=== PATIENT | male | born 1965 | race African-American/Black ===

== ENCOUNTER 2020-07-17 08:24 | Outpatient (REF) | payer MEDICARE, MEDICAID, SELFPAY ==
[2020-07-17 10:58] LABS: Alanine Aminotransferase 30 U/L (0-40); Albumin Level 4.6 g/dL (3.5-5.0); Alkaline Phosphatase 96 U/L (39-117); Anion Gap 12 (12-20); Aspartate Amino Transferase 23 U/L (5-37); Bilirubin Total 0.3 mg/dL (0.0-1.0); Blood Urea Nitrogen 15 mg/dL (9-16); Calcium 9.7 mg/dL (8.4-10.2); Carbon Dioxide 29 mmol/L (22-29); Chloride 101 mmol/L (96-108); Estimated Glomerular Filt Rate > 60; Glucose Fasting 179 mg/dL (60-99); Potassium 4.4 mmol/l (3.3-5.1); Sodium 138 mmol/L (135-145); Total Protein 7.1 g/dL (6.5-8.0)
[2020-07-17 11:12] LABS: Cholesterol 90 mg/dL; HDL Cholesterol 30 mg/dL; LDL Cholesterol Calculated 48 mg/dl; Triglycerides 64 mg/dL
== END 2020-07-17 08:25 | disposition home or self-care (01) ==
LOC: HO.LAB 08:24
PROVIDERS: PCP Internal Medicine; Visit Provider Internal Medicine
DX: E11.42 Type 2 diabetes mellitus with diabetic polyneuropathy (principal); E78.00 Pure hypercholesterolemia, unspecified; E55.9 Vitamin D deficiency, unspecified
CPT/HCPCS: 80053; 80061; 82306

== ENCOUNTER → 2020-07-27 13:29 | Outpatient (BNVA) | payer MEDICARE, MEDICAID, SELFPAY | PROVIDERS: PCP Internal Medicine; Referring Provider Internal Medicine; Visit Provider Nurse Practitioner Gerontology | DX: E11.65 Type 2 diabetes mellitus with hyperglycemia (principal); E11.42 Type 2 diabetes mellitus with diabetic polyneuropathy; E78.5 Hyperlipidemia, unspecified; E55.9 Vitamin D deficiency, unspecified; Z79.84 Long term (current) use of oral hypoglycemic drugs; Z79.899 Other long term (current) drug therapy | CPT/HCPCS: 82947; 99212 ==

== ENCOUNTER → 2020-08-07 12:59 | Outpatient (BNVA) | payer MEDICARE, MEDICAID, SELFPAY | PROVIDERS: PCP Internal Medicine; Referring Provider Internal Medicine; Visit Provider Dietitian, Registered | DX: Z76.89 Persons encountering health services in other specified circumstances (principal) ==

== ENCOUNTER → 2020-09-07 10:29 | Outpatient (BNVA) | payer OTHER, SELFPAY | PROVIDERS: PCP Internal Medicine; Referring Provider Internal Medicine; Visit Provider Nurse Practitioner Gerontology | DX: E11.65 Type 2 diabetes mellitus with hyperglycemia (principal); E11.42 Type 2 diabetes mellitus with diabetic polyneuropathy; E78.5 Hyperlipidemia, unspecified; E55.9 Vitamin D deficiency, unspecified; Z79.899 Other long term (current) drug therapy; Z79.4 Long term (current) use of insulin | CPT/HCPCS: Q3014 ==

== ENCOUNTER → 2020-09-25 13:10 | Outpatient (BNVA) | payer MEDICARE, MEDICAID, SELFPAY | PROVIDERS: PCP Internal Medicine; Visit Provider Dietitian, Registered | DX: Z76.89 Persons encountering health services in other specified circumstances (principal) ==

== ENCOUNTER 2020-11-04 18:14 | Emergency (ER) | payer OTHER, SELFPAY ==
--- NOTE | ~2020-11-04 | XR_ITS ---
EXAMINATION: XR FEMUR, RIGHT CLINICAL INFORMATION: Puncture wound. Rule out bone involvement. COMPARISON: None TECHNIQUE: AP and lateral views of the right femur were obtained. FINDINGS / IMPRESSION No fractures or acute osseous abnormalities. Soft tissues unremarkable without radiopaque foreign body. No knee joint effusion. Mild medial tibiofemoral compartment joint space narrowing associated marginal osteophytes. Quadriceps and patellar tendon enthesopathy.
[2020-11-04 18:17] VITALS: BP 129/75; PULSE 80; RESP 18; TEMP 37.1; O2SAT 100; BMI 37.3
[2020-11-04 20:00] VITALS: BP 121/69; PULSE 84; RESP 18; TEMP 36.6; O2SAT 97
--- NOTE | 2020-11-04 20:19 | ED_ITS ---
HPI - Wound/Laceration General Chief Complaint: Wound/Laceration Stated Complaint: laceration Time Seen by Provider: 11/04/20 20:08 Source: patient Mode of arrival: ambulatory Limitations: no limitations History of Present Illness HPI narrative: Patient diabetic accidentally inflicted small puncture wound to right thigh with small screwdriver just prior to arrival, patient does not remember when he when he got last tetanus shot no other injuries Related Data Home Medications Medication Instructions Recorded Confirmed bupropion HCl 150 mg 24 hr tablet, 150 mg PO DAILY 07/24/20 09/07/20 extended release chlorpromazine 200 mg tablet mg PO 07/24/20 09/07/20 clonidine HCl 0.2 mg tablet 0.2 mg PO BEDTIME 07/24/20 09/07/20 doxepin 10 mg capsule 10 mg PO BEDTIME 07/24/20 09/07/20 gabapentin 600 mg tablet 600 mg PO TID 07/24/20 09/07/20 lidocaine HCl 4 % topical cream 1 applic TOPICAL BID 07/24/20 09/07/20 metformin 1,000 mg tablet 1,000 mg PO BID 07/24/20 09/07/20 oxcarbazepine 600 mg tablet 600 mg PO BID 07/24/20 09/07/20 ascorbic acid (vitamin C) 1,000 mg 1 g PO DAILY tab 07/27/20 09/07/20 tablet blood sugar diagnostic #10 ea 07/27/20 09/07/20 naproxen 500 mg tablet 500 mg PO Q12H PRN 07/27/20 09/07/20 trazodone 50 mg tablet 50 mg PO BEDTIME 09/07/20 09/07/20 Previous Rx's Medication Instructions Recorded semaglutide 1 mg/dose (2 mg/1.5 1 mg SUBCUT QWEEK 28 Days #3 ml 07/16/20 mL) subcutaneous pen injector atorvastatin 80 mg tablet 80 mg PO DAILY #30 tab 07/27/20 cholecalciferol (vitamin D3) 25 25 mcg PO DAILY #30 tab 09/07/20 mcg (1,000 unit) tablet flash glucose scanning reader #1 ea 09/07/20 flash glucose sensor 1 ea TOPICAL Q2W #2 ea 09/07/20 insulin aspart U-100 100 unit/mL See Rx Instructions SUBCUT TID #15 09/07/20 (3 mL) subcutaneous pen ml insulin glargine U-300 conc 300 34 unit SUBCUT DAILY 30 Days #6 ml 09/07/20 unit/mL (3 mL) subcutaneous pen thiamine mononitrate (vit B1) 100 100 mg PO DAILY #30 tab 10/07/20 mg tablet lisinopril 5 mg tablet 5 mg PO DAILY #90 tab 10/20/20 amoxicillin-pot clavulanate 1 tab PO BID #14 tab 11/04/20 [Augmentin] Allergies Allergy/AdvReac Type Severity Reaction Status Date / Time dulaglutide [Trulicity] Allergy Unknown cyst Verified 09/07/20 14:44 ondansetron [ONDANSETRON] Allergy Unknown stomach Verified 09/07/20 14:44 pain Review of Systems Review of Systems: Yes all other systems are reviewed and are negative [facility] Past Medical History Medical History Fibromyalgia GERD (gastroesophageal reflux disease) Hyperlipidemia LDL goal <100 IBS (irritable bowel syndrome) Kidney stones Right leg pain Serum calcium elevated Type 2 diabetes mellitus with diabetic polyneuropathy Type 2 diabetes mellitus with hyperglycemia Vitamin D deficiency Surgical History History of eye surgery Family History Family History Father Colon cancer Stroke Prostate cancer Mother Hypertension Diabetes Family/Other FH: mental illness Social History Social History Household Members: None Alcohol intake: never Smoking Status: Never smoker Use of substances other than those prescribed or required for medical reasons: No Advance Directives: No Physical Exam Vital Signs: Vital Signs: Last Vital Signs Temp 97.8 F 11/04/20 20:00 Pulse 84 11/04/20 20:00 Resp 18 11/04/20 20:00 BP 121/69 11/04/20 20:00 Pulse Ox 97 11/04/20 20:00 Body Mass Index 37.3 Const: General: cooperative, healthy appearing, comfortable and no acute dis tress Resp: Effort & Inspection: normal respiratory effort Cardio: Palpation: normal PMI Rate: regular rate Rhythm: regular rhythm Heart sounds: S1 normal heart sound present and S2 normal heart sound present Skin: Full body images: 1. Small puncture wound MDM - Wound/Laceration MDM Narrative Medical decision making narrative: Patient has small puncture wound to the right thigh diabetic will give him Augmentin for prophylaxis and tetanus shot Discharge Plan Discharge Clinical Impression: Punctured skin Patient Disposition: Home, Self-Care Instructions: Acute Wounds (ED) Additional Instructions: Local care as advised take antibiotic as prescribed Report to the ER if increased swelling/redness or pain Prescriptions: New amoxicillin-pot clavulanate [Augmentin] 875-125 mg tablet 1 tab PO BID Qty: 14 RF: 0 No Action Ozempic 1 mg/dose (2 mg/1.5 mL) pen injector 1 mg subcut QWEEK 28 Days Qty: 3 RF: 3 insulin aspart U-100 [Novolog Flexpen U-100 Insulin] 100 unit/mL (3 mL) insulin pen See Rx Instructions subcut TID Qty: 15 RF: 0 thiamine mononitrate (vit B1) [Vitamin B-1 (mononitrate)] 100 mg tablet 100 mg PO DAILY Qty: 30 RF: 11 lisinopril 5 mg tablet 5 mg PO DAILY Qty: 90 RF: 2 bupropion HCl 150 mg tablet extended release 24 hr 150 mg PO DAILY RF: 0 metformin 1,000 mg tablet 1,000 mg PO BID RF: 0 clonidine HCl 0.2 mg tablet 0.2 mg PO BEDTIME RF: 0 gabapentin 600 mg tablet 600 mg PO TID RF: 0 oxcarbazepine 600 mg tablet 600 mg PO BID RF: 0 doxepin 10 mg capsule 10 mg PO BEDTIME RF: 0 chlorpromazine 200 mg tablet PO RF: 0 lidocaine HCl [Aspercreme (lidocaine HCl)] 4 % cream 1 applic topical BID RF: 0 (DME) FreeStyle Precision [place] Strips Strip See Rx Instructions ea Not Applicable DAILY Qty: 10 RF: 0 naproxen 500 mg tablet 500 mg PO Q12H PRNRF: 0 ascorbic acid (vitamin C) 1,000 mg tablet 1 g PO DAILY RF: 0 atorvastatin 80 mg tablet 80 mg PO DAILY Qty: 30 RF: 6 trazodone 50 mg tablet 50 mg PO BEDTIME RF: 0 Toujeo Max U-300 SoloStar 300 unit/mL (3 mL) insulin pen 34 unit subcut DAILY 30 Days Qty: 6 RF: 1 (DME) FreeStyle Kevin 14 Day [place] Misc See Rx Instructions .ROUTE .MEDSUPPLY Qty: 1 RF: 0 FreeStyle Kevin 14 Day Sensor Kit 1 ea topical Q2W Qty: 2 RF: 11 cholecalciferol (vitamin D3) 25 mcg (1,000 unit) tablet 25 mcg PO DAILY Qty: 30 RF: 6 Interventions: ED Discharge Assessment Last Done: 11/04/20 20:36 Discharge Date/Time: 11/04/20 20:37 Print Language: Austrian
[2020-11-04] MEDS: Amoxicillin/Potassium Clav 875 MG TABLET PO (20:35)
== END 2020-11-04 20:37 | disposition home or self-care (01) ==
PROVIDERS: Emergency Provider Internal Medicine; PCP Internal Medicine
DX: S71.111A Laceration without foreign body, right thigh, initial encounter (principal); S80.811A Abrasion, right lower leg, initial encounter; M79.651 Pain in right thigh; Y29.XXXA Contact with blunt object, undetermined intent, initial encounter; Y93.9 Activity, unspecified; Y92.9 Unspecified place or not applicable; Y99.9 Unspecified external cause status; Z79.899 Other long term (current) drug therapy; Z23 Encounter for immunization
CPT/HCPCS: 73552; 90471; 90715; 99284

== ENCOUNTER 2020-11-24 09:05 | Outpatient (REF) | payer OTHER, SELFPAY ==
--- NOTE | 2020-11-24 09:36 | ECG_ITS ---
Test Reason : R07.9 CP Blood Pressure : / mmHG Vent. Rate : 057 BPM Atrial Rate : 057 BPM P-R Int : 156 ms QRS Dur : 096 ms QT Int : 410 ms P-R-T Axes : 031 -03 -11 degrees QTc Int : 399 ms Sinus bradycardia Moderate voltage criteria for LVH, may be normal variant Borderline ECG When compared with ECG of 28-JUN-2019 23:05, Vent. rate has decreased BY 35 BPM Referred By: Salima Rizo Electronically Signed By:DELIA VERGARA MD
[2020-11-24 10:19] LABS: Estimated Average Glucose 246 mg/dL; Hemoglobin A1c % 10.2 %
[2020-11-24 10:32] LABS: Creatinine Urine 192.42 mg/dL
[2020-11-24 10:57] LABS: Alanine Aminotransferase 24 U/L (0-40); Albumin Level 4.6 g/dL (3.5-5.0); Alkaline Phosphatase 101 U/L (39-117); Anion Gap 13 (12-20); Aspartate Amino Transferase 12 U/L (5-37); Bilirubin Total 0.5 mg/dL (0.0-1.0); Blood Urea Nitrogen 12 mg/dL (9-16); Calcium 9.7 mg/dL (8.4-10.2); Carbon Dioxide 30 mmol/L (22-29); Chloride 103 mmol/L (96-108); Cholesterol 100 mg/dL; Estimated Glomerular Filt Rate > 60; Glucose Fasting 276 mg/dL (60-99); HDL Cholesterol 32 mg/dL; LDL Cholesterol Calculated 52 mg/dl; Potassium 4.7 mmol/L (3.3-5.1); Sodium 141 mmol/L (135-145); Total Protein 7.3 g/dL (6.5-8.0); Triglycerides 83 mg/dL
[2020-11-30 14:27] LABS: Vitamin D 25-OH, D2 <4 ng/mL; Vitamin D 25-OH, D3 24 ng/mL; Vitamin D 25-OH, Total 24 ng/mL (30-100)
== END 2020-11-24 09:06 | disposition home or self-care (01) ==
LOC: HO.LAB 09:05
PROVIDERS: Nurse Practitioner Gerontology; PCP Internal Medicine; Visit Provider Internal Medicine
DX: E11.65 Type 2 diabetes mellitus with hyperglycemia (principal); R07.9 Chest pain, unspecified; E78.5 Hyperlipidemia, unspecified; E55.9 Vitamin D deficiency, unspecified
CPT/HCPCS: 36415; 80053; 80061; 82043; 82306; 83036; 93005

== ENCOUNTER → 2020-11-28 09:10 | Outpatient (BNVA) | payer OTHER, SELFPAY | PROVIDERS: PCP Internal Medicine; Visit Provider Nurse Practitioner Gerontology | DX: E11.65 Type 2 diabetes mellitus with hyperglycemia (principal); E11.42 Type 2 diabetes mellitus with diabetic polyneuropathy; Z79.4 Long term (current) use of insulin; E78.5 Hyperlipidemia, unspecified; E55.9 Vitamin D deficiency, unspecified | CPT/HCPCS: 82947; Q3014 ==

== ENCOUNTER → 2020-12-08 07:47 | Outpatient (BNVA) | payer OTHER, SELFPAY | PROVIDERS: PCP Internal Medicine; Visit Provider Internal Medicine Cardiovascular Disease | DX: R07.2 Precordial pain (principal); I10 Essential (primary) hypertension | CPT/HCPCS: 99202 ==

== ENCOUNTER → 2020-12-14 10:13 | Outpatient (BNVA) | payer OTHER, SELFPAY | PROVIDERS: PCP Internal Medicine; Visit Provider Nurse Practitioner Gerontology | DX: Z13.89 Encounter for screening for other disorder (principal) | CPT/HCPCS: Q3014 ==

== ENCOUNTER → 2021-01-22 08:10 | Outpatient (REF) | payer OTHER, SELFPAY ==
--- NOTE | ~2021-01-22 | NM_ITS ---
Lexiscan Myocardial perfusion study Indication: Chest pain, shortness of breath, assess for coronary disease and ischemia Technique: The patient was brought in for a Lexiscan perfusion study on 01/22/2021 and was injected 0.4 mg of Lexiscan intravenously. Within a minute of this injection 30 mCi of sestamibi was given intravenously. Images were obtained using the SPECT gamma camera interlaced with the gating device. Images were obtained in supine position. Resting perfusion study was performed on 01/23/2021. Patient was administered 30 mCi of sestamibi intravenously at rest. Images were then obtained in supine position. Total DLP 53mGy-cm. Images were processed with the software and compared side to side in short axis, horizontal long axis and vertical long axis views. Findings: Raw acquisition was reviewed. There is adjacent hepatic and GI tracer uptake near the inferior wall. The stress perfusion study showed diminished tracer uptake along the basal inferior wall. With CT attenuation correction this improves suggestive of artifact. The gated study shows normal LV systolic function with calculated LVEF of 55%. LV cavity is normal in size. The gated study shows normal wall thickening and contraction of segments. Resting study shows diminished tracer uptake in the basal inferior wall, but otherwise unremarkable. With CT attenuation correction, there is improvement suggesting artifactual etiology. Gating at rest reveals normal wall motion with ejection fraction at 43%. The findings are consistent with basal inferior defect with some reversible and fixed components but improving with CT attenuation correction and hence suggesting likely artifactual etiology. NM/NM abigail perf SPECT rest & str Impression: 1. Myocardial perfusion imaging study shows no definitive evidence of any ischemia or infarction. Basal inferior defect with reversible and fixed components but improving with CT attenuation correction and hence probably artifactual. 2. Gated LVEF is 55% during stress and 42% during rest. Correlate with echocardiogram. 3. Transient ischemic dilatation not present. EKG component of the test reported separately.
--- NOTE | 2021-01-22 08:23 | CA_ITS ---
Transthoracic Echocardiogram Patient (Last, First, Middle): Fer Leung B Gender: Male Date of : 1965 Age: 55 Procedure Date: 01/22/2021 Procedure Type: Transthoracic Echocardiogram Location: OP Height: 177.8 cm Weight: 97.07 kg BSA: 2.15 m2 Heart Rate: bpm BP: 104 / 60 mmHg Diesel Dragline Operator: Jesus MD: Ronald Cooper MD Quality Assurance Qa Lab Analyst: Ronald Cooper MD Symptoms: R07.2 - Precordial pain Study Quality: Good ECG Rhythm: Sinus Conclusions: - Normal study Findings Left Ventricle Normal left ventricular size, thickness, and systolic function. The visually estimated ejection fraction is between 60-65%. Diastolic function is normal for age. Right Ventricle Normal right ventricular cavity size and systolic function. Atria Both atria are normal in size. There is no evidence of interatrial shunt. Aortic Valve Normal aortic valve structure and function. There is no aortic valve stenosis. There is no aortic valve regurgitation. Mitral Valve Normal mitral valve structure and function. There is trace mitral valve regurgitation. There is no mitral valve stenosis. Pulmonic Valve The pulmonic valve is likely normal. There is trace to mild pulmonic valve regurgitation. Tricuspid Valve Normal tricuspid valve structure. There is trace tricuspid valve regurgitation. The right ventricular systolic pressure is normal. The right ventricular systolic pressure is 23 mmHg. Normal right atrial pressure. There is no evidence of pulmonary hypertension. Great Vessels All visible segments of the aorta are normal in size. The pulmonary artery was not well visualized. Venous The inferior vena cava is normal in size and collapses greater than 50% with inspiration. Pericardium/Pleural There is no evidence of pericardial effusion. Prior Study Comparison No prior study available for comparison. Measurements 2D Linear Measurements RVIDd: 2.91 RVIDd Index: 1.35 IVSd: 0.82 0.6-0.9/0.6-1.0 cm LVIDd: 5.44 3.9-5.3/4.2-5.9 cm LVIDd Index: 2.53 2.4-3.2/2.2-3.1 cm/m2 LVIDs: 3.29 2.0-3.6 cm LVPWd: 1.04 0.7-1.1 cm Ao Root: 3.20 2.1-3.5 cm LA Diam: 4.00 2.7-3.8/3.0-4.0 cm LAIDs Index: 1.86 1.5-2.3 cm/m2 LV Mass: 237.65 67-162/88-224 g LV Mass Index: 110.53 43-95/49-115 g/m2 LVOT Diam: 2.40 3.0+(-)1.3 cm 2D Systolic Function EF 4C: 60.00 >55% EF 2C: 69.10 >55% EF BiP: 62.70 >55% Mitral Valve MV Pk E: 0.83 MV PK A: 0.78 MV Decel Time: 208.00 E/A: 1.10 E'Lateral: 8.38 E'Medial: 5.22 E/E' Med: 15.80 E/E' Lat: 9.90 Aortic Valve AoV Pk Omid: 1.46 AoV Mn Omid: 1.05 AoV VTI: 0.28 AoV Pk Grad: 9.00 Aov Mn Grad: 5.00 LELA Cont.VTI: 2.89 LVOT LVOT Pk Omid: 0.99 LVOT Mn Omid: 0.69 LVOT VTI: 0.18 LVOT Pk Grad: 4.00 LVOT Mn Grad: 2.00 LVOT Diam: 2.40 LVOT Area: 4.52 Diastolic Function MV Pk E: 0.83 MV Pk A: 0.78 E/A: 1.10 E'Medial: 5.22 E/E' Med: 15.80 E' Laterial: 8.38 E/E' Lat: 9.90 Tricuspid Valve TR Pk Omid: 2.25 TR Pk Grad: 20.00 RA Press: 3.00 RVSP: 23.00 Great Vessels Aorta Ao Root-2D: 3.20 2.0-3.7 cm Ao Asc: 3.40 2.1-3.4 cm Ao Arch: 3.10 Updated in Other Vendor System with Status of Final Ronald Cooper MD electronically signed on 01/22/2021 4:56:02 PM with status of Final
--- NOTE | 2021-01-22 08:23 | CA_ITS ---
Acquisition Time: 2021-01-22 09:21:22 Total Exercise Time: 00:02:00 Test Indications: CP, SOB Medications: SEE CHART Protocol: LEXISCAN Max HR: 104 BPM 63% of Pred: 165 BPM Max BP: 126/070 mmHG Max Work Load: 1.0 METS Pharmacological stress test using Lexiscan while sitting and kicking his feet. Pt tolerated well, denies any anginal sx. EKG without any arrhythmias, non-diagnostic for ishemia. Nuclear images to follow. Normotensive response to test. Test reviewed with Dr. Cooper. Referred By: Ronald Cooper Overread By: Taina Cerda NP
== END ==
LOC: HO.CARD 08:10
PROVIDERS: Visit Provider Internal Medicine Cardiovascular Disease
DX: R07.2 Precordial pain (principal)
CPT/HCPCS: 78452; 93017; 93306; A9500; J0280; J2785

== ENCOUNTER → 2021-02-27 09:30 | Outpatient (BNVA) | payer OTHER, SELFPAY | PROVIDERS: PCP Internal Medicine; Referring Provider Internal Medicine; Visit Provider Internal Medicine Cardiovascular Disease | DX: R07.2 Precordial pain (principal) | CPT/HCPCS: 99212 ==

== ENCOUNTER → 2021-03-01 12:04 | Outpatient (BNVA) | payer OTHER, SELFPAY | PROVIDERS: PCP Internal Medicine; Visit Provider Nurse Practitioner Gerontology | DX: E11.65 Type 2 diabetes mellitus with hyperglycemia (principal); E11.42 Type 2 diabetes mellitus with diabetic polyneuropathy; E78.5 Hyperlipidemia, unspecified; E55.9 Vitamin D deficiency, unspecified; E66.09 Other obesity due to excess calories; I10 Essential (primary) hypertension; Z79.4 Long term (current) use of insulin; Z68.30 Body mass index [BMI] 30.0-30.9, adult | CPT/HCPCS: 82947; 99212 ==

== ENCOUNTER 2021-04-06 19:11 | Emergency (ER) | payer OTHER, SELFPAY ==
[2021-04-06 19:36] VITALS: BP 117/76; PULSE 90; RESP 16; TEMP 36.4; O2SAT 97; BMI 30.8
--- NOTE | 2021-04-06 20:25 | ED_ITS ---
HPI - Back Pain/Injury General Chief Complaint: Back Pain/Injury Stated Complaint: Back pain Time Seen by Provider: 04/06/21 19:56 Source: patient Mode of arrival: ambulatory Limitations: no limitations History of Present Illness HPI Narrative: 55-year-old male here with acute on chronic low back pain x4 days. No injury or trauma. Patient using a [id number] medications with continued symptoms. Pain radiates down the right leg he has intermittent numbness and tingling which he always has and is not new or worsened. No bowel or bladder incontinence. No saddle anesthesia. No fevers or chills. Related Data Home Medications Medication Instructions Recorded Confirmed bupropion HCl 150 mg 24 hr tablet, 150 mg PO DAILY 07/24/20 03/01/21 extended release clonidine HCl 0.2 mg tablet 0.2 mg PO BEDTIME 07/24/20 03/01/21 doxepin 10 mg capsule 10 mg PO BEDTIME 07/24/20 03/01/21 gabapentin 600 mg tablet 600 mg PO TID 07/24/20 03/01/21 lidocaine HCl 4 % topical cream 1 applic TOPICAL BID 07/24/20 03/01/21 oxcarbazepine 600 mg tablet 600 mg PO BID 07/24/20 03/01/21 ascorbic acid (vitamin C) 1,000 mg 1 g PO DAILY tab 07/27/20 03/01/21 tablet chlorpromazine 200 mg tablet 200 mg PO tab 11/28/20 03/01/21 sertraline 50 mg tablet 50 mg PO DAILY 12/08/20 03/01/21 trazodone 100 mg tablet 150 mg PO BEDTIME PRN 12/08/20 03/01/21 Previous Rx's Medication Instructions Recorded semaglutide 1 mg/dose (2 mg/1.5 1 mg SUBCUT QWEEK 28 Days #3 ml 07/16/20 mL) subcutaneous pen injector flash glucose scanning reader #1 ea 09/07/20 insulin glargine U-300 conc 300 34 unit SUBCUT DAILY 30 Days #6 ml 09/07/20 unit/mL (3 mL) subcutaneous pen lisinopril 5 mg tablet 5 mg PO DAILY #90 tab 10/20/20 thiamine mononitrate (vit B1) 100 100 mg PO DAILY 90 Days #90 tab 11/23/20 mg tablet toilet seat elevator #1 ea 11/23/20 walker #1 ea 11/23/20 insulin aspart U-100 100 unit/mL See Rx Instructions SUBCUT QID #15 11/28/20 (3 mL) subcutaneous pen ml pen needle, diabetic 32 gauge x #125 ea 11/28/20 flash glucose sensor 1 ea TOPICAL Q2W #2 ea 12/14/20 metformin 1,000 mg tablet 1,000 mg PO BID 90 Days #180 tab 12/14/20 cholecalciferol (vitamin D3) 125 125 mcg PO DAILY #30 cap 01/07/21 mcg (5,000 unit) capsule atorvastatin 80 mg tablet 80 mg PO DAILY #30 tab 03/08/21 blood sugar diagnostic 1 strip MISCELLANEOUS QID 30 Days 04/03/21 #100 strip cyclobenzaprine 10 mg PO TID PRN #10 tab 04/06/21 hydrocodone-acetaminophen 1 tab PO Q6H PRN #5 tab 04/06/21 lidocaine [Lidoderm] 1 patch TOPICAL DAILY #15 ea 04/06/21 Allergies Allergy/AdvReac Type Severity Reaction Status Date / Time dulaglutide [Trulicity] Allergy Unknown cyst Verified 04/06/21 19:41 ondansetron [ONDANSETRON] Allergy Unknown stomach Verified 04/06/21 19:41 pain Review of Systems 2 Review of Systems: Yes all other systems are reviewed and are negative Constitutional: Constitutional: Reports no additional constitutional complaints, Denies body ache(s), Denies chills, Denies fever(s), Denies headache(s) and Denies weakness Eyes: Eyes: Reports no additional eye complaints and Denies change in vision ENT: Reports system reviewed and no additional complaints, except as doc umented, Denies dizziness, Denies headache(s), Denies nasal congestion, Denies nasal discharge and Denies neck pain Cardiovascular: Cardiovascular: Reports no additional cardiovascular complaints, Denies chest pain, Denies leg edema and Denies dyspnea Respiratory: Respiratory: Reports no additional respiratory complaints, Denies cough and Denies dyspnea Gastrointestinal: Gastrointestinal: Reports no additional gastrointestinal complaints, Denies abdominal pain, Denies diarrhea, Denies nausea and Denies vomiting Genitourinary: Genitourinary: Denies urinary incontinence Musculoskeletal: Musculoskeletal: Reports no additional musculoskeletal complaints, Reports back pain, Denies arthralgias, Denies joint swelling, Denies neck pain, Denies numbness and Denies tingling Integumentary/Breasts: Skin/Breast: Reports system reviewed and no additional complaints, except as docu and Denies rash Neurologic: Reports system reviewed and no additional complaints, except as do cumented, Denies Abnormal speech present, Denies dizziness, Denies headache(s), Denies numbness, Denies tingling and Denies weakness [facility] Past Medical History Attestation statement: The following information was validated with the patient. Source: old records reviewed and nursing notes reviewed Medical History Chest pain Fibromyalgia GERD (gastroesophageal reflux disease) HTN (hypertension) Hyperlipidemia LDL goal <100 IBS (irritable bowel syndrome) Kidney stones Obesity due to excess calories Right leg pain Serum calcium elevated Type 2 diabetes mellitus with diabetic polyneuropathy Type 2 diabetes mellitus with hyperglycemia Unsteady gait Vitamin D deficiency Surgical History History of eye surgery Family History Family History Father Colon cancer Stroke Prostate cancer Mother Hypertension Diabetes Family/Other FH: mental illness Social History Social History Household Members: None Alcohol intake: never Advance Directives: No Advance Directives Information Provided: No Physical Exam Vital Signs: Vital Signs: Last Vital Signs Temp 97.6 F 04/06/21 19:36 Pulse 90 04/06/21 19:36 Resp 16 04/06/21 19:36 BP 117/76 04/06/21 19:36 Pulse Ox 97 04/06/21 19:36 Body Mass Index 30.8 Const: General: cooperative, healthy appearing, comfortable and no acute distress Orientation/consciousness: patient oriented x3 Limitations: no limitations HENMT: Head: Yes normal to inspection Ears: hearing grossly normal bilaterally General nose exam: Normal external nose present Face and sinus: Yes normal facial exam Mouth: Normal oral and palatal mucosa present Throat: Yes posterior oropharynx normal Eyes: General: appearance normal, both eyes and all related structures Pupils: Equal, round and reactive pupils present Neck: Neck: Yes normal visual inspection Chest: Chest palpation & inspection: normal inspection of the chest Resp: Effort & Inspection: normal respiratory effort Auscultation: clear to auscultation bilaterally Cardio: Rate: regular rate Rhythm: regular rhythm Peripheral pulses: Peripheral pulses 2+ throughout GI: Inspection: Yes normal to inspection Palpation (GI): Soft to palpation and nontender Auscultation: normal bowel sounds Back/Spine/Pelvis: Other: Tenderness over the lower back but no step-offs or deformities. Thoracic/Lumbar Spine: thoracic and lumbar spine normal to inspection Skin: General skin exam: no rashes or lesions noted Neuro: General: patient oriented x3, moves all extremities, no focal motor deficits and normal sensation to monofilament Cranial nerves: Yes Equal, round and reactive pupils present Cognition (Neuro): normal cognition Speech: No Abnormal speech present Gait exam (Neuro): Normal gait present Motor exam (neuro): 5/5 motor strength present throughout Sensory Exam: Normal double simultaneous stimulation for sensation Deep tendon reflexes (DTR's): Right patellar reflex intensity grade: 2+ and Left patellar reflex intensity grade: 2+ Extrem: General: Yes normal to inspection, Yes no pedal edema and Yes no calf tenderness Course Course Course Narrative: 55-year-old male here with acute on chronic low back pain. No new injury or trauma. No neurological deficits. No red flag symptoms. Patient medicated with Toradol and lidocaine patches here with improvement. Will send home with very small amount of narcotic and muscle relaxants. Recommended follow-up primary care doctor. Reviewed worrisome signs and symptoms such as worsening pain, incontinence, fever and when to return to the emergency department. Comfortable discharge home. Discharge Plan Discharge Clinical Impression: Strain of lumbar region Patient Disposition: Home, Self-Care Instructions: Low Back Strain (ED) Additional Instructions: no heavy lifting or bending Heat or ice Prescriptions: New cyclobenzaprine 10 mg tablet 10 mg PO TID PRN (Reason: muscle spasm) Qty: 10 RF: 0 lidocaine [Lidoderm] 5 % adhesive patch,medicated 1 patch topical DAILY Qty: 15 RF: 0 hydrocodone-acetaminophen 5-300 mg tablet 1 tab PO Q6H PRN (Reason: pain) Qty: 5 RF: 0 No Action Ozempic 1 mg/dose (2 mg/1.5 mL) pen injector 1 mg subcut QWEEK 28 Days Qty: 3 RF: 3 lisinopril 5 mg tablet 5 mg PO DAILY Qty: 90 RF: 2 insulin aspart U-100 [Novolog Flexpen U-100 Insulin] 100 unit/mL (3 mL) insulin pen See Rx Instructions subcut QID Qty: 15 RF: 3 cholecalciferol (vitamin D3) 125 mcg (5,000 unit) capsule 125 mcg PO DAILY Qty: 30 RF: 6 atorvastatin 80 mg tablet 80 mg PO DAILY Qty: 30 RF: 2 blood sugar diagnostic [FreeStyle Lite Strips] Strip 1 strip miscellaneous QID 30 Days Qty: 100 RF: 11 bupropion HCl 150 mg tablet extended release 24 hr 150 mg PO DAILY RF: 0 clonidine HCl 0.2 mg tablet 0.2 mg PO BEDTIME RF: 0 gabapentin 600 mg tablet 600 mg PO TID RF: 0 oxcarbazepine 600 mg tablet 600 mg PO BID RF: 0 doxepin 10 mg capsule 10 mg PO BEDTIME RF: 0 lidocaine HCl [Aspercreme (lidocaine HCl)] 4 % cream 1 applic topical BID RF: 0 chlorpromazine 200 mg tablet 200 mg PO RF: 0 thiamine mononitrate (vit B1) [Vitamin B-1 (mononitrate)] 100 mg tablet 100 mg PO DAILY 90 Days Qty: 90 RF: 3 (DME) walker Misc See Rx Instructions .ROUTE .MEDSUPPLY Qty: 1 RF: 0 (DME) toilet seat elevator See Rx Instructions .Route .MEDSUPPLY Qty: 1 RF: 0 ascorbic acid (vitamin C) 1,000 mg tablet 1 g PO DAILY RF: 0 Toujeo Max U-300 SoloStar 300 unit/mL (3 mL) insulin pen 34 unit subcut DAILY 30 Days Qty: 6 RF: 1 (DME) FreeStyle Kevin 14 Day [place] Misc See Rx Instructions .ROUTE .MEDSUPPLY Qty: 1 RF: 0 metformin 1,000 mg tablet 1,000 mg PO BID 90 Days Qty: 180 RF: 1 FreeStyle Kevin 14 Day Sensor Kit 1 ea topical Q2W Qty: 2 RF: 11 (DME) pen needle, diabetic [BD Ultra-Fine Diana Pen Needle] 32 gauge x 5/32 needle See Rx Instructions .ROUTE .MEDSUPPLY Qty: 125 RF: 6 trazodone 100 mg tablet 150 mg PO BEDTIME PRNRF: 0 sertraline 50 mg tablet 50 mg PO DAILY RF: 0 Referrals: Salima Rodney MD [Primary Care Provider] - 2 days Interventions: ED Discharge Assessment Last Done: 04/06/21 20:47 Discharge Date/Time: 04/06/21 20:49 Print Language: Panamanian
[2021-04-06] MEDS: Ketorolac Tromethamine 60 MG/2 ML VIAL IM (20:35)
[2021-04-06] MEDS: Lidocaine 4 % Patch ADH..PATCH 1 PATCH TRANSDERMA (20:36)
== END 2021-04-06 20:49 | disposition home or self-care (01) ==
PROVIDERS: Emergency Provider Internal Medicine; PCP Internal Medicine
DX: S39.012A Strain of muscle, fascia and tendon of lower back, initial encounter (principal); I10 Essential (primary) hypertension; E11.9 Type 2 diabetes mellitus without complications; Z79.4 Long term (current) use of insulin; Z79.899 Other long term (current) drug therapy; X58.XXXA Exposure to other specified factors, initial encounter; Y93.9 Activity, unspecified; Y92.9 Unspecified place or not applicable; Y99.9 Unspecified external cause status
CPT/HCPCS: 96372; 99284; J1885

== ENCOUNTER → 2021-05-17 14:36 | Outpatient (BNVA) | payer OTHER, SELFPAY | PROVIDERS: PCP Internal Medicine; Visit Provider Urology | CPT/HCPCS: Q3014 ==

== ENCOUNTER 2021-06-19 09:21 | Outpatient (REF) | payer OTHER, SELFPAY ==
[2021-06-19 12:41] LABS: Creatinine Urine 273.08 mg/dL; Microalbum/Creatinine Ratio Ur 9.1 ug/mg cr
[2021-06-19 12:43] LABS: Cholesterol 110 mg/dL; HDL Cholesterol 36 mg/dL; LDL Cholesterol Calculated 63 mg/dl; Triglycerides 58 mg/dL
[2021-06-26 14:41] LABS: Vitamin D 25-OH, D2 <4 ng/mL; Vitamin D 25-OH, D3 33 ng/mL; Vitamin D 25-OH, Total 33 ng/mL (30-100)
== END 2021-06-19 09:22 | disposition home or self-care (01) ==
LOC: HO.LAB 09:21
PROVIDERS: Absent Provider Internal Medicine; PCP Internal Medicine; Visit Provider Nurse Practitioner Gerontology
DX: E11.65 Type 2 diabetes mellitus with hyperglycemia (principal); E11.42 Type 2 diabetes mellitus with diabetic polyneuropathy; E78.5 Hyperlipidemia, unspecified; E55.9 Vitamin D deficiency, unspecified; E66.09 Other obesity due to excess calories; Z68.30 Body mass index [BMI] 30.0-30.9, adult; I10 Essential (primary) hypertension; Z79.4 Long term (current) use of insulin
CPT/HCPCS: 36415; 80061; 82043; 82306; 82947; 99212

== ENCOUNTER → 2021-07-11 12:02 | Outpatient (BNVA) | payer OTHER, SELFPAY | PROVIDERS: PCP Internal Medicine; Visit Provider Dietitian, Registered | DX: E11.65 Type 2 diabetes mellitus with hyperglycemia (principal); Z79.4 Long term (current) use of insulin | CPT/HCPCS: 97803 ==

== ENCOUNTER → 2021-09-10 13:09 | Outpatient (BNVA) | payer OTHER, SELFPAY | PROVIDERS: PCP Internal Medicine; Visit Provider Dietitian, Registered | DX: E11.65 Type 2 diabetes mellitus with hyperglycemia (principal); Z79.4 Long term (current) use of insulin | CPT/HCPCS: 97803 ==

== ENCOUNTER 2021-09-17 12:50 | Emergency (ER) | payer OTHER, SELFPAY ==
[2021-09-17 15:31] VITALS: BP 128/68; PULSE 72; RESP 20; TEMP 36.5; O2SAT 100; BMI 29.1
--- NOTE | 2021-09-17 16:30 | ED_ITS ---
HPI - Ear Problem General Chief complaint: Ear Problems Stated complaint: l ear pain quest fb Time Seen by Provider: 09/17/21 16:17 Source: patient Mode of arrival: ambulatory Limitations: language barrier History of Present Illness HPI Narrative: 56-year-old male presents with left ear pain for approximately 1 week. Does not report any decrease in hearing or purulent drainage from the site. States that he has been using Q-tips and feels like there is a bug crawling in his ear. MD Complaint: ear pain and foreign body Location: left ear Duration: constant Severity: moderate Relieving factors: nothing Exacerbating factors: chewing and palpation Context: recent illness Discharge from ear: no Associated symptoms ear: external ear tenderness Treatment prior to arrival: attempt at ear wax removal and other (Vicks vapor rub) Related Data Home Medications Medication Instructions Recorded Confirmed bupropion HCl 150 mg 24 hr tablet, 150 mg PO DAILY 07/24/20 06/19/21 extended release clonidine HCl 0.2 mg tablet 0.2 mg PO BEDTIME 07/24/20 06/19/21 doxepin 10 mg capsule 10 mg PO BEDTIME 07/24/20 06/19/21 gabapentin 600 mg tablet 600 mg PO TID 07/24/20 06/19/21 lidocaine HCl 4 % topical cream 1 applic TOPICAL BID 07/24/20 06/19/21 (Aspercreme (lidocaine HCl)) oxcarbazepine 600 mg tablet 600 mg PO BID 07/24/20 06/19/21 chlorpromazine 200 mg tablet 200 mg PO tab 11/28/20 06/19/21 trazodone 100 mg tablet 150 mg PO BEDTIME PRN 12/08/20 06/19/21 Previous Rx's Medication Instructions Recorded flash glucose scanning reader #1 ea 09/07/20 (FreeStyle Kevin 14 Day [place]) toilet seat elevator #1 ea 11/23/20 walker #1 ea 11/23/20 pen needle, diabetic 32 gauge x #125 ea 11/28/20 (BD Ultra-Fine Diana Pen Needle) cyclobenzaprine 10 mg tablet 10 mg PO TID PRN #10 tab 04/09/21 sildenafil 100 mg tablet 100 mg PO DAILY PRN 30 Days #30 tab 05/17/21 ascorbic acid (vitamin C) 1,000 mg 1 g PO DAILY 90 Days #90 tab 06/06/21 tablet sertraline 100 mg tablet 100 mg PO DAILY 90 Days #90 tab 06/06/21 cholecalciferol (vitamin D3) 50 50 mcg PO DAILY #30 cap 06/19/21 mcg (2,000 unit) capsule flash glucose sensor (FreeStyle 1 ea TOPICAL Q2W #2 ea 06/19/21 Kevin 14 Day Sensor) empagliflozin 25 mg tablet 25 mg PO QAM #30 tab 07/12/21 (Jardiance) lisinopril 5 mg tablet 5 mg PO DAILY #90 tab 07/25/21 insulin aspart U-100 100 unit/mL See Rx Instructions SUBCUT QID #15 08/03/21 (3 mL) subcutaneous pen (Novolog ml Flexpen U-100 Insulin aspart) atorvastatin 80 mg tablet 80 mg PO DAILY #90 tab 08/27/21 metformin 1,000 mg tablet 1,000 mg PO BID #180 tab 08/27/21 insulin glargine U-300 conc 300 40 unit (0.1333 mL) SUBCUT DAILY 09/06/21 unit/mL (3 mL) subcutaneous pen 30 Days #6 ml (Toujeo Max U-300 SoloStar) semaglutide 1 mg/dose (2 mg/1.5 1 mg (0.75 mL) SUBCUT QWEEK 28 09/10/21 mL) subcutaneous pen injector Days #3 ml (Ozempic) amoxicillin 875 mg-potassium 1 tab PO Q12H 10 Days #20 tab 09/17/21 clavulanate 125 mg tablet (Augmentin) Allergies Allergy/AdvReac Type Severity Reaction Status Date / Time dulaglutide [Trulicity] Allergy Intermediate cyst Verified 06/19/21 10:20 ondansetron [ONDANSETRON] Allergy Intermediate stomach Verified 06/19/21 10:20 pain Review of Systems Review of Systems: Constitutional: No Fever, No Chills ENT/Mouth: Positive left Ear Pain, No Hoarseness, No sore throat Eyes: No Eye Pain, No Swelling, No Redness, No Foreign Body Cardiovascular: No Chest Pain, No SOB Respiratory: No Cough, No Dyspnea Gastrointestinal: No Nausea, No Vomiting, No Diarrhea, No abdominal Pain Genitourinary: No Dysuria, No Hematuria Musculoskeletal: No joint pain, No Myalgias, No Joint Swelling Skin: No Skin lacerations, No rash Neuro: No Weakness, No Numbness, No Paresthesias, No Loss of Consciousness, No Dizziness, No Headache Psych: No Anxiety/Panic, No Depression Heme/Lymph: no easy bruising, no Lymphadenopathy Endocrine: No Polyuria, No Polydipsia Yes all other systems are reviewed and are negative FOR[facility]LY [facility], [facility] Past Medical History Attestation statement: The following information was validated with the patient. 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 Type 2 diabetes mellitus with hyperglycemia Unsteady gait Vitamin D deficiency Surgical History History of eye surgery Family History Family History Father Colon cancer Stroke Prostate cancer Mother Hypertension Diabetes Family/Other FH: mental illness Social History Social History Household Members: None Housing: Apartment Alcohol intake: current Alcohol intake frequency: holidays/special occasions only Alcohol type: wine Patient Tobacco Use Status: Never used Tobacco e-Cigarette/Vaping Use: Never Used Second Hand Smoke Exposure: No Advance Directives: No Advance Directives Information Provided: Yes service: No Current occupational status: disabled Physical Exam Vital Signs: Vital Signs: Last Vital Signs Temp 97.7 F 09/17/21 15:31 Pulse 72 09/17/21 15:31 Resp 20 09/17/21 15:31 BP 128/68 09/17/21 15:31 Pulse Ox 100 09/17/21 15:31 BMI result Body Mass Index 29.1 Appearance: Alert. Oriented X3. No acute distress. Eyes: Pupils equal, round and reactive to light. ENT: Right tympanic membrane and auditory canal normal, left tympanic membrane and canal erythematous non perforated, no cervical lymphadenopathy noted. No mastoid tenderness noted. Pharynx erythematous, no exudates noted. Neck: Normal inspection. Neck supple. No nuchal rigidity. CVS: Normal heart rate and rhythm. Pulses normal. Respiratory: No respiratory distress. Breath sounds normal. Abdomen: Soft and nontender. Skin: Skin warm and dry. Normal skin color. Normal skin turgor. Extremities: No lower extremity edema. Gait balance and coordinated with cane. Neuro: No motor deficit. No sensory deficit. Cranial nerves 2-12 intact. Course Course Course Narrative: 56-year-old male presents with left ear pain. States that he feels like bugs been crawling in. Has been putting Vicks vapor rub and Q-tip inside of his ear to try to alleviate the pain. He does not report any fevers or chills, does not report any purulent drainage or hearing changes. Does have an abnormal gait secondary to a shortened leg and has chronic pain from fibromyalgia. Moves all extremities against resistance. Cranial nerves 2-12 intact. No focal neural deficits. No nuchal rigidity. No indication of meningitis. Afebrile. Will treat with Augmentin as patient does have erythematous canal and tympanic membrane to the left side. Patient verbalized understanding of and agrees plan of care discharge home. diplomatic interpreter/translator utilized for all correspondence. Google translate utilized for discharge instructions. MDM - Ear Differential Diagnosis Differential diagnosis: Likely otitis externa, otitis media, foreign body in ear, ruptured TM and cerumen impaction Medical Records Attestation: I reviewed the patient's medical records. Discharge Plan Discharge Clinical Impression: Otitis media Patient Disposition: Home, Self-Care Instructions: Ear Infection (ED) Additional Instructions: Fue evaluado por dolor en el o?do maria c. Por favor, no use hisopos ni aplique vaporizador Vicks en el canal auditivo. Le recet? Augmentin. Heather medicamento es un antibi?kalie. Desha heather medicamento dos veces al d?a lamine 10 d?as. Seguimiento con m?dico de atenci?n primaria. Bret por elegir heather departamento de emergencias para carbajal evaluaci?n. Jarrell un seguimiento con carbajal m?dico de atenci?n primaria seg?n sea necesario. Regrese al departamento de emergencias por cualquier s?ntoma nuevo, preocupante o que empeore. You were evaluated for left ear pain. Please do not use Q-tips or put Vicks vapor rub into the ear canal. I prescribed Augmentin. This medication is an antibiotic. Please take this medication twice a day for 10 days. Follow-up with primary care physician. Thank you for choosing this emergency department for evaluation. Please follow-up with primary care physician as needed. Return to the emergency department for any new, concerning, or worsening symptoms. Prescriptions: New amoxicillin-pot clavulanate [Augmentin] 875-125 mg tablet 1 tab PO Q12H 10 Days Qty: 20 RF: 0 No Action cyclobenzaprine 10 mg tablet 10 mg PO TID PRN (Reason: muscle spasm) Qty: 10 RF: 0 FreeStyle Kevin 14 Day Sensor Kit 1 ea topical Q2W Qty: 2 RF: 11 Jardiance 25 mg tablet 25 mg PO QAM Qty: 30 RF: 6 lisinopril 5 mg tablet 5 mg PO DAILY Qty: 90 RF: 2 insulin aspart U-100 [Novolog Flexpen U-100 Insulin] 100 unit/mL (3 mL) insulin pen See Rx Instructions subcut QID Qty: 15 RF: 3 atorvastatin 80 mg tablet 80 mg PO DAILY Qty: 90 RF: 1 metformin 1,000 mg tablet 1,000 mg PO BID Qty: 180 RF: 1 Toujeo Max U-300 SoloStar 300 unit/mL (3 mL) insulin pen 40 unit subcut DAILY 30 Days Qty: 6 RF: 1 Ozempic 1 mg/dose (2 mg/1.5 mL) pen injector 1 mg subcut QWEEK 28 Days Qty: 3 RF: 6 sertraline 100 mg tablet 100 mg PO DAILY 90 Days Qty: 90 RF: 1 ascorbic acid (vitamin C) 1,000 mg tablet 1 g PO DAILY 90 Days Qty: 90 RF: 2 bupropion HCl 150 mg tablet extended release 24 hr 150 mg PO DAILY RF: 0 clonidine HCl 0.2 mg tablet 0.2 mg PO BEDTIME RF: 0 gabapentin 600 mg tablet 600 mg PO TID RF: 0 oxcarbazepine 600 mg tablet 600 mg PO BID RF: 0 doxepin 10 mg capsule 10 mg PO BEDTIME RF: 0 lidocaine HCl [Aspercreme (lidocaine HCl)] 4 % cream 1 applic topical BID RF: 0 chlorpromazine 200 mg tablet 200 mg PO RF: 0 (DME) walker Misc See Rx Instructions .ROUTE .MEDSUPPLY Qty: 1 RF: 0 (DME) toilet seat elevator See Rx Instructions .Route .MEDSUPPLY Qty: 1 RF: 0 (DME) FreeStyle Kevin 14 Day [place] Misc See Rx Instructions .ROUTE .MEDSUPPLY Qty: 1 RF: 0 sildenafil 100 mg tablet 100 mg PO DAILY PRN (Reason: sexual activity) 30 Days Qty: 30 RF: 1 (DME) pen needle, diabetic [BD Ultra-Fine Diana Pen Needle] 32 gauge x 5/32 needle See Rx Instructions .ROUTE .MEDSUPPLY Qty: 125 RF: 6 trazodone 100 mg tablet 150 mg PO BEDTIME PRNRF: 0 cholecalciferol (vitamin D3) 50 mcg (2,000 unit) capsule 50 mcg PO DAILY Qty: 30 RF: 11 Interventions: ED Discharge Assessment Last Done: 09/17/21 17:10 Discharge Date/Time: 09/17/21 17:15
[2021-09-17] MEDS: Amoxicillin/Potassium Clav 875 MG TABLET PO (17:00)
== END 2021-09-17 17:15 | disposition home or self-care (01) ==
PROVIDERS: Emergency Provider Emergency Medicine; PCP Internal Medicine
DX: H66.92 Otitis media, unspecified, left ear (principal); H92.02 Otalgia, left ear; E11.9 Type 2 diabetes mellitus without complications; I10 Essential (primary) hypertension; Z79.4 Long term (current) use of insulin
CPT/HCPCS: 99282; 99283

== ENCOUNTER → 2021-10-25 12:33 | Outpatient (BNVA) | payer OTHER, SELFPAY | PROVIDERS: PCP Internal Medicine; Visit Provider Nurse Practitioner Gerontology | DX: E11.65 Type 2 diabetes mellitus with hyperglycemia (principal); E11.42 Type 2 diabetes mellitus with diabetic polyneuropathy; E78.5 Hyperlipidemia, unspecified; E55.9 Vitamin D deficiency, unspecified; E66.09 Other obesity due to excess calories; I10 Essential (primary) hypertension; K59.00 Constipation, unspecified; Z68.29 Body mass index [BMI] 29.0-29.9, adult; Z79.4 Long term (current) use of insulin | CPT/HCPCS: 82947; 83036; 99212 ==

== ENCOUNTER → 2021-11-22 13:08 | Outpatient (BNVA) | payer OTHER, SELFPAY | PROVIDERS: PCP Internal Medicine; Visit Provider Dietitian, Registered | DX: E11.65 Type 2 diabetes mellitus with hyperglycemia (principal); Z79.4 Long term (current) use of insulin; Z71.3 Dietary counseling and surveillance | CPT/HCPCS: 97803 ==

== ENCOUNTER 2021-11-28 15:21 | Emergency (ER) | payer OTHER, SELFPAY ==
[2021-11-28 17:05] VITALS: BP 136/84; PULSE 73; RESP 18; TEMP 36.4; O2SAT 98; BMI 29.4
--- NOTE | 2021-11-28 17:27 | ED_ITS ---
HPI - Skin/Abscess/Foreign Bdy General Chief complaint: Skin/Abscess/Foreign Body Stated complaint: lumps in neck/ behind ear- giving him headache Time Seen by Provider: 11/28/21 17:19 Source: patient Mode of arrival: ambulatory Limitations: no limitations History of Present Illness HPI narrative: Patient is a 56 year old male presenting to the emergency department today with a left neck cyst. Patient states that he noticed a cyst behind his left ear and it has been getting bigger, slightly, over the last few days. Patient denies any dizziness, lightheadedness, abdominal pain, nausea, vomiting, fever, chills, blurry vision, double vision, loss of vision, chest pain, difficulty breathing, shortness of breath, back pain, night sweats, pain with urination, increased urinary frequency, increased urinary urgency, blood in his urine or stool, syncope or a near syncopal episode, recent trauma or falls, bowel incontinence, bladder incontinence, bowel retention, bladder retention, or any other comp laints at this time. MD complaint: abscess/boil Onset (ago): day(s) Location: neck Related Data Home Medications Medication Instructions Recorded Confirmed bupropion HCl 150 mg 24 hr tablet, 150 mg PO DAILY 07/24/20 10/24/21 extended release clonidine HCl 0.2 mg tablet 0.2 mg PO BEDTIME 07/24/20 10/24/21 doxepin 10 mg capsule 10 mg PO BEDTIME 07/24/20 10/24/21 gabapentin 600 mg tablet 600 mg PO TID 07/24/20 10/24/21 lidocaine HCl 4 % topical cream 1 applic TOPICAL BID 07/24/20 10/24/21 (Aspercreme (lidocaine HCl)) oxcarbazepine 600 mg tablet 600 mg PO BID 07/24/20 10/24/21 chlorpromazine 200 mg tablet 200 mg PO tab 11/28/20 10/24/21 trazodone 100 mg tablet 150 mg PO BEDTIME PRN 12/08/20 10/24/21 Previous Rx's Medication Instructions Recorded flash glucose scanning reader #1 ea 09/07/20 (FreeStyle Kevin 14 Day [place]) toilet seat elevator #1 ea 11/23/20 walker #1 ea 11/23/20 pen needle, diabetic 32 gauge x #125 ea 11/28/20 (BD Ultra-Fine Diana Pen Needle) cyclobenzaprine 10 mg tablet 10 mg PO TID PRN #10 tab 04/09/21 ascorbic acid (vitamin C) 1,000 mg 1 g PO DAILY 90 Days #90 tab 06/06/21 tablet sertraline 100 mg tablet 100 mg PO DAILY 90 Days #90 tab 06/06/21 cholecalciferol (vitamin D3) 50 50 mcg PO DAILY #30 cap 06/19/21 mcg (2,000 unit) capsule flash glucose sensor (FreeStyle 1 ea TOPICAL Q2W #2 ea 06/19/21 Kevin 14 Day Sensor) empagliflozin 25 mg tablet 25 mg PO QAM #30 tab 07/12/21 (Jardiance) lisinopril 5 mg tablet 5 mg PO DAILY #90 tab 07/25/21 atorvastatin 80 mg tablet 80 mg PO DAILY #90 tab 08/27/21 metformin 1,000 mg tablet 1,000 mg PO BID #180 tab 08/27/21 insulin glargine U-300 conc 300 40 unit (0.1333 mL) SUBCUT DAILY 09/06/21 unit/mL (3 mL) subcutaneous pen 30 Days #6 ml (Toujeo Max U-300 SoloStar) semaglutide 1 mg/dose (2 mg/1.5 1 mg (0.75 mL) SUBCUT QWEEK 28 09/10/21 mL) subcutaneous pen injector Days #3 ml (Ozempic) blood pressure monitor (Blood #1 ea 10/24/21 Pressure Kit) sennosides 8.6 mg tablet (Senna 8.6 mg PO BEDTIME 90 Days #90 tab 10/24/21 Lax) sildenafil 100 mg tablet 100 mg PO DAILY PRN 30 Days #30 tab 10/24/21 docusate sodium 100 mg capsule 100 mg PO DAILY #30 cap 10/25/21 (Colace) insulin aspart U-100 100 unit/mL 4 - 10 unit (0.04 - 0.1 mL) SUBCUT 10/25/21 (3 mL) subcutaneous pen (Novolog TID #15 ml Flexpen U-100 Insulin aspart) cephalexin 500 mg capsule 500 mg PO Q6H 7 Days #28 cap 11/28/21 Allergies Allergy/AdvReac Type Severity Reaction Status Date / Time dulaglutide [Trulicity] Allergy Intermediate cyst Verified 11/28/21 17:05 ondansetron [ONDANSETRON] Allergy Intermediate stomach Verified 11/28/21 17:05 pain Review of Systems Constitutional: Constitutional: Reports no additional constitutional complaints, Denies chills, Denies fever(s) and Denies night sweats Eyes: Eyes: Reports no additional eye complaints, Denies blurry vision, Denies change in vision, Denies diplopia, Denies eye discharge, Denies loss of vision and Denies eye pain ENT: Denies dizziness Cardiovascular: Cardiovascular: Reports no additional cardiovascular complaints, Denies chest pain, Denies lightheadedness, Denies Loss of Consciousness and Denies dyspnea Respiratory: Respiratory: Reports no additional respiratory complaints and Denies dyspnea Gastrointestinal: Gastrointestinal: Reports no additional gastrointestinal complaints, Denies abdominal pain, Denies melena, Denies hematochezia, Denies change in bowel habits and Denies change in stool character Genitourinary: Genitourinary: Reports no additional male genitourinary complaints, Denies hematuria, Denies oliguria, Denies difficulty urinating, Denies dysuria, Denies urinary frequency, Denies urinary hesitancy, Denies urinary incontinence and Denies urinary urgency Musculoskeletal: Musculoskeletal: Reports no additional musculoskeletal complaints, Denies numbness and Denies tingling Integumentary/Breasts: Comments: small cyst behind the left ear Neurologic: Denies dizziness, Denies loss of vision, Denies numbness and Denies tingling Psychiatric: Psychiatric: Reports no additional psychiatric complaints Endocrine: Endocrine: Reports no additional endocrine complaints Hematologic/Lymphatic: Hematologic/Lymphatic: Reports no additional hematologic/lymphatic complaints Allergic/Immunologic: Allergic/Immunologic: Reports no additional allergic/immunologic complaints [facility] Past Medical History Attestation statement: The following information was validated with the patient. 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 Type 2 diabetes mellitus with hyperglycemia Unsteady gait Vitamin D deficiency Surgical History History of eye surgery Family History Family History Father Colon cancer Stroke Prostate cancer Mother Hypertension Diabetes Family/Other FH: mental illness Social History Social History Household Members: None Housing: Apartment Alcohol intake: current Alcohol intake frequency: holidays/special occasions o nly Alcohol type: wine Patient Tobacco Use Status: Never used Tobacco e-Cigarette/Vaping Use: Never Used Second Hand Smoke Exposure: No Advance Directives: No Advance Directives Information Provided: No service: No Current occupational status: disabled Physical Exam Vital Signs: Vital Signs: Last Vital Signs Temp 97.6 F 11/28/21 17:05 Pulse 73 11/28/21 17:05 Resp 18 11/28/21 17:05 BP 136/84 11/28/21 17:05 Pulse Ox 98 11/28/21 17:05 BMI result Body Mass Index 29.4 Const: General: cooperative, no acute distress, alert and awake Nutritional Appearance: well nourished Orientation/consciousness: patient oriented x3 Limitations: no limitations HENMT: Head: Yes normal to inspection and Yes atraumatic Ears: hearing grossly normal bilaterally and external ears normal General nose exam: Normal external nose present, no nasal discharge noted and no epistaxis Face and sinus: Yes normal facial exam, No abrasion and No laceration Mouth: Normal oral and palatal mucosa present, no drooling and no muffled voice Eyes: General: appearance normal, both eyes and all related structures Periorbital: periorbital findings normal Eyelids: Yes eyelids normal Conjunctivae: conjunctivae normal Pupils: Equal, round and reactive pupils present EOM: EOMs intact bilaterally Neck: Neck: Yes normal visual inspection, Yes full ROM and Yes no lymphadenopathy Chest: Chest palpation & inspection: normal inspection of the chest Resp: Effort & Inspection: normal respiratory effort and able to speak in complete sentences GI: Inspection: Yes normal to inspection Skin: Other: small sebaceous cyst behind the left ear with minimal redness, no fluctuance noted Neuro: General: patient oriented x3 and moves all extremities Cranial nerves: Yes Equal, round and reactive pupils present Cognition (Neuro): normal cognition Motor exam (neuro): 5/5 motor strength present throughout Sensory Exam: Normal double simultaneous stimulation for sensation Coordination: [id number] test normal Extrem: General: Yes normal to inspection, Yes full ROM and Yes capillary refill normal Psych: Appearance: grossly normal Mental Status: mental status grossly normal Affect: normal affect Attitude: cooperative Thought process: Normal thought process present Thought content: Normal thought content present Insight: Good insight present (Psych) MDM - Skin/Abscess/Foreign Bdy MDM Narrative Medical decision making narrative: Patient is a 56 year old male presenting to the emergency department today with a left neck cyst. Patient's physical exam showed small sebaceous cyst behind the left ear with some erythema but no fluctuance. I explained my physical exam findings to the patient. I answered all questions asked by the patient. I stressed the importance of the patient taking his medication as prescribed. I stressed the importance of the patient following up with his primary care provider. I stressed the importance of the patient returning to the emergency department immediately if his symptoms were to worsen or if he were to develop any dizziness, shortness of breath, difficulty breathing, chest pain, blurry vision, loss of vision, nausea, vomiting, abdominal pain, fever, chills, back pain, or any other complaints. Patient verbalized agreement and understanding with this treatment plan and discharge. Differential Diagnosis Differential diagnosis: Likely abscess of skin or subcutaneous tissue and cellulitis Medical Records Attestation: I reviewed the patient's medical records. Discharge Plan Discharge Clinical Impression: Cyst of subcutaneous tissue Patient Disposition: Home, Self-Care Instructions: Cyst (ED) Additional Instructions: Apply warm compresses to the area. Follow up with your primary care provider. Return to the emergency department immediately if your symptoms worsen or if you develop any dizziness, shortness of breath, difficulty breathing, chest pain, blurry vision, loss of vision, nausea, vomiting, abdominal pain, fever, chills, back pain, or any other complaints. Prescriptions: New cephalexin 500 mg capsule 500 mg PO Q6H 7 Days Qty: 28 0RF No Action cyclobenzaprine 10 mg tablet 10 mg PO TID PRN (Reason: muscle spasm) Qty: 10 0RF FreeStyle Kevin 14 Day Sensor Kit 1 ea topical Q2W Qty: 2 11RF Jardiance 25 mg tablet 25 mg PO QAM Qty: 30 6RF lisinopril 5 mg tablet 5 mg PO DAILY Qty: 90 2RF atorvastatin 80 mg tablet 80 mg PO DAILY Qty: 90 1RF metformin 1,000 mg tablet 1,000 mg PO BID Qty: 180 1RF Toujeo Max U-300 SoloStar 300 unit/mL (3 mL) insulin pen 40 unit subcut DAILY 30 Days Qty: 6 1RF Ozempic 1 mg/dose (2 mg/1.5 mL) pen injector 1 mg subcut QWEEK 28 Days Qty: 3 6RF sertraline 100 mg tablet 100 mg PO DAILY 90 Days Qty: 90 1RF ascorbic acid (vitamin C) 1,000 mg tablet 1 g PO DAILY 90 Days Qty: 90 2RF sennosides [Senna Lax] 8.6 mg tablet 8.6 mg PO BEDTIME 90 Days Qty: 90 0RF (DME) blood pressure monitor [Blood Pressure Kit] Kit See Rx Instructions .Route Qty: 1 0RF Rx Instructions: As directed sildenafil 100 mg tablet 100 mg PO DAILY PRN (Reason: sexual activity) 30 Days Qty: 30 1RF Rx Instructions: administer 60 minutes before intended activity bupropion HCl 150 mg tablet extended release 24 hr 150 mg PO DAILY 0RF clonidine HCl 0.2 mg tablet 0.2 mg PO BEDTIME 0RF gabapentin 600 mg tablet 600 mg PO TID 0RF oxcarbazepine 600 mg tablet 600 mg PO BID 0RF doxepin 10 mg capsule 10 mg PO BEDTIME 0RF lidocaine HCl [Aspercreme (lidocaine HCl)] 4 % cream 1 applic topical BID 0RF chlorpromazine 200 mg tablet 200 mg PO 0RF (DME) walker Misc See Rx Instructions .ROUTE .MEDSUPPLY Qty: 1 0RF Rx Instructions: As directed (DME) toilet seat elevator See Rx Instructions .Route .MEDSUPPLY Qty: 1 0RF Rx Instructions: As directed (DME) FreeStyle Kevin 14 Day [place] Misc See Rx Instructions .ROUTE .MEDSUPPLY Qty: 1 0RF Rx Instructions: As directed (DME) pen needle, diabetic [BD Ultra-Fine Diana Pen Needle] 32 gauge x 5/32 needle See Rx Instructions .ROUTE .MEDSUPPLY Qty: 125 6RF Rx Instructions: As directed four times a day trazodone 100 mg tablet 150 mg PO BEDTIME PRN0RF cholecalciferol (vitamin D3) 50 mcg (2,000 unit) capsule 50 mcg PO DAILY Qty: 30 11RF insulin aspart U-100 [Novolog Flexpen U-100 Insulin] 100 unit/mL (3 mL) insulin pen 4 - 10 unit subcut TID Qty: 15 3RF docusate sodium [Colace] 100 mg capsule 100 mg PO DAILY Qty: 30 6RF Referrals: Salima Rodney MD [Primary Care Provider] - 2 days Interventions: ED Discharge Assessment Last Done: 11/28/21 18:11 Print Language: Mauritian
== END 2021-11-28 18:14 | disposition home or self-care (01) ==
PROVIDERS: Emergency Provider Emergency Medicine; PCP Internal Medicine
DX: L72.9 Follicular cyst of the skin and subcutaneous tissue, unspecified (principal); R22.1 Localized swelling, mass and lump, neck; I10 Essential (primary) hypertension; E11.9 Type 2 diabetes mellitus without complications; E78.5 Hyperlipidemia, unspecified
CPT/HCPCS: 99283

== ENCOUNTER 2022-01-10 10:18 | Outpatient (REF) | payer OTHER, SELFPAY ==
[2022-01-10 10:45] LABS: MANUAL DIFF FLAG NO
[2022-01-10 11:33] LABS: Basophils Percent Auto 0.5 % (0-2); Eosinophils Absolute Auto 0.2 X10*3/uL (0.0-0.4); Hematocrit 45.5 % (42.0-52.0); Hemoglobin 14.8 g/dl (14.0-18.0); Imm Gran Abs Auto 0.02 X10*3/uL (0.00-0.03); Imm Gran Pct Auto 0.3 % (0.0-0.4); Mean Corpuscular HGB Conc 32.5 g/dl (31.0-36.0); Mean Corpuscular Hemoglobin 29.7 pg (27.0-33.0); Mean Corpuscular Volume 91.4 fL (80.0-98.0); Mean Platelet Volume 10.6 fL (9.4-12.4); Monocytes Absolute Auto 0.7 X10*3/uL (0.1-1.2); Neutrophils Absolute Auto 3.3 x10*3/uL (2.0-8.3); Neutrophils Percent Auto 53.2 % (45-73); Platelet Count 243 X10*3/uL (160-400); Red Blood Count 4.98 X10*6/uL (4.60-5.80); Red Cell Distribution Width 12.9 % (11.0-16.0); White Blood Count 6.3 X10*3/uL (4.8-10.8)
[2022-01-10 12:11] LABS: Alanine Aminotransferase 18 U/L (0-40); Albumin Level 4.4 g/dL (3.5-5.0); Alkaline Phosphatase 81 U/L (39-117); Anion Gap 12 (12-20); Aspartate Amino Transferase 18 U/L (5-37); Bilirubin Total 0.4 mg/dL (0.0-1.0); Blood Urea Nitrogen 12 mg/dL (9-16); Calcium 9.9 mg/dL (8.4-10.2); Carbon Dioxide 28 mmol/L (22-29); Chloride 104 mmol/L (96-108); Cholesterol 93 mg/dL; Estimated Glomerular Filt Rate > 60; Glucose Fasting 151 mg/dL (60-99); HDL Cholesterol 34 mg/dL; LDL Cholesterol Calculated 52 mg/dl; Potassium 4.7 mmol/L (3.3-5.1); Sodium 139 mmol/L (135-145); Triglycerides 36 mg/dL
[2022-01-10 12:21] LABS: Vitamin B12 349 pg/mL (200-900)
[2022-01-10 13:48] LABS: Creatinine Urine 223.49 mg/dL; Microalbum/Creatinine Ratio Ur 7.6 ug/mg cr
[2022-01-12 00:07] LABS: LDL Cholesterol Direct 45 mg/dL (<100)
[2022-01-15 13:46] LABS: Vitamin D 25-OH, D2 <4 ng/mL; Vitamin D 25-OH, D3 39 ng/mL; Vitamin D 25-OH, Total 39 ng/mL (30-100)
== END 2022-01-10 10:19 | disposition home or self-care (01) ==
LOC: HO.LAB 10:18
PROVIDERS: Absent Provider Nurse Practitioner Gerontology; PCP Internal Medicine; Visit Provider Internal Medicine
DX: E11.65 Type 2 diabetes mellitus with hyperglycemia (principal); K21.9 Gastro-esophageal reflux disease without esophagitis; D64.9 Anemia, unspecified; E55.9 Vitamin D deficiency, unspecified; Z79.4 Long term (current) use of insulin
CPT/HCPCS: 36415; 80053; 80061; 82043; 82306; 82607; 83721; 85025

== ENCOUNTER → 2022-01-24 12:37 | Outpatient (BNVA) | payer OTHER, SELFPAY | PROVIDERS: PCP Internal Medicine; Visit Provider Nurse Practitioner Gerontology | DX: E11.42 Type 2 diabetes mellitus with diabetic polyneuropathy (principal); E78.5 Hyperlipidemia, unspecified; E55.9 Vitamin D deficiency, unspecified; E66.3 Overweight; K59.00 Constipation, unspecified; I10 Essential (primary) hypertension; Z79.4 Long term (current) use of insulin; Z68.28 Body mass index [BMI] 28.0-28.9, adult; Z79.84 Long term (current) use of oral hypoglycemic drugs; Z79.899 Other long term (current) drug therapy | CPT/HCPCS: 82947; 83036; 99212 ==

== ENCOUNTER → 2022-02-20 11:06 | Outpatient (BNVA) | payer OTHER, SELFPAY | PROVIDERS: PCP Internal Medicine; Visit Provider Dietitian, Registered | DX: E11.65 Type 2 diabetes mellitus with hyperglycemia (principal); Z79.4 Long term (current) use of insulin | CPT/HCPCS: 97803 ==

== ENCOUNTER 2022-04-18 11:28 | Outpatient (REF) | payer OTHER, SELFPAY ==
--- NOTE | ~2022-04-18 | US_ITS ---
EXAMINATION: US RETROPERITONEAL LIMITED (RENAL ONLY) CLINICAL INFORMATION: Calculus of kidney. COMPARISON: CT abdomen and pelvis 03/25/2019. Ultrasound abdomen 10/02/2016. TECHNIQUE: Real-time imaging of the kidneys. FINDINGS: RIGHT KIDNEY: 11.4 x 5.8 x 5.6 cm (SAG x AP x TRV). The kidney is normal in size, contour, and echogenicity. Renal cortical thickness is normal. No calculi or focal parenchymal lesions. No hydronephrosis. LEFT KIDNEY: 10.6 x 6.6 x 7.2 cm (SAG x AP x TRV). The kidney is normal in size, contour, and echogenicity. Renal cortical thickness is normal. No calculi or focal parenchymal lesions. No hydronephrosis. US/US renal BI IMPRESSION: No hydronephrosis or nephrolithiasis.
== END 2022-04-18 11:29 | disposition home or self-care (01) ==
LOC: HO.US 11:28
PROVIDERS: Visit Provider Urology
DX: N20.0 Calculus of kidney (principal)
CPT/HCPCS: 76775

== ENCOUNTER 2022-05-08 13:12 | Outpatient (REF) | payer OTHER, SELFPAY | END 2022-05-08 13:13 | disposition home or self-care (01) | LOC: HO.LAB 13:12 | PROVIDERS: PCP Internal Medicine; Visit Provider Urology | DX: Z12.5 Encounter for screening for malignant neoplasm of prostate (principal); N13.8 Other obstructive and reflux uropathy; N40.1 Benign prostatic hyperplasia with lower urinary tract symptoms | CPT/HCPCS: 36415; 84153 ==

== ENCOUNTER → 2022-05-23 08:18 | Outpatient (BNVA) | payer OTHER, SELFPAY | PROVIDERS: PCP Internal Medicine; Visit Provider Urology | DX: N40.1 Benign prostatic hyperplasia with lower urinary tract symptoms (principal); N13.8 Other obstructive and reflux uropathy; E11.69 Type 2 diabetes mellitus with other specified complication; N52.1 Erectile dysfunction due to diseases classified elsewhere; N48.1 Balanitis | CPT/HCPCS: Q3014 ==

== ENCOUNTER → 2022-05-29 14:38 | Outpatient (BNVA) | payer OTHER, SELFPAY | PROVIDERS: PCP Internal Medicine; Visit Provider Anesthesiology | DX: M51.36 Other intervertebral disc degeneration, lumbar region (principal); M47.16 Other spondylosis with myelopathy, lumbar region; M54.16 Radiculopathy, lumbar region | CPT/HCPCS: 99212 ==

== ENCOUNTER 2023-01-09 08:01 | Outpatient (REF) | payer OTHER, SELFPAY ==
[2023-01-09 09:09] LABS: Alanine Aminotransferase 21 U/L (0-40); Albumin Level 4.8 g/dL (3.5-5.0); Alkaline Phosphatase 95 U/L (39-117); Anion Gap 11 (12-20); Aspartate Amino Transferase 21 U/L (5-37); Bilirubin Total 0.7 mg/dL (0.0-1.0); Blood Urea Nitrogen 13 mg/dL (9-16); Carbon Dioxide 32 mmol/L (22-29); Chloride 104 mmol/L (96-108); Cholesterol 121 mg/dL; Estimated Glomerular Filt Rate > 60; Glucose Fasting 152 mg/dL (60-99); HDL Cholesterol 42 mg/dL; LDL Cholesterol Calculated 68 mg/dl; Potassium 4.7 mmol/L (3.3-5.1); Sodium 142 mmol/L (135-145); Total Protein 7.3 g/dL (6.5-8.0); Triglycerides 59 mg/dL
[2023-01-09 09:16] LABS: Creatinine Urine 136.52 mg/dL; Microalbum/Creatinine Ratio Ur 6.5 ug/mg cr
[2023-01-09 09:24] LABS: Vitamin D 25-OH Total 37.8 ng/mL (>30)
== END 2023-01-09 08:02 | disposition home or self-care (01) ==
LOC: HO.LAB 08:01
PROVIDERS: PCP Internal Medicine; Visit Provider Internal Medicine
DX: M51.36 Other intervertebral disc degeneration, lumbar region (principal); E78.5 Hyperlipidemia, unspecified; E11.9 Type 2 diabetes mellitus without complications; E55.9 Vitamin D deficiency, unspecified
CPT/HCPCS: 36415; 80053; 80061; 82043; 82306

== ENCOUNTER 2023-01-22 08:36 | Outpatient (REF) | payer OTHER, SELFPAY ==
--- NOTE | ~2023-01-22 | US_ITS ---
EXAMINATION: US RETROPERITONEAL LIMITED (RENAL ONLY) CLINICAL INFORMATION: Calculus of kidney. COMPARISON: Renal ultrasound 04/18/2022. CT abdomen and pelvis 03/25/2019. X-ray KUB 10/23/2016. Ultrasound abdomen complete 10/02/2016. TECHNIQUE: Real-time imaging of the kidneys. FINDINGS: RIGHT KIDNEY: 11.1 x 6.5 x 6.1 cm (SAG x AP x TRV). The kidney is normal in size, contour, and echogenicity. Renal cortical thickness is normal. No calculi or focal parenchymal lesions. No hydronephrosis. LEFT KIDNEY: 11.9 x 7.2 x 6.0 cm (SAG x AP x TRV). The kidney is normal in size, contour, and echogenicity. Renal cortical thickness is normal. No calculi or focal parenchymal lesions. No hydronephrosis. US/US renal BI IMPRESSION: Normal renal ultrasound..
== END 2023-01-22 08:37 | disposition home or self-care (01) ==
LOC: HO.US 08:36
PROVIDERS: PCP Internal Medicine; Visit Provider Internal Medicine
DX: N20.0 Calculus of kidney (principal)
CPT/HCPCS: 76775

== ENCOUNTER → 2023-02-27 13:50 | Outpatient (BNVA) | payer OTHER, SELFPAY | PROVIDERS: PCP Internal Medicine; Visit Provider Nurse Practitioner | DX: Z01.818 Encounter for other preprocedural examination (principal); Z80.0 Family history of malignant neoplasm of digestive organs; Z98.890 Other specified postprocedural states | CPT/HCPCS: 99202 ==

== ENCOUNTER 2023-05-15 14:47 | Outpatient (AMB) | payer OTHER, SELFPAY ==
[2023-05-15 15:55] VITALS: BP 110/72; PULSE 90; O2SAT 98; BMI 28.4
--- NOTE | 2023-05-15 15:55 | A.OFFPC_ITS ---
Vital Signs 05/15/23 15:55 Height 5 ft 10 in Weight 198 lb BMI 28.4 BP 110/72 Blood Pressure Location Lt brachial Position Sitting Pulse 90 Pulse Source Pulse Oximeter Pulse Oximetry (%) 98 Oxygen Delivery Method Room Air Intake Visit Reasons: dm Intake Note: Patient is here to follow up on DM type 2. Svp Research And Strategic Analysis Required: No Accompanied by: Self / Same As Patient Allergies dulaglutide [Trulicity] Allergy (Intermediate, Verified 05/15/23 15:58) cyst ondansetron [ONDANSETRON] Allergy (Intermediate, Verified 05/15/23 15:58) stomach pain Medication List - Last Reconciled 05/15/23 by Salima Rizo MD ascorbic acid (vitamin C) 1 g PO DAILY 90 days atorvastatin 80 mg PO DAILY blood pressure monitor (Blood Pressure Kit) As directed bupropion HCl 150 mg PO DAILY chlorpromazine 200 mg PO cholecalciferol (vitamin D3) 50 mcg PO DAILY clonidine HCl 0.1 mg PO BEDTIME 90 days cyclobenzaprine 10 mg PO TID PRN 30 days [diabetic shoes As directed] empagliflozin (Jardiance) 25 mg PO QAM flash glucose sensor (FreeStyle Kevin 14 Day Sensor kit) 1 ea topical Q2W gabapentin 600 mg PO TID 30 days hydrocortisone 2.5% 1 appl topical BID PRN hydroxyzine pamoate 25 mg PO BID insulin aspart U-100 (Novolog FlexPen U-100 Insulin aspart) 4 - 10 units (0.04 - 0.1 mL) subcut TID insulin glargine U-300 conc (Toujeo Max U-300 SoloStar) 42 units (0.14 mL) subcut DAILY 30 days lisinopril 5 mg PO DAILY meloxicam 15 mg PO DAILY metformin 1,000 mg PO BID nebulizers (AeroEclipse II Nebulizer) As directed peg 3350-electrolytes 236-22.74-6.74 -5.86 gram (Golytely) 240 mL PO Q10M 1 day pen needle, diabetic (BD Ultra-Fine Diana Pen Needle) As directed four times a day semaglutide (Ozempic) 2 mg subcut QWEEK sennosides (Senna Lax) 8.6 mg PO BEDTIME 90 days sertraline 100 mg PO DAILY 90 days sulfamethoxazole-trimethoprim 800-160 mg 1 tab PO Q12H tadalafil 5 mg PO DAILY PRN 90 days [toilet seat elevator As directed] trazodone 200 mg (2 x 100 mg) PO BEDTIME PRN 90 days walker As directed Tobacco use date assessed: 01/15/23 Dental Screening Dental Screen Date: 05/15/23 Did you have a dental visit in the last 12 months?: No Did you have a dental problem in the last 6 months where you did not have access to dental care?: No Was dental information given to patient?: Patient has dentist HPI HPI Comments History of Present Illness Details This is 57-year-old male with diabetes mellitus type 2 on long-term current use of insulin, hyperlipidemia, GERD and severe major depression that comes today for follow-up on his conditions. A1c not on goal and I will increase insulin. Last LDL was within goal. GERD stable with medications. Depression also stable with bupropion. No chest pain or shortness of breath. 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 psychotic 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 Type 2 diabetes mellitus with hyperglycemia Unsteady gait Vitamin D deficiency Surgical History History of eye surgery Family History Father Colon cancer Stroke Prostate cancer Mother Hypertension Diabetes Family/Other FH: mental illness Social History Household Members: None Housing: Apartment Alcohol intake: current Alcohol intake frequency: holidays/special occasions only Alcohol type: wine Patient Tobacco Use Status: Never used Tobacco e-Cigarette/Vaping Use: Never Used Second Hand Smoke Exposure: No service: No Current occupational status: disabled Cognitive needs: Yes (cane/walker) Hearing needs: No Vision needs: Yes (glasses) Questionnaire Thrive Questionnaire Date Thrive assessed: 01/15/23 GRAHAM-7 AMB Questionnaire GRAHAM-7 Date GRAHAM - 7 assessed: 01/15/23 Source: Developed by Drs. Arya Griffin, Delphine Kelley, Boris Aguilera and colleagues, with an educational ifrah from [employer]. Review of Systems Const All systems reviewed & are unremarkable except as noted in HPI and below Eyes Reports no additional complaints, Denies change in vision and Denies other visual disturbances Card Denies chest pain at rest, Denies chest pain with activity, Denies edema, Denies irregular heart rhythm, Denies claudication, Denies dyspnea, Denies dyspnea on e xertion, Denies orthopnea, Denies paroxysmal nocturnal dyspnea and Denies slow heart rate Resp Denies cough, Denies dyspnea and Denies dyspnea on exertion GI Denies abdominal pain, Denies change in bowel habits, Denies excessive flatus, Denies nausea and Denies vomiting Denies urinary hesitancy, Denies urinary incontinence and Denies urinary urgency Musc Denies abnormal gait, Denies atrophy, Denies deformity and Denies limited range of motion Skin/Breast Denies bleeding lesions, Denies changing lesions and Denies rash Neuro Denies abnormal gait and Denies lack of coordination Physical exam (Primary Care) Vital Signs: Last Vital Signs Pulse 90 05/15/23 15:55 BP 110/72 05/15/23 15:55 Pulse Ox 98 05/15/23 15:55 Oxygen Delivery Method Room Air 05/15/23 15:55 BMI result Body Mass Index 28.4 Tobacco/Smoking Status: Tobacco use Status Tobacco use date assessed 01/15/23 05/15/23 16:05 Patient Tobacco Use Status Never used Tobacco 05/15/23 16:05 e-Cigarette/Vaping Use Never Used 05/15/23 16:05 Thrive Assessment: Date of Thrive Assessment Date Thrive assessed 01/15/23 05/15/23 16:05 Eyes General: appearance normal, both eyes and all related structures Eyelids: Yes eyelids normal Conjunctivae: conjunctivae normal Neck Neck: Yes normal visual inspection and Yes supple Resp Effort & Inspection: normal respiratory effort Auscultation: clear to auscultation bilaterally Cardio Jugular venous distension: no JVD Rate: regular rate Rhythm: regular rhythm Heart sounds: S1 normal heart sound present and S2 normal heart sound present Extrem General: Yes full ROM Results AMB Hemoglobin A1c AMB Hemoglobin A1c 7.6 % Last Edit by LEN Diggs on 05/15/23 16:07 Results Reviewed Results Reviewed: Laboratory Last Values Hgb A1c (Clinic) 7.6 % (4.0-6.0) H 05/15/23 16:07 Assessment and Plan Assessment & Plan (1) Type 2 diabetes mellitus, with long-term current use of insulin: Code(s): E11.9 - Type 2 diabetes mellitus without complications; Z79.4 - senior living (current) use of insulin Plan: Increase insulin. A1c goal is equal or less than 7%. (2) Hyperlipidemia LDL goal <70: Code(s): E78.5 - Hyperlipidemia, unspecified Plan: Continue statins. LDL goal is less than 70. (3) Severe major depression without psychotic features: Code(s): F32.2 - Major depressive disorder, single episode, severe without psychotic features Plan: Continue bupropion (4) GERD (gastroesophageal reflux disease): Code(s): K21.9 - Gastro-esophageal reflux disease without esophagitis Qualifiers: Esophagitis presence: esophagitis presence not specified Qualified Code(s): K21.9 - Gastro-esophageal reflux disease without esophagitis Plan: Continue PPIs as needed Orders: Orders Lipid Panel 4 Months E78.5 - Hyperlipidemia, unspecified Microalbumin, Random (w Creat) 4 Months E11.9 - Type 2 diabetes mellitus without complications Vitamin D 25-OH Total 4 Months E55.9 - Vitamin D deficiency, unspecified Comprehensive [place]. Panel Fast 4 Months E11.9 - Type 2 diabetes mellitus without complications, Z79.4 - computer terminal operator (current) use of insulin AMB Hemoglobin A1c 05/15/23 E11.9 - Type 2 diabetes mellitus without complications, Z79.4 - senior living (current) use of insulin Medications: New sulfamethoxazole-trimethoprim 800-160 mg 1 tab PO Q12H 20 tabs 0RF 10 days Changed From insulin glargine U-300 conc (Toujeo Max U-300 SoloStar) 42 units (0.14 mL) subcut DAILY 30 days 4.2 mL 6RF E11.65 - Type 2 diabetes mellitus with hyperglycemia To insulin glargine U-300 conc (Toujeo Max U-300 SoloStar) 45 units (0.15 mL) subcut DAILY 4.5 mL 6RF 30 days E11.65 - Type 2 diabetes mellitus with hyperglycemia From empagliflozin (Jardiance) 25 mg PO QAM 30 tabs 0RF To empagliflozin (Jardiance) 25 mg PO QAM 90 tabs 1RF 90 days From semaglutide (Ozempic) 2 mg subcut QWEEK To semaglutide (Ozempic) 2 mg (0.75 mL) subcut QWEEK 3.75 mL 2RF 30 days Refilled atorvastatin 80 mg PO DAILY 90 tabs 2RF E78.5 - Hyperlipidemia, unspecified hydrocortisone 2.5% 1 appl topical BID PRN 20 grams 0RF skin irritation tadalafil 5 mg PO DAILY PRN 90 tabs 1RF sexual activity 90 days E11.69 - Type 2 diabetes mellitus with other specified complication, N52.1 - Erectile dysfunction due to diseases classified elsewhere Coding Level of Care Code Est Pt Level 4 (29887) Diagnoses Type 2 diabetes mellitus, with long-term current use of insulin E11.9; Z79.4 Hyperlipidemia LDL goal <70 E78.5 Severe major depression without psychotic features F32.2 GERD (gastroesophageal reflux disease) K21.9 Esophagitis presence: esophagitis presence not specified Time Spent (min) 23
== END 2023-05-15 16:40 | disposition home or self-care (01) ==
PROVIDERS: Visit Provider Internal Medicine
DX: E11.9 Type 2 diabetes mellitus without complications (principal); Z79.4 Long term (current) use of insulin; F32.2 Major depressive disorder, single episode, severe without psychotic features; K21.9 Gastro-esophageal reflux disease without esophagitis; E78.5 Hyperlipidemia, unspecified
CPT/HCPCS: 83036; 99214

== ENCOUNTER 2023-07-03 10:29 | Outpatient (AMB) | payer OTHER, SELFPAY ==
--- NOTE | 2023-07-03 10:44 | MHC.OFFVIS ---
Intake Intake Visit Reasons: 6M PVR(BPH/Erectile Dys) Intake Note: Patient is present for a 6 month follow up, BPH/ED Meds- Tadalafil Allergies to Antibiotic- No Known Allergies Blood Thinner- None PVR: 0 mL Patient Accounts Specialist Required: Yes Patient Accounts Specialist Language: Yemeni Accompanied by: Self / Same As Patient Allergies dulaglutide [Trulicity] Allergy (Intermediate, Verified 05/15/23 15:58) cyst ondansetron [ONDANSETRON] Allergy (Intermediate, Verified 05/15/23 15:58) stomach pain HPI HPI Comments History of Present Illness Details Fer is a pleasant male. He is seen for the following urologic conditions - erectile dysfunction - renal stones Yemeni translation provided in office by qualified medical staff assistant Discussed ultrasound Response to daily tadalafil is reduced Will add on demand dosage Has glucose 3+ in urine. Untreated diabetic. Reviewed glucose monitor. Is running at 300 during the night Intermittent balanitis treated with topical therapy Nephrolithiasis Prior [facility] Imaging - 04/19 renal US no stones - 04/20 renal ultrasound no evidence of stones Erectile dysfunction in setting of borderline diabetes Prior evaluation for low testosterone Testosterone in normal range PSA 05/20 0.60 Present switched to 5 mg daily tadalafil PFSH Medical History Chest pain Fibromyalgia GERD (gastroesophageal reflux disease) HTN (hypertension) Hyperlipidemia LDL goal <100 IBS (irritable bowel syndrome) Kidney stones Right leg pain Serum calcium elevated Severe major depression without psychotic 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 Type 2 diabetes mellitus with hyperglycemia Unsteady gait Vitamin D deficiency Surgical History History of eye surgery Family History Father Colon cancer Stroke Prostate cancer Mother Hypertension Diabetes Family/Other FH: mental illness Social History Household Members: None Housing: Apartment Alcohol intake: current Alcohol intake frequency: holidays/special occasions only Alcohol type: wine Patient Tobacco Use Status: Never used Tobacco e-Cigarette/Vaping Use: Never Used Second Hand Smoke Exposure: No service: No Current occupational status: disabled Cognitive needs: Yes (cane/walker) Hearing needs: No Vision needs: Yes (glasses) Review of Systems Const Denies chills and Denies fever(s) Card Reports no additional complaints and Denies syncope Resp Denies cough GI Denies abdominal pain and Denies heartburn Reports as per HPI and Denies change in libido Neuro Denies syncope Psych Denies change in libido Endo Denies change in libido Physical Exam Const General: cooperative, healthy appearing, comfortable and no acute distress Orientation/consciousness: patient oriented x3 HEENT Face and sinus: Yes normal facial exam Mouth: moist mucous membranes Neck Neck: Yes normal visual inspection, Yes full ROM and Yes trachea midline Chest Chest palpation & inspection: normal inspection of the chest Resp Effort & Inspection: normal respiratory effort, able to speak in complete sentences and no respiratory distress GI Inspection: Yes normal to inspection Back/Spine/Pelvis Cervical Spine: normal cervical lordosis Thoracic/Lumbar Spine: thoracic and lumbar spine normal to inspection Skin General skin exam: no rashes or lesions noted Neuro General: patient oriented x3, gait normal, tone normal and moves all extremities Extrem General: Yes normal to inspection and Yes capillary refill normal Office Procedures Post Void Residual Post Residual Void Post Void Residual (PVR): 0 40053-Vrke Void Residual by ultrasound Results AMB Urinalysis, Automated UA Leukoctes 0 Sophia/uL Last Edit by ALEXUS Caballero on 07/03/23 10:59 UA Nitrite Negative Last Edit by ALEXUS Caballero on 07/03/23 10:59 UA Urobilinogen 0.2 mg/dL Last Edit by ALEXUS Caballero on 07/03/23 10:59 UA Protein 15 mg/dL Last Edit by ALEXUS Caballero on 07/03/23 10:59 UA pH 6.0 Last Edit by ALEXUS Caballero on 07/03/23 10:59 UA Blood 0 Nba/uL Last Edit by ALEXUS Caballero on 07/03/23 10:59 UA Specific Gilbert 1.030 Last Edit by ALEXUS Caballero on 07/03/23 10:59 UA Ketone Negative Last Edit by ALEXUS Caballero on 07/03/23 10:59 UA Bilirubin 0 mg/dL Last Edit by ALEXUS Caballero on 07/03/23 10:59 UA Glucose 1000 mg/dL Last Edit by ALEXUS Caballero on 07/03/23 10:59 3+ Dustin Mejía 07/03/23 10:59 Results Reviewed Results Reviewed: Laboratory Last Values Urine pH (Auto) 6.0 07/03/23 10:47 Specific Gilbert (Auto) 1.030 07/03/23 10:47 Urine Protein (Auto) 15 mg/dL 07/03/23 10:47 Glucose (UA)(Auto) 1000 mg/dL 07/03/23 10:47 Urine Ketones (Auto) Negative 07/03/23 10:47 Urine Blood (Auto) 0 Nba/uL 07/03/23 10:47 Urine Nitrite (Auto) Negative 07/03/23 10:47 Urine Bilirubin (Auto) 0 mg/dL 07/03/23 10:47 Urine Urobilinogen (Auto) 0.2 mg/dL 07/03/23 10:47 Leukocyte Esterase (Auto) 0 Sophia/uL 07/03/23 10:47 Assessment & Plan Assessment & Plan (1) Erectile dysfunction associated with type 2 diabetes mellitus: Code(s): E11.69 - Type 2 diabetes mellitus with other specified complication; N52.1 - Erectile dysfunction due to diseases classified elsewhere (2) Glucosuria: Code(s): R81 - Glycosuria Plan Increased dose tadalafil Six month follow-up Orders: Orders AMB Post Void Residual by ultrasound Today N39.8 - Other specified disorders of urinary system AMB Urinalysis Automated Today Z13.9 - Encounter for screening, unspecified Medications: New tadalafil On demand medication take 60 minutes before intended activity 20 mg PO ONCE 30 days PRN 30 tabs 0RF sexual activity E11.69 - Type 2 diabetes mellitus with other specified complication, N52.1 - Erectile dysfunction due to diseases classified elsewhere Patient Instructions: Imaging studies, laboratory and physical exam results were discussed and reviewed in detail. No major barriers to patient understanding were identified. An opportunity to ask questions regarding the treatment plan was provided. All questions were answered. The patient expressed understanding and agreement with the above treatment plan. The patient is aware they should contact our office by phone for worsening of their current condition or the appearance of new urologic symptoms. Compliance is encouraged with any medications and followup testing that is ordered. It is a privilege to participate in the urologic care of your patient. If you have any questions or concerns regarding treatment for the above conditions, or other urologic issues, please do not hesitate to contact me. The office telephone contact is [phone]. This note is constructed using voice recognition software. While every effort has been made to ensure accuracy meter repairer helper errors may have been included. Yours sincerely, Dr Franky Muir MD, [facility] Providers of Expert, Compassionate Care for the Genitourinary System Coding Level of Care Code Est Pt Level 4 (76246) Diagnoses Erectile dysfunction associated with type 2 diabetes mellitus E11.69; N52.1 Glucosuria R81 CPT Codes Post Residual Void - PVR CPT Code: 20657-Ubri Void Residual by ultrasound ([id number])
== END 2023-07-03 11:49 | disposition home or self-care (01) ==
PROVIDERS: PCP Internal Medicine; Visit Provider Urology
DX: E11.69 Type 2 diabetes mellitus with other specified complication (principal); N52.1 Erectile dysfunction due to diseases classified elsewhere; R81 Glycosuria; Z13.9 Encounter for screening, unspecified
CPT/HCPCS: 99214

== ENCOUNTER → 2023-07-03 10:29 | Outpatient (BNVA) | payer OTHER, SELFPAY | PROVIDERS: PCP Internal Medicine; Visit Provider Urology | DX: E11.69 Type 2 diabetes mellitus with other specified complication (principal); N52.1 Erectile dysfunction due to diseases classified elsewhere; R81 Glycosuria | CPT/HCPCS: 51798; 81003; 99212 ==

== ENCOUNTER 2023-07-09 12:16 | Day surgery (SDC) | payer OTHER, SELFPAY ==
[2023-07-04 07:52] VITALS: BMI 28.4
--- NOTE | 2023-07-08 13:15 | HO.ANESPROP2 ---
HPI - Anesthesia Eval Consult details Narrative: 57yo M for Colonoscopy T2DM - on ozempic, none in >1 week [facility] Active Problems Active Problems: All Active Problems (Updated 07/03/23 @ 11:41 by Franky Muir MD) Glucosuria (Acute) Pre-op examination (Acute) Physical exam (Acute) Right hand pain (Acute) Family history of colon cancer (Acute) Hyperlipidemia LDL goal <70 (Acute) Type 2 diabetes mellitus, with long-term current use of insulin (Acute) Asthma (Acute) Radiculopathy, lumbar region (Acute) Spondylosis, lumbar, with myelopathy (Acute) Disc degeneration, lumbar (Acute) Balanitis (Acute) Lumbar pain (Acute) Overweight (Acute) Constipation (Acute) BPH w urinary obs/LUTS (Acute) Erectile dysfunction associated with type 2 diabetes mellitus (Acute) Precordial chest pain (Acute) Severe major depression without psychotic features (Acute) GERD (gastroesophageal reflux disease) (Acute) Kidney stones (Acute) Right leg pain (Acute) Unsteady gait (Acute) Chest pain (Acute) Type 2 diabetes mellitus with hyperglycemia (Acute) Type 2 diabetes mellitus with diabetic polyneuropathy (Acute) HTN (hypertension) (Acute) Vitamin D deficiency (Acute) Past Medical History Medical History (Updated 07/03/23 @ 11:41 by Franky Muir MD) Severe major depression without psychotic features HTN (hypertension) Unsteady gait Chest pain Fibromyalgia Serum calcium elevated IBS (irritable bowel syndrome) Right leg pain Kidney stones GERD (gastroesophageal reflux disease) Type 2 diabetes mellitus with hyperglycemia Type 2 diabetes mellitus with diabetic polyneuropathy Hyperlipidemia LDL goal <100 Vitamin D deficiency Family History Family History Father Colon cancer Stroke Prostate cancer Mother Hypertension Diabetes Family/Other FH: mental illness Surgical History Surgical History (Updated 07/08/23 @ 10:53 by Latisha Barr RN) H/O colonoscopy History of eye surgery Social History Social History Household Members: None Housing: Apartment Alcohol intake: current Alcohol intake frequency: holidays/special occasions only Alcohol type: wine Patient Tobacco Use Status: Never used Tobacco e-Cigarette/Vaping Use: Never Used Second Hand Smoke Exposure: No service: No Current occupational status: disabled Cognitive needs: Yes (cane/walker) Hearing needs: No Vision needs: Yes (glasses) Meds Allergies Allergy/AdvReac Type Severity Reaction Status Date / Time dulaglutide [Trulicity] Allergy Intermediate cyst Verified 05/15/23 15:58 ondansetron [ONDANSETRON] Allergy Intermediate stomach Verified 05/15/23 15:58 pain Home Medications Medication Instructions Recorded Confirmed Last Taken Type bupropion HCl 150 mg 24 hr tablet, 150 mg PO DAILY 07/24/20 05/15/23 Unknown History extended release chlorpromazine 200 mg tablet 200 mg PO 11/28/20 05/15/23 Unknown History hydroxyzine pamoate 25 mg capsule 25 mg PO BID 01/15/23 05/15/23 Unknown History Exam Exam Date and Time: July 08, 2023 1315 Height,Weight and Vital Signs: Height 5 ft 10 in Weight 89.811 kg Assessment and Plan Assessment Anesthesia Assessment: Chart Reviewed
[2023-07-09 12:58] VITALS: BMI 27.5
[2023-07-09 13:06] VITALS: BP 126/69; PULSE 75; RESP 18; TEMP 36.9; O2SAT 98
--- NOTE | 2023-07-09 13:15 | HO.ANESPROP2 ---
[facility] Active Problems Active Problems: All Active Problems (Updated 07/03/23 @ 11:41 by Franky Muir MD) Glucosuria (Acute) Pre-op examination (Acute) Physical exam (Acute) Right hand pain (Acute) Family history of colon cancer (Acute) Hyperlipidemia LDL goal <70 (Acute) Type 2 diabetes mellitus, with long-term current use of insulin (Acute) Asthma (Acute) Radiculopathy, lumbar region (Acute) Spondylosis, lumbar, with myelopathy (Acute) Disc degeneration, lumbar (Acute) Balanitis (Acute) Lumbar pain (Acute) Overweight (Acute) Constipation (Acute) BPH w urinary obs/LUTS (Acute) Erectile dysfunction associated with type 2 diabetes mellitus (Acute) Precordial chest pain (Acute) Severe major depression without psychotic features (Acute) GERD (gastroesophageal reflux disease) (Acute) Kidney stones (Acute) Right leg pain (Acute) Unsteady gait (Acute) Chest pain (Acute) Type 2 diabetes mellitus with hyperglycemia (Acute) Type 2 diabetes mellitus with diabetic polyneuropathy (Acute) HTN (hypertension) (Acute) Vitamin D deficiency (Acute) Past Medical History Medical History Severe major depression without psychotic features HTN (hypertension) Unsteady gait Chest pain Fibromyalgia Serum calcium elevated IBS (irritable bowel syndrome) Right leg pain Kidney stones GERD (gastroesophageal reflux disease) Type 2 diabetes mellitus with hyperglycemia Type 2 diabetes mellitus with diabetic polyneuropathy Hyperlipidemia LDL goal <100 Vitamin D deficiency Family History Family History Father Colon cancer Stroke Prostate cancer Mother Hypertension Diabetes Family/Other FH: mental illness Family history of problems with anesthesia: No Surgical History Surgical History H/O colonoscopy History of eye surgery History of Problems with Anesthesia: No Social History Social History Household Members: None Housing: Apartment Alcohol intake: current Alcohol intake frequency: holidays/special occasions only Alcohol type: wine Patient Tobacco Use Status: Never used Tobacco e-Cigarette/Vaping Use: Never Used Second Hand Smoke Exposure: No Use of substances other than those prescribed or required for medical reasons: No Are you DNR?: No Advance Directives: No Advance Directives Information Provided: Yes service: No Current occupational status: disabled Cognitive needs: Yes (cane/walker) Hearing needs: No Vision needs: Yes (glasses) Meds Allergies Allergy/AdvReac Type Severity Reaction Status Date / Time dulaglutide [Trulicity] Allergy Intermediate cyst Verified 05/15/23 15:58 ondansetron [ONDANSETRON] Allergy Intermediate stomach Verified 05/15/23 15:58 pain Active Medications: Current Medications Albuterol Sulfate (Albuterol Sulfate (0.083%) 2.5 Mg/3 Ml Vial.Neb) 2.5 mg INHALE ONCE PRN PRN Reason: Shortness of Breath/Wheezing Lactated Ringer's (Lr) 1,000 mls @ 100 mls/hr IVCONT .Q10H RONAN Last Admin: 07/09/23 13:10 Dose: 100 mls/hr Home Medications Medication Instructions Recorded Confirmed Last Taken Type bupropion HCl 150 mg 24 hr tablet, 150 mg PO DAILY 07/24/20 05/15/23 Unknown History extended release chlorpromazine 200 mg tablet 200 mg PO 11/28/20 05/15/23 Unknown History hydroxyzine pamoate 25 mg capsule 25 mg PO BID 01/15/23 05/15/23 Unknown History Exam Exam Date and Time: July 09, 2023 1315 Height,Weight and Vital Signs: Height 5 ft 10 in Weight 87.09 kg Last Vital Signs Temp 98.5 F 07/09/23 13:06 Pulse 75 07/09/23 13:06 Resp 18 07/09/23 13:06 BP 126/69 07/09/23 13:06 Pulse Ox 98 07/09/23 13:06 O2 Del Method Room Air 07/09/23 13:06 Pertinent Lab Results Pertinent Lab Results: Laboratory Tests 07/09/23 12:52 POC Glucose 139 H Airway Mallampati Class: II TM Dist: >3cm Neck ROM: Full Denture: Upper Heart: RRR Lungs: CTA Assessment and Plan Final Anesthetic Review Family History of Problems with Anesthesia: No History of Problems with Anesthesia: No NPO: No ASA Class: III Final Preanesthetic Review: Meds/Allgs Chart Reviewed, Consent Obtained/Reviewed and Anes Risks/Benef Reviewed Patient Risk: Low Procedure Risk: Low Anesthetic Plan Anesthetic Plan: MAC: Disposition: Standard PACU
--- NOTE | 2023-07-09 13:58 | MHC.SHP ---
Pre-Procedural Eval Section A Date of Service: 07/09/23 Section B Chief Complaint: Family history of malignant neoplasm of digestive Relevant Family History (Specify if Yes): Yes Relevant Social History: None Present Medications: see Short Stay Collaborative assessment Medical History: Significant History (Severe major depression without psychotic features HTN (hypertension) Unsteady gait Chest pain Fibromyalgia Serum calcium elevated IBS (irritable bowel syndrome) Right leg pain Kidney stones GERD (gastroesophageal reflux disease) Type 2 diabetes mellitus with hyperglycemia Type 2 diabetes mellitus w) History of Previous Operations: Relevant previous surgery/procedure and date(s) (H/O colonoscopy History of eye surgery) Allergies: Allergies Allergy/AdvReac Type Severity Reaction Status Date / Time dulaglutide [Trulicity] Allergy Intermediate cyst Verified 05/15/23 15:58 ondansetron [ONDANSETRON] Allergy Intermediate stomach Verified 05/15/23 15:58 pain Review of Systems Sugical H&P ROS: Negative: Constitution, Cardiovascular, Respiratory, Neurological, Psychiatric, Hem-Onc, Allergic/Immunologic, Gastrointestinal, Genitourinary, Musculoskeletal, Integumentary, Endocrine and Eyes/Ears/Nose/Throat Exam Surgical H&P Exam: Normal: HEENT, Normal: Heart, Normal: Lungs, Normal: Extremities, Normal: Abdomen, Normal: Skin and Normal: Neurological Plan Diagnosis/Plan: Unchanged I have reviewed the history and physical and performed a pertinent physical examination on my patient. No changes have occurred unless specified. Time Spent With Patient Time: Total time managing care of this patient today ____ minutes.
--- NOTE | 2023-07-09 14:00 | W.PM.OPN ---
Operative Note Operative Note Date of Service: 07/09/23 Narrative: Operative Information Procedure Description: Colonoscopy Indication: screening Anesthesia: MAC COLONOSCOPY Instrument: Olympus variable stiffness pediatric scope 190L Colonoscopy Monitoring: Vital signs and clinical assessment, continuous EKG monitoring, Pulse oximetry, Carbon Dioxide monitoring and blood pressure monitoring were done throughout the procedure. Colon withdrawal time was 8 minutes. Procedure: The patient was placed in the left lateral decubitis position and pre-procedure medications were administered. After a digital rectal examination of the ano-rectum, the video colonoscope was inserted into the rectum and advanced through the colon to the cecum/TI. The colonoscope was slowly withdrawn in a retrograde panoramic fashion and the colon mucosa was carefully examined including a retroflexed view of the rectum. Findings and interventions are described below. Procedure Difficulty: easy Findings: Terminal Ileum-normal Cecum:normal Ascending Colon: normal Transverse Colon - 4-6 mm sessile polyp removed with cold forceps Descending Colon:normal Sigmoid Colon: normal Rectum: Retroflexion with small internal hemorrhoids, grade I Anorectum - normal Colon preparation: [place] Bowel Preparation Scale Right colon; 2 Transverse colon: 2 Left colon; 2 (0 = Unprepared colon segment with mucosa not seen due to solid stool that cannot be cleared. 1 = Portion of mucosa of the colon segment seen, but other areas of the colon segment not well seen due to staining, residual stool and/or opaque liquid. 2 = Minor amount of residual staining, small fragments of stool and/or opaque liquid, but mucosa of colon segment seen well. 3 = Entire mucosa of colon segment seen well with no residual staining, small fragments of stool or opaque liquid) Impression and Post Procedure Diagnosis: polyp internal hemorrhoids Plan: High fiber diet leaflet Avoid straining at stool, epsom salts and sitz bath, anusol supps or cream Repeat Colonoscopy in 5 years due to polyp and FH of CRC or earlier if clinically indicated Above findings were reviewed with the patient and relevant handouts were provided if indicated.
[2023-07-09 14:44] VITALS: BP 97/60; PULSE 72; RESP 16; TEMP 36.2; O2SAT 97
[2023-07-09 14:59] VITALS: BP 107/66; PULSE 67; RESP 18; TEMP 36.3; O2SAT 98
== END 2023-07-09 15:51 | disposition home or self-care (01) ==
PROVIDERS: PCP Internal Medicine; Visit Provider Internal Medicine Gastroenterology
PROC: 0DJD8ZZ Inspection of Lower Intestinal Tract, Via Natural or Artificial Opening Endoscopic (ICD-10-PCS; CPT 45378; principal; 2023-07-09 14:00)
DX: Z12.11 Encounter for screening for malignant neoplasm of colon (principal); D12.3 Benign neoplasm of transverse colon; K64.0 First degree hemorrhoids; Z80.0 Family history of malignant neoplasm of digestive organs; E11.9 Type 2 diabetes mellitus without complications; I10 Essential (primary) hypertension; E78.5 Hyperlipidemia, unspecified; K21.9 Gastro-esophageal reflux disease without esophagitis; J45.909 Unspecified asthma, uncomplicated; N40.0 Benign prostatic hyperplasia without lower urinary tract symptoms; R26.81 Unsteadiness on feet; Z79.4 Long term (current) use of insulin
CPT/HCPCS: 45380; 82947; 88305

== ENCOUNTER → 2023-07-09 12:16 | Outpatient (BNV) | payer OTHER, SELFPAY | PROVIDERS: PCP Internal Medicine; Visit Provider Internal Medicine Gastroenterology | DX: Z12.11 Encounter for screening for malignant neoplasm of colon (principal); D12.3 Benign neoplasm of transverse colon; K64.0 First degree hemorrhoids | CPT/HCPCS: 45380 ==

== ENCOUNTER 2023-07-23 11:34 | Outpatient (AMB) | payer OTHER, SELFPAY ==
--- NOTE | 2023-07-23 11:38 | MHC.OFFVIS ---
Intake Vital Signs 07/23/23 11:41 Height 5 ft 10 in Weight 202 lb 6.15 oz BMI 29.0 BP 119/70 Blood Pressure Location Rt brachial Position Sitting Pulse 79 Intake Visit Reasons: s/p colon Intake Note: Patient presents to in office visit today in post op follow up s/p colonoscopy. CC: Patient underwent colonoscopy on 07/[address] Kwan. He states he has always suffered from constipation. Of not he reports increased recurrences on infected lumps under bilateral arms. 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 He is a diabetic and may need to contact his prescriber to see if he needs any insulin adjustment for his fasting/prep. He has very little experience with anesthesia or sedation. None with his prior procedure. His asthma is well controlled and no cardiac problems. No ID problems. His mother and sister had CRC and polyps. (2) Family history of colon cancer: Comment: Mother and sister Code(s): Z80.0 - Family history of malignant neoplasm of digestive organs (3) H/O colonoscopy: Code(s): Z98.890 - Other specified postprocedural states Medications: New peg 3350-electroly jorge 236-22.74-6.74 -5.86 gram (Golyt guerita) until feca l effluent is cody r; do not exceed a total volume of 2 ,000 mL 240 mL PO Q10M 1 day 4,000 mL 0RF Z12.11 - Encounter for screening for malignant neoplas m of colon COLONOSCOPY 07/10/23 Findings: Terminal Ileum-normal Cecum:normal Ascending Colon: normal Transverse Colon - 4-6 mm sessile polyp removed with cold forceps Descending Colon:normal Sigmoid Colon: normal Rectum: Retroflexion with small internal hemorrhoids, grade I Anorectum - normal A Impression and Post Procedure Diagnosis: polyp internal hemorrhoids Plan: High fiber diet leaflet Avoid straining at stool, epsom salts and sitz bath, anusol supps or cream Repeat Colonoscopy in 5 years due to polyp and FH of CRC or earlier if clinically indicated BIOPSY Received: 07/10/23 Diagnosis Colon, transverse, polyp, biopsy: Tubular adenoma; negative for high-grade dysplasia and carcinoma. TODAY'S VISIT Irish # brother translates per patient request. The procedure needs to be repeated in 5 years due to the finding of a tubular adenoma. The procedure was well tolerated. The results were explained and the patient is agreeable to the follow-up interval as stated. The bowel pattern has returned to normal. Education was provided to tell any 1st degree relatives about their findings to be sure that they are screened by age 45. Educated that they will be put on a recall list when it is time for their repeat scope but should they move out of state or away from the hospital they will need to remember along with their primary to repeat the procedure in a timely fashion to avoid any adverse complications. He complains of CIC at his baseline now, which he did not offer at the last visit. He felt is was because of his diabetes. Will start Linzess 145mcg and titrate. Doorknob c/o axillary cyst right arm, this appears to be a dermal cyst and I will ref to gen surgery. Call me if spreading for abx. ROV 3 weeks. [facility] Medical History Severe major depression without psychotic features HTN (hypertension) Unsteady gait Chest pain Fibromyalgia Serum calcium elevated IBS (irritable bowel syndrome) Right leg pain Kidney stones GERD (gastroesophageal reflux disease) Type 2 diabetes mellitus with hyperglycemia Type 2 diabetes mellitus with diabetic polyneuropathy Hyperlipidemia LDL goal <100 Vitamin D deficiency Surgical History H/O colonoscopy History of eye surgery Family History Father Colon cancer Stroke Prostate cancer Mother Hypertension Diabetes Family/Other FH: mental illness Social History Household Members: None Housing: Apartment Alcohol intake: current Alcohol intake frequency: holidays/special occasions only Alcohol type: wine Patient Tobacco Use Status: Never used Tobacco e-Cigarette/Vaping Use: Never Used Second Hand Smoke Exposure: No service: No Current occupational status: disabled Cognitive needs: Yes (cane/walker) Hearing needs: No Vision needs: Yes (glasses) Review of Systems Const Denies fatigue, Denies fever(s), Denies night sweats, Denies poor appetite and Denies weight loss Eyes Details: glasses Reports requires corrective lenses ENT Reports Normal hearing present, Denies dental pain, Denies dysphagia, Denies hearing loss, Denies mouth pain, Denies odynophagia, Denies throat swelling, Denies tongue swelling and Reports other (Dentition adequate) Card Reports no additional complaints Resp Reports no additional complaints GI Denies abdominal pain, Denies melena, Denies bloating, Denies hematochezia, Denies constipation, Denies GI cramping, Denies dysphagia, Denies excessive flatus, Denies early satiety, Denies heartburn, Denies diarrhea, Denies nausea, Denies odynophagia, Denies vomiting and Denies hematemesis Skin/Breast Reports furuncle, Denies pruritus, Denies lesions, Denies rash and Denies jaundice Neuro Reports Normal hearing present and Denies Abnormal speech present Endo Denies fatigue Aller/Immun Denies throat swelling and Denies tongue swelling Physical Exam Vital Signs: Last Vital Signs Pulse 79 07/23/23 11:41 BP 119/70 07/23/23 11:41 BMI result Body Mass Index 29.0 Const General: cooperative, no acute distress, well developed and well groomed Nutritional Appearance: well nourished and overweight Orientation/consciousness: oriented to person, oriented to place and oriented to time Limitations: No language barrier HEENT Head: Yes normocephalic and Yes atraumatic Eyes General: appearance normal, both eyes and all related structures Pupils: Equal, round and reactive pupils present Neck Neck: Yes normal visual inspection and Yes no lymphadenopathy Thyroid: Thyroid normal Resp Effort & Inspection: normal respiratory effort and able to speak in complete sentences Auscultation: clear to auscultation bilaterally Cardio Rate: regular rate Rhythm: regular rhythm Heart sounds: Normal, physiologic split S2 sound present Peripheral pulses: radial pulses present and posterior tibial pulses present GI Inspection: No distended and No Abdominal panniculus present Palpation (GI): Soft to palpation, nontender, no guarding, not rigid and No hepatosplenomegaly present Percussion: Yes normal to percussion Auscultation: normal bowel sounds Rectal Exam - Male: Yes deferred Skin Other: Dermal slits/boil in right axillary area no associated lymphadenopathy or erythema. However it is somewhat sore with palpation. General skin exam: turgor normal, skin not dry, no jaundice, No spider nevi and no striae Rashes: no rashes Nails: normal Neuro General: oriented to person, oriented to place and oriented to time Cranial nerves: Yes Equal, round and reactive pupils present and Yes Normal hearing present Speech: No Abnormal speech present Extrem General: Yes normal to inspection, No clubbing, No cyanosis and No edema Psych Appearance: grossly normal and well kempt Mental Status: mental status grossly normal Speech and movement: Normal speech and movement present Affect: normal affect Attitude: cooperative Thought process: Normal thought process present and not confabulating Thought content: Normal thought content present Insight: Limited insight present (Psych) Judgement: Limited judgement present (Psych) Results Reviewed Results Reviewed: COLONOSCOPY 07/10/23 Findings: Terminal Ileum-normal Cecum:normal Ascending Colon: normal Transverse Colon - 4-6 mm sessile polyp removed with cold forceps Descending Colon:normal Sigmoid Colon: normal Rectum: Retroflexion with small internal hemorrhoids, grade I Anorectum - normal A Impression and Post Procedure Diagnosis: polyp internal hemorrhoids Plan: High fiber diet leaflet Avoid straining at stool, epsom salts and sitz bath, anusol supps or cream Repeat Colonoscopy in 5 years due to polyp and FH of CRC or earlier if clinically indicated BIOPSY Received: 07/10/23 Diagnosis Colon, transverse, polyp, biopsy: Tubular adenoma; negative for high-grade dysplasia and carcinoma. Assessment & Plan Assessment & Plan (1) Tubular adenoma of colon: Comment: 2022=1 TA repeat in 5 years Code(s): D12.6 - Benign neoplasm of colon, unspecified Plan: Irish # brother translates per patient request. The procedure needs to be repeated in 5 years due to the finding of a tubular adenoma. The procedure was well tolerated. The results were explained and the patient is agreeable to the follow-up interval as stated. The bowel pattern has returned to normal. Education was provided to tell any 1st degree relatives about their findings to be sure that they are screened by age 45. Educated that they will be put on a recall list when it is time for their repeat scope but should they move out of state or away from the hospital they will need to remember along with their primary to repeat the procedure in a timely fashion to avoid any adverse complications. He complains of CIC at his baseline now, which he did not offer at the last visit. He felt is was because of his diabetes. Will start Linzess 145mcg and titrate. Doorknob c/o axillary cyst right arm, this appears to be a dermal cyst and I will ref to gen surgery. Call me if spreading for abx. ROV 3 week (2) Family history of colon cancer: Comment: Mother and sister Code(s): Z80.0 - Family history of malignant neoplasm of digestive organs (3) Chronic idiopathic constipation: Code(s): K59.04 - Chronic idiopathic constipation (4) Sebaceous cyst of right axilla: Code(s): L72.3 - Sebaceous cyst Orders: Referrals General Surgery Referral L72.3 - Sebaceous cyst Medications: New linaclotide (Linzess) 145 mcg PO QAM 30 caps 3RF K59.04 - Chronic idiopathic constipation Coding Level of Care Code Est Pt Level 3 (18470) Diagnoses Tubular adenoma of colon D12.6 Family history of colon cancer Z80.0 Chronic idiopathic constipation K59.04 Sebaceous cyst of right axilla L72.3
[2023-07-23 11:41] VITALS: BP 119/70; PULSE 79; BMI 29.0
== END 2023-07-23 12:09 | disposition home or self-care (01) ==
PROVIDERS: PCP Internal Medicine; Visit Provider Nurse Practitioner
DX: D12.6 Benign neoplasm of colon, unspecified (principal); Z80.0 Family history of malignant neoplasm of digestive organs; K59.04 Chronic idiopathic constipation; L72.3 Sebaceous cyst
CPT/HCPCS: 99213

== ENCOUNTER → 2023-07-23 | Outpatient (BNVA) | payer OTHER, SELFPAY | PROVIDERS: PCP Internal Medicine; Visit Provider Nurse Practitioner | DX: K59.04 Chronic idiopathic constipation (principal); D12.6 Benign neoplasm of colon, unspecified; L72.3 Sebaceous cyst; Z80.0 Family history of malignant neoplasm of digestive organs | CPT/HCPCS: 99212 ==

== ENCOUNTER 2023-09-17 11:40 | Outpatient (AMB) | payer OTHER, SELFPAY ==
--- NOTE | 2023-09-17 12:16 | A.OFFPC_ITS ---
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: No Accompanied by: Self / Same As Patient Allergies dulaglutide [Trulicity] Allergy (Intermediate, Verified 09/17/23 13:09) cyst ondansetron [ONDANSETRON] Allergy (Intermediate, Verified 09/17/23 13:09) stomach pain Medication List - Last Reconciled 09/17/23 by Salima Rizo MD [adult diapers pull-ups As directed] ascorbic acid (vitamin C) 1 g PO DAILY 90 days atorvastatin 80 mg PO DAILY [bed rail As directed] blood pressure monitor (Blood Pressure Kit) As directed bupropion HCl 150 mg PO DAILY chlorpromazine 200 mg PO cholecalciferol (vitamin D3) 50 mcg PO DAILY clonidine HCl 0.1 mg PO BEDTIME 90 days commode As directed cyclobenzaprine 10 mg PO TID PRN 30 days [diabetic shoes As directed] empagliflozin (Jardiance) 25 mg PO QAM 90 days flash glucose sensor (FreeStyle Kevin 14 Day Sensor kit) 1 ea topical Q2W gabapentin 600 mg PO TID 30 days hydrocortisone 2.5% 1 appl topical BID PRN hydroxyzine pamoate 25 mg PO BID insulin aspart U-100 (Novolog FlexPen U-100 Insulin aspart) 4 - 10 units (0.04 - 0.1 mL) subcut TID insulin glargine U-300 conc (Toujeo Max U-300 SoloStar) 45 units (0.15 mL) subcut DAILY 30 days linaclotide (Linzess) 145 mcg PO QAM lisinopril 5 mg PO DAILY meloxicam 15 mg PO DAILY metformin 1,000 mg PO BID nebulizers (AeroEclipse II Nebulizer) As directed peg 3350-electrolytes 236-22.74-6.74 -5.86 gram (Golytely) 240 mL PO Q10M 1 day pen needle, diabetic (BD Ultra-Fine Diana Pen Needle) As directed four times a day [pill box 2 day capacity As directed] semaglutide (Ozempic) 2 mg (0.75 mL) subcut QWEEK 30 days sennosides (Senna Lax) 8.6 mg PO BEDTIME 90 days sertraline 100 mg PO DAILY 90 days [step stool for bed As directed] sulfamethoxazole-trimethoprim 800-160 mg 1 tab PO Q12H 10 days tadalafil 5 mg PO DAILY 90 days tadalafil 20 mg PO ONCE PRN 30 days timolol maleate 0.5% drps ophthalmic (eye) [toilet seat elevator As directed] Transfer Bench As directed trazodone 200 mg (2 x 100 mg) PO BEDTIME PRN 90 days underpads (Bed Underpads) As directed walker As directed [wipes As directed] Tobacco use date assessed: 01/15/23 Dental Screening Dental Screen Date: 09/17/23 Did you have a dental visit in the last 12 months?: No Did you have a dental problem in the last 6 months where you did not have access to dental care?: No Was dental information given to patient?: Patient has dentist HPI HPI Comments History of Present Illness Details This is a 58-year-old male with diabetes mellitus type 2 on long-term current use of insulin, hypertension, hyperlipidemia and severe major depression that comes today for follow-up on his conditions. A1c elevated and he has been out of short-acting insulin. Will be refilled. Blood pressure stable. Lipid panel will be order and his LDL goal should be less than 70. Major depression has markedly improved with medications. Denies any chest pain or shortness of breath. Complains of right leg venous insufficiency and would like to see vascular surgeon. Walks with a cane for gait stability. [facility] Medical History (Updated 09/17/23 @ 13:17 by Salima Rizo MD) Severe major depression without psychotic features HTN (hypertension) Unsteady gait Chest pain Fibromyalgia Serum calcium elevated IBS (irritable bowel syndrome) Right leg pain Kidney stones GERD (gastroesophageal reflux disease) Type 2 diabetes mellitus with hyperglycemia Type 2 diabetes mellitus with diabetic polyneuropathy Hyperlipidemia LDL goal <100 Vitamin D deficiency Surgical History H/O colonoscopy History of eye surgery Family History Father Colon cancer Stroke Prostate cancer Mother Hypertension Diabetes Family/Other FH: mental illness Social History Household Members: None Housing: Apartment Alcohol intake: current Alcohol intake frequency: holidays/special occasions only Alcohol type: wine Patient Tobacco Use Status: Never used Tobacco e-Cigarette/Vaping Use: Never Used Second Hand Smoke Exposure: No service: No Current occupational status: disabled Cognitive needs: Yes (cane/walker) Hearing needs: No Vision needs: Yes (glasses) Questionnaire Thrive Questionnaire Date Thrive assessed: 01/15/23 GRAHAM-7 AMB Questionnaire GRAHAM-7 Date GRAHAM - 7 assessed: 01/15/23 Source: Developed by Drs. Arya Griffin, Delphine Kelley, Boris Aguilera and colleagues, with an educational ifrah from [employer]. Review of Systems Const All systems reviewed & are unremarkable except as noted in HPI and below Eyes Reports no additional complaints, Denies change in vision and Denies other visual disturbances Card Denies chest pain at rest, Denies chest pain with activity, Denies edema, Denies irregular heart rhythm, Denies claudication, Denies dyspnea, Denies dyspnea on exertion, Denies orthopnea, Denies paroxysmal nocturnal dyspnea and Denies slow heart rate Resp Denies cough, Denies dyspnea and Denies dyspnea on exertion GI Denies abdominal pain, Denies change in bowel habits, Denies excessive flatus, Denies nausea and Denies vomiting Denies urinary hesitancy, Denies urinary incontinence and Denies urinary urgency Musc Denies abnormal gait, Denies atrophy, Denies deformity and Denies limited range of motion Skin/Breast Denies bleeding lesions, Denies changing lesions and Denies rash Neuro Denies abnormal gait, Denies behavioral changes and Denies lack of coordination Psych Denies behavioral changes Physical exam (Primary Care) Vital Signs: Last Vital Signs BP 112/80 09/17/23 13:05 BMI result Body Mass Index 28.8 Tobacco/Smoking Status: Tobacco use Status Tobacco use date assessed 01/15/23 09/17/23 12:18 Patient Tobacco Use Status Never used Tobacco 09/17/23 12:18 e-Cigarette/Vaping Use Never Used 09/17/23 12:18 Thrive Assessment: Date of Thrive Assessment Date Thrive assessed 01/15/23 09/17/23 12:18 Eyes General: appearance normal, both eyes and all related structures Eyelids: Yes eyelids normal Conjunctivae: conjunctivae normal Neck Neck: Yes normal visual inspection and Yes supple Resp Effort & Inspection: normal respiratory effort Auscultation: clear to auscultation bilaterally Cardio Jugular venous distension: no JVD Rate: regular rate Rhythm: regular rhythm Heart sounds: S1 normal heart sound present and S2 normal heart sound present Extrem General: Yes full ROM Office Procedures Flu Questionnaire Does the patient have a severe egg allergy?: No Results AMB Hemoglobin A1c AMB Hemoglobin A1c 8.2 % Last Edit by ALEXUS Watkins on 09/17/23 13:0 9 Immunizations flu vacc [id number] 6mos up(PF) 60 mcg(15 mcgx4)/0.5 mL IM syringe Performing Provider: Salima Rizo MD [facility] Documented (not given) by: ALEXUS Watkins on 09/17/23 13:08 Reason Not Given: Patient Refused Results Reviewed Results Reviewed: Laboratory Last Values Hgb A1c (Clinic) 8.2 % (4.0-6.0) H 09/17/23 13:07 Assessment and Plan Assessment & Plan (1) Type 2 diabetes mellitus, with long-term current use of insulin: Code(s): E11.9 - Type 2 diabetes mellitus without complications; 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 Start short-acting insulin. Continue Ozempic. A1c goal is equal or less than 7%. (2) Hyperlipidemia LDL goal <70: Code(s): E78.5 - Hyperlipidemia, unspecified Plan: Continue statins. Repeat lipid panel. LDL goal is less than 70. (3) Severe major depression without psychotic features: Code(s): F32.2 - Major depressive disorder, single episode, severe without psychotic features Plan: Continue bupropion. (4) HTN (hypertension): Code(s): I10 - Essential (primary) hypertension Qualifiers: Hypertension type: essential hypertension Qualified Code(s): I10 - Essential (primary) hypertension Plan: Continue lisinopril. Blood pressure goal is equal or less than 130/80. Orders: Orders Lipid Panel Today E78.5 - Hyperlipidemia, unspecified Microalbumin, Random (w Creat) Today E11.9 - Type 2 diabetes mellitus without complications Comprehensive [place]. Panel Fast Today N39.41 - Urge incontinence AMB Hemoglobin A1c Today E11.9 - Type 2 diabetes mellitus without complications, Z79.4 - [facility] (current) use of insulin Influenza [id number] Immunization Today Z23 - Encounter for immunization Vitamin D 25-OH Total Today E55.9 - Vitamin D deficiency, unspecified Referrals Vascular Surgery Referral I87.2 - Venous insufficiency (chronic) (peripheral) Medications: Refilled cholecalciferol (vitamin D3) 50 mcg PO DAILY 30 caps 11RF E11.65 - Type 2 diabetes mellitus with hyperglycemia, Z79.4 - [facility] (current) use of insulin hydrocortisone 2.5% 1 appl topical BID PRN 20 grams 0RF skin irritation sulfamethoxazole-trimethoprim 800-160 mg 1 tab PO Q12H 10 days 20 tabs 0RF insulin aspart U-100 (Novolog FlexPen U-100 Insulin aspart) 4 - 10 units (0.04 - 0.1 mL) subcut TID 15 mL 5RF E11.65 - Type 2 diabetes mellitus with hyperglycemia Coding Level of Care Code Est Pt Level 4 (06468) Diagnoses Type 2 diabetes mellitus, with long-term current use of insulin E11.9; Z79.4 Hyperlipidemia LDL goal <70 E78.5 Severe major depression without psychotic features F32.2 Essential hypertension I10 Hypertension type: essential hypertension Time Spent (min) 24
[2023-09-17 13:05] VITALS: BP 112/80; BMI 28.8
== END 2023-09-17 13:18 | disposition home or self-care (01) ==
LOC: HO.HMGH 11:40
PROVIDERS: PCP Internal Medicine; Visit Provider Internal Medicine
DX: E11.9 Type 2 diabetes mellitus without complications (principal); Z79.4 Long term (current) use of insulin; F32.2 Major depressive disorder, single episode, severe without psychotic features; E78.5 Hyperlipidemia, unspecified; I10 Essential (primary) hypertension
CPT/HCPCS: 83036; 99214

== ENCOUNTER 2023-10-15 15:31 | Outpatient (AMB) | payer OTHER, SELFPAY ==
[2023-10-15 15:42] VITALS: BP 122/82; PULSE 76; BMI 29.7
--- NOTE | 2023-10-15 15:42 | A.OFFVIS_ITS ---
Intake Vital Signs 10/15/23 15:42 Height 5 ft 10 in Weight 206 lb 12.697 oz BMI 29.7 BP 122/82 Blood Pressure Location Lt brachial Position Sitting Pulse 76 Intake Visit Reasons: CIC, eval Linzess Intake Note: Patient presents to in office visit today in follow up of CIC. CC: Patient reports that he tried the Linzess but it did not work well. He has been taking natural juices and states this helps him with BMs. He c/o discomfort form his kidney and is concern for kidney stones. [employer] Torque Tester Required: Yes [employer] Torque Tester Name: brother in law Accompanied by: brother in law Allergies dulaglutide [Trulicity] Allergy (Intermediate, Verified 10/15/23 15:48) cyst ondansetron [ONDANSETRON] Allergy (Intermediate, Verified 10/15/23 15:48) stomach pain HPI CIC, eval Linzess HPI Details Assessment & Plan (1) Tubular adenoma of colon: Comment: 2022=1 TA repeat in 5 years Code(s): D12.6 - Benign neoplasm of colon, unspecified Plan: Tristanian # brother translates per patient request. The procedure needs to be repeated in 5 years due to the finding of a tubular adenoma. The procedure was well tolerated. The results were explained and the patient is agreeable to the follow-up interval as stated. The bowel pattern has returned to normal. Education was provided to tell any 1st degree relatives about their findings to be sure that they are screened by age 45. Educated that they will be put on a recall list when it is time for their repeat scope but should they move out of state or away from the hospital they will need to remember along with their primary to repeat the procedure in a timely fashion to avoid any adverse complications. He complains of CIC at his baseline now, which he did not offer at the last visit. He felt is was because of his diabetes. Will start Linzess 145mcg and titrate. Doorknob c/o axillary cyst right arm, this appears to be a dermal cyst and I will ref to gen surgery. Call me if spreading for abx. ROV 3 week (2) Family history of colon cancer: Comment: Mother and sister Code(s): Z80.0 - Family history of malignant neoplasm of digestive organs (3) Chronic idiopathic constipation: Code(s): K59.04 - Chronic idiopathic constipation (4) Sebaceous cyst of right axilla: Code(s): L72.3 - Sebaceous cyst Orders: Referrals General Surgery Re ferral L72.3 - Sebaceous cyst Medications: New linaclotide (Linze ss) 145 mcg PO QAM 30 caps 3RF K59.04 - Chronic i diopathic constipa tion . TODAY'S VISIT Tristanian # His PLASTIC AND RECONSTRUCTIVE SURGEON translates per patient request. He did not move his bowels at all any better with the Linzess at 145mcg, we will increase it to 290. He does NOT have the senna at home that his PCP tried to rx. He is trying to juice, but sill is not moving his bowels well and he has a lot of bloating. He currently denies any GERD or severe dyspepsia. He is also on Ozempic, which also slows down the GI tract. ROV 4 weeks. [facility] Medical History Severe major depression without psychotic features HTN (hypertension) Unsteady gait Chest pain Fibromyalgia Serum calcium elevated IBS (irritable bowel syndrome) Right leg pain Kidney stones GERD (gastroesophageal reflux disease) Type 2 diabetes mellitus with hyperglycemia Type 2 diabetes mellitus with diabetic polyneuropathy Hyperlipidemia LDL goal <100 Vitamin D deficiency Surgical History H/O colonoscopy History of eye surgery Family History Father Colon cancer Stroke Prostate cancer Mother Hypertension Diabetes Family/Other FH: mental illness Social History Household Members: None Housing: Apartment Alcohol intake: current Alcohol intake frequency: holidays/special occasions only Alcohol type: wine Patient Tobacco Use Status: Never used Tobacco e-Cigarette/Vaping Use: Never Used Second Hand Smoke Exposure: No service: No Current occupational status: disabled Cognitive needs: Yes (cane/walker) Hearing needs: No Vision needs: Yes (glasses) Review of Systems Const Denies fatigue, Denies fever(s), Denies night sweats, Denies poor appetite and Denies weight loss ENT Reports Normal hearing present, Denies dental pain, Denies dysphagia, Denies hearing loss, Denies mouth pain, Denies odynophagia, Denies throat swelling, Denies tongue swelling and Reports other (Dentition adequate) Card Reports no additional complaints Resp Reports no additional complaints GI Denies abdominal pain, Denies melena, Reports bloating, Denies hematochezia, Reports constipation, Denies GI cramping, Denies dysphagia, Denies excessive flatus, Denies early satiety, Denies heartburn, Denies diarrhea, Denies nausea, Denies odynophagia, Denies vomiting and Denies hematemesis Musc Reports back pain, Reports myalgias and Reports arthralgias Skin/Breast Denies pruritus, Denies lesions, Denies rash and Denies jaundice Neuro Reports Normal hearing present, Denies Abnormal speech present and Reports paresthesias Endo Denies fatigue Aller/Immun Denies throat swelling and Denies tongue swelling Physical Exam Vital Signs: Last Vital Signs Pulse 76 10/15/23 15:42 BP 122/82 10/15/23 15:42 BMI result Body Mass Index 29.7 Const General: cooperative, no acute distress, well developed and well groomed Nutritional Appearance: well nourished and overweight Orientation/consciousness: oriented to person, oriented to place and oriented to time Limitations: language barrier HEENT Head: Yes normocephalic and Yes atraumatic Eyes General: appearance normal, both eyes and all related structures Pupils: Equal, round and reactive pupils present Neck Neck: Yes normal visual inspection and Yes no lymphadenopathy Thyroid: Thyroid normal Resp Effort & Inspection: normal respiratory effort and able to speak in complete sentences Auscultation: clear to auscultation bilaterally Cardio Rate: regular rate Rhythm: regular rhythm Heart sounds: Normal, physiologic split S2 sound present Peripheral pulses: radial pulses present and posterior tibial pulses present GI Inspection: No distended and No Abdominal panniculus present Palpation (GI): Soft to palpation, nontender, no guarding, not rigid and No hepatosplenomegaly present Percussion: Yes normal to percussion Auscultation: normal bowel sounds Rectal Exam - Male: Yes deferred Skin General skin exam: no rashes or lesions noted, turgor normal, skin not dry, no jaundice, No spider nevi and no striae Rashes: no rashes Nails: normal Neuro General: oriented to person, oriented to place and oriented to time Cranial nerves: Yes Equal, round and reactive pupils present and Yes Normal hearing present Speech: No Abnormal speech present Extrem General: Yes normal to inspection, No clubbing, No cyanosis and No edema Psych Appearance: grossly normal and well kempt Mental Status: mental status grossly normal Speech and movement: Normal speech and movement present Affect: normal affect Attitude: cooperative Thought process: Normal thought process present and not confabulating Thought content: Normal thought content present Insight: Limited insight present (Psych) Judgement: Limited judgement present (Psych) Assessment & Plan Assessment & Plan (1) Chronic idiopathic constipation: Code(s): K59.04 - Chronic idiopathic constipation (2) GERD (gastroesophageal reflux disease): Code(s): K21.9 - Gastro-esophageal reflux disease without esophagitis Qualifiers: Esophagitis presence: esophagitis presence not specified Qualified Code(s): K21.9 - Gastro-esophageal reflux disease without esophagitis Plan Tristanian # His PLASTIC AND RECONSTRUCTIVE SURGEON translates per patient request. He did not move his bowels at all any better with the Linzess at 145mcg, we will increase it to 290. He does NOT have the senna at home that his PCP tried to rx. He is trying to juice, but sill is not moving his bowels well and he has a lot of bloating. He currently denies any GERD or severe dyspepsia. He is also on Ozempic, which also slows down the GI tract. ROV 4 weeks. Medications: New linaclotide (Linzess) 290 mcg PO QAM 30 days 30 caps 6RF K59.04 - Chronic idiopathic constipation Discontinued linaclotide (Linzess) Discontinued Reason: Doctor's Order 145 mcg PO QAM 30 caps 3RF K59.04 - Chronic idiopathic constipation Coding Level of Care Code Est Pt Level 3 (14361) Diagnoses Chronic idiopathic constipation K59.04 Gastroesophageal reflux disease, unspecified whether esophagitis present K21.9 Esophagitis presence: esophagitis presence not specified
== END 2023-10-15 16:26 | disposition home or self-care (01) ==
PROVIDERS: PCP Internal Medicine; Visit Provider Nurse Practitioner
DX: K59.04 Chronic idiopathic constipation (principal); K21.9 Gastro-esophageal reflux disease without esophagitis
CPT/HCPCS: 99213

== ENCOUNTER → 2023-10-15 15:31 | Outpatient (BNVA) | payer OTHER, SELFPAY | PROVIDERS: PCP Internal Medicine; Visit Provider Nurse Practitioner | DX: K59.04 Chronic idiopathic constipation (principal); K21.9 Gastro-esophageal reflux disease without esophagitis; Z79.899 Other long term (current) drug therapy | CPT/HCPCS: 99212 ==

== ENCOUNTER → 2023-11-14 15:03 | Outpatient (BNVA) | payer OTHER, SELFPAY | PROVIDERS: PCP Internal Medicine; Visit Provider Nurse Practitioner ==

== ENCOUNTER 2023-11-24 08:50 | Outpatient (REF) | payer OTHER, SELFPAY ==
[2023-11-24 11:02] LABS: Alanine Aminotransferase 19 U/L (0-40); Albumin Level 4.4 g/dL (3.5-5.0); Alkaline Phosphatase 92 U/L (39-117); Anion Gap 11 (12-20); Aspartate Amino Transferase 18 U/L (5-37); Bilirubin Total 0.2 mg/dL (0.0-1.0); Blood Urea Nitrogen 13 mg/dL (9-16); Carbon Dioxide 27 mmol/L (22-29); Chloride 107 mmol/L (96-108); Cholesterol 110 mg/dL (<200); Estimated Glomerular Filt Rate > 60; Glucose Fasting 156 mg/dL (60-99); HDL Cholesterol 38 mg/dL (>40); LDL Cholesterol Calculated 58 mg/dL (<100); Potassium 4.9 mmol/L (3.3-5.1); Sodium 140 mmol/L (135-145); Total Protein 7.6 g/dL (6.5-8.0); Triglycerides 74 mg/dL (<150)
[2023-11-24 11:20] LABS: Vitamin D 25-OH Total 33.2 ng/mL (>30)
[2023-11-24 11:30] LABS: Creatinine Urine 88.31 mg/dL
== END 2023-11-24 08:51 | disposition home or self-care (01) ==
LOC: HO.LAB 08:50
PROVIDERS: PCP Internal Medicine; Visit Provider Internal Medicine
DX: E11.9 Type 2 diabetes mellitus without complications (principal); E78.5 Hyperlipidemia, unspecified; E55.9 Vitamin D deficiency, unspecified; Z79.4 Long term (current) use of insulin
CPT/HCPCS: 36415; 80053; 80061; 82043; 82306; 82570

== ENCOUNTER 2023-11-27 13:44 | Outpatient (AMB) | payer OTHER, SELFPAY ==
[2023-11-27 13:55] VITALS: BMI 29.6
--- NOTE | 2023-11-27 13:55 | MHC.OFFVIS ---
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 States his veins protrude when he stands/walks. 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 Complaints include pain over varicosities, swelling of lower extremities, cramping, fatigue, and heaviness of the lower extremities. It has been affecting there daily activities including walking. It is noted more so in right leg. Of note he does have a significant history of polio Patient denies any previous venous surgery or injections. Patient denies any history of DVT/ PE. Patient denies any history of phlebitis. Trial of compression includes - [id number] They now present for vascular evaluation regarding their varicose veins. [facility], [facility] Medical History Pre-op examination Physical exam Balanitis Lumbar pain Constipation Precordial chest pain Chest pain Right leg pain Kidney stones Type 2 diabetes mellitus with hyperglycemia Severe major depression without psychotic features HTN (hypertension) Unsteady gait Fibromyalgia Serum calcium elevated IBS (irritable bowel syndrome) GERD (gastroesophageal reflux disease) Type 2 diabetes mellitus with diabetic polyneuropathy Hyperlipidemia LDL goal <100 Vitamin D deficiency Surgical History H/O colonoscopy History of eye surgery Family History Father Colon cancer Stroke Prostate cancer Mother Hypertension Diabetes Family/Other FH: mental illness Social History Household Members: None Housing: Apartment Alcohol intake: current Alcohol intake frequency: holidays/special occasions only Alcohol type: wine Patient Tobacco Use Status: Never used Tobacco e-Cigarette/Vaping Use: Never Used Second Hand Smoke Exposure: No service: No Current occupational status: disabled Cognitive needs: Yes (cane/walker) Hearing needs: No Vision needs: Yes (glasses) Review of Systems Const Reports as per HPI ENT Reports no additional complaints Card Denies chest pain, Denies chest pain at rest and Denies chest pain with activity Resp Denies chest congestion and Denies cough GI Reports no additional complaints Musc Details: pain over varicosities, aching of lower extremities, swelling, cramping, heaviness and tiredness, itching Denies abnormal gait Skin/Breast Reports pruritus and Denies wounds Neuro Reports no additional complaints and Denies abnormal gait Psych Denies no additional complaints Physical Exam Vital Signs: BMI result Body Mass Index 29.6 Const General: cooperative, healthy appearing and comfortable Orientation/consciousness: oriented to person, oriented to place and oriented to time Neck Carotids: no bruits Chest Chest palpation & inspection: normal inspection of the chest and normal palpation of entire chest wall Resp Effort & Inspection: normal respiratory effort and able to speak in complete sentences Cardio Rate: regular rate Heart sounds: S1 normal heart sound present and S2 normal heart sound present Peripheral pulses: Peripheral pulses 2+ throughout GI Inspection: Yes normal to inspection Skin Other: +2 edema, large rope-like varicosities greater than 4 mm CEAP Classification C4 - skin color changes Ep - Etiology Primary As - superficial veins P - reflux General skin exam: dry skin Neuro General: oriented to person, oriented to place and oriented to time Extrem Other: Significant difference and muscularity between the 2 legs. Clear evidence of patient's prior history of polio Right lower extremity: full ROM, normal capillary refill and edema Left lower extremity: full ROM, normal capillary refill and edema Psych Mental Status: mental status grossly normal Assessment & Plan Assessment & Plan (1) Varicose veins of right lower extremity with inflammation: Code(s): I83.11 - Varicose veins of right lower extremity with inflammation Plan: In short, the patient has evidence of venous insufficiency. I have discussed the pathophysiology with the patient. In addition I have provided informational material regarding venous disease to the patient. We have discussed conservative measures including compression, elevation, and exercise. I have also provided a handout regarding appropriate use of compression stockings and where to purchase good compression stockings as well. I have taken the liberty of ordering venous insufficiency testing with the patient. They will follow up with me after testing. The patient had an opportunity to ask questions regarding the treatment plan. All questions were answered. Imaging studies, laboratory studies and physical exam results were discussed and reviewed in detail. No major barriers to understanding were identified. The patient expressed understanding and agreement with the above treatment plan. The patient is aware they should contact our office by phone for worsening of the current condition or the appearance of new symptoms. Thank you for allowing me to participate in the vascular care of this patient. If you have any questions or concerns regarding the treatment for the above condition please do not hesitate to contact me. The office telephone contact is [phone]. This note is constructed using voice recognition software. While every effort has been made to ensure accuracy, cad operator errors may have been included. Thank you for allowing me to participate in the care of your patient. Yours sincerely, Elder Baird MD, FACS, R.P.V.I. Orders: Orders US venous insuf bilat 1 Week I83.11 - Varicose veins of right lower extremity with inflammation Coding Level of Care Code New Pt Level 4 (07344) Diagnoses Varicose veins of right lower extremity with inflammation I83.11
== END 2023-11-27 14:18 | disposition home or self-care (01) ==
PROVIDERS: PCP Internal Medicine; Visit Provider Surgery Vascular Surgery
DX: I83.11 Varicose veins of right lower extremity with inflammation (principal)
CPT/HCPCS: 99203

== ENCOUNTER → 2023-11-27 13:44 | Outpatient (BNVA) | payer OTHER, SELFPAY | PROVIDERS: PCP Internal Medicine; Visit Provider Surgery Vascular Surgery | DX: I83.11 Varicose veins of right lower extremity with inflammation (principal) | CPT/HCPCS: 99202 ==

== ENCOUNTER 2023-12-04 12:03 | Outpatient (REF) | payer OTHER, SELFPAY ==
--- NOTE | ~2023-12-04 | US_ITS ---
EXAMINATION: US LOWER EXTREMITY VENOUS (REFLUX EXAM), BILATERAL CLINICAL INFORMATION: Chronic venous insufficiency with lower extremity varicose veins, pain COMPARISON: None. TECHNIQUE: Color flow triplex imaging and compression Doppler was performed to evaluate both the deep and the superficial systems bilaterally. To evaluate the superficial system, the examination was performed in the upright position. Color-flow Doppler ultrasound and compression ultrasound were utilized. In addition, maneuvers were utilized to demonstrate reflux. FINDINGS: 1. DEEP VENOUS ULTRASOUND OF THE RIGHT LOWER EXTREMITY: Common Femoral Vein: Compressible, normal respiratory variation and augmented flow. Femoral Vein: Compressible, normal color flow and augmentation. Popliteal Vein: Compressible, normal augmentation. Deep Reflux: There is no evidence of reflux in the deep system in either the common femoral vein, superficial femoral or the popliteal vein. There is no evidence of a Canada's cyst. 2. SUPERFICIAL ULTRASOUND WITH DOPPLER OF RIGHT LOWER EXTREMITY: GREAT SAPHENOUS VEIN: Saphenofemoral Junction: 0.6 cm; Reflux: 0 ms Proximal Thigh: 0.3 cm; Reflux: 0 ms Mid Thigh: 0.4 cm; Reflux: 0 ms Distal Thigh: 0.4 cm; Reflux: 0 ms At Knee: 0.3 cm; Reflux: 0 ms Proximal Calf: 0.3 cm; Reflux: 0 ms Mid Calf: 0.3 cm; Reflux: 0 ms Distal Calf: 0.3 cm; Reflux: 0 ms DUPLICATED MEDIAL GREAT SAPHENOUS VEIN: Diameter: None imaged Reflux: NA DUPLICATED LATERAL GREAT SAPHENOUS VEIN: Diameter: None imaged Reflux: NA SMALL SAPHENOUS VEIN: Saphenopopliteal Junction: 0.2 cm; Reflux: 0 ms Proximal: 0.3 cm; Reflux: 0 ms Distal: 2.2 cm; Reflux: 0 ms VEIN OF GIACOMINI: Size: NA Reflux: NA PERFORATORS: Location: None significant Size: NA Reflux: NA VARICOSITIES: Location: None significant. Size: NA Reflux: NA 3. DEEP VENOUS ULTRASOUND OF THE LEFT LOWER EXTREMITY: Common Femoral Vein: Compressible, normal respiratory variation and augmented flow. Femoral Vein: Compressible, normal color flow and augmentation. Popliteal Vein: Compressible, normal augmentation. Deep Reflux: There is no evidence of reflux in the deep system in either the common femoral vein, superficial femoral or the popliteal vein. There is no evidence of a Canada's cyst. 4. SUPERFICIAL ULTRASOUND WITH DOPPLER OF LEFT LOWER EXTREMITY: GREAT SAPHENOUS VEIN: Saphenofemoral Junction: 0.4 cm; Reflux: 0 ms Proximal Thigh: 0.3 cm; Reflux: 0 ms Mid Thigh: 0.4 cm; Reflux: 0 ms Distal Thigh: 0.4 cm; Reflux: 0 ms At Knee: 0.3 cm; Reflux: 0 ms Proximal Calf: 0.3 cm; Reflux: 0 ms Mid Calf: 0.3 cm; Reflux: 0 ms Distal Calf: 0.4 cm; Reflux: 0 ms DUPLICATED MEDIAL GREAT SAPHENOUS VEIN: Diameter: None imaged Reflux: NA DUPLICATED LATERAL GREAT SAPHENOUS VEIN: Diameter: None imaged. Reflux: NA SMALL SAPHENOUS VEIN: Saphenopopliteal Junction: 0.6 cm; Reflux: 0 ms. Wall adherent calcification seen consistent with prior thrombophlebitis Mid: 0.3 cm; Reflux: 0 ms Distal: 0.3 cm; Reflux: 0 ms VEIN OF GIACOMINI: Size: NA Reflux: NA PERFORATORS: Location: Posterior mid calf into the small saphenous vein Size: 0.4 cm Reflux: None VARICOSITIES: Location: Proximal thigh Size: 0.4 cm Reflux: None US/US venous insuf bilat IMPRESSION: Right: No significant venous insufficiency or reflux in the great saphenous vein or small saphenous vein Left: No significant venous insufficiency or reflux in the great saphenous vein or small saphenous vein. The sequelae from prior thrombophlebitis in the proximal small saphenous vein as described above
== END 2023-12-04 12:04 | disposition home or self-care (01) ==
LOC: HO.US 12:03
PROVIDERS: PCP Internal Medicine; Visit Provider Surgery Vascular Surgery
DX: I83.11 Varicose veins of right lower extremity with inflammation (principal)
CPT/HCPCS: 93970

== ENCOUNTER 2023-12-28 17:37 | Emergency (ER) | payer OTHER, SELFPAY ==
[2023-12-28 18:09] VITALS: BP 131/77; PULSE 100; RESP 18; TEMP 37.1; O2SAT 99; BMI 29.0
[2023-12-28 19:01] LABS: MANUAL DIFF FLAG NO
[2023-12-28 19:02] LABS: Basophils Percent Auto 0.2 % (0-2); Eosinophils Absolute Auto 0.1 X10*3/uL (0.0-0.4); Hematocrit 45.1 % (42.0-52.0); Hemoglobin 15.6 g/dl (14.0-18.0); Imm Gran Abs Auto 0.03 X10*3/uL (0.00-0.03); Imm Gran Pct Auto 0.3 % (0.0-0.4); Lymphocytes Absolute Auto 2.2 X10*3/uL (1.2-4.9); Lymphocytes Percent Auto 23.8 % (20-40); Mean Corpuscular HGB Conc 34.6 g/dl (31.0-36.0); Mean Corpuscular Hemoglobin 30.2 pg (27.0-33.0); Mean Corpuscular Volume 87.4 fL (80.0-98.0); Mean Platelet Volume 9.9 fL (9.4-12.4); Monocytes Absolute Auto 0.6 X10*3/uL (0.1-1.2); Monocytes Percent Auto 6.6 % (2-11); Neutrophils Absolute Auto 6.4 x10*3/uL (2.0-8.3); Neutrophils Percent Auto 68.1 % (45-73); Platelet Count 278 X10*3/uL (160-400); Red Blood Count 5.16 X10*6/uL (4.60-5.80); Red Cell Distribution Width 12.3 % (11.0-16.0); White Blood Count 9.3 X10*3/uL (4.8-10.8)
[2023-12-28 19:03] LABS: Appearance Urine Clear; Color Urine Yellow; Glucose Urine UA >=1000 mg/dL (Negative); Leukocyte Esterase Urine Negative (Negative); Nitrite Urine Negative (Negative); PH 7.5 (5.0-9.0); UMIC TRIGGER UACC YES; Urine Blood Negative (Negative); Urine Ketones Negative (Negative); Urine Protein Negative (Neg-Trace)
[2023-12-28 19:13] LABS: Bacteria Urine None Seen (None Seen); Hyaline Casts Urine 0-2 /LPF (0-2); RBC Urine 0-2 /HPF (0-2); Squamous Epithelial Cell Urine 0-2 /HPF (0-2); WBC Urine 0-5 /HPF (0-5)
[2023-12-28 19:15] LABS: Anion Gap 12 (12-20); Blood Urea Nitrogen 11 mg/dL (9-16); Calcium 10.1 mg/dL (8.4-10.2); Carbon Dioxide 28 mmol/L (22-29); Chloride 105 mmol/L (96-108); Creatinine Clr Calc Pharmacy 90.7; Estimated Glomerular Filt Rate > 60; Glucose Random 210 mg/dL (60-115); Potassium 4.4 mmol/L (3.3-5.1); Sodium 141 mmol/L (135-145)
[2023-12-28 19:16] LABS: Alanine Aminotransferase 22 U/L (0-40); Albumin Level 4.5 g/dL (3.5-5.0); Alkaline Phosphatase 107 U/L (39-117); Aspartate Amino Transferase 24 U/L (5-37); Bilirubin Direct 0.2 mg/dL (0.0-0.5); Bilirubin Total 0.5 mg/dL (0.0-1.0); Lipase 25 U/L (8-78); Total Protein 7.6 g/dL (6.5-8.0)
[2023-12-28 19:54] VITALS: BP 146/72; PULSE 100; RESP 18; TEMP 36.9; O2SAT 99
--- NOTE | 2023-12-28 20:24 | ED_ITS ---
HPI - General Adult General Chief complaint: General Medical Stated complaint: bilateral kidney pain, diabetic Time Seen by Provider: 12/28/23 20:23 Source: patient Mode of arrival: ambulatory Limitations: language barrier (Patient speaks [place]raini only, automotive parts interpreter used) History of Present Illness HPI narrative: 58-year-old male with a history of spinal stenosis, fibromyalgia, kidney stones, diabetes, hypertension, GERD, hyperlipidemia who presents emergency department for evaluation of 3 weeks of bilateral lower back pain. The patient states that the pain is a constant, stabbing pain which is 10/10 at its worst. Pain is worse with position change. He denies any numbness or weakness of his lower extremities. He denied fever, chills, chest pain, shortness of breath. The patient states that he has been taking his tramadol, ibuprofen and gabapentin with no relief his pain. He states his pain is 10/10 at the time my evaluation. Related Data Home Medications Medication Instructions Recorded Confirmed chlorpromazine 200 mg tablet 200 mg PO 11/28/20 09/17/23 hydroxyzine pamoate 25 mg capsule 25 mg PO BID 01/15/23 09/17/23 timolol maleate 0.5 % eye drops drp ophthalmic (eye) 07/23/23 09/17/23 Previous Rx's Medication Instructions Recorded walker #1 ea 11/23/20 pen needle, diabetic 32 gauge x #125 ea 11/28/20 (BD Ultra-Fine Diana Pen Needle) blood pressure monitor (Blood #1 ea 10/24/21 Pressure Kit) sennosides 8.6 mg tablet (Senna 8.6 mg PO BEDTIME 90 days #90 tabs 10/24/21 Lax) diabetic shoes #1 ea 03/12/22 gabapentin 600 mg tablet 600 mg PO TID 30 days #90 tabs 03/12/22 meloxicam 15 mg tablet 15 mg PO DAILY #14 tabs 07/05/22 metformin 1,000 mg tablet 1,000 mg PO BID #180 tabs 07/05/22 nebulizers (AeroEclipse II #1 ea 08/05/22 Nebulizer) cyclobenzaprine 10 mg tablet 10 mg PO TID PRN muscle spasm 30 08/07/22 days #90 tabs trazodone 100 mg tablet 200 mg (2 x 100 mg) PO BEDTIME PRN 09/10/22 insomnia 90 days #180 tabs clonidine HCl 0.1 mg tablet 0.1 mg PO BEDTIME 90 days #90 tabs 12/08/22 atorvastatin 80 mg tablet 80 mg PO DAILY #90 tabs 05/15/23 insulin glargine U-300 conc 300 45 unit (0.15 mL) subcut DAILY 30 05/15/23 unit/mL (3 mL) subcutaneous pen days #4.5 mL (Toujeo Max U-300 SoloStar) tadalafil 5 mg tablet 5 mg PO DAILY sexual activity 90 07/03/23 days #90 tabs Transfer Bench #1 ea 08/02/23 adult diapers pull-ups #90 ea 08/02/23 bed rail #1 ea 08/02/23 commode #1 ea 08/02/23 pill box 2 day capacity #1 ea 08/02/23 step stool for bed #1 ea 08/02/23 toilet seat elevator #1 ea 08/02/23 underpads (Bed Underpads) #100 ea 08/02/23 wipes #200 ea 08/02/23 semaglutide 2 mg/dose (8 mg/3 mL) 2 mg (0.75 mL) subcut QWEEK 30 08/30/23 subcutaneous pen injector (Ozempic) days #3.75 mL cholecalciferol (vitamin D3) 50 50 mcg PO DAILY #30 caps 09/17/23 mcg (2,000 unit) capsule hydrocortisone 2.5 % topical cream 1 appl topical BID PRN skin 09/17/23 irritation #20 grams insulin aspart U-100 100 unit/mL 4 - 10 unit (0.04 - 0.1 mL) subcut 09/17/23 (3 mL) subcutaneous pen (Novolog TID #15 mL FlexPen U-100 Insulin aspart) lisinopril 5 mg tablet 5 mg PO DAILY #90 tabs 10/08/23 linaclotide 290 mcg capsule 290 mcg PO QAM 30 days #30 caps 10/15/23 (Linzess) ascorbic acid (vitamin C) 1,000 mg 1 g PO DAILY 90 days #90 tabs 10/16/23 tablet flash glucose sensor (FreeStyle 1 ea topical Q2W #2 ea 10/20/23 Kevin 14 Day Sensor kit) empagliflozin 25 mg tablet 25 mg PO QAM 90 days #90 tabs 11/10/23 (Jardiance) tadalafil 20 mg tablet 20 mg PO ONCE PRN sexual activity 11/14/23 30 days #30 tabs sertraline 100 mg tablet 100 mg PO DAILY 90 days #90 tabs 11/26/23 morphine 15 mg immediate release 15 mg PO Q6H PRN pain #14 tabs 12/28/23 tablet Allergies Allergy/AdvReac Type Severity Reaction Status Date / Time dulaglutide [Trulicity] Allergy Intermediate cyst Verified 12/28/23 18:08 ondansetron [ONDANSETRON] Allergy Intermediate stomach Verified 12/28/23 18:08 pain Review of Systems 2 Review of Systems: Yes all other systems are reviewed and are negative [facility] Past Medical History [facility] Narrative: Social history: He denies tobacco, alcohol and drug use. Medical History Pre-op examination Physical exam Balanitis Lumbar pain Constipation Precordial chest pain Chest pain Right leg pain Kidney stones Type 2 diabetes mellitus with hyperglycemia Severe major depression without psychotic features HTN (hypertension) Unsteady gait Fibromyalgia Serum calcium elevated IBS (irritable bowel syndrome) GERD (gastroesophageal reflux disease) Type 2 diabetes mellitus with diabetic polyneuropathy Hyperlipidemia LDL goal <100 Vitamin D deficiency Surgical History H/O colonoscopy History of eye surgery Family History Family History Father Colon cancer Stroke Prostate cancer Mother Hypertension Diabetes Family/Other FH: mental illness Social History Social History Household Members: None Housing: Apartment Alcohol intake: never Patient Tobacco Use Status: Never used Tobacco Smoked in Last 30 Days: No e-Cigarette/Vaping Use: Never Used Second Hand Smoke Exposure: No Use of substances other than those prescribed or required for medical reasons: No Advance Directives: No Advance Directives Information Provided: No service: No Current occupational status: disabled Cognitive needs: Yes (cane/walker) Hearing needs: No Vision needs: Yes (glasses) Physical Exam ED Vital Signs: Vital Signs - 24 hr 12/28/23 18:09 12/28/23 19:54 Temperature 98.7 F 98.4 F Pulse Rate 100 100 Respiratory Rate 18 18 Blood Pressure 131/77 146/72 H Pulse Oximetry 99 99 Oxygen Delivery Method Room Air Room Air BMI result Body Mass Index 29.0 Vital signs were Exam: General: Awake, alert in no distress Head: Normocephalic, atraumatic EENT: PERRL, Lids normal, sclera normal, conjunctiva normal, nose normal , ears normal, throat without erythema or exudates Neck: Supple, no adenopathy Lung: breath sounds symmetric, no wheezing, rales or rhonchi Chest: symmetric movement, nontender Heart: regular rate and rhythm, normal S1, S2 no murmurs or rubs Abdomen: soft, non-tender, nondistended, normal bowel sounds Back: Patient has tenderness palpation over his paraspinal muscles in the lumbar sacral area bilaterally, no spasm, has no CVA tenderness Extremities: no deformities, moves all extremities symmetrically Neuro: Awake, alert, oriented, normal speech, cranial nerves intact, moves all extremities symmetrically Psych: Pleasant, cooperative Medical Decision Making Medical Decision Making MDM Narrative: 58-year-old male with a history of spinal stenosis, fibromyalgia, kidney stones, diabetes, hypertension, GERD, hyperlipidemia who presents emergency department for evaluation of 3 weeks of bilateral lower back pain. Pain is worse with movement. Vital signs were normal. Examination did reveal tenderness palpation of the paraspinal muscles in lumbar sacral area otherwise unremarkable with a nonfocal neurologic exam. Differential diagnosis: ?Includes but is not limited to acute back strain, chronic back pain, fibromyalgia exacerbation Following evaluation was ordered: CBC, CMP, lipase, urinalysis Patient was initially treated with the following: Morphine 15 mg orally Course: 20:57 My independent interpretation patient's laboratory evaluation is as follows: CBC was normal. CMP was significant for an elevated glucose of 210. Lipase was normal. LFTs were normal. Patient's pain is most likely multifactorial may be related to acute back strain, fibromyalgia and spinal stenosis. Patient states that his pain is 10/10 and the medications that he has been prescribed for his chronic pain is not helping Patient was given morphine 15 mg orally orally. He was prescribed morphine 15 mg every 6 hours as needed for pain dispensed 14 tablets. I told him that he could not give him more than a 5 day supply this medication and he will need to talk to his PCP for referral to pain management to help with his chronic pain. Admission/Observation Consideration of admission/observation: Escalation of care including admission/observation considered Lab Data MDM Lab Attestation statement: I reviewed the patient's lab results. 12/28/23 18:55 12/28/23 18:55 Labs: Lab Results 12/28/23 Range/Units 18:55 WBC 9.3 (4.8-10.8) X10*3/uL RBC 5.16 (4.60-5.80) X10*6/uL Hgb 15.6 (14.0-18.0) g/dl Hct 45.1 (42.0-52.0) % MCV 87.4 (80.0-98.0) fL MCH 30.2 (27.0-33.0) pg MCHC 34.6 (31.0-36.0) g/dl RDW 12.3 (11.0-16.0) % Plt Count 278 (160-400) X10*3/uL MPV 9.9 (9.4-12.4) fL Immature Gran % (Auto) 0.3 (0.0-0.4) % Neut % (Auto) 68.1 (45-73) % Lymph % (Auto) 23.8 (20-40) % [place] % (Auto) 6.6 (2-11) % Eos % (Auto) 1.0 (0-4) % Baso % (Auto) 0.2 (0-2) % Lymph # (Auto) 2.2 (1.2-4.9) X10*3/uL [place] # (Auto) 0.6 (0.1-1.2) X10*3/uL Eos # (Auto) 0.1 (0.0-0.4) X10*3/uL Baso # (Auto) 0.0 (0.0-0.2) X10*3/uL Abs Immat Gran (auto) 0.03 (0.00-0.03) X10*3/uL Absolute Neuts (auto) 6.4 (2.0-8.3) x10*3/uL Absolute Nucleated RBC 0.000 (0.0-0.012) X10*3/uL Nucleated RBC % (auto) 0.0 (0.0-0.2) /100WBC Sodium 141 (135-145) mmol/L Potassium 4.4 (3.3-5.1) mmol/L Chloride 105 (96-108) mmol/L Carbon Dioxide 28 (22-29) mmol/L Anion Gap 12 (12-20) BUN 11 (9-16) mg/dL Creatinine 1.01 (0.5-1.4) mg/dL Estim Creat Clear Calc 90.7 Estimated GFR > 60 Random Glucose 210 H (60-115) mg/dL Calcium 10.1 (8.4-10.2) mg/dL Total Bilirubin 0.5 (0.0-1.0) mg/dL Direct Bilirubin 0.2 (0.0-0.5) mg/dL AST 24 (5-37) U/L ALT 22 (0-40) U/L Alkaline Phosphatase 107 (39-117) U/L Total Protein 7.6 (6.5-8.0) g/dL Albumin 4.5 (3.5-5.0) g/dL Lipase 25 (8-78) U/L Urine Color Yellow Urine Appearance Clear Urine pH 7.5 (5.0-9.0) Ur Specific [place] 1.020 (1.005-1.025) Urine Protein Negative (Neg-Trace) mg/dL Urine Glucose (UA) >=1000 H (Negative) mg/dL Urine Ketones Negative (Negative) mg/dL Urine Blood Negative (Negative) Urine Nitrite Negative (Negative) Ur Leukocyte Esterase Negative (Negative) Urine RBC 0-2 (0-2) /HPF Urine WBC 0-5 (0-5) /HPF Ur Squamous Epith Cells 0-2 (0-2) /HPF Urine Bacteria None Seen (None Seen) Hyaline Casts 0-2 (0-2) /LPF Prescription Management I considered prescription management with: Pain Medication Chronic Conditions Patient?s care impacted by: Diabetes, Hypertension and Other (Fibromyalgia, spinal stenosis) Discharge Plan Discharge Clinical Impression: Chronic back pain Lower back pain Qualifiers: Chronicity: acute Patient Disposition: Home, Self-Care Instructions: Acute Low Back Pain (ED) Additional Instructions: Your blood work was unremarkable. Your urine test was normal You did have tenderness palpation of the muscles of your lower back. At this time I believe that your pain that you had in your lower back area for the last 3 weeks is caused by your fibromyalgia and your spinal stenosis Stop taking tramadol. I am prescribing morphine 15 mg pills, 1 pill 3 times a day as needed for pain. I can only give you a limited number of these pills. You will need to talk to your doctors about getting referred to pain management to see if they can help control your chronic pain. Follow-up with your doctor in 2 days. Please return to the emergency department if your symptoms get worse or if you develop any symptoms that are concerning to you. Prescriptions: New morphine 15 mg tablet 15 mg PO Q6H PRN (Reason: pain) Qty: 14 0RF Rx Instructions: Patient may request partial fill; Partial Fill upon patient request. No Action metformin 1,000 mg tablet 1,000 mg PO BID Qty: 180 0RF meloxicam 15 mg tablet 15 mg PO DAILY Qty: 14 0RF (DME) nebulizers [AeroEclipse II Nebulizer] Mis See Rx Instructions .Route Qty: 1 0RF Rx Instructions: As directed cyclobenzaprine 10 mg tablet 10 mg PO TID PRN (Reason: muscle spasm) 30 Days Qty: 90 0RF clonidine HCl 0.1 mg tablet 0.1 mg PO BEDTIME 90 Days Qty: 90 0RF (DME) toilet seat elevator See Rx Instructions .Route .MEDSUPPLY Qty: 1 0RF Rx Instructions: As directed (DME) wipes See Rx Instructions .Route .MEDSUPPLY Qty: 200 11RF Rx Instructions: As directed (DME) commode Kit See Rx Instructions .Route Qty: 1 0RF Rx Instructions: As directed (DME) adult diapers pull-ups large See Rx Instructions .Route .MEDSUPPLY Qty: 90 11RF Rx Instructions: As directed (DME) step stool for bed See Rx Instructions .Route .MEDSUPPLY Qty: 1 0RF Rx Instructions: As directed (DME) Transfer Bench Misc See Rx Instructions .Route Qty: 1 0RF Rx Instructions: As directed (DME) bed rail See Rx Instructions .Route .MEDSUPPLY Qty: 1 0RF Rx Instructions: As directed (DME) pill box 2 day capacity See Rx Instructions .Route .MEDSUPPLY Qty: 1 0RF Rx Instructions: As directed (DME) underpads [Bed Underpads] Pad See Rx Instructions .Route Qty: 100 11RF Rx Instructions: As directed Ozempic 2 mg/dose (8 mg/3 mL) pen injector 2 mg subcut QWEEK 30 Days Qty: 3.75 2RF lisinopril 5 mg tablet 5 mg PO DAILY Qty: 90 2RF ascorbic acid (vitamin C) 1,000 mg tablet 1 g PO DAILY 90 Days Qty: 90 2RF FreeStyle Kevin 14 Day Sensor Kit 1 ea topical Q2W Qty: 2 11RF Jardiance 25 mg tablet 25 mg PO QAM 90 Days Qty: 90 1RF tadalafil 20 mg tablet 20 mg PO ONCE PRN (Reason: sexual activity) 30 Days Qty: 30 0RF Rx Instructions: On demand medication take 60 minutes before intended activity sertraline 100 mg tablet 100 mg PO DAILY 90 Days Qty: 90 1RF sennosides [Senna Lax] 8.6 mg tablet 8.6 mg PO BEDTIME 90 Days Qty: 90 0RF (DME) blood pressure monitor [Blood Pressure Kit] Kit See Rx Instructions .Route Qty: 1 0RF Rx Instructions: As directed chlorpromazine 200 mg tablet 200 mg PO (DME) walker Misc See Rx Instructions .ROUTE .MEDSUPPLY Qty: 1 0RF Rx Instructions: As directed gabapentin 600 mg tablet 600 mg PO TID 30 Days Qty: 90 1RF (DME) diabetic shoes 10.5 See Rx Instructions .Route .MEDSUPPLY Qty: 1 0RF Rx Instructions: As directed trazodone 100 mg tablet 200 mg PO BEDTIME PRN (Reason: insomnia) 90 Days Qty: 180 1RF atorvastatin 80 mg tablet 80 mg PO DAILY Qty: 90 2RF Toujeo Max U-300 SoloStar 300 unit/mL (3 mL) insulin pen 45 unit subcut DAILY 30 Days Qty: 4.5 6RF tadalafil 5 mg tablet 5 mg PO DAILY 90 Days Qty: 90 1RF cholecalciferol (vitamin D3) 50 mcg (2,000 unit) capsule 50 mcg PO DAILY Qty: 30 11RF hydrocortisone 2.5 % cream 1 appl topical BID PRN (Reason: skin irritation) Qty: 20 0RF insulin aspart U-100 [Novolog FlexPen U-100 Insulin] 100 unit/mL (3 mL) insulin pen 4 - 10 unit subcut TID Qty: 15 5RF hydroxyzine pamoate 25 mg capsule 25 mg PO BID (DME) pen needle, diabetic [BD Ultra-Fine Diana Pen Needle] 32 gauge x needle See Rx Instructions .ROUTE .MEDSUPPLY Qty: 125 6RF Rx Instructions: As directed four times a day timolol maleate 0.5 % drops ophthalmic (eye) Linzess 290 mcg capsule 290 mcg PO QAM 30 Days Qty: 30 6RF
[2023-12-28 21:43] VITALS: BP 140/74; PULSE 87; RESP 16; TEMP 36.9; O2SAT 97
[2023-12-28] MEDS: Morphine Sulfate Immed Release 15 MG TABLET PO (21:43)
== END 2023-12-28 21:46 | disposition home or self-care (01) ==
PROVIDERS: Nurse Practitioner Family; Emergency Provider Emergency Medicine Emergency Medical Services; PCP Internal Medicine
DX: M54.50 Low back pain, unspecified (principal); G89.29 Other chronic pain; M79.7 Fibromyalgia; E11.9 Type 2 diabetes mellitus without complications; I10 Essential (primary) hypertension; Z87.442 Personal history of urinary calculi
CPT/HCPCS: 36415; 80048; 80076; 81001; 81003; 83690; 85025; 99283; 99284

== ENCOUNTER 2023-12-31 16:28 | Outpatient (AMB) | payer OTHER, SELFPAY ==
[2023-12-31 16:40] VITALS: BP 130/80; BMI 28.4
--- NOTE | 2023-12-31 16:40 | A.OFFPC_ITS ---
Vital Signs 12/31/23 16:40 Height 5 ft 10 in Weight 198 lb BMI 28.4 BP 130/80 Blood Pressure Location Rt brachial Position Sitting Int[place] [facility] [place]/kidney pain Intake Note: Patient here for [facility] 12/27 back/kidney pain Process Control Supervisor Required: No Accompanied by: Self / Same As Patient Allergies dulaglutide [Trulicity] Allergy (Intermediate, Verified 12/31/23 17:03) cyst ondansetron [ONDANSETRON] Allergy (Intermediate, Verified 12/31/23 17:03) stomach pain Medication List - Last Reconciled 12/31/23 by Salima Rizo MD [adult diapers pull-ups As directed] ascorbic acid (vitamin C) 1 g PO DAILY 90 days atorvastatin 80 mg PO DAILY [bed rail As directed] blood pressure monitor (Blood Pressure Kit) As directed chlorpromazine 200 mg PO cholecalciferol (vitamin D3) 50 mcg PO DAILY clonidine HCl 0.1 mg PO BEDTIME 90 days commode As directed cyclobenzaprine 10 mg PO TID PRN 30 days [diabetic shoes As directed] empagliflozin (Jardiance) 25 mg PO QAM 90 days flash glucose sensor (FreeStyle Kevin 14 Day Sensor kit) 1 ea topical Q2W gabapentin 600 mg PO TID 30 days hydrocortisone 2.5% 1 appl topical BID PRN hydroxyzine pamoate 25 mg PO BID insulin aspart U-100 (Novolog FlexPen U-100 Insulin aspart) 4 - 10 units (0.04 - 0.1 mL) subcut TID insulin glargine U-300 conc (Toujeo Max U-300 SoloStar) 45 units (0.15 mL) subcut DAILY 30 days linaclotide (Linzess) 290 mcg PO QAM 30 days lisinopril 5 mg PO DAILY meloxicam 15 mg PO DAILY metformin 1,000 mg PO BID nebulizers (AeroEclipse II Nebulizer) As directed pen needle, diabetic (BD Ultra-Fine Diana Pen Needle) As directed four times a day [pill box 2 day capacity As directed] semaglutide (Ozempic) 2 mg (0.75 mL) subcut QWEEK 30 days sennosides (Senna Lax) 8.6 mg PO BEDTIME 90 days sertraline 100 mg PO DAILY 90 days [step stool for bed As directed] tadalafil 5 mg PO DAILY 90 days tadalafil 20 mg PO ONCE PRN 30 days timolol maleate 0.5% drps ophthalmic (eye) [toilet seat elevator As directed] Transfer Bench As directed trazodone 200 mg (2 x 100 mg) PO BEDTIME PRN 90 days underpads (Bed Underpads) As directed walker As directed [wipes As directed] Tobacco use date assessed: 12/31/23 Dental Screening Dental Screen Date: 12/31/23 Did you have a dental visit in the last 12 months?: No Did you have a dental problem in the last 6 months where you did not have access to dental care?: No Was dental information given to patient?: Patient has dentist HPI HPI Comments History of Present Illness Details This is a 58-year-old male with hypertension, diabetes mellitus type 2 on long-term current use of insulin and hyperlipidemia that comes today as a hospital discharge follow-up with discharge date 12/28/2023 due to low back pain and polio arthropathy of the leg that bothers him more frequent than before. The pain is aggravated by laying down. Ultrasound venous duplex of lower limbs was done and he was negative. Labs were done showing only elevated blood glucose. Diabetes mellitus is follow by Endocrinology. Lipid panel will be order and his LDL goal should be less than 70. Blood pressure stable. Will be referred to weight management. X-ray and physical therapy will be order. [facility] Medical History (Updated 12/31/23 @ 20:35 by Salima Rizo MD) Pre-op examination Physical exam Balanitis Lumbar pain Constipation Precordial chest pain Chest pain Right leg pain Kidney stones Type 2 diabetes mellitus with hyperglycemia Severe major depression without psychotic features HTN (hypertension) Unsteady gait Fibromyalgia Serum calcium elevated IBS (irritable bowel syndrome) GERD (gastroesophageal reflux disease) Type 2 diabetes mellitus with diabetic polyneuropathy Hyperlipidemia LDL goal <100 Vitamin D deficiency Surgical History H/O colonoscopy History of eye surgery Family History Father Colon cancer Stroke Prostate cancer Mother Hypertension Diabetes Family/Other FH: mental illness Social History Household Members: None Housing: Apartment Alcohol intake: never Patient Tobacco Use Status: Never used Tobacco e-Cigarette/Vaping Use: Never Used Second Hand Smoke Exposure: No service: No Current occupational status: disabled Cognitive needs: Yes (cane/walker) Hearing needs: No Vision needs: Yes (glasses) Questionnaire PHQ-9 Over the last 2 weeks, how often have you been bothered by any of the following problems? 1. Little interest or pleasure in doing things: several days 2. Feeling down, depressed, or hopeless: more than half the days 3. Trouble falling or staying asleep, or sleeping too much: nearly every day 4. Feeling tired or having little energy: several days 5. Poor appetite or overeating: not at all 6. Feeling bad about yourself - or that you are a failure or have let yourself or your family down: not at all 7. Trouble concentrating on things, such as reading the newspaper or watching television: not at all 8. Moving or speaking so slowly that other people could have noticed. Or the opposite - being so fidgety or restless that you have been moving around a lot more than usual: not at all 9. Thoughts that you would be better off or of hurting yourself in some way: not at all Total score: 7 Depression Screening Interpretation: Positive Depression Screening Follow-up: Existing condition Depression Screening Done: Yes 51508 - PHQ-9 Billing: Yes Source: Developed by Drs. Arya Griffin, Delphine Kelley, oBris Aguilera and colleagues, with an educational ifrah from [employer]. Thrive Questionnaire Date Thrive assessed: 12/31/23 I am a: Patient What is your living situation today?: I have a steady place to live Within the past 12 months, did the food you bought not last and you didn't have the money to get more?: Never true Within the past 12 months, did you worry whether your food would run out before you got money to buy more?: Never true Do you have trouble paying for medicines?: No Do you have trouble getting transportation to medical appointments?: No Do you have trouble paying your heating and electricity bill?: No Do you have trouble taking care of your child, family member or friend?: No Do you have trouble with day-to-day activities such as bathing, preparing meals, shopping, managing finances, etc.?: No Are you currently unemployed and looking for a job?: No Are you interested in more education?: No Please select the resources that you would like help with: None Currently or been in a relationship where the following occur: no concerns reported THRIVE Score: 0 AUDIT C Alcohol Use Questionnaire (AUDIT-C) 1. How often do you have a drink containing alcohol?: Never Total Score: 0 Score Reviewed/Action Taken: No GRAHAM-7 AMB Questionnaire GRAHAM-7 Date GRAHAM - 7 assessed: 12/31/23 Feeling nervous, anxious, or on edge: 0 = Not at all Not being able to stop or control worryin = Not at all Worrying too much about different things: 2 = More than half the days Trouble relaxin = Not at all Being so restless that it is hard to sit still: 0 = Not at all Becoming easily annoyed or irritable: 0 = Not at all Feeling afraid as if something awful might happen: 1 = Several days Total GRAHAM-7 score (0-4 normal; 5-9 mild; 10-14 moderate; 15-21 severe): 3 Source: Developed by Drs. Arya Griffin, Delphine Kelley, Boris Aguilera and colleagues, with an educational ifrah from [employer]. GRAHAM-7 Assessment Billing GRAHAM-7 Assessment Tool: GRAHAM-7 Assessment 27270 Review of Systems Const All systems reviewed & are unremarkable except as noted in HPI and below Eyes Reports no additional complaints, Denies change in vision and Denies other visual disturbances Card Denies chest pain at rest, Denies chest pain with activity, Denies edema, Denies irregular heart rhythm, Denies claudication, Denies dyspnea, Denies dyspnea on exertion, Denies orthopnea, Denies paroxysmal nocturnal dyspnea and Denies slow heart rate Resp Denies cough, Denies dyspnea and Denies dyspnea on exertion GI Denies abdominal pain, Denies change in bowel habits, Denies excessive flatus, Denies nausea and Denies vomiting Denies urinary hesitancy, Denies urinary incontinence and Denies urinary urgency Physical exam (Primary Care) Vital Signs: Last Vital Signs BP 130/80 12/31/23 16:40 BMI result Body Mass Index 28.4 Tobacco/Smoking Status: Tobacco use Status Tobacco use date assessed 12/31/23 12/31/23 16:48 Patient Tobacco Use Status Never used Tobacco 12/31/23 16:48 e-Cigarette/Vaping Use Never Used 12/31/23 16:48 PHQ-9: PHQ-9 Score PHQ-9: Total score 7 12/31/23 17:04 Depression Screening Interpretation: Positive Depression Screening Follow-up: Existing condition Thrive Assessment: Date of Thrive Assessment Date Thrive assessed 12/31/23 12/31/23 16:48 Currently or been in a relationship where the following occur: no concerns reported Resp Effort & Inspection: normal respiratory effort Auscultation: clear to auscultation bilaterally Cardio Jugular venous distension: no JVD Rate: regular rate Rhythm: regular rhythm Heart sounds: S1 normal heart sound present and S2 normal heart sound present Back/Spine/Pelvis Thoracic/Lumbar Spine: straight leg raise positive bilateral at 30 degrees Extrem General: Yes full ROM Assessment and Plan Assessment & Plan (1) Hospital discharge follow-up: Code(s): Z09 - Encounter for follow-up examination after completed treatment for conditions other than malignant neoplasm Plan: Hospital discharge date 12/28/2023 due to chronic leg pain and low back pain. Still feel pain. No fever, bowel or bladder incontinence. Will be referred to pain management. X-ray order and physical therapy ordered. (2) Polio osteopathy of lower leg: Code(s): M89.669 - Osteopathy after poliomyelitis, unspecified lower leg; B91 - Sequelae of poliomyelitis Plan: Start tramadol as needed. (3) Type 2 diabetes mellitus, with long-term current use of insulin: Code(s): E11.9 - Type 2 diabetes mellitus without complications; Z79.4 - penitentiary (current) use of insulin Qualifiers: Diabetes mellitus complication status: with hyperglycemia Qualified Code(s): E11.65 - Type 2 diabetes mellitus with hyperglycemia; Z79.4 - technician terminal and repeater (current) use of insulin Plan: Continue insulin and Ozempic. Follow-up with endocrinology. A1c goal is equal or less than 7%. (4) Hyperlipidemia LDL goal <70: Code(s): E78.5 - Hyperlipidemia, unspecified Plan: Continue statins. LDL goal is less than 70. (5) HTN (hypertension): Code(s): I10 - Essential (primary) hypertension Qualifiers: Hypertension type: essential hypertension Qualified Code(s): I10 - Essential (primary) hypertension Plan: Continue lisinopril. Blood pressure goal is equal or less than 130/80. Orders: Orders Vitamin D 25-OH Total Today E55.9 - Vitamin D deficiency, unspecified Comprehensive [place]. Panel Fast Today E11.9 - Type 2 diabetes mellitus without complications, Z79.4 - penitentiary (current) use of insulin PT Evaluation and Treatment Today M54.16 - Radiculopathy, lumbar region Lipid Panel Today E78.5 - Hyperlipidemia, unspecified Microalbumin, Random (w Creat) Today E11.9 - Type 2 diabetes mellitus without complications Referrals Pain Management Referral M54.16 - Radiculopathy, lumbar region Medications: New gabapentin 800 mg PO TID 30 days 90 tabs 1RF tramadol 50 mg PO BID 30 days PRN 45 tabs 0RF pain albuterol sulfate 2.5 mg (3 mL) inhalation Q4-6H 30 days PRN 75 mL 3RF shortness of breath or wheezing Refilled hydrocortisone 2.5% 1 appl topical BID PRN 20 grams 0RF skin irritation Discontinued gabapentin Discontinued Reason: Patient Completed Course 600 mg PO TID 30 days 90 tabs 1RF cyclobenzaprine Discontinued Reason: Patient Completed Course 10 mg PO TID 30 days PRN 90 tabs 0RF muscle spasm Coding Level of Care Code TCM Mod MDM <= 7 Days Diagnoses Hospital discharge follow-up Z09 Polio osteopathy of lower leg M89.669; B91 Type 2 diabetes mellitus with hyperglycemia, with long-term current use of insulin E11.65; Z79.4 Diabetes mellitus complication status: with hyperglycemia Hyperlipidemia LDL goal <70 E78.5 Essential hypertension I10 Hypertension type: essential hypertension Additional Codes GRAHAM-7 Assessment Billing - GRAHAM-7 Assessment Tool: GRAHAM-7 Assessment 00259 ([id number]) Time Spent (min) 24
== END 2023-12-31 17:15 | disposition home or self-care (01) ==
PROVIDERS: PCP Internal Medicine; Visit Provider Internal Medicine
DX: M89.661 Osteopathy after poliomyelitis, right lower leg (principal); M89.662 Osteopathy after poliomyelitis, left lower leg; B91 Sequelae of poliomyelitis; E11.65 Type 2 diabetes mellitus with hyperglycemia; E78.5 Hyperlipidemia, unspecified; I10 Essential (primary) hypertension
CPT/HCPCS: 99214

== ENCOUNTER 2024-01-02 13:40 | Outpatient (AMB) | payer OTHER, SELFPAY ==
--- NOTE | 2024-01-02 14:17 | A.OFFVIS_ITS ---
Intake Intake Visit Reasons: 6M Med Review(Tadalafil) Intake Note: Patient presents today for a follow up on: Tadalafil Review Meds- Tadalafil Allergies to Antibiotic- No Known Allergies Blood Thinner- None Patient stated he is taking Tadalafil 5mg, however the Tadalafil 20mg prn, is not working or giving me results he is expecting. He also stated he is not taking Meloxicam. Post Void Residual: 31ml Masseur/Masseuse Required: No Accompanied by: Self / Same As Patient Allergies dulaglutide [Trulicity] Allergy (Intermediate, Verified 12/31/23 17:03) cyst ondansetron [ONDANSETRON] Allergy (Intermediate, Verified 12/31/23 17:03) stomach pain HPI HPI Comments History of Present Illness Details Fer is a pleasant male. He is seen for the following urologic conditions - erectile dysfunction - renal stones Khmer translation provided in office by qualified medical liaison Has been on daily tadalafil with on demand - some effect Will increase daily tadalafil to 10 mg with on demand 40 mg This is maximum oral medication Discussed possible injectable therapy versus vacuum pump versus prosthetic Would need to keep sugars 7.5 in order to have prosthetic Nephrolithiasis Prior ESWL Imaging - 04/19 renal US no stones - 04/20 renal ultrasound no evidence of s tones Erectile dysfunction in setting of diabetes Prior evaluation for low testosterone Testosterone in normal range PSA 05/20 0.60, T 310 HBA1c 09/20 8.2 5 mg daily tadalafil with on demand PFSH Medical History Pre-op examination Physical exam Balanitis Lumbar pain Constipation Precordial chest pain Chest pain Right leg pain Kidney stones Type 2 diabetes mellitus with hyperglycemia Severe major depression without psychotic features HTN (hypertension) Unsteady gait Fibromyalgia Serum calcium elevated IBS (irritable bowel syndrome) GERD (gastroesophageal reflux disease) Type 2 diabetes mellitus with diabetic polyneuropathy Hyperlipidemia LDL goal <100 Vitamin D deficiency Surgical History H/O colonoscopy History of eye surgery Family History Father Colon cancer Stroke Prostate cancer Mother Hypertension Diabetes Family/Other FH: mental illness Social History Household Members: None Housing: Apartment Alcohol intake: never Patient Tobacco Use Status: Never used Tobacco e-Cigarette/Vaping Use: Never Used Second Hand Smoke Exposure: No service: No Current occupational status: disabled Cognitive needs: Yes (cane/walker) Hearing needs: No Vision needs: Yes (glasses) Review of Systems Const Denies chills and Denies fever(s) Card Reports no additional complaints and Denies syncope Resp Denies cough GI Denies abdominal pain and Denies heartburn Reports as per HPI and Denies change in libido Neuro Denies syncope Psych Denies change in libido Endo Denies change in libido Physical Exam Const General: cooperative, healthy appearing, comfortable and no acute distress Orientation/consciousness: patient oriented x3 HEENT Face and sinus: Yes normal facial exam Mouth: moist mucous membranes Neck Neck: Yes normal visual inspection, Yes full ROM and Yes trachea midline Chest Chest palpation & inspection: normal inspection of the chest Resp Effort & Inspection: normal respiratory effort, able to speak in complete sentences and no respiratory distress GI Inspection: Yes normal to inspection Back/Spine/Pelvis Cervical Spine: normal cervical lordosis Thoracic/Lumbar Spine: thoracic and lumbar spine normal to inspection Skin General skin exam: no rashes or lesions noted Neuro General: patient oriented x3, gait normal, tone normal and moves all extremities Extrem General: Yes normal to inspection and Yes capillary refill normal Office Procedures Post Void Residual Post Residual Void Post Void Residual (PVR): 31 [id number] Void Residual by ultrasound Assessment & Plan Assessment & Plan (1) Erectile dysfunction associated with type 2 diabetes mellitus: Code(s): E11.69 - Type 2 diabetes mellitus with other specified complication; N52.1 - Erectile dysfunction due to diseases classified elsewhere (2) BPH w urinary obs/LUTS: Code(s): N40.1 - Benign prostatic hyperplasia with lower urinary tract symptoms; N13.8 - Other obstructive and reflux uropathy Plan Two month follow-up tele Orders: Orders AMB Post Void Residual by ultrasound Today R33.9 - Retention of urine, unspecified Patient Instructions: Imaging studies, laboratory and physical exam results were discussed and reviewed in detail. No major barriers to patient understanding were identified. An opportunity to ask questions regarding the treatment plan was provided. All questions were answered. The patient expressed understanding and agreement with the above treatment plan. The patient is aware they should contact our office by phone for worsening of their current condition or the appearance of new urologic symptoms. Compliance is encouraged with any medications and followup testing that is ordered. It is a privilege to participate in the urologic care of your patient. If you have any questions or concerns regarding treatment for the above conditions, or other urologic issues, please do not hesitate to contact me. The office telephone contact is [phone]. This note is constructed using voice recognition software. While every effort has been made to ensure accuracy head of acquisitions errors may have been included. Yours sincerely, Dr Franky Muir MD, MELIS[facility] - Urology Providers of Expert, Compassionate Care for the Genitourinary System Coding Level of Care Code Est Pt Level 4 (06378) Diagnoses Erectile dysfunction associated with type 2 diabetes mellitus E11.69; N52.1 BPH w urinary obs/LUTS N40.1; N13.8 CPT Codes Post Residual Void - PVR CPT Code: 09543-Bvgp Void Residual by ultrasound ([id number])
== END 2024-01-02 15:06 | disposition home or self-care (01) ==
PROVIDERS: PCP Internal Medicine; Visit Provider Urology
DX: E11.69 Type 2 diabetes mellitus with other specified complication (principal); N52.1 Erectile dysfunction due to diseases classified elsewhere; N40.1 Benign prostatic hyperplasia with lower urinary tract symptoms; N13.8 Other obstructive and reflux uropathy
CPT/HCPCS: 99214

== ENCOUNTER → 2024-01-02 13:40 | Outpatient (BNVA) | payer OTHER, SELFPAY | PROVIDERS: PCP Internal Medicine; Visit Provider Urology | DX: E11.69 Type 2 diabetes mellitus with other specified complication (principal); N52.1 Erectile dysfunction due to diseases classified elsewhere; N40.1 Benign prostatic hyperplasia with lower urinary tract symptoms; N13.8 Other obstructive and reflux uropathy | CPT/HCPCS: 51798; 99212 ==

== ENCOUNTER 2024-01-08 12:22 | Outpatient (AMB) | payer OTHER, SELFPAY ==
--- NOTE | 2024-01-08 13:03 | MHC.OFFVIS ---
Intake Intake Visit Reasons: follow up [facility] 12/04/23 Intake Note: Patient presents for follow up s/p 12/03 [facility]. Patient states he has been experiencing weakness in both legs that prevented him from standing too much. States when he sat down he felt numbness in both legs. Also states his legs felt warm. Allergies dulaglutide [Trulicity] Allergy (Intermediate, Verified 01/08/24 13:08) cyst ondansetron [ONDANSETRON] Allergy (Intermediate, Verified 01/08/24 13:08) stomach pain HPI follow up [facility] 12/04/23 HPI Details Very pleasant 58-year-old gentleman presents for follow-up regarding venous insufficiency. If continued pain and swelling which is relatively mild. There is a size differential between the 2 lower extremities. This is secondary to his childhood history of rheumatic fever and polio fear. Now presents for routine follow-up with venous insufficiency testing. [facility] Medical History Pre-op examination Physical exam Balanitis Lumbar pain Constipation Precordial chest pain Chest pain Right leg pain Kidney stones Type 2 diabetes mellitus with hyperglycemia Severe major depression without psychotic features HTN (hypertension) Unsteady gait Fibromyalgia Serum calcium elevated IBS (irritable bowel syndrome) GERD (gastroesophageal reflux disease) Type 2 diabetes mellitus with diabetic polyneuropathy Hyperlipidemia LDL goal <100 Vitamin D deficiency Surgical History H/O colonoscopy History of eye surgery Family History Father Colon cancer Stroke Prostate cancer Mother Hypertension Diabetes Family/Other FH: mental illness Social History Household Members: None Housing: Apartment Alcohol intake: never Patient Tobacco Use Status: Never used Tobacco e-Cigarette/Vaping Use: Never Used Second Hand Smoke Exposure: No service: No Current occupational status: disabled Cognitive needs: Yes (cane/walker) Hearing needs: No Vision needs: Yes (glasses) Review of Systems Const All systems reviewed & are unremarkable except as noted in HPI and below Reports no additional complaints ENT Reports Normal hearing present Card Denies chest pain, Denies chest pain at rest, Denies chest pain with activity and Denies pedal edema Resp Denies cough GI Denies abdominal pain Musc Denies abnormal gait, Denies muscle cramps and Denies radiating pain into limb Skin/Breast Denies skin ulcer and Denies wounds Neuro Reports Normal hearing present and Denies abnormal gait Psych Reports no additional complaints Physical Exam Const General: cooperative, healthy appearing and comfortable Orientation/consciousness: oriented to person, oriented to place and oriented to time HEENT Head: Yes normal to inspection Neck Neck: Yes normal visual inspection Carotids: no bruits Chest Chest palpation & inspection: normal inspection of the chest Resp Effort & Inspection: normal respiratory effort and able to speak in complete sentences Auscultation: clear to auscultation bilaterally, no crackles, no rales, no rhonchi and no wheezes Cardio Rate: regular rate Rhythm: regular rhythm Heart sounds: S1 normal heart sound present and S2 normal heart sound present Bruits: no carotid bruits Peripheral pulses: Peripheral pulses 2+ throughout GI Inspection: Yes normal to inspection Skin Wounds: no wounds Hair: normal Neuro General: oriented to person, oriented to place and oriented to time Cranial nerves: Yes CN's II-XII intact bilaterally and Yes Normal hearing present Cognition (Neuro): normal cognition Motor exam (neuro): 5/5 motor strength present throughout Extrem Other: venous exam: No significant superficial varicosities or spider telangiectasias, minimal edema General: No clubbing, No cyanosis and No edema Psych Appearance: grossly normal Mental Status: mental status grossly normal Speech and movement: Normal speech and movement present Results Reviewed Results Reviewed: Brief summary of venous insufficiency testing is as follows: right great saphenous vein: negative right small saphenous vein: negative right accessory vein: none present left great saphenous vein: negative left small saphenous vein: negative left accessory vein: none present Please note there is no evidence of any venous aneurysms or significant tortuosity Assessment & Plan Assessment & Plan (1) Leg pain: Code(s): M79.606 - Pain in leg, unspecified Qualifiers: Laterality: bilateral Qualified Code(s): M79.604 - Pain in right leg; M79.605 - Pain in left leg Plan: In short patient has lower extremity pain and discomfort. It does not appear to be vascular as he does have palpable pulses in venous insufficiency testing has shown to be negative. I did discuss routine conservative measures including compression elevation and exercise. I would recommend evaluation and follow-up with pain management. I do believe he already has an appointment with them scheduled. He will follow up with us on an as-needed basis. Thank you for allowing us to assist in his care. If there are any questions or concerns please do not hesitate to contact us. Coding Level of Care Code Est Pt Level 4 (79168) Diagnoses Pain in both lower extremities M79.604; M79.605 Laterality: bilateral
== END 2024-01-08 14:07 | disposition home or self-care (01) ==
PROVIDERS: PCP Internal Medicine; Visit Provider Surgery Vascular Surgery
DX: M79.604 Pain in right leg (principal); M79.605 Pain in left leg
CPT/HCPCS: 99213

== ENCOUNTER → 2024-01-08 12:22 | Outpatient (BNVA) | payer OTHER, SELFPAY | PROVIDERS: PCP Internal Medicine; Visit Provider Surgery Vascular Surgery | DX: M79.604 Pain in right leg (principal); M79.605 Pain in left leg | CPT/HCPCS: 99212 ==

== ENCOUNTER 2024-01-14 14:10 | Outpatient (AMB) | payer OTHER, SELFPAY ==
--- NOTE | 2024-01-14 14:31 | MHC.OFFVIS ---
Intake Vital Signs 01/14/24 14:50 Height 5 ft 10 in Weight 198 lb BMI 28.4 BP 136/78 Blood Pressure Location Lt brachial Position Sitting Respiration 16 Pulse 86 Pulse Source Pulse Oximeter Pulse Oximetry (%) 100 Oxygen Delivery Method Room Air Intake Visit Reasons: Radiculopathy, lumbar region Intake Note: Patient comes in for initial visit was referred by primary care. Reports pain 10/10. Allergies dulaglutide [Trulicity] Allergy (Intermediate, Verified 01/14/24 14:50) cyst ondansetron [ONDANSETRON] Allergy (Intermediate, Verified 01/14/24 14:50) stomach pain HPI HPI Comments History of Present Illness Details Mr. Fer Leung is very pleasant 58 years old gentleman who presents in my office with complains on pain all over the body including pain in the bilateral shoulders and bilateral arms as well as pain in the neck. However the most significant pain he complains about is pain in the lumbar spine with radiation into the bilateral lower extremities. He reports his pain as 10/10 today. He reports that bending forward and bending backwards equally aggravates his pain. He reports that pain lately became associated with weakness in bilateral lower extremities and numbness in the perianal area and numbness in bilateral buttocks. He reports that he gets his legs tired while walking and the maximum he can not walk for 20 minutes and then he needs to rest. He found himself better walking leaning on a cart while shopping in his supermarket. He can not sleep normally because of his pain he can not do activities of daily living he can not take care of himself but he can not function normally. He is on permanent disability. He reports that he needs walker for ambulation. He uses cane today. He reports weather changes in movements aggravate his pain and oral medication makes his pain slightly better. The pain is less severe in the morning. In terms of tissue damage he reports his pain is sharp, cutting, lacerating, tiring, and exhausting. He had MRI many years ago which was demonstrating spinal stenosis. 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 I do not understand how this is related to possibility of him having any spinal surgery. He had physical therapy in the past which did not help his pain. He never had any injections. He is currently on tramadol cyclobenzaprine and gabapentin in the attempt to alleviate his pain. His past medical history significant for diabetes hypertension depression chest pain angina and heart palpitations as well as kidney stones. He denies any surgical history. He does not smoke cigarettes, denies drinking alcohol drinks 2 cups of coffee in the morning and denies recreational drugs. [facility] Medical History Pre-op examination Physical exam Balanitis Lumbar pain Constipation Precordial chest pain Chest pain Right leg pain Kidney stones Type 2 diabetes mellitus with hyperglycemia Severe major depression without psychotic features HTN (hypertension) Unsteady gait Fibromyalgia Serum calcium elevated IBS (irritable bowel syndrome) GERD (gastroesophageal reflux disease) Type 2 diabetes mellitus with diabetic polyneuropathy Hyperlipidemia LDL goal <100 Vitamin D deficiency Surgical History H/O colonoscopy History of eye surgery Family History Father Colon cancer Stroke Prostate cancer Mother Hypertension Diabetes Family/Other FH: mental illness Social History Household Members: None Housing: Apartment Alcohol intake: never Patient Tobacco Use Status: Never used Tobacco e-Cigarette/Vaping Use: Never Used Second Hand Smoke Exposure: No service: No Current occupational status: disabled Cognitive needs: Yes (cane/walker) Hearing needs: No Vision needs: Yes (glasses) Review of Systems Const Reports no additional complaints Card Reports as per HPI Resp Denies cough GI Denies abdominal pain Musc Reports abnormal gait, Reports back pain, Reports myalgias, Reports arthralgias, Denies muscle cramps, Reports muscle weakness, Reports numbness and Denies radiating pain into limb Neuro Reports abnormal gait and Reports numbness Psych Reports no additional complaints Physical Exam Vital Signs: Last Vital Signs Pulse 86 01/14/24 14:50 Resp 16 01/14/24 14:50 BP 136/78 01/14/24 14:50 Pulse Ox 100 01/14/24 14:50 Oxygen Delivery Method Room Air 01/14/24 14:50 BMI result Body Mass Index 28.4 Back/Spine/Pelvis Other: Leaning forward alleviates his pain while walking. Valsalva maneuver aggravate his pain. Reports numbness in bilateral buttocks bilateral inner thighs and perianal area. Assessment & Plan Assessment & Plan (1) Spinal stenosis: Code(s): M48.00 - Spinal stenosis, site unspecified (2) Disc degeneration, lumbar: Code(s): M51.36 - Other intervertebral disc degeneration, lumbar region (3) Chronic pain syndrome: Code(s): G89.4 - Chronic pain syndrome (4) Radiculopathy, lumbar region: Code(s): M54.16 - Radiculopathy, lumbar region Plan It looks to me that this patient is suffering from spinal stenosis which may the progress recently. He reports neurogenic claudication, he reports numbness in the perianal area. He reports numbness in bilateral buttocks. I agreed to send him to the MRI of the lumbar spine. If this MRI will be positive for spinal stenosis I will refer him to a neurosurgeon. Orders: Orders MR lumbar spine wo con Today M48.00 - Spinal stenosis, site unspecified, M51.36 - Other intervertebral disc degeneration, lumbar region, M54.16 - Radiculopathy, lumbar region Coding Level of Care Code New Pt Level 3 (74456) Diagnoses Spinal stenosis M48.00 Disc degeneration, lumbar M51.36 Chronic pain syndrome G89.4 Radiculopathy, lumbar region M54.16
[2024-01-14 14:50] VITALS: BP 136/78; PULSE 86; RESP 16; O2SAT 100; BMI 28.4
== END 2024-01-14 15:08 | disposition home or self-care (01) ==
PROVIDERS: PCP Internal Medicine; Visit Provider Anesthesiology
DX: M48.00 Spinal stenosis, site unspecified (principal); M51.36 Other intervertebral disc degeneration, lumbar region; G89.4 Chronic pain syndrome; M54.16 Radiculopathy, lumbar region
CPT/HCPCS: 99213

== ENCOUNTER → 2024-01-14 14:10 | Outpatient (BNVA) | payer OTHER, SELFPAY | PROVIDERS: PCP Internal Medicine; Visit Provider Anesthesiology | DX: M48.00 Spinal stenosis, site unspecified (principal); M51.36 Other intervertebral disc degeneration, lumbar region; M54.16 Radiculopathy, lumbar region; G89.4 Chronic pain syndrome | CPT/HCPCS: 99212 ==

== ENCOUNTER 2024-01-19 12:53 | Outpatient (AMB) | payer OTHER, SELFPAY ==
--- NOTE | 2024-01-19 13:12 | MHC.PC.OV ---
Vital Signs 01/19/24 13:13 Height 5 ft 10 in Weight 197 lb BMI 28.3 BP 130/72 Blood Pressure Location Lt brachial Position Sitting Pulse 77 Pulse Source Pulse Oximeter Temp Source Skin Pulse Oximetry (%) 98 Oxygen Delivery Method Room Air Intake Visit Reasons: Annual exam Intake Note: Patient is here today for a physical. 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 Accompanied by: Self / Same As Patient Allergies dulaglutide [Trulicity] Allergy (Intermediate, Verified 01/19/24 14:11) cyst ondansetron [ONDANSETRON] Allergy (Intermediate, Verified 01/19/24 14:11) stomach pain Medication List - Last Reconciled 01/19/24 by Salima Rizo MD [adult diapers pull-ups As directed] albuterol sulfate 2.5 mg (3 mL) inhalation Q4-6H PRN 30 days ascorbic acid (vitamin C) 1 g PO DAILY 90 days atorvastatin 80 mg PO DAILY [bed rail As directed] blood pressure monitor (Blood Pressure Kit) As directed chlorpromazine 200 mg PO cholecalciferol (vitamin D3) 50 mcg PO DAILY clonidine HCl 0.1 mg PO BEDTIME 90 days commode As directed cyclobenzaprine 10 mg PO TID PRN 30 days [diabetic shoes As directed] empagliflozin (Jardiance) 25 mg PO QAM 90 days flash glucose sensor (FreeStyle Kevin 14 Day Sensor kit) 1 ea topical Q2W gabapentin 800 mg PO TID 30 days hydrocortisone 2.5% 1 appl topical BID PRN hydroxyzine pamoate 25 mg PO BID insulin aspart U-100 (Novolog FlexPen U-100 Insulin aspart) 4 - 10 units (0.04 - 0.1 mL) subcut TID insulin glargine U-300 conc (Toujeo Max U-300 SoloStar) 45 units (0.15 mL) subcut DAILY 30 days linaclotide (Linzess) 290 mcg PO QAM 30 days lisinopril 5 mg PO DAILY meloxicam 15 mg PO DAILY metformin 1,000 mg PO BID morphine 15 mg PO Q6H PRN nebulizers (AeroEclipse II Nebulizer) As directed pen needle, diabetic (BD Ultra-Fine Diana Pen Needle) As directed four times a day [pill box 2 day capacity As directed] semaglutide (Ozempic) 2 mg (0.75 mL) subcut QWEEK 30 days sennosides (Senna Lax) 8.6 mg PO BEDTIME 90 days sertraline 100 mg PO DAILY 90 days [step stool for bed As directed] tadalafil 20 mg PO ONCE PRN 30 days tadalafil 10 mg PO DAILY 90 days timolol maleate 0.5% drps ophthalmic (eye) [toilet seat elevator As directed] tramadol 50 mg PO BID PRN 30 days Transfer Bench As directed trazodone 200 mg (2 x 100 mg) PO BEDTIME PRN 90 days underpads (Bed Underpads) As directed walker As directed [wipes As directed] Tobacco use date assessed: 01/19/24 Dental Screening Dental Screen Date: 01/19/24 Did you have a dental visit in the last 12 months?: No Did you have a dental problem in the last 6 months where you did not have access to dental care?: No HPI HPI Comments History of Present Illness Details This is a 58-year-old male with diabetes mellitus type 2 on long-term current use of insulin, mild major depression and polio osteoarthropathy of lower leg that comes for his physical exam. A1c has markedly improved and is close to goal. Depression has markedly improved with medication. Use NSAIDs occasionally as needed for his polio osteoarthropathyl of lower leg. Last colonoscopy was 2022 showing tubular adenoma. Last diabetic eye exam was 2023. Denies any chest pain or shortness of breath. [facility] Medical History (Updated 01/19/24 @ 14:13 by Salima Rizo MD) Physical exam Erectile dysfunction associated with type 2 diabetes mellitus Pre-op examination Balanitis Lumbar pain Constipation Precordial chest pain Chest pain Right leg pain Kidney stones Type 2 diabetes mellitus with hyperglycemia Severe major depression without psychotic features HTN (hypertension) Unsteady gait Fibromyalgia Serum calcium elevated IBS (irritable bowel syndrome) GERD (gastroesophageal reflux disease) Type 2 diabetes mellitus with diabetic polyneuropathy Hyperlipidemia LDL goal <100 Vitamin D deficiency Surgical History H/O colonoscopy History of eye surgery Family History (Updated 01/19/24 @ 14:01 by Salima Rizo MD) Father Colon cancer, Onset Age: 50 Stroke Prostate cancer Mother Hypertension Diabetes Dementia Family/Other FH: mental illness Social History (Updated 01/19/24 @ 14:01 by Salima Rizo MD) Household Members: None Housing: Apartment Alcohol intake: former Patient Tobacco Use Status: Never used Tobacco e-Cigarette/Vaping Use: Never Used Second Hand Smoke Exposure: No service: No Current occupational status: disabled Cognitive needs: Yes (cane/walker) Hearing needs: No Vision needs: Yes (glasses) Questionnaire PHQ-9 Over the last 2 weeks, how often have you been bothered by any of the following problems? 1. Little interest or pleasure in doing things: several days 2. Feeling down, depressed, or hopeless: more than half the days 3. Trouble falling or staying asleep, or sleeping too much: nearly every day 4. Feeling tired or having little energy: several days 5. Poor appetite or overeating: not at all 6. Feeling bad about yourself - or that you are a failure or have let yourself or your family down: not at all 7. Trouble concentrating on things, such as reading the newspaper or watching television: not at all 8. Moving or speaking so slowly that other people could have noticed. Or the opposite - being so fidgety or restless that you have been moving around a lot more than usual: not at all 9. Thoughts that you would be better off or of hurting yourself in some way: not at all Total score: 7 Depression Screening Interpretation: Positive Depression Screening Follow-up: Existing condition and In treatment Depression Screening Done: Yes 77809 - PHQ-9 Billing: Yes Source: Developed by Drs. Arya Griffin, Delphine Kelley, Boris Aguilera and colleagues, with an educational ifrah from [employer]. Thrive Questionnaire Date Thrive assessed: 12/31/23 AUDIT C Alcohol Use Questionnaire (AUDIT-C) 1. How often do you have a drink containing alcohol?: Never 3. How often do you have six or more drinks on one occasion?: Never Total Score: 0 Score Reviewed/Action Taken: No GRAHAM-7 AMB Questionnaire GRAHAM-7 Date GRAHAM - 7 assessed: 01/19/24 Feeling nervous, anxious, or on edge: 0 = Not at all Not being able to stop or control worryin = Not at all Worrying too much about different things: 2 = More than half the days Trouble relaxin = Not at all Being so restless that it is hard to sit still: 0 = Not at all Becoming easily annoyed or irritable: 0 = Not at all Feeling afraid as if something awful might happen: 1 = Several days Total GRAHAM-7 score (0-4 normal; 5-9 mild; 10-14 moderate; 15-21 severe): 3 Source: Developed by Drs. Arya Griffin, Delphine Kelley, Boris Aguilera and colleagues, with an educational ifrah from [employer]. GRAHAM-7 Assessment Billing GRAHAM-7 Assessment Tool: GRAHAM-7 Assessment 58503 Review of Systems Const All systems reviewed & are unremarkable except as noted in HPI and below Eyes Reports no additional complaints, Denies change in vision and Denies other visual disturbances Card Denies chest pain at rest, Denies chest pain with activity, Denies edema, Denies irregular heart rhythm, Denies claudication, Denies dyspnea, Denies dyspnea on exertion, Denies orthopnea, Denies paroxysmal nocturnal dyspnea and Denies slow heart rate Resp Denies cough, Denies dyspnea and Denies dyspnea on exertion GI Denies abdominal pain, Denies change in bowel habits, Denies excessive flatus, Denies nausea and Denies vomiting Neuro Denies behavioral changes and Denies confusion Psych Denies behavioral changes and Denies confusion Physical exam (Primary Care) Vital Signs: Last Vital Signs Pulse 77 01/19/24 13:13 BP 130/72 01/19/24 13:13 Pulse Ox 98 01/19/24 13:13 Oxygen Delivery Method Room Air 01/19/24 13:13 BMI result Body Mass Index 28.3 Tobacco/Smoking Status: Tobacco use Status Tobacco use date assessed 01/19/24 01/19/24 13:14 Patient Tobacco Use Status Never used Tobacco 01/19/24 13:14 e-Cigarette/Vaping Use Never Used 01/19/24 13:14 PHQ-9: PHQ-9 Score PHQ-9: Total score 7 01/19/24 13:33 Depression Screening Interpretation: Positive Depression Screening Follow-up: Existing condition and In treatment Thrive Assessment: Date of Thrive Assessment Date Thrive assessed 12/31/23 01/19/24 13:14 Const General: No confusion Orientation/consciousness: patient oriented x3 and No confusion HENMT Head: Yes normal to inspection, Yes normocephalic and Yes atraumatic Eyes General: appearance normal, both eyes and all related structures Eyelids: Yes eyelids normal Conjunctivae: conjunctivae normal Neck Neck: Yes normal visual inspection and Yes supple Resp Effort & Inspection: normal respiratory effort Auscultation: clear to auscultation bilaterally Cardio Jugular venous distension: no JVD Rate: regular rate Rhythm: regular rhythm Heart sounds: S1 normal heart sound present and S2 normal heart sound present GI Inspection: Yes normal to inspection Palpation (GI): Soft to palpation and nontender Auscultation: normal bowel sounds Skin General skin exam: no rashes or lesions noted Neuro General: patient oriented x3, no focal motor deficits and No confusion Extrem General: Yes full ROM Psych Appearance: grossly normal Results AMB Hemoglobin A1c AMB Hemoglobin A1c 7.1 % Last Edit by ALEXUS Jordan on 01/19/24 13:33 Results Reviewed Results Reviewed: Laboratory Last Values Hgb A1c (Clinic) 7.1 % (4.0-6.0) H 01/19/24 12:55 Assessment and Plan Assessment & Plan (1) Physical exam: Code(s): Z00.00 - Encounter for general adult medical examination without abnormal findings Plan: Repeat in a year. (2) Polio osteopathy of lower leg: Code(s): M89.669 - Osteopathy after poliomyelitis, unspecified lower leg; B91 - Sequelae of poliomyelitis Plan: Continue NSAIDs as needed. 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 A1c goal is equal or less than 7%. (4) Mild major depression: Code(s): F32.0 - Major depressive disorder, single episode, mild Plan: Continue SSRIs. 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
[2024-01-19 13:13] VITALS: BP 130/72; PULSE 77; O2SAT 98; BMI 28.3
== END 2024-01-19 14:09 | disposition home or self-care (01) ==
LOC: HO.HMGH 12:54
PROVIDERS: PCP Internal Medicine; Visit Provider Internal Medicine
DX: Z00.00 Encounter for general adult medical examination without abnormal findings (principal); E11.65 Type 2 diabetes mellitus with hyperglycemia; Z79.4 Long term (current) use of insulin; F33.0 Major depressive disorder, recurrent, mild; M89.669 Osteopathy after poliomyelitis, unspecified lower leg; B91 Sequelae of poliomyelitis
CPT/HCPCS: 83036; 99396

== ENCOUNTER 2024-01-27 15:23 | Outpatient (AMB) | payer OTHER, SELFPAY ==
[2024-01-27 15:33] VITALS: BP 116/58; PULSE 84; O2SAT 98; BMI 27.9
--- NOTE | 2024-01-27 15:33 | MHC.OFFVIS ---
Vital Signs 01/27/24 15:33 Height 5 ft 10 in Weight 194 lb 7.163 oz BMI 27.9 BP 116/58 L Blood Pressure Location Rt brachial Position Sitting Pulse 84 Pulse Source Pulse Oximeter Pulse Oximetry (%) 98 Oxygen Delivery Method Room Air Intake Visit Reasons: Follow Up Medication Intake Note: Patient in office today in follow up of constipation. CC:Patient states that the Linzess has been working well for constipation. Denies any new GI symptoms or concerns. Digital Media Strategist Required: Yes Accompanied by: Self / Same As Patient Allergies dulaglutide [Trulicity] Allergy (Intermediate, Verified 01/27/24 15:46) cyst ondansetron [ONDANSETRON] Allergy (Intermediate, Verified 01/27/24 15:46) stomach pain HPI HPI Follow Up Medication: Details: Assessment & Plan (1) Chronic idiopathic constipation: Code(s): K59.04 - Chronic idiopathic constipation (2) GERD (gastroesophageal reflux disease): Code(s): K21.9 - Gastro-esophageal reflux disease without esophagitis Qualifiers: Esophagitis presence: esophagitis presence not specified Qualified Code(s): K21.9 - Gastro-esophageal reflux disease without esophagitis Plan [place] # His BILINGUAL MEDICAL ASSISTANT translates per patient request. He did not move his bowels at all any better with the Linzess at 145mcg, we will increase it to 290. He does NOT have the senna at home that his PCP tried to rx. He is trying to juice, but sill is not moving his bowels well and he has a lot of bloating. He currently denies any GERD or severe dyspepsia. He is also on Ozempic, which also slows down the GI tract. ROV 4 weeks. Medications: New linaclotide (Linzess) 290 mcg PO QAM 30 days 30 caps 6RF K59.04 - Chronic idiopathic constipation Discontinued linaclotide (Linzess) Discontinued Reason: Doctor's Order 145 mcg PO QAM 30 caps 3RF K59.04 - Chronic idiopathic constipation TODAY'S VISIT Azeri #[id number] He says he is doing well on his Linzess 290mcg and has senna for back up. He is now satisfied with his GI regimen. Return office visit in 6 months [facility] Medical History Physical exam Erectile dysfunction associated with type 2 diabetes mellitus Pre-op examination Balanitis Lumbar pain Constipation Precordial chest pain Chest pain Right leg pain Kidney stones Type 2 diabetes mellitus with hyperglycemia Severe major depression without psychotic features HTN (hypertension) Unsteady gait Fibromyalgia Serum calcium elevated IBS (irritable bowel syndrome) GERD (gastroesophageal reflux disease) Type 2 diabetes mellitus with diabetic polyneuropathy Hyperlipidemia LDL goal <100 Vitamin D deficiency Surgical History H/O colonoscopy History of eye surgery Family History Father Colon cancer, Onset Age: 50 Stroke Prostate cancer Mother Hypertension Diabetes Dementia Family/Other FH: mental illness Social History Household Members: None Housing: Apartment Alcohol intake: former Patient Tobacco Use Status: Never used Tobacco e-Cigarette/Vaping Use: Never Used Second Hand Smoke Exposure: No service: No Current occupational status: disabled Cognitive needs: Yes (cane/walker) Hearing needs: No Vision needs: Yes (glasses) Review of Systems Const Denies fatigue, Denies fever(s), Denies night sweats, Denies poor appetite and Denies weight loss Eyes Details: glasses Reports requires corrective lenses ENT Reports Normal hearing present, Denies dental pain, Denies dysphagia, Denies hearing loss, Denies mouth pain, Denies odynophagia, Denies throat swelling, Denies tongue swelling and Reports other (Dentition adequate) Card Reports no additional complaints Resp Reports no additional complaints GI Details: Denies abdominal pain, Denies melena, Denies bloating, Denies hematochezia, Reports constipation, Denies GI cramping, Denies dysphagia, Denies excessive flatus, Denies early satiety, Denies heartburn, Denies diarrhea, Denies nausea, Denies odynophagia, Denies vomiting and Denies hematemesis Skin/Breast Denies pruritus, Denies lesions, Denies rash and Denies jaundice Neuro Reports Normal hearing present and Denies Abnormal speech present Endo Denies fatigue Aller/Immun Denies throat swelling and Denies tongue swelling Physical Exam Vital Signs: Last Vital Signs Pulse 84 01/27/24 15:33 BP 116/58 L 01/27/24 15:33 Pulse Ox 98 01/27/24 15:33 Oxygen Delivery Method Room Air 01/27/24 15:33 BMI result Body Mass Index 27.9 Const General: cooperative, no acute distress, well developed and well groomed Nutritional Appearance: average body habitus and well nourished Orientation/consciousness: oriented to person, oriented to place and oriented to time Limitations: language barrier HEENT Head: Yes normocephalic and Yes atraumatic Eyes General: appearance normal, both eyes and all related structures Pupils: Equal, round and reactive pupils present Neck Neck: Yes normal visual inspection and Yes no lymphadenopathy Thyroid: Thyroid normal Resp Effort & Inspection: normal respiratory effort and able to speak in complete sentences Auscultation: clear to auscultation bilaterally Cardio Rate: regular rate Rhythm: regular rhythm Heart sounds: Normal, physiologic split S2 sound present Peripheral pulses: radial pulses present and posterior tibial pulses present GI Inspection: No distended and No Abdominal panniculus present Palpation (GI): Soft to palpation, nontender, no guarding, not rigid and No hepatosplenomegaly present Percussion: Yes normal to percussion Auscultation: normal bowel sounds Rectal Exam - Male: Yes deferred Skin General skin exam: no rashes or lesions noted, turgor normal, skin not dry, no jaundice, No spider nevi and no striae Rashes: no rashes Nails: normal Neuro General: oriented to person, oriented to place and oriented to time Cranial nerves: Yes Equal, round and reactive pupils present and Yes Normal hearing present Speech: No Abnormal speech present Extrem General: Yes normal to inspection, No clubbing, No cyanosis and No edema Psych Appearance: grossly normal and well kempt Mental Status: mental status grossly normal Speech and movement: Normal speech and movement present Affect: normal affect Attitude: cooperative Thought process: Normal thought process present and not confabulating Thought content: Normal thought content present Insight: Limited insight present (Psych) Judgement: Limited judgement present (Psych) Assessment & Plan Assessment & Plan (1) Chronic idiopathic constipation: Code(s): K59.04 - Chronic idiopathic constipation Category: Medical (2) Tubular adenoma of colon: Comment: 2022=1 TA repeat in 5 years Code(s): D12.6 - Benign neoplasm of colon, unspecified Category: Medical (3) Family history of colon cancer: Comment: Mother and sister Code(s): Z80.0 - Family history of malignant neoplasm of digestive organs Category: Medical Plan [place] #[id number] He says he is doing well on his Linzess 290mcg and has senna for back up. He is now satisfied with his GI regimen. Return office visit in 6 months Medications: Refilled sennosides (Senna Lax) 8.6 mg PO BEDTIME 90 tabs 0RF 90 days linaclotide (Linzess) 290 mcg PO QAM 30 caps 6RF 30 days K59.04 - Chronic idiopathic constipation Coding Level of Care Code Est Pt Level 3 (21323) Diagnoses Chronic idiopathic constipation K59.04 Tubular adenoma of colon D12.6 Family history of colon cancer Z80.0
== END 2024-01-27 15:53 | disposition home or self-care (01) ==
PROVIDERS: PCP Internal Medicine; Visit Provider Nurse Practitioner
DX: K59.04 Chronic idiopathic constipation (principal); D12.6 Benign neoplasm of colon, unspecified; Z80.0 Family history of malignant neoplasm of digestive organs
CPT/HCPCS: 99213

== ENCOUNTER → 2024-01-27 15:23 | Outpatient (BNVA) | payer OTHER, SELFPAY | PROVIDERS: PCP Internal Medicine; Visit Provider Nurse Practitioner | DX: K59.04 Chronic idiopathic constipation (principal); D12.6 Benign neoplasm of colon, unspecified; Z80.0 Family history of malignant neoplasm of digestive organs | CPT/HCPCS: 99212 ==

== ENCOUNTER 2024-02-05 17:04 | Outpatient (REF) | payer MEDICARE, SELFPAY ==
--- NOTE | ~2024-02-05 | MR_ITS ---
EXAMINATION: MR LUMBAR SPINE WITHOUT CONTRAST CLINICAL INFORMATION: 58-year-old with complaints of chronic low back pain. Spinal stenosis, site unspecified. COMPARISON: 04/21/2018 MRI. TECHNIQUE: MRI of the lumbar spine was obtained using routine sequences without contrast. FINDINGS: Coronal Alignment: Mild lumbar dextrocurvature, convex to the right at L3-L4, stable in appearance. Sagittal Alignment: The lumbosacral spine is anatomically aligned in the sagittal plane. Lumbosacral Junction: Normal. There are 5 [id number] lumbar-type vertebral bodies. Vertebral Bodies: Stable vertebral body heights. No interval compression fractures. Disc Spaces and Endplates: [id number] disc space height loss asymmetric to the right has progressed from the previous study at L5-S1 with progression of Schmorl's nodes and spondylosis since the previous exam. Intradiscal degenerative signal changes have also progressed at this level. Moderate disc volume loss asymmetric to the left at L4-L5 has progressed from previous exam with progression of Schmorl's nodes along the inferior endplate of L4 and mild spondylosis progressed from previous study. Intradiscal degenerative signal changes are noted, with some progression. Remaining lumbar intervertebral discs demonstrate normal height and signal. Spinal Canal: No abnormal developmental findings. Bone Marrow: Type I degenerative marrow signal changes are seen along the endplates at L4-L5, progressed from previous exam. Type I degenerative marrow signal changes along the endplates at L5-S1 asymmetric to the right, slightly progressed from previous study. No suspicious marrow-replacing process or bone marrow edema. Conus Medullaris: Terminates at L1-L2. Morphology and signal is normal. Intradural Nerve Roots: Within normal limits. L5-S1: Concentric disc bulging has progressed from the previous exam with superimposed small left subarticular disc protrusion, with progression of narrowing of the subarticular recesses, left more than right. Disc protrusion still contacts the origin of the left S1 nerve root sleeve without nerve root compression or displacement. No significant central canal stenosis. Mild facet joint arthropathy is again noted, stable in appearance. There is minor left-sided and moderate right-sided neural foraminal stenosis, progressed on the right from previous exam, with encroachment on the exiting right L5 nerve root on current study. L4-L5: There is concentric disc bulging again noted with a right-sided extraforaminal/foraminal disc herniation, slightly progressed from previous exam, which abuts the exiting right L4 nerve root, slightly more evident on current study. Disc bulging has also progressed with increased flattening of the ventral dural sac. Ligamentum flavum thickening has progressed. Moderate left and mild right-sided facet joint arthrosis has also progressed. There is [id number] central spinal canal stenosis which has progressed from the previous study, and there is bilateral subarticular and lateral recess stenosis, stable on the right and progressed on the left. Probable compromise of the traversing L5 nerve roots bilaterally on current exam. Moderate bilateral neural foraminal stenosis is stable on the right and progressed on the left. L3-L4: Normal annular contour. Mild ligamentum flavum thickening and facet hypertrophic degenerative change, stable in appearance. No significant canal or neural foraminal stenosis, unchanged. L2-L3: Normal annular contour. No facet arthrosis, canal or foraminal stenosis. L1-L2: Normal annular contour. No facet arthrosis, canal or foraminal stenosis. Paravertebral and Included Extraspinal Soft Tissues: The visualized paravertebral soft tissues and included retroperitoneal structures are unremarkable within the limitations of the exam. MR/MR lumbar spine wo con IMPRESSION: 1. Progression of discogenic degenerative changes at L4-L5 and L5-S1, as described above, with progression of disc bulging and right lateral foraminal/extraforaminal disc herniation at L4-L5 abutting the exiting right L4 nerve root with progression of spinal canal stenosis at this level, as described above, with probable compromise of the traversing L5 nerve roots bilaterally. Moderate bilateral neural foraminal stenosis at this level is stable on the right and progressed on the left at L4-L5. 2. Progression of disc bulging and stable left subarticular disc protrusion at L5-S1 with narrowing of the subarticular recesses, left more than right, slightly progressed on the left from previous exam, with encroachment on the origin of the left S1 nerve root sleeve again noted. Moderate right-sided and minor left-sided neural foraminal stenosis at this level, progressed on the right with encroachment on the exiting right L5 nerve root since prior study. 3. Mild facet joint arthropathy and ligamentum flavum thickening at L3-L4, stable in appearance.
== END 2024-02-05 17:05 | disposition home or self-care (01) ==
LOC: HO.MRI 17:04
PROVIDERS: PCP Internal Medicine; Visit Provider Anesthesiology
DX: M48.00 Spinal stenosis, site unspecified (principal); M54.16 Radiculopathy, lumbar region; M51.36 Other intervertebral disc degeneration, lumbar region
CPT/HCPCS: 72148

== ENCOUNTER 2024-03-03 14:17 | Outpatient (AMB) | payer MEDICARE, MEDICAID, SELFPAY ==
--- NOTE | 2024-03-03 14:18 | A.OFFVIS_ITS ---
Intake Visit Reasons: 2m follow up Intake Note: Patient presents today for a 2 months follow up: Meds- Tadalafil Allergies to Antibiotic- No Known Allergies Blood Thinner- None Furnace Operator Required: No Accompanied by: Self / Same As Patient Allergies dulaglutide [Trulicity] Allergy (Intermediate, Verified 03/03/24 14:19) cyst ondansetron [ONDANSETRON] Allergy (Intermediate, Verified 03/03/24 14:19) stomach pain HPI Comments Details: Fer is a pleasant male. He is seen for the following urologic conditions - erectile dysfunction - renal stones Telemedicine Evaluation 15 min Consultation [facility] Video Cameroonian translation provided in office by qualified medical technologist chief Unsuccessful maximum dose tadalafil Interested in trying penile injections - understands payment not covered by insurance He will call for follow-up appointment once receives medication Nephrolithiasis Prior ESWL Imaging - 04/19 renal US no stones - 04/20 renal ultrasound no evidence of stones - 01/20 renal US Erectile dysfunction in setting of diabetes Prior evaluation for low testosterone Testosterone in normal range PSA 05/20 0.60, T 310 HBA1c 09/20 8.2 5 mg daily Poor response to 10 mg daily with 40 mg on demand [facility] Medical History (Updated 03/04/24 @ 14:49 by Franky Muir MD) Erectile dysfunction associated with type 2 diabetes mellitus Physical exam Pre-op examination Balanitis Lumbar pain Constipation Precordial chest pain Chest pain Right leg pain Kidney stones Type 2 diabetes mellitus with hyperglycemia Severe major depression without psychotic features HTN (hypertension) Unsteady gait Fibromyalgia Serum calcium elevated IBS (irritable bowel syndrome) GERD (gastroesophageal reflux disease) Type 2 diabetes mellitus with diabetic polyneuropathy Hyperlipidemia LDL goal <100 Vitamin D deficiency Surgical History H/O colonoscopy History of eye surgery Family History Father Colon cancer, Onset Age: 50 Stroke Prostate cancer Mother Hypertension Diabetes Dementia Family/Other FH: mental illness Social History Household Members: None Housing: Apartment Alcohol intake: former Patient Tobacco Use Status: Never used Tobacco e-Cigarette/Vaping Use: Never Used Second Hand Smoke Exposure: No service: No Current occupational status: disabled Cognitive needs: Yes (cane/walker) Hearing needs: No Vision needs: Yes (glasses) Review of Systems Const All systems reviewed & are unremarkable except as noted in HPI and below Reports no additional complaints Resp Reports no additional complaints GI Reports no additional complaints Reports as per HPI Musc Reports no additional complaints Physical Exam Telemedicine evaluation Appropriate responses Regular breathing rate and rhythm HEENT Head: Yes normal to inspection Ears: hearing grossly normal bilaterally Eyes General: appearance normal, both eyes and all related structures Neck Neck: Yes normal visual inspection Chest Chest palpation & inspection: normal inspection of the chest Resp Effort & Inspection: normal respiratory effort and able to speak in complete sentences Telehealth Telehealth Telehealth Platform: [facility] Location of provider rendering services: practice address Location of patient: address on file Patient Identification confirmed using: Name, : Yes Telehealth method: video Patient verbally consented to treatment: Yes Patient verbally consented to billing insurance company: Yes Patient informed of any privacy concerns related to visit: Yes Minutes spent on Phone/Video with Pt.: 15 Assessment & Plan Assessment & Plan (1) BPH w urinary obs/LUTS: Code(s): N40.1 - Benign prostatic hyperplasia with lower urinary tract symptoms; N13.8 - Other obstructive and reflux uropathy Category: Medical (2) Erectile dysfunction associated with type 2 diabetes mellitus: Code(s): E11.69 - Type 2 diabetes mellitus with other specified complication; N52.1 - Erectile dysfunction due to diseases classified elsewhere Category: Medical Plan Plan for trial injectable therapy Patient Instructions: Imaging studies, laboratory and physical exam results were discussed and reviewed in detail. No major barriers to patient understanding were identified. An opportunity to ask questions regarding the treatment plan was provided. All questions were answered. The patient expressed understanding and agreement with the above treatment plan. The patient is aware they should contact our office by phone for worsening of their current condition or the appearance of new urologic symptoms. Compliance is encouraged with any medications and followup testing that is ordered. It is a privilege to participate in the urologic care of your patient. If you have any questions or concerns regarding treatment for the above conditions, or other urologic issues, please do not hesitate to contact me. The office telephone contact is [phone]. This note is constructed using voice recognition software. While every effort has been made to ensure accuracy cager operator errors may have been included. Yours sincerely, Dr Franky Muir MD, [facility] - Urology Providers of Expert, Compassionate Care for the Genitourinary System Coding Level of Care Code Tele Est Pt Level 4 (93309) Diagnoses BPH w urinary obs/LUTS N40.1; N13.8 Erectile dysfunction associated with type 2 diabetes mellitus E11.69; N52.1
== END 2024-03-03 15:05 | disposition home or self-care (01) ==
LOC: HO.HUSH 14:17
PROVIDERS: PCP Internal Medicine; Visit Provider Urology
DX: N40.1 Benign prostatic hyperplasia with lower urinary tract symptoms (principal); N13.8 Other obstructive and reflux uropathy; E11.69 Type 2 diabetes mellitus with other specified complication; N52.1 Erectile dysfunction due to diseases classified elsewhere
CPT/HCPCS: 99214

== ENCOUNTER → 2024-03-03 14:17 | Outpatient (BNVA) | payer OTHER, SELFPAY | PROVIDERS: PCP Internal Medicine; Visit Provider Urology ==

== ENCOUNTER → 2024-03-11 12:45 | Outpatient (BNVA) | payer MEDICARE, SELFPAY | PROVIDERS: PCP Internal Medicine; Visit Provider Anesthesiology | DX: M48.00 Spinal stenosis, site unspecified (principal); M51.36 Other intervertebral disc degeneration, lumbar region; M54.16 Radiculopathy, lumbar region; M54.51 Vertebrogenic low back pain; G89.4 Chronic pain syndrome | CPT/HCPCS: 99212 ==

== ENCOUNTER 2024-03-11 12:57 | Outpatient (AMB) | payer MEDICARE, MEDICAID, SELFPAY ==
--- NOTE | 2024-03-11 12:59 | A.OFFVIS_ITS ---
Vital Signs 03/11/24 13:08 Height 5 ft 10 in Weight 201 lb 4 oz BMI 28.9 BP 134/74 Blood Pressure Location Lt brachial Position Sitting Respiration 16 Pulse 84 Pulse Source Pulse Oximeter Pulse Oximetry (%) 96 Oxygen Delivery Method Room Air Intake Visit Reasons: Discuss MRI results Intake Note: Patient comes in to discuss MRI results. Reports pain 8/10. Allergies dulaglutide [Trulicity] Allergy (Intermediate, Verified 03/11/24 13:08) cyst ondansetron [ONDANSETRON] Allergy (Intermediate, Verified 03/11/24 13:08) stomach pain HPI Comments Details: Mr. Fer Leung is very pleasant 58 years old gentleman who presents in my office with complains on pain all over the body including pain in the bilateral shoulders and bilateral arms as well as pain in the neck. However the most significant pain he complains about is pain in the lumbar spine with radiation into the bilateral lower extremities. He reports his pain as 10/10 today. He reports that bending forward and bending backwards equally aggravates his pain. His pain became associated with weakness in bilateral lower extremities and numbness in the perianal area and numbness in bilateral buttocks. His legs legs are getting tired while walking and the maximum he can not walk for 20 minutes and then he needs to rest. He found himself better walking leaning on a cart while shopping in his supermarket. Reports pain aggravation with prolonged sitting, in fact he was not able to sit still during the appointment today and had to stand up and continue conversation standing. He also reports pain when positioned horizontal, he reports severe pain with attempts to lift objects from the floor. I sent him for MRI of the lumbar spine, the MRI is ready, I evaluated MRI myself, radiologist dictation of the MRI is also as below. There are significant Modic type 1 and type 2 changes at L4-L5 and S1 there is also spinal stenosis moderate to severe proportion at L4-5 due to posterior disc protrusion. I proposed to the patient that we 1st treat his vertebra genic pain with intercept procedure, after that I will refer him to a neurosurgeon Dr. Meneses to help with his spinal stenosis. The patient agreed with the plan. He agreed with the plan I will schedule him for the procedure under general anesthesia. [facility] Medical History (Updated 03/11/24 @ 14:27 by Collin Franco MD) Erectile dysfunction associated with type 2 diabetes mellitus Physical exam Pre-op examination Balanitis Lumbar pain Constipation Precordial chest pain Chest pain Right leg pain Kidney stones Type 2 diabetes mellitus with hyperglycemia Severe major depression without psychotic features HTN (hypertension) Unsteady gait Fibromyalgia Serum calcium elevated IBS (irritable bowel syndrome) GERD (gastroesophageal reflux disease) Type 2 diabetes mellitus with diabetic polyneuropathy Hyperlipidemia LDL goal <100 Vitamin D deficiency Surgical History H/O colonoscopy History of eye surgery Family History Father Colon cancer, Onset Age: 50 Stroke Prostate cancer Mother Hypertension Diabetes Dementia Family/Other FH: mental illness Social History Household Members: None Housing: Apartment Alcohol intake: former Patient Tobacco Use Status: Never used Tobacco e-Cigarette/Vaping Use: Never Used Second Hand Smoke Exposure: No service: No Current occupational status: disabled Cognitive needs: Yes (cane/walker) Hearing needs: No Vision needs: Yes (glasses) Review of Systems Const All systems reviewed & are unremarkable except as noted in HPI and below Physical Exam Vital Signs: Last Vital Signs Pulse 84 03/11/24 13:08 Resp 16 03/11/24 13:08 BP 134/74 03/11/24 13:08 Pulse Ox 96 03/11/24 13:08 Oxygen Delivery Method Room Air 03/11/24 13:08 BMI result Body Mass Index 28.9 Const General: cooperative and in distress Orientation/consciousness: patient oriented x3 Chest Chest palpation & inspection: normal inspection of the chest Cardio Jugular venous distension: no JVD Back/Spine/Pelvis Other: Leaning forward alleviates his pain while walking. Valsalva maneuver aggravate his pain. Reports numbness in bilateral buttocks bilateral inner thighs and perianal area. The patient reports inability to do prolonged sitting, in fact he is unable to sit for long time during the exam today. Neuro General: patient oriented x3 Results Reviewed Results Reviewed: R LUMBAR SPINE WITHOUT CONTRAST CLINICAL INFORMATION: 58-year-old with complaints of chronic low back pain. Spinal stenosis, site unspecified. COMPARISON: 04/21/2018 MRI. TECHNIQUE: MRI of the lumbar spine was obtained using routine sequences without contrast. FINDINGS: Coronal Alignment: Mild lumbar dextrocurvature, convex to the right at L3-L4, stable in appearance. Sagittal Alignment: The lumbosacral spine is anatomically aligned in the sagittal plane. Lumbosacral Junction: Normal. There are 5 kyt-vjm-hwzyasa lumbar-type vertebral bodies. Vertebral Bodies: Stable vertebral body heights. No interval compression fractures. Disc Spaces and Endplates: Ljvwussm-oo-ztbwtw disc space height loss asymmetric to the right has progressed from the previous study at L5-S1 with progression of Schmorl's nodes and spondylosis since the previous exam. Intradiscal degenerative signal changes have also progressed at this level. Moderate disc volume loss asymmetric to the left at L4-L5 has progressed from previous exam with progression of Schmorl's nodes along the inferior endplate of L4 and mild spondylosis progressed from previous study. Intradiscal degenerative signal changes are noted, with some progression. Remaining lumbar intervertebral discs demonstrate normal height and signal. Spinal Canal: No abnormal developmental findings. Bone Marrow: Type I degenerative marrow signal changes are seen along the endplates at L4-L5, progressed from previous exam. Type I degenerative marrow signal changes along the endplates at L5-S1 asymmetric to the right, slightly progressed from previous study. No suspicious marrow-replacing process or bone marrow edema. Conus Medullaris: Terminates at L1-L2. Morphology and signal is normal. Intradural Nerve Roots: Within normal limits. L5-S1: Concentric disc bulging has progressed from the previous exam with superimposed small left subarticular disc protrusion, with progression of narrowing of the subarticular recesses, left more than right. Disc protrusion still contacts the origin of the left S1 nerve root sleeve without nerve root compression or displacement. No significant central canal stenosis. Mild facet joint arthropathy is again noted, stable in appearance. There is minor left-sided and moderate right-sided neural foraminal stenosis, progressed on the right from previous exam, with encroachment on the exiting right L5 nerve root on current study. L4-L5: There is concentric disc bulging again noted with a right-sided extraforaminal/foraminal disc herniation, slightly progressed from previous exam, which abuts the exiting right L4 nerve root, slightly more evident on current study. Disc bulging has also progressed with increased flattening of the ventral dural sac. Ligamentum flavum thickening has progressed. Moderate left and mild right-sided facet joint arthrosis has also progressed. There is sdfqwtyw-ji-aojraa central spinal canal stenosis which has progressed from the previous study, and there is bilateral subarticular and lateral recess stenosis, stable on the right and progressed on the left. Probable compromise of the traversing L5 nerve roots bilaterally on current exam. Moderate bilateral neural foraminal stenosis is stable on the right and progressed on the left. L3-L4: Normal annular contour. Mild ligamentum flavum thickening and facet hypertrophic degenerative change, stable in appearance. No significant canal or neural foraminal stenosis, unchanged. L2-L3: Normal annular contour. No facet arthrosis, canal or foraminal stenosis. L1-L2: Normal annular contour. No facet arthrosis, canal or foraminal stenosis. Paravertebral and Included Extraspinal Soft Tissues: The visualized paravertebral soft tissues and included retroperitoneal structures are unremarkable within the limitations of the exam. MR/MR lumbar spine wo con IMPRESSION: 1. Progression of discogenic degenerative changes at L4-L5 and L5-S1, as described above, with progression of disc bulging and right lateral foraminal/extraforaminal disc herniation at L4-L5 abutting the exiting right L4 nerve root with progression of spinal canal stenosis at this level, as described above, with probable compromise of the traversing L5 nerve roots bilaterally. Moderate bilateral neural foraminal stenosis at this level is stable on the right and progressed on the left at L4-L5. 2. Progression of disc bulging and stable left subarticular disc protrusion at L5-S1 with narrowing of the subarticular recesses, left more than right, slightly progressed on the left from previous exam, with encroachment on the origin of the left S1 nerve root sleeve again noted. Moderate right-sided and minor left-sided neural foraminal stenosis at this level, progressed on the right with encroachment on the exiting right L5 nerve root since prior study. 3. Mild facet joint arthropathy and ligamentum flavum thickening at L3-L4, stable in appearance. Assessment & Plan Assessment & Plan (1) Spinal stenosis: Code(s): M48.00 - Spinal stenosis, site unspecified Category: Medical (2) Disc degeneration, lumbar: Code(s): M51.36 - Other intervertebral disc degeneration, lumbar region Category: Medical (3) Chronic pain syndrome: Code(s): G89.4 - Chronic pain syndrome Category: Medical (4) Radiculopathy, lumbar region: Code(s): M54.16 - Radiculopathy, lumbar region Category: Medical (5) Vertebrogenic low back pain: Code(s): M54.51 - Vertebrogenic low back pain Category: Medical Plan The MRI of the patient demonstrated Modic type 1 and type 2 changes at L4-L5 and S1 vertebra. It also demonstrated L4-5 moderate to severe spinal stenosis. The treatment of this patient in my opinion should start with intercept L4-5 S1. This can help his ability to seat and flex himself forward. After that I will refer patient to Dr. Paige to help stenotic area at L4-5 with neurosurgical procedure. I will schedule him for intercept under general anesthesia follow-up after the procedure. Patient Instructions: I here by testify that I spent 35 minutes in conversation with this patient as well as planning his care and organizing his note the patient conversation was held with help of real estate clerk by madina. Coding Level of Care Code Est Pt Level 4 (64412) Diagnoses Spinal stenosis M48.00 Disc degeneration, lumbar M51.36 Chronic pain syndrome G89.4 Radiculopathy, lumbar region M54.16 Vertebrogenic low back pain M54.51
[2024-03-11 13:08] VITALS: BP 134/74; PULSE 84; RESP 16; O2SAT 96; BMI 28.9
== END 2024-03-11 13:45 | disposition home or self-care (01) ==
LOC: HO.PMC 12:57
PROVIDERS: PCP Internal Medicine; Visit Provider Anesthesiology
DX: M48.00 Spinal stenosis, site unspecified (principal); M51.36 Other intervertebral disc degeneration, lumbar region; G89.4 Chronic pain syndrome; M54.16 Radiculopathy, lumbar region; M54.51 Vertebrogenic low back pain
CPT/HCPCS: 99214

== ENCOUNTER 2024-03-24 14:34 | Outpatient (AMB) | payer MEDICARE, MEDICAID, SELFPAY ==
[2024-03-24 15:02] VITALS: BP 138/66; PULSE 102; RESP 16; O2SAT 96; BMI 28.6
--- NOTE | 2024-03-24 15:02 | A.OFFVIS_ITS ---
Vital Signs 03/24/24 15:02 Height 5 ft 10 in Weight 199 lb 4 oz BMI 28.6 BP 138/66 Blood Pressure Location Lt brachial Position Sitting Respiration 16 Pulse 102 H Pulse Source Pulse Oximeter Pulse Oximetry (%) 96 Oxygen Delivery Method Room Air Intake Visit Reasons: PROCEDURE DISCUSSION Intake Note: Patient comes in to discuss procedure options. Reports pain 5/10. Allergies dulaglutide [Trulicity] Allergy (Intermediate, Verified 03/24/24 15:03) cyst ondansetron [ONDANSETRON] Allergy (Intermediate, Verified 03/24/24 15:03) stomach pain HPI Comments Details: Mr. Fer Leung is back in my office to discuss procedure I had offered him in the past. L4-5 and minimally S1 Modic type changes are demonstrated on the MRI. He also has moderate spinal canal stenosis. His pain is generated by 2 concurrent pathologist. I had offered him intercept 1st to treat his vertebra genic pain syndrome, we also can consider treatment for his spinal stenosis with neurosurgery in the future. He has intermittent neurological claudication. This all was explained to the patient today. The intraseptal procedure was explained to the patient. The patient will be scheduled for intercept procedure and after intercept procedure I will refer him to a neurosurgeon for re- evaluation for his spinal stenosis. Prior : Reports pain with prolonged sitting unable to sit for long period of time. Also pain became associated with weakness in bilateral lower extremities and numbness in the perianal area and numbness in bilateral buttocks. His legs legs are getting tired while walking and the maximum he can not walk for 20 minutes and then he needs to rest. He found himself better walking leaning on a cart while shopping in his supermarket. Reports pain aggravation with prolonged sitting, in fact he was not able to sit still during the appointment today and had to stand up and continue conversation standing. He also reports pain when positioned horizontal, he reports severe pain with attempts to lift objects from the floor. I sent him for MRI of the lumbar spine, the MRI is ready, I evaluated MRI myself, radiologist dictation of the MRI is also as below. There are significant Modic type 1 and type 2 changes at L4-L5 and S1 there is also spinal stenosis moderate to severe proportion at L4-5 due to posterior disc protrusion. I proposed to the patient that we 1st treat his vertebra genic pain with intercept procedure, after that I will refer him to a neurosurgeon Dr. Meneses to help with his spinal stenosis. The patient agreed with the plan. He agreed with the plan I will schedule him for the procedure under general anesthesia. [facility] Medical History (Updated 03/11/24 @ 14:27 by Collin Franco MD) Erectile dysfunction associated with type 2 diabetes mellitus Physical exam Pre-op examination Balanitis Lumbar pain Constipation Precordial chest pain Chest pain Right leg pain Kidney stones Type 2 diabetes mellitus with hyperglycemia Severe major depression without psychotic features HTN (hypertension) Unsteady gait Fibromyalgia Serum calcium elevated IBS (irritable bowel syndrome) GERD (gastroesophageal reflux disease) Type 2 diabetes mellitus with diabetic polyneuropathy Hyperlipidemia LDL goal <100 Vitamin D deficiency Surgical History H/O colonoscopy History of eye surgery Family History Father Colon cancer, Onset Age: 50 Stroke Prostate cancer Mother Hypertension Diabetes Dementia Family/Other FH: mental illness Social History Household Members: None Housing: Apartment Alcohol intake: former Patient Tobacco Use Status: Never used Tobacco e-Cigarette/Vaping Use: Never Used Second Hand Smoke Exposure: No service: No Current occupational status: disabled Cognitive needs: Yes (cane/walker) Hearing needs: No Vision needs: Yes (glasses) Review of Systems Const All systems reviewed & are unremarkable except as noted in HPI and below Physical Exam Vital Signs: Last Vital Signs Pulse 102 H 03/24/24 15:02 Resp 16 03/24/24 15:02 BP 138/66 03/24/24 15:02 Pulse Ox 96 03/24/24 15:02 Oxygen Delivery Method Room Air 03/24/24 15:02 BMI result Body Mass Index 28.6 Const General: cooperative and in distress Orientation/consciousness: patient oriented x3 Chest Chest palpation & inspection: normal inspection of the chest Cardio Jugular venous distension: no JVD Back/Spine/Pelvis Other: Leaning forward alleviates his pain while walking. Valsalva maneuver aggravate his pain. Lifting objects from the floor aggravates his pain. Increase activities aggravate his pain. Reports numbness in bilateral buttocks bilateral inner thighs and perianal area. The patient reports inability to do prolonged sitting, in fact he is unable to sit for long time during the exam today. Neuro General: patient oriented x3 Results Reviewed Results Reviewed: R LUMBAR SPINE WITHOUT CONTRAST CLINICAL INFORMATION: 58-year-old with complaints of chronic low back pain. Spinal stenosis, site unspecified. COMPARISON: 04/21/2018 MRI. TECHNIQUE: MRI of the lumbar spine was obtained using routine sequences without contrast. FINDINGS: Coronal Alignment: Mild lumbar dextrocurvature, convex to the right at L3-L4, stable in appearance. Sagittal Alignment: The lumbosacral spine is anatomically aligned in the sagittal plane. Lumbosacral Junction: Normal. There are 5 dop-cyz-wexwcmj lumbar-type vertebral bodies. Vertebral Bodies: Stable vertebral body heights. No interval compression fractures. Disc Spaces and Endplates: Tnfcirle-ig-eexnbz disc space height loss asymmetric to the right has progressed from the previous study at L5-S1 with progression of Schmorl's nodes and spondylosis since the previous exam. Intradiscal degenerative signal changes have also progressed at this level. Moderate disc volume loss asymmetric to the left at L4-L5 has progressed from previous exam with progression of Schmorl's nodes along the inferior endplate of L4 and mild spondylosis progressed from previous study. Intradiscal degenerative signal changes are noted, with some progression. Remaining lumbar intervertebral discs demonstrate normal height and signal. Spinal Canal: No abnormal developmental findings. Bone Marrow: Type I degenerative marrow signal changes are seen along the endplates at L4-L5, progressed from previous exam. Type I degenerative marrow signal changes along the endplates at L5-S1 asymmetric to the right, slightly progressed from previous study. No suspicious marrow-replacing process or bone marrow edema. Conus Medullaris: Terminates at L1-L2. Morphology and signal is normal. Intradural Nerve Roots: Within normal limits. L5-S1: Concentric disc bulging has progressed from the previous exam with superimposed small left subarticular disc protrusion, with progression of narrowing of the subarticular recesses, left more than right. Disc protrusion still contacts the origin of the left S1 nerve root sleeve without nerve root compression or displacement. No significant central canal stenosis. Mild facet joint arthropathy is again noted, stable in appearance. There is minor left-sided and moderate right-sided neural foraminal stenosis, progressed on the right from previous exam, with encroachment on the exiting right L5 nerve root on current study. L4-L5: There is concentric disc bulging again noted with a right-sided extraforaminal/foraminal disc herniation, slightly progressed from previous exam, which abuts the exiting right L4 nerve root, slightly more evident on current study. Disc bulging has also progressed with increased flattening of the ventral dural sac. Ligamentum flavum thickening has progressed. Moderate left and mild right-sided facet joint arthrosis has also progressed. There is yroymzkb-tr-dyhvea central spinal canal stenosis which has progressed from the previous study, and there is bilateral subarticular and lateral recess stenosis, stable on the right and progressed on the left. Probable compromise of the traversing L5 nerve roots bilaterally on current exam. Moderate bilateral neural foraminal stenosis is stable on the right and progressed on the left. L3-L4: Normal annular contour. Mild ligamentum flavum thickening and facet hypertrophic degenerative change, stable in appearance. No significant canal or neural foraminal stenosis, unchanged. L2-L3: Normal annular contour. No facet arthrosis, canal or foraminal stenosis. L1-L2: Normal annular contour. No facet arthrosis, canal or foraminal stenosis. Paravertebral and Included Extraspinal Soft Tissues: The visualized paravertebral soft tissues and included retroperitoneal structures are unremarkable within the limitations of the exam. MR/MR lumbar spine wo con IMPRESSION: 1. Progression of discogenic degenerative changes at L4-L5 and L5-S1, as described above, with progression of disc bulging and right lateral foraminal/extraforaminal disc herniation at L4-L5 abutting the exiting right L4 nerve root with progression of spinal canal stenosis at this level, as described above, with probable compromise of the traversing L5 nerve roots bilaterally. Moderate bilateral neural foraminal stenosis at this level is stable on the right and progressed on the left at L4-L5. 2. Progression of disc bulging and stable left subarticular disc protrusion at L5-S1 with narrowing of the subarticular recesses, left more than right, slightly progressed on the left from previous exam, with encroachment on the origin of the left S1 nerve root sleeve again noted. Moderate right-sided and minor left-sided neural foraminal stenosis at this level, progressed on the right with encroachment on the exiting right L5 nerve root since prior study. 3. Mild facet joint arthropathy and ligamentum flavum thickening at L3-L4, stable in appearance. Assessment & Plan Assessment & Plan (1) Vertebrogenic low back pain: Code(s): M54.51 - Vertebrogenic low back pain Category: Medical (2) Mild major depression: Code(s): F32.0 - Major depressive disorder, single episode, mild Category: Medical (3) Physical exam: Code(s): Z00.00 - Encounter for general adult medical examination without abnormal findings Category: Medical (4) Chronic pain syndrome: Code(s): G89.4 - Chronic pain syndrome Category: Medical (5) Spinal stenosis: Code(s): M48.00 - Spinal stenosis, site unspecified Category: Medical Plan 1. I will schedule this patient for intercept L4, L5, S1. This procedure will be done under general anesthesia. This will address vertebra genic pain. 2. Patient also has spinal stenosis with ligamentum flavum thickening. Mild procedure can not be attempted for referring patient to a neurosurgeon. 3. If mild procedure will fail to alleviate the patient's pain and numbness in the buttocks the neurosurgical referral should be made to help this patient's condition. The patient will be scheduled for the procedure, he will receive postoperative steroids after the procedure. The mobility limitations were explained to the patient, his vibefhc-ne-zez was in presence today with the patient and helped us to maintain conversation with the patient. Patient Instructions: I here by testify that I spent 39 minutes in conversation with this patient as well as planning his care, evaluating his prior records and prior diagnostic studies and organizing this note. Coding Level of Care Code Est Pt Level 4 (39898) Diagnoses Vertebrogenic low back pain M54.51 Mild major depression F32.0 Physical exam Z00.00 Chronic pain syndrome G89.4 Spinal stenosis M48.00
== END 2024-03-24 15:35 | disposition home or self-care (01) ==
PROVIDERS: PCP Internal Medicine; Visit Provider Anesthesiology
DX: M54.51 Vertebrogenic low back pain (principal); F32.0 Major depressive disorder, single episode, mild; Z00.00 Encounter for general adult medical examination without abnormal findings; G89.4 Chronic pain syndrome; M48.00 Spinal stenosis, site unspecified
CPT/HCPCS: 99214

== ENCOUNTER → 2024-03-24 14:34 | Outpatient (BNVA) | payer MEDICARE, SELFPAY | PROVIDERS: PCP Internal Medicine; Visit Provider Anesthesiology | DX: M54.51 Vertebrogenic low back pain (principal); Z00.00 Encounter for general adult medical examination without abnormal findings; M48.00 Spinal stenosis, site unspecified; F32.0 Major depressive disorder, single episode, mild; G89.4 Chronic pain syndrome | CPT/HCPCS: 99212 ==

== ENCOUNTER 2024-05-24 14:09 | Outpatient (AMB) | payer OTHER, SELFPAY ==
--- NOTE | 2024-05-24 14:22 | MHC.PC.OV ---
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: No Accompanied by: Self / Same As Patient Allergies dulaglutide [Trulicity] Allergy (Intermediate, Verified 05/24/24 14:42) cyst ondansetron [ONDANSETRON] Allergy (Intermediate, Verified 05/24/24 14:42) stomach pain Medication List - Last Reconciled 05/24/24 by Salima Rizo MD [adult diapers pull-ups As directed] albuterol sulfate 2.5 mg (3 mL) inhalation Q4-6H PRN 30 days ascorbic acid (vitamin C) 1 g PO DAILY 90 days atorvastatin 80 mg PO DAILY [bed rail As directed] blood pressure monitor (Blood Pressure Kit) As directed chlorpromazine 200 mg PO cholecalciferol (vitamin D3) 50 mcg PO DAILY clonidine HCl 0.1 mg PO BEDTIME 90 days commode As directed cyclobenzaprine 10 mg PO TID PRN 30 days [diabetic shoes As directed] empagliflozin (Jardiance) 25 mg PO QAM 90 days flash glucose sensor (FreeStyle Kevin 14 Day Sensor kit) 1 ea topical Q2W gabapentin 800 mg PO TID 30 days hydrocortisone 2.5% 1 appl topical BID PRN hydroxyzine pamoate 25 mg PO BID insulin aspart U-100 (Novolog FlexPen U-100 Insulin aspart) 4 - 10 units (0.04 - 0.1 mL) subcut TID insulin glargine U-300 conc (Toujeo Max U-300 SoloStar) 45 units (0.15 mL) subcut DAILY 30 days linaclotide (Linzess) 290 mcg PO QAM 30 days lisinopril 5 mg PO DAILY meloxicam 15 mg PO DAILY metformin 1,000 mg PO BID nebulizers (AeroEclipse II Nebulizer) As directed nystatin 1 appl topical DAILY 2 weeks pen needle, diabetic (BD Ultra-Fine Diana Pen Needle) As directed four times a day [pill box 2 day capacity As directed] semaglutide (Ozempic) 2 mg (0.75 mL) subcut QWEEK 30 days sennosides (Senna Lax) 8.6 mg PO BEDTIME 90 days sertraline 100 mg PO DAILY 90 days [step stool for bed As directed] tadalafil 20 mg PO ONCE PRN 30 days tadalafil 10 mg PO DAILY 90 days timolol maleate 0.5% drps ophthalmic (eye) [toilet seat elevator As directed] tramadol 50 mg PO BID PRN 30 days Transfer Bench As directed trazodone 200 mg (2 x 100 mg) PO BEDTIME PRN 90 days underpads (Bed Underpads) As directed walker As directed [wipes As directed] Tobacco use date assessed: 01/19/24 Dental Screening Dental Screen Date: 01/19/24 HPI HPI Comments History of Present Illness Details This is a 58-year-old male with hypertension, diabetes mellitus type 2 on long-term current use of insulin, hyperlipidemia and mild recurrent major depression that comes today complaining of bilateral hand paresthesias that has been bothering him. Nerve conduction study will be ordered. Blood pressure stable. A1c close to goal and I will increase long-acting insulin from 45 units to 48 units. Last LDL was within goal. Depression stable with SSRIs. No chest pain or shortness on breath. [facility] Medical History (Updated 05/24/24 @ 14:51 by Salima Rizo MD) Erectile dysfunction associated with type 2 diabetes mellitus Physical exam Pre-op examination Balanitis Lumbar pain Constipation Precordial chest pain Chest pain Right leg pain Kidney stones Type 2 diabetes mellitus with hyperglycemia Severe major depression without psychotic features HTN (hypertension) Unsteady gait Fibromyalgia Serum calcium elevated IBS (irritable bowel syndrome) GERD (gastroesophageal reflux disease) Type 2 diabetes mellitus with diabetic polyneuropathy Hyperlipidemia LDL goal <100 Vitamin D deficiency Surgical History H/O colonoscopy History of eye surgery Family History Father Colon cancer, Onset Age: 50 Stroke Prostate cancer Mother Hypertension Diabetes Dementia Family/Other FH: mental illness Social History Household Members: None Housing: Apartment Alcohol intake: former Patient Tobacco Use Status: Never used Tobacco e-Cigarette/Vaping Use: Never Used Second Hand Smoke Exposure: No service: No Current occupational status: disabled Cognitive needs: Yes (cane/walker) Hearing needs: No Vision needs: Yes (glasses) Questionnaire Thrive Questionnaire Date Thrive assessed: 12/31/23 GRAHAM-7 AMB Questionnaire GRAHAM-7 Date GRAHAM - 7 assessed: 01/19/24 Source: Developed by Drs. Arya Griffin, Delphine Kelley, Boris Aguilera and colleagues, with an educational ifrah from [employer]. Review of Systems Const All systems reviewed & are unremarkable except as noted in HPI and below Card Denies chest pain at rest, Denies chest pain with activity, Denies edema, Denies irregular heart rhythm, Denies claudication, Denies dyspnea, Denies dyspnea on exertion, Denies orthopnea, Denies paroxysmal nocturnal dyspnea and Denies slow heart rate Resp Denies cough, Denies dyspnea and Denies dyspnea on exertion GI Denies abdominal pain, Denies change in bowel habits, Denies excessive flatus, Denies nausea and Denies vomiting Denies urinary hesitancy, Denies urinary incontinence and Denies urinary urgency Musc Denies atrophy, Denies deformity and Denies limited range of motion Physical exam (Primary Care) Vital Signs: Last Vital Signs BP 126/70 05/24/24 14:27 BMI result Body Mass Index 28.1 Tobacco/Smoking Status: Tobacco use Status Tobacco use date assessed 01/19/24 05/24/24 14:24 Patient Tobacco Use Status Never used Tobacco 05/24/24 14:24 e-Cigarette/Vaping Use Never Used 05/24/24 14:24 Thrive Assessment: Date of Thrive Assessment Date Thrive assessed 12/31/23 05/24/24 14:24 Resp Effort & Inspection: normal respiratory effort Auscultation: clear to auscultation bilaterally Cardio Jugular venous distension: no JVD Rate: regular rate Rhythm: regular rhythm Heart sounds: S1 normal heart sound present and S2 normal heart sound present Extrem General: Yes full ROM Results AMB Hemoglobin A1c AMB Hemoglobin A1c 7.4 % Last Edit by ALEXUS Watkins on 05/24/24 14:54 Results Reviewed Results Reviewed: Laboratory Last Values Hgb A1c (Clinic) 7.4 % (4.0-6.0) H 05/24/24 14:21 Assessment and Plan Assessment & Plan (1) Mild major depression: Code(s): F32.0 - Major depressive disorder, single episode, mild Plan: Continue SSRIs. (2) Paresthesia of hand, bilateral: Code(s): R20.2 - Paresthesia of skin Plan: Nerve conduction study ordered. 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 Continue Jardiance and Ozempic. A1c goal is equal or less than 7%. (4) Hyperlipidemia LDL goal <70: Code(s): E78.5 - Hyperlipidemia, unspecified Plan: Continue statins. LDL goal is less than 70. (5) HTN (hypertension): Code(s): I10 - Essential (primary) hypertension Qualifiers: Hypertension type: essential hypertension Qualified Code(s): I10 - Essential (primary) hypertension Plan: Continue lisinopril. Blood pressure goal is equal or less than 130/80. 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
[2024-05-24 14:27] VITALS: BP 126/70; BMI 28.1
== END 2024-05-24 14:54 | disposition home or self-care (01) ==
PROVIDERS: PCP Internal Medicine; Visit Provider Internal Medicine
DX: F32.0 Major depressive disorder, single episode, mild (principal); R20.2 Paresthesia of skin; E11.65 Type 2 diabetes mellitus with hyperglycemia; Z79.4 Long term (current) use of insulin; E78.5 Hyperlipidemia, unspecified; I10 Essential (primary) hypertension
CPT/HCPCS: 83036; 99214; G2211

== ENCOUNTER 2024-06-17 13:11 | Outpatient (REF) | payer OTHER, SELFPAY ==
--- NOTE | 2024-06-17 13:18 | EMG_ITS ---
Chief complaint: Bilateral hand numbness, history of diabetes, admits to some tingling under both feet but denies history of neuropathy, chronic back pain. Reason for referral: Evaluate for Carpal Tunnel Syndrome Referred by: Dr. Salima Rizo Procedure done: Bilateral upper extremities NCS/EMG Precautions and/or limitations: None Albanian speaking, seen with a delivery clerk. The limb temperature was monitored continuously and remained between 32-36 degrees C during the performance of the NCS. Ulnar motor NCS was performed with moderate elbow flexion between 70-90 degrees, with across-elbow distance of 10 cm. Nerve Conduction Studies Anti Sensory Summary Table ?Stim Site NR Onset (ms) Norm Onset (ms) Peak (ms) Norm Peak (ms) O-P Amp (?V) Norm O-P Amp Site1 Site2 Delta-0 (ms) Dist (cm) Omid (m/s) Norm Omid (m/s) Left Median Anti Sensory (2nd Digit) Wrist ? 3.7 4.5 <3.6 5.4 >10 Wrist 2nd Digit 3.7 14.0 38 Right Median Anti Sensory (2nd Digit) Wrist ? 3.7 4.3 <3.6 5.9 >10 Wrist 2nd Digit 3.7 14.0 38 Right Radial Anti Sensory (Thumb) Forearm ? 1.8 2.3 <3.1 5.4 Forearm Thumb 1.8 0.0 Left Ulnar Anti Sensory (5th Digit) Wrist NR <3.7 >15.0 Wrist 5th Digit 14.0 Right Ulnar Anti Sensory (5th Digit) Wrist NR <3.7 >15.0 Wrist 5th Digit 14.0 Motor Summary Table ?Stim Site NR Onset (ms) Norm Onset (ms) O-P Amp (mV) Norm O-P Amp iAmp (mV) Amp (1st) (%) Site1 Site2 Delta-0 (ms) Dist (cm) Omid (m/s) Norm Omid (m/s) Left Median Motor (Abd Poll Brev) Wrist ? 4.1 <3.9 8.6 >4.5 10.7 100.0 Elbow Wrist 4.7 26.0 55 >45 Elbow ? 8.8 8.4 10.3 97.7 Right Median Motor (Abd Poll Brev) Wrist ? 4.1 <3.9 10.6 >4.5 13.0 100.0 Elbow Wrist 4.6 23.0 50 >45 Elbow ? 8.7 9.9 12.4 93.4 Left Ulnar Motor (Abd Dig Minimi) Wrist ? 3.3 <3.0 3.4 >5 3.9 100.0 B Elbow Wrist 4.6 24.0 52 >45 B Elbow ? 7.9 2.8 3.0 82.4 A Elbow B Elbow 2.6 10.0 38 >45 A Elbow ? 10.5 3.0 3.3 88.2 Right Ulnar Motor (Abd Dig Minimi) Wrist ? 3.0 <3.0 7.7 >5 9.1 100.0 B Elbow Wrist 4.4 19.5 44 >45 B Elbow ? 7.4 6.8 8.0 88.3 A Elbow B Elbow 2.7 10.0 37 >45 A Elbow ? 10.1 6.0 7.1 77.9 EMG ?Side Muscle Nerve Root Ins Act Fibs Psw Amp Dur Poly Recrt Int Pat Comment Right 1stDorInt Ulnar C8-T1 Incr 1+ 1+ Nml Nml 0 Nml Complete Right Biceps Musculocut C5-6 Nml Nml Nml Nml Nml 0 Nml Complete Right Triceps Radial C6-7-8 Nml Nml Nml Nml Nml 0 Nml Complete Right Deltoid Axillary C5-6 Nml Nml Nml Nml Nml 0 Nml Complete Left 1stDorInt Ulnar C8-T1 Nml Nml Nml Nml Nml 0 Nml Complete Left Biceps Musculocut C5-6 Nml Nml Nml Nml Nml 0 Nml Complete Left Triceps Radial C6-7-8 Nml Nml Nml Nml Nml 0 Nml Complete Left Deltoid Axillary C5-6 Nml Nml Nml Nml Nml 0 Nml Complete Left FlexCarpiUln Ulnar C8,T1 Nml Nml Nml Nml Nml 0 Nml Complete Right FlexCarpiUln Ulnar C8,T1 Nml Nml Nml Nml Nml 0 Nml Complete FINDINGS: Bilateral median motor nerves showed below distal latency, normal amplitude and normal conduction velocity. Right ulnar motor nerve showed normal distal latency, normal amplitude and slow conduction velocity especially across elbow. Left ulnar motor nerve showed prolonged distal latency, small amplitude and slow conduction velocity across the elbow. Bilateral median sensory nerves showed prolonged peak latency. and small amplitudes. Bilateral ulnar sensory nerves showed absent response. Left radial sensory nerve showed normal peak latency but small amplitude. All other nerves tested were within normal. Concentric needle EMG was performed in selected muscles of the bilateral upper extremities. Study revealed signs of electric abnormalities as shown in the table above. Right FDI showed increased insertional activity, PSWs and fibrillations. IMPRESSION: 1. This is an abnormal study. 2. There is electrodiagnostic evidence for focal entrapment with bilateral median neuropathies at the wrist, consistent with Carpal Tunnel Syndrome; and bilateral ulnar neuropathy at the elbow. 3. Can not completely rule out a more diffuse peripheral neuropathy such as seen in diabetes. Consider testing lower extremities to rule out peripheral neuropathy. CLINICAL COMMENT: Please reorder EMG for lower extremities if needed. Thank you for your kind referral. Alma Delia Zeng MD, MELISSA Board Certified, [place] Board of Physical Medicine and Rehabilitation (ABPMR) Board Certified, [place] Board of Electrodiagnostic Medicine (ABEM) CODIN [phone] MTDD
== END 2024-06-17 13:12 | disposition home or self-care (01) ==
LOC: HO.NEURO 13:11
PROVIDERS: PCP Internal Medicine; Visit Provider Internal Medicine
DX: R20.2 Paresthesia of skin (principal)
CPT/HCPCS: 95886; 95911

== ENCOUNTER → 2024-06-17 13:18 | Outpatient (BNV) | payer OTHER, SELFPAY | PROVIDERS: PCP Internal Medicine; Visit Provider Physical Medicine & Rehabilitation | DX: G56.03 Carpal tunnel syndrome, bilateral upper limbs (principal); G56.23 Lesion of ulnar nerve, bilateral upper limbs | CPT/HCPCS: 95886; 95911 ==

== ENCOUNTER 2024-07-23 11:15 | Outpatient (AMB) | payer OTHER, SELFPAY ==
--- NOTE | 2024-07-23 11:36 | MHC.OFFVIS ---
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 Patient reports numbness and tingling that occurs daily, on and off, making it difficult to medical lead, squeeze, and open and close lids. He states his left hand is worse. Patient reports he finds himself dropping items from time to time as well as waking through the night due to numbness. Denies finger locking. Has not tried braces, steroid injections, or OT. Denies injuries or surgeries to the hands within the past 5 years. 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 The patient reports that his numbness and tingling occurs throughout the entire hand, is intermittent but daily, and worsens at night. The patient also reports marked weakness that has been occurring of late, and reports that this makes it difficult for him to open jars or containers or doors. The patient reports that he did have an EMG and nerve conduction study performed previously. No other acute complaints or concerns at this time [facility] Medical History (Updated 08/02/24 @ 19:15 by LUZ Chavez) Radiculopathy, lumbar region Spondylosis, lumbar, with myelopathy Right hand pain Hospital discharge follow-up Leg pain Paresthesia of hand, bilateral Physical exam Erectile dysfunction associated with type 2 diabetes mellitus Pre-op examination Balanitis Lumbar pain Constipation Precordial chest pain Chest pain Right leg pain Kidney stones Type 2 diabetes mellitus with hyperglycemia Severe major depression without psychotic features HTN (hypertension) Unsteady gait Fibromyalgia Serum calcium elevated IBS (irritable bowel syndrome) GERD (gastroesophageal reflux disease) Type 2 diabetes mellitus with diabetic polyneuropathy Hyperlipidemia LDL goal <100 Vitamin D deficiency Surgical History H/O colonoscopy History of eye surgery Family History Father Colon cancer, Onset Age: 50 Stroke Prostate cancer Mother Hypertension Diabetes Dementia Family/Other FH: mental illness Social History Household Members: None Housing: Apartment Alcohol intake: former Patient Tobacco Use Status: Never used Tobacco e-Cigarette/Vaping Use: Never Used Second Hand Smoke Exposure: No service: No Current occupational status: disabled Cognitive needs: Yes (cane/walker) Hearing needs: No Vision needs: Yes (glasses) Physical Exam Vital Signs: BMI result Body Mass Index 28.1 Extrem Other: Neuro: Normal sensation of the tips of all digits of bilateral hands at this time. No thenar or intrinsic wasting. Good APB muscle firing and good finger cross. Vascular: Capillary refill brisk. ROM: Patient can make a fist and extend all their digits. Skin: No lacerations or abrasions noted. General: No ecchymosis. No erythema or evidence of infection. Results Reviewed Results Reviewed: IMPRESSION: 1. This is an abnormal study. 2. There is electrodiagnostic evidence for focal entrapment with bilateral median neuropathies at the wrist, consistent with Carpal Tunnel Syndrome; and bilateral ulnar neuropathy at the elbow. 3. Can not completely rule out a more diffuse peripheral neuropathy such as seen in diabetes. Consider testing lower extremities to rule out peripheral neuropathy. CLINICAL COMMENT: Please reorder EMG for lower extremities if needed. Thank you for your kind referral. Alma Delia Zeng MD, MELISSA Assessment & Plan Assessment & Plan (1) Carpal tunnel syndrome: Code(s): G56.00 - Carpal tunnel syndrome, unspecified upper limb Category: Medical (2) Cubital tunnel syndrome of both upper extremities: Code(s): G56.23 - Lesion of ulnar nerve, bilateral upper limbs Category: Medical Plan 1. Bilateral carpal tunnel syndrome 2. 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
[2024-07-23 11:43] VITALS: BMI 28.1
== END 2024-07-23 11:58 | disposition home or self-care (01) ==
PROVIDERS: PCP Internal Medicine
DX: G56.00 Carpal tunnel syndrome, unspecified upper limb (principal); G56.23 Lesion of ulnar nerve, bilateral upper limbs
CPT/HCPCS: 99203

== ENCOUNTER → 2024-07-23 11:15 | Outpatient (BNVA) | payer OTHER, SELFPAY | PROVIDERS: PCP Internal Medicine | DX: G56.03 Carpal tunnel syndrome, bilateral upper limbs (principal); G56.23 Lesion of ulnar nerve, bilateral upper limbs | CPT/HCPCS: 99202 ==

== ENCOUNTER → 2024-07-28 15:54 | Outpatient (AMB) | payer OTHER, SELFPAY ==
--- NOTE | 2024-07-28 16:10 | A.OFFVIS_ITS ---
Vital Signs 07/28/24 16:14 Height 5 ft 10 in Weight 193 lb 9.054 oz BMI 27.8 BP 122/65 Blood Pressure Location Rt brachial Position Sitting Pulse 85 Intake Visit Reasons: 6 month follow up CIC Intake Note: Fer presents to in office visit today in 6 months follow up of CIC. CC: Patient c/o RUQ abdominal pain and swelling from that side, and constipation. Patient concerned for bowel inflammation as his sister was having the same symptoms and was found to have bowel inflammation. He states that he feels better after having a BM but is not feeling the urge to have a BM. Solder Making Supervisor Required: Yes Allergies dulaglutide [Trulicity] Allergy (Intermediate, Verified 05/24/24 14:42) cyst ondansetron [ONDANSETRON] Allergy (Intermediate, Verified 05/24/24 14:42) stomach pain HPI HPI 6 month follow up CIC: Details: Assessment & Plan (1) Chronic idiopathic constipation: Code(s): K59.04 - Chronic idiopathic constipation Category: Medical (2) Tubular adenoma of colon: Comment: 2022=1 TA repeat in 5 years Code(s): D12.6 - Benign neoplasm of colon, unspecified Category: Medical (3) Family history of colon cancer: Comment: Mother and sister Code(s): Z80.0 - Family history of malignant neoplasm of digestive organs Category: Medical Plan [facility] #[id number] He says he is doing well on his Linzess 290mcg and has senna for back up. He is now satisfied with his GI regimen. Return office visit in 6 months Medications: Refilled sennosides (Senna Lax) 8.6 mg PO BEDTIME 90 tabs 0RF 90 days linaclotide (Linzess) 290 mcg PO QAM 30 caps 6RF 30 days K59.04 - Chronic idiopathic constipation TODAY'S VISIT [place] #[id number] He has been bothered by right sided pain and bloating over the past month. It is in the right flank just under the ribcage. It is a burning/aching pain. HE SAYS THAT IT FEELS SOMEWHAT better if he takes the Linzess and moves his bowels but this does not completely resolve the problem. With further discussion it turns out that he is only taking the Linzess 290 as needed. This is because if he takes it every day he will have a solid stool followed by watery stools. He has especially fallen off of taking it because he has to leave every morning to care for his mother. I explained of the the Linzess is intended to be taken every day and I think this is what is causing gas trapping and his pain. If he is getting diarrhea in his that fearful about taking it and leaving the house than clearly the doses too high. I explained this to him and he is willing to begin the medication at a lower dose. It does not appear he ever received the senna which had been set in the past. This is just as well. He can not identify any new health problem or new medications that could be associated with the sudden onset of his pain. He admits to a history of kidney stones but denies any current dysuria beyond his usual urinary hesitancy that seems to be associated with his BPH. The only food that seems to really provoke it is lactose or milk because this produces extra gas which again feeds into my theory about gas trapping. It seems he may be mildly lactose intolerant. Because he is quite sensitive on the right side of the body I will get an ultrasound to rule out gallbladder pathology but also get an x-ray to assess his stool burden. We are also going to lower the Linzess to 72 micro g and titrate. SERA 2 weeks [facility] Medical History (Updated 07/28/24 @ 16:46 by BARRINGTON Kline) Radiculopathy, lumbar region Spondylosis, lumbar, with myelopathy Right hand pain Hospital discharge follow-up Leg pain Paresthesia of hand, bilateral Physical exam Erectile dysfunction associated with type 2 diabetes mellitus Pre-op examination Balanitis Lumbar pain Constipation Precordial chest pain Chest pain Right leg pain Kidney stones Type 2 diabetes mellitus with hyperglycemia Severe major depression without psychotic features HTN (hypertension) Unsteady gait Fibromyalgia Serum calcium elevated IBS (irritable bowel syndrome) GERD (gastroesophageal reflux disease) Type 2 diabetes mellitus with diabetic polyneuropathy Hyperlipidemia LDL goal <100 Vitamin D deficiency Surgical History H/O colonoscopy History of eye surgery Family History Father Colon cancer, Onset Age: 50 Stroke Prostate cancer Mother Hypertension Diabetes Dementia Family/Other FH: mental illness Social History Household Members: None Housing: Apartment Alcohol intake: former Patient Tobacco Use Status: Never used Tobacco e-Cigarette/Vaping Use: Never Used Second Hand Smoke Exposure: No service: No Current occupational status: disabled Cognitive needs: Yes (cane/walker) Hearing needs: No Vision needs: Yes (glasses) Review of Systems Const Denies fatigue, Denies fever(s), Denies night sweats, Denies poor appetite and Denies weight loss Eyes Details: glasses Reports requires corrective lenses ENT Reports Normal hearing present, Denies dental pain, Denies dysphagia, Denies hearing loss, Denies mouth pain, Denies odynophagia, Denies throat swelling, Denies tongue swelling and Reports other (Dentition adequate) Card Reports no additional complaints Resp Reports no additional complaints GI Details: Reports abdominal pain, Denies melena, Reports bloating, Denies hematochezia, Reports constipation, Denies GI cramping, Denies dysphagia, Reports excessive flatus, Denies early satiety, Denies heartburn, Denies diarrhea, Denies nausea, Denies odynophagia, Denies vomiting and Denies hematemesis Skin/Breast Denies pruritus, Denies lesions, Denies rash and Denies jaundice Neuro Reports Normal hearing present and Denies Abnormal speech present Endo Denies fatigue Aller/Immun Denies throat swelling and Denies tongue swelling Physical Exam Vital Signs: BMI result Body Mass Index 27.8 Const General: cooperative, no acute distress, well developed and well groomed Nutritional Appearance: average body habitus and well nourished Orientation/consciousness: oriented to person, oriented to place and oriented to time Limitations: language barrier HEENT Head: Yes normocephalic and Yes atraumatic Eyes General: appearance normal, both eyes and all related structures Pupils: Equal, round and reactive pupils present Neck Neck: Yes normal visual inspection and Yes no lymphadenopathy Thyroid: Thyroid normal Resp Effort & Inspection: normal respiratory effort and able to speak in complete sentences Auscultation: clear to auscultation bilaterally Cardio Rate: regular rate Rhythm: regular rhythm Heart sounds: Normal, physiologic split S2 sound present Peripheral pulses: radial pulses present and posterior tibial pulses present GI Inspection: No distended, No Abdominal panniculus present and Yes obesity Palpation (GI): Soft to palpation, Tenderness to palpation present (GI) in the RLQ and in the RUQ, no guarding, not rigid and No hepatosplenomegaly present Percussion: Yes normal to percussion Auscultation: normal bowel sounds Rectal Exam - Male: Yes deferred General: Yes CVA tenderness Back/Spine/Pelvis Back: CVA tenderness Skin General skin exam: no rashes or lesions noted, turgor normal, skin not dry, no jaundice, No spider nevi and no striae Rashes: no rashes Nails: normal Neuro General: oriented to person, oriented to place and oriented to time Cranial nerves: Yes Equal, round and reactive pupils present and Yes Normal hearing present Speech: No Abnormal speech present Extrem General: Yes normal to inspection, No clubbing, No cyanosis and No edema Psych Appearance: grossly normal and well kempt Mental Status: mental status grossly normal Speech and movement: Normal speech and movement present Affect: normal affect Attitude: cooperative Thought process: Normal thought process present and not confabulating Thought content: Normal thought content present Insight: Limited insight present (Psych) Judgement: Limited judgement present (Psych) Assessment & Plan Assessment & Plan (1) Right flank pain: Code(s): R10.9 - Unspecified abdominal pain Category: Medical (2) Chronic idiopathic constipation: Code(s): K59.04 - Chronic idiopathic constipation Category: Medical (3) GERD (gastroesophageal reflux disease): Code(s): K21.9 - Gastro-esophageal reflux disease without esophagitis Category: Medical Qualifiers: Esophagitis presence: esophagitis presence not specified Qualified Code(s): K21.9 - Gastro-esophageal reflux disease without esophagitis Plan [place] #[id number] He has been bothered by right sided pain and bloating over the past month. It is in the right flank just under the ribcage. It is a burning/aching pain. HE SAYS THAT IT FEELS SOMEWHAT better if he takes the Linzess and moves his bowels but this does not completely resolve the problem. With further discussion it turns out that he is only taking the Linzess 290 as needed. This is because if he takes it every day he will have a solid stool followed by watery stools. He has especially fallen off of taking it because he has to leave every morning to care for his mother. I explained of the the Linzess is intended to be taken every day and I think this is what is causing gas trapping and his pain. If he is getting diarrhea in his that fearful about taking it and leaving the house than clearly the doses too high. I explained this to him and he is willing to begin the medication at a lower dose. It does not appear he ever received the senna which had been set in the past. This is just as well. He can not identify any new health problem or new medications that could be associated with the sudden onset of his pain. He admits to a history of kidney stones but denies any current dysuria beyond his usual urinary hesitancy that seems to be associated with his BPH. The only food that seems to really provoke it is lactose or milk because this produces extra gas which again feeds into my theory about gas trapping. It seems he may be mildly lactose intolerant. Because he is quite sensitive on the right side of the body I will get an ultrasound to rule out gallbladder pathology but also get an x-ray to assess his stool burden. We are also going to lower the Linzess to 72 micro g and titrate. SERA 2 weeks Orders: Orders XR abdomen w decubitus Today R10.9 - Unspecified abdominal pain US abdomen complete Today R10.9 - Unspecified abdominal pain Medications: New linaclotide (Linzess) 72 mcg PO DAILY 30 caps 6RF K59.04 - Chronic idiopathic constipation On Hold linaclotide (Linzess) Hold Comment: Doctor's Order 290 mcg PO QAM 30 days 30 caps 6RF K59.04 - Chronic idiopathic constipation Coding Level of Care Code Est Pt Level 3 (03955) Diagnoses Right flank pain R10.9 Chronic idiopathic constipation K59.04 Gastroesophageal reflux disease, unspecified whether esophagitis present K21.9 Esophagitis presence: esophagitis presence not specified
[2024-07-28 16:14] VITALS: BP 122/65; PULSE 85; BMI 27.8
== END ==
LOC: HO.HGI 15:54
PROVIDERS: PCP Internal Medicine; Visit Provider Nurse Practitioner
DX: R10.9 Unspecified abdominal pain (principal); K59.04 Chronic idiopathic constipation; K21.9 Gastro-esophageal reflux disease without esophagitis
CPT/HCPCS: 99213

== ENCOUNTER → 2024-07-28 15:54 | Outpatient (BNVA) | payer OTHER, SELFPAY | PROVIDERS: PCP Internal Medicine; Visit Provider Nurse Practitioner | DX: K21.9 Gastro-esophageal reflux disease without esophagitis (principal); K59.04 Chronic idiopathic constipation; R10.9 Unspecified abdominal pain | CPT/HCPCS: 99212 ==

== ENCOUNTER 2024-07-30 12:28 | Outpatient (REF) | payer OTHER, SELFPAY | END 2024-07-30 12:29 | disposition home or self-care (01) | LOC: HO.XRAY 12:28 | PROVIDERS: PCP Internal Medicine; Visit Provider Nurse Practitioner | DX: R10.9 Unspecified abdominal pain (principal) | CPT/HCPCS: 74021 ==

== ENCOUNTER 2024-08-05 08:50 | Outpatient (REF) | payer OTHER, SELFPAY | END 2024-08-05 08:51 | disposition home or self-care (01) | LOC: HO.US 08:50 | PROVIDERS: PCP Internal Medicine; Visit Provider Nurse Practitioner | DX: R10.9 Unspecified abdominal pain (principal) | CPT/HCPCS: 76700 ==

== ENCOUNTER 2024-08-06 14:10 | Outpatient (AMB) | payer OTHER, SELFPAY ==
--- NOTE | 2024-08-06 14:12 | A.OFFVIS_ITS ---
Intake Visit Reasons: OV- Discuss CTR and Cubital Tunnel Release Intake Note: Fer is a 58 year old right hand dominant male who presents today to discuss possible surgical treatment for carpal tunnel and cubital tunnel syndrome of his bilateral hands. Tunnel Kiln Repairer Required: Yes Tunnel Kiln Repairer Language: Motor Polarizer Services: Tunnel Kiln Repairer Present Tunnel Kiln Repairer Name: Wilder([id number]) Allergies dulaglutide [Trulicity] Allergy (Intermediate, Verified 08/11/24 15:30) cyst ondansetron [ONDANSETRON] Allergy (Intermediate, Verified 08/11/24 15:30) stomach pain HPI HPI OV- Discuss CTR and Cubital Tunnel Release: Details: Patient is a 58-year-old male who presents for office visit to discuss carpal tunnel and cubital tunnel releases. Patient states that after giving it some thought, he would like to pursue operative intervention for his carpal tunnel and cubital tunnel syndromes. Patient states that his symptoms have remained consistent since last evaluation, and that they intermittent, daily, worse at night, and worse. Patient states he would like pursue operative intervention of the left side 1st. No other acute complaints or concerns at this time. [facility] Medical History (Updated 08/11/24 @ 15:50 by BARRINGTON Kline) Disc degeneration, lumbar Glucosuria Varicose veins of right lower extremity with inflammation Vertebrogenic low back pain Sebaceous cyst of right axilla Tubular adenoma of colon Family history of colon cancer Radiculopathy, lumbar region Spondylosis, lumbar, with myelopathy Right hand pain Hospital discharge follow-up Leg pain Paresthesia of hand, bilateral Physical exam Erectile dysfunction associated with type 2 diabetes mellitus Pre-op examination Balanitis Lumbar pain Constipation Precordial chest pain Chest pain Right leg pain Kidney stones Type 2 diabetes mellitus with hyperglycemia Severe major depression without psychotic features HTN (hypertension) Unsteady gait Fibromyalgia Serum calcium elevated IBS (irritable bowel syndrome) GERD (gastroesophageal reflux disease) Type 2 diabetes mellitus with diabetic polyneuropathy Hyperlipidemia LDL goal <100 Vitamin D deficiency Surgical History H/O colonoscopy History of eye surgery Family History Father Colon cancer, Onset Age: 50 Stroke Prostate cancer Mother Hypertension Diabetes Dementia Family/Other FH: mental illness Social History Household Members: None Housing: Apartment Alcohol intake: former Patient Tobacco Use Status: Never used Tobacco e-Cigarette/Vaping Use: Never Used Second Hand Smoke Exposure: No service: No Current occupational status: disabled Cognitive needs: Yes (cane/walker) Hearing needs: No Vision needs: Yes (glasses) Review of Systems Const All systems reviewed & are unremarkable except as noted in HPI and below Physical Exam Extrem Other: Neuro: Normal sensation of the tips of all digits of bilateral hands at this time. No thenar or intrinsic wasting. Good APB muscle firing and good finger cross. Vascular: Capillary refill brisk. ROM: Patient can make a fist and extend all their digits. Skin: No lacerations or abrasions noted. General: No ecchymosis. No erythema or evidence of infection. Results Reviewed Results Reviewed: IMPRESSION: 1. This is an abnormal study. 2. There is electrodiagnostic evidence for focal entrapment with bilateral median neuropathies at the wrist, consistent with Carpal Tunnel Syndrome; and bilateral ulnar neuropathy at the elbow. 3. Can not completely rule out a more diffuse peripheral neuropathy such as seen in diabetes. Consider testing lower extremities to rule out peripheral neuropathy. CLINICAL COMMENT: Please reorder EMG for lower extremities if needed. Thank you for your kind referral. Alma Delia Zeng MD, MELISSA Assessment & Plan Assessment & Plan (1) Cubital tunnel syndrome of both upper extremities: Code(s): G56.23 - Lesion of ulnar nerve, bilateral upper limbs Category: Medical (2) Carpal tunnel syndrome: Code(s): G56.00 - Carpal tunnel syndrome, unspecified upper limb Category: Medical Plan 1. Carpal tunnel syndrome, left 2. Cubital tunnel syndrome, left Symptoms intermittent, daily, worse at night I educated the patient about the condition. I discussed both operative and nonoperative treatment options. The patient would like to proceed with surgery. The risks and benefits of operative treatment were discussed with the patient a nd the patient wishes to proceed with surgery. These risks include, but are not limited to, risk of damage to blood vessels, nerves, tendons, infection, recurrence, incomplete relief of preoperative symptoms, persistent pain, possible need for further surgery, and the risks associated with regional blocks and/or anesthesia. Plan is to take the patient to the operating room at some point in the next few weeks for the following procedures: 1. Cubital tunnel release, left, general anesthesia 2. Carpal tunnel release, left, general anesthesia All of the preoperative paperwork including the consent was discussed today. All of the patient's questions were answered in the clinic today. The patient understands that they will be in contact with our tumor registrar to discuss scheduling their procedure. Patient reports diabetes, last A1c 7.4 Denies blood thinners, asthma, heart issues, lung issues, kidney issues, or current smoking. Coding Level of Care Code Est Pt Level 4 (95996) Diagnoses Cubital tunnel syndrome of both upper extremities G56.23 Carpal tunnel syndrome G56.00
== END 2024-08-06 14:37 | disposition home or self-care (01) ==
PROVIDERS: PCP Internal Medicine
DX: G56.23 Lesion of ulnar nerve, bilateral upper limbs (principal); G56.00 Carpal tunnel syndrome, unspecified upper limb
CPT/HCPCS: 99214

== ENCOUNTER → 2024-08-06 14:10 | Outpatient (BNVA) | payer OTHER, SELFPAY | PROVIDERS: PCP Internal Medicine | DX: G56.23 Lesion of ulnar nerve, bilateral upper limbs (principal); G56.02 Carpal tunnel syndrome, left upper limb | CPT/HCPCS: 99212 ==

== ENCOUNTER 2024-08-10 10:55 | Outpatient (REF) | payer OTHER, SELFPAY ==
[2024-08-10 14:39] LABS: Alanine Aminotransferase 27 U/L (0-40); Albumin Level 4.6 g/dL (3.5-5.0); Alkaline Phosphatase 101 U/L (39-117); Anion Gap 14 (12-20); Aspartate Amino Transferase 26 U/L (5-37); Bilirubin Total 0.7 mg/dL (0.0-1.0); Blood Urea Nitrogen 6 mg/dL (9-16); Calcium 10.4 mg/dL (8.4-10.2); Carbon Dioxide 28 mmol/L (22-29); Chloride 103 mmol/L (96-108); Cholesterol 135 mg/dL (<200); Estimated Glomerular Filt Rate > 60; Glucose Fasting 149 mg/dL (60-99); HDL Cholesterol 44 mg/dL (>40); LDL Cholesterol Calculated 78 mg/dL (<100); Potassium 4.1 mmol/L (3.3-5.1); Sodium 141 mmol/L (135-145); Total Protein 7.8 g/dL (6.5-8.0); Triglycerides 66 mg/dL (<150)
[2024-08-10 14:40] LABS: Vitamin D 25-OH Total 53.4 ng/mL (>30)
[2024-08-10 14:44] LABS: Folate 17.8 ng/mL (> or = 4.0); Vitamin B12 517 pg/mL (200-900)
[2024-08-10 14:50] LABS: Microalbum/Creatinine Ratio Ur 14.3 ug/mg cr (<30)
== END 2024-08-10 10:56 | disposition home or self-care (01) ==
LOC: HO.HHCL 10:55
PROVIDERS: Internal Medicine; Visit Provider Student in an Organized Health Care Education/Training Program
DX: E11.9 Type 2 diabetes mellitus without complications (principal); E55.9 Vitamin D deficiency, unspecified; E78.5 Hyperlipidemia, unspecified; E53.8 Deficiency of other specified B group vitamins; Z79.4 Long term (current) use of insulin
CPT/HCPCS: 36415; 80053; 80061; 82043; 82306; 82570; 82607; 82746

== ENCOUNTER 2024-08-11 15:15 | Outpatient (AMB) | payer OTHER, SELFPAY ==
[2024-08-11 15:21] VITALS: BP 119/64; PULSE 97; BMI 27.7
--- NOTE | 2024-08-11 15:21 | MHC.OFFVIS ---
Vital Signs 08/11/24 15:21 Height 5 ft 10 in Weight 193 lb 1.999 oz BMI 27.7 BP 119/64 Blood Pressure Location Rt brachial Position Sitting Pulse 97 Intake Visit Reasons: 2 weeks f/u Intake Note: Patient in office today in 2 weeks follow up to check medication. CC: Patient states that the new dose of Linzess is helping more and the RUQ abdominal pain is better. Snagger Required: Yes Accompanied by: Self / Same As Patient Allergies dulaglutide [Trulicity] Allergy (Intermediate, Verified 10/06/24 15:25) cyst ondansetron [ONDANSETRON] Allergy (Intermediate, Verified 10/06/24 15:25) stomach pain HPI HPI 2 weeks f/u: Details: Assessment & Plan (1) Right flank pain: Code(s): R10.9 - Unspecified abdominal pain Category: Medical (2) Chronic idiopathic constipation: Code(s): K59.04 - Chronic idiopathic constipation Category: Medical (3) GERD (gastroesophageal reflux disease): Code(s): K21.9 - Gastro-esophageal reflux disease without esophagitis Category: Medical Qualifiers: Esophagitis presence: esophagitis presence not specified Qualified Code(s): K21.9 - Gastro-esophageal reflux disease without esophagitis Plan [place]er #[id number] He has been bothered by right sided pain and bloating over the past month. It is in the right flank just under the ribcage. It is a burning/aching pain. HE SAYS THAT IT FEELS SOMEWHAT better if he takes the Linzess and moves his bowels but this does not completely resolve the problem. With further discussion it turns out that he is only taking the Linzess 290 as needed. This is because if he takes it every day he will have a solid stool followed by watery stools. He has especially fallen off of taking it because he has to leave every morning to care for his mother. I explained of the the Linzess is intended to be taken every day and I think this is what is causing gas trapping and his pain. If he is getting diarrhea in his that fearful about taking it and leaving the house than clearly the doses too high. I explained this to him and he is willing to begin the medication at a lower dose. It does not appear he ever received the senna which had been sent in the past. This is just as well. He can not identify any new health problem or new medications that could be associated with the sudden onset of his pain. He admits to a history of kidney stones but denies any current dysuria beyond his usual urinary hesitancy that seems to be associated with his BPH. The only food that seems to really provoke it is lactose or milk because this produces extra gas which again feeds into my theory about gas trapping. It seems he may be mildly lactose intolerant. Because he is quite sensitive on the right side of the body I will get an ultrasound to rule out gallbladder pathology but also get an x-ray to assess his stool burden. We are also going to lower the Linzess to 72 micro g and titrate. SERA 2 weeks Orders: Orders XR abdomen w decubitus Today R10.9 - Unspecified abdominal pain US abdomen complete Today R10.9 - Unspecified abdominal pain Medications: New linaclotide (Linzess) 72 mcg PO DAILY 30 caps 6RF K59.04 - Chronic idiopathic constipation On Hold linaclotide (Linzess) Hold Comment: Doctor's Order 290 mcg PO QAM 30 days 30 caps 6RF K59.04 - Chronic idiopathic constipation X-RAY OF THE ABDOMEN NOT READ ULTRASOUND OF THE ABDOMEN NOT READ TODAY'S VISIT [place]er #Laron Live He is doing much better on the Linzess 72 micro g and finds that taking it daily is eliminating his bloating. He continues on his pantoprazole 40 mg once a day and his hemorrhoid cream. Of note he is on Ozempic and this may worsen his constipation in the future but we will monitor this. Office visit in 6-8 weeks to go over the not yet read radiology results. [facility] Medical History (Updated 10/21/24 @ 10:24 by Lydia Samuels RN) Back pain Preop cardiovascular exam Family history of prostate cancer Carpal tunnel syndrome Paresthesia of hand, bilateral Vertebrogenic low back pain Leg pain Hospital discharge follow-up Varicose veins of right lower extremity with inflammation Sebaceous cyst of right axilla Tubular adenoma of colon Glucosuria Pre-op examination Physical exam Right hand pain Family history of colon cancer Radiculopathy, lumbar region Spondylosis, lumbar, with myelopathy Disc degeneration, lumbar Balanitis Lumbar pain Constipation Severe major depression without psychotic features Erectile dysfunction associated with type 2 diabetes mellitus HTN (hypertension) Precordial chest pain Unsteady gait Chest pain Fibromyalgia Serum calcium elevated IBS (irritable bowel syndrome) Right leg pain Kidney stones GERD (gastroesophageal reflux disease) Type 2 diabetes mellitus with hyperglycemia Type 2 diabetes mellitus with diabetic polyneuropathy Hyperlipidemia LDL goal <100 Vitamin D deficiency Surgical History H/O colonoscopy History of eye surgery Family History Father Colon cancer, Onset Age: 50 Stroke Prostate cancer Mother Hypertension Diabetes Dementia Family/Other FH: mental illness Social History Household Members: None Housing: Apartment Are you a primary healthcare account manager to a significant other at home: No Do you presently have visiting nurse or other home services: Yes ([employer]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) Alcohol intake: former Patient Tobacco Use Status: Never used Tobacco e-Cigarette/Vaping Use: Never Used Second Hand Smoke Exposure: No service: No Current occupational status: disabled Cognitive needs: Yes (cane/walker) Hearing needs: No Vision needs: Yes (glasses) Review of Systems Const Denies fatigue, Denies fever(s), Denies night sweats, Denies poor appetite and Denies weight loss Eyes Details: glasses Reports requires corrective lenses ENT Reports Normal hearing present, Denies dental pain, Denies dysphagia, Denies hearing loss, Denies mouth pain, Denies odynophagia, Denies throat swelling, Denies tongue swelling and Reports other (Dentition adequate) Card Reports no additional complaints Resp Reports no additional complaints GI Details: Denies abdominal pain, Denies melena, Reports bloating, Denies hematochezia, Reports constipation, Denies GI cramping, Denies dysphagia, Denies excessive flatus, Denies early satiety, Reports heartburn, Denies diarrhea, Denies nausea, Denies odynophagia, Denies vomiting and Denies hematemesis Skin/Breast Denies pruritus, Denies lesions, Denies rash and Denies jaundice Neuro Reports Normal hearing present and Denies Abnormal speech present Endo Denies fatigue Aller/Immun Denies throat swelling and Denies tongue swelling Physical Exam Vital Signs: Last Vital Signs Pulse 97 08/11/24 15:21 BP 119/64 08/11/24 15:21 BMI result Body Mass Index 27.7 Const General: cooperative, no acute distress, well developed and well groomed Nutritional Appearance: average body habitus and well nourished Orientation/consciousness: oriented to person, oriented to place and oriented to time Limitations: language barrier HEENT Head: Yes normocephalic and Yes atraumatic Eyes General: appearance normal, both eyes and all related structures Pupils: Equal, round and reactive pupils present Neck Neck: Yes normal visual inspection and Yes no lymphadenopathy Thyroid: Thyroid normal Resp Effort & Inspection: normal respiratory effort and able to speak in complete sentences Auscultation: clear to auscultation bilaterally Cardio Rate: regular rate Rhythm: regular rhythm Heart sounds: Normal, physiologic split S2 sound present Peripheral pulses: radial pulses present and posterior tibial pulses present GI Inspection: No distended and No Abdominal panniculus present Palpation (GI): Soft to palpation, nontender, no guarding, not rigid and No hepatosplenomegaly present Percussion: Yes normal to percussion Auscultation: normal bowel sounds Rectal Exam - Male: Yes deferred Skin General skin exam: no rashes or lesions noted, turgor normal, skin not dry, no jaundice, No spider nevi and no striae Rashes: no rashes Nails: normal Neuro General: oriented to person, oriented to place and oriented to time Cranial nerves: Yes Equal, round and reactive pupils present and Yes Normal hearing present Speech: No Abnormal speech present Extrem General: Yes normal to inspection, No clubbing, No cyanosis and No edema Psych Appearance: grossly normal and well kempt Mental Status: mental status grossly normal Speech and movement: Normal speech and movement present Affect: normal affect Attitude: cooperative Thought process: Normal thought process present and not confabulating Thought content: Normal thought content present Insight: Limited insight present (Psych) Judgement: Limited judgement present (Psych) Assessment & Plan Assessment & Plan (1) Chronic idiopathic constipation: Code(s): K59.04 - Chronic idiopathic constipation Category: Medical (2) GERD (gastroesophageal reflux disease): Code(s): K21.9 - Gastro-esophageal reflux disease without esophagitis Category: Medical Qualifiers: Esophagitis presence: esophagitis presence not specified Qualified Code(s): K21.9 - Gastro-esophageal reflux disease without esophagitis (3) Right flank pain: Code(s): R10.9 - Unspecified abdominal pain Category: Medical Plan [place] #Laron Live He is doing much better on the Linzess 72 micro g and finds that taking it daily is eliminating his bloating. He continues on his pantoprazole 40 mg once a day and his hemorrhoid cream. Of note he is on Ozempic and this may worsen his constipation in the future but we will monitor this. Office visit in 6-8 weeks to go over the not yet read radiology results. X-RAY OF THE ABDOMEN NOT READ ULTRASOUND OF THE ABDOMEN NOT READ Coding Level of Care Code Est Pt Level 3 (92639) Diagnoses Chronic idiopathic constipation K59.04 Gastroesophageal reflux disease, unspecified whether esophagitis present K21.9 Esophagitis presence: esophagitis presence not specified Right flank pain R10.9
== END 2024-08-11 16:00 | disposition home or self-care (01) ==
PROVIDERS: PCP Internal Medicine; Visit Provider Nurse Practitioner
DX: K59.04 Chronic idiopathic constipation (principal); K21.9 Gastro-esophageal reflux disease without esophagitis; R10.9 Unspecified abdominal pain
CPT/HCPCS: 99213

== ENCOUNTER → 2024-08-11 15:15 | Outpatient (BNVA) | payer OTHER, SELFPAY | PROVIDERS: PCP Internal Medicine; Visit Provider Nurse Practitioner | DX: R10.9 Unspecified abdominal pain (principal); K59.04 Chronic idiopathic constipation; K21.9 Gastro-esophageal reflux disease without esophagitis | CPT/HCPCS: 99212 ==

== ENCOUNTER 2024-09-28 11:07 | Outpatient (AMB) | payer OTHER, SELFPAY ==
--- NOTE | 2024-09-28 11:15 | A.OFFVIS_ITS ---
Intake Visit Reasons: med follow up Intake Note: Patient presents today for follow up on: erectile dysfunction Meds- Tadalafil Allergies to Antibiotic- No Known Allergies Blood Thinner- None Supervisor Liquefaction Required: Yes Supervisor Liquefaction Name: [id number] Accompanied by: Self / Same As Patient Allergies dulaglutide [Trulicity] Allergy (Intermediate, Verified 09/29/24 14:38) cyst ondansetron [ONDANSETRON] Allergy (Intermediate, Verified 09/29/24 14:38) stomach pain Medication List - Last Reconciled 09/29/24 by MAXINE Bermudez [adult diapers pull-ups As directed] albuterol sulfate 2.5 mg (3 mL) inhalation Q4-6H PRN 30 days ascorbic acid (vitamin C) 1 g PO DAILY 90 days atorvastatin 80 mg PO DAILY [bed rail As directed] blood pressure monitor (Blood Pressure Kit) As directed chlorpromazine 200 mg PO BEDTIME cholecalciferol (vitamin D3) 50 mcg PO DAILY clonidine HCl 0.1 mg PO BEDTIME 90 days commode As directed cyclobenzaprine 10 mg PO TID PRN 30 days [diabetic shoes As directed] empagliflozin (Jardiance) 25 mg PO QAM 90 days flash glucose sensor (FreeStyle Kevin 14 Day Sensor kit) 1 ea topical Q2W gabapentin 800 mg PO TID 30 days [handheld shower As directed] hydrocortisone 2.5% 1 appl topical BID PRN hydroxyzine pamoate 25 mg PO BID insulin aspart U-100 (Novolog FlexPen U-100 Insulin aspart) 4 - 10 units (0.04 - 0.1 mL) subcut TID insulin glargine U-300 conc (Toujeo Max U-300 SoloStar) 48 units (0.16 mL) subcut DAILY 30 days linaclotide (Linzess) 290 mcg PO QAM 30 days linaclotide (Linzess) 72 mcg PO DAILY lisinopril 5 mg PO DAILY meloxicam 15 mg PO DAILY metformin 1,000 mg PO BID nebulizers (AeroEclipse II Nebulizer) As directed nystatin 1 appl topical DAILY 2 weeks pen needle, diabetic (BD Ultra-Fine Diana Pen Needle) As directed four times a day [pill box 2 day capacity As directed] semaglutide (Ozempic) 2 mg (0.75 mL) subcut QWEEK 30 days sennosides (Senna Lax) 8.6 mg PO BEDTIME 90 days sertraline 100 mg PO DAILY 90 days [step stool for bed As directed] tadalafil 20 mg PO ONCE PRN 30 days tadalafil 10 mg PO DAILY 90 days timolol maleate 0.5% drps ophthalmic (eye) [toilet seat elevator As directed] tramadol 50 mg PO BID PRN 30 days Transfer Bench As directed trazodone 150 mg PO BEDTIME underpads (Bed Underpads) As directed walker As directed [wipes As directed] HPI Comments Details: Fer is a pleasant 59 year old Slovenian-speaking male patient of Dr. Esquivel. He has a past medical history of lumbar disc degeneration, glucosuria, varicose veins, family history of colon cancer, erectile dysfunction associated with type 2 diabetes, balanitis, constipation, nephrolithiasis, depression, hypertension, fibromyalgia, IBS, GERD, polyneuropathy, hyperlipidemia, and vitamin-D deficiency. He presents to the office today for follow-up of his erectile dysfunction and nephrolithiasis. In discussion with the patient today he reports to be doing and feeling well. He reports having followed up with Dr. Muir approximately 6 months ago at which time recommendations were made for penile injection therapy as patient with a longstanding history of ED and failed oral therapies. However patient reports he does not wish to trial injection therapy at this time and would like to continue with oral therapy as well as penile rings to assist with erectile dysfunction. He otherwise denies any bothersome urinary issues. He denies urinary urgency, urinary frequency, incontinence, nocturia, hematuria, dysuria, foul smelling urine, changes to urinary stream, flank pain, fever, and or chills. He is happy with his current voiding parameters. He reports his main concern is further assessment evaluation of prostate cancer as he reports one of his brothers was recently diagnosed with prostate cancer. VICKY offered however deferred. In review of patient's chart it appears PSA 05/20 0.6. Patient also with recent abdominal ultrasound noting bilateral kidneys with no lesions, nephrolithiasis, and or hydronephrosis. A1c 05/22 7.4 We discussed importance of VICKY for further assessme nt evaluation given patient with family history of prostate cancer however he continues to decline. He otherwise offers no other issues or concerns at this time. PREVIOUS OFFICE NOTE: Nephrolithiasis Prior ESWL Imaging - 04/19 renal US no stones - 04/20 renal ultrasound no evidence of stones - 01/20 renal US Erectile dysfunction in setting of diabetes Prior evaluation for low testosterone Testosterone in normal range PSA 05/20 0.60, T 310 HBA1c 09/20 8.2 5 mg daily Poor response to 10 mg daily with 40 mg on demand [facility] Medical History (Updated 09/29/24 @ 14:52 by Karli Bobby [facility]) Kidney stones Disc degeneration, lumbar Glucosuria Varicose veins of right lower extremity with inflammation Vertebrogenic low back pain Sebaceous cyst of right axilla Tubular adenoma of colon Family history of colon cancer Radiculopathy, lumbar region Spondylosis, lumbar, with myelopathy Right hand pain Hospital discharge follow-up Leg pain Paresthesia of hand, bilateral Physical exam Erectile dysfunction associated with type 2 diabetes mellitus Pre-op examination Balanitis Lumbar pain Constipation Precordial chest pain Chest pain Right leg pain Type 2 diabetes mellitus with hyperglycemia Severe major depression without psychotic features HTN (hypertension) Unsteady gait Fibromyalgia Serum calcium elevated IBS (irritable bowel syndrome) GERD (gastroesophageal reflux disease) Type 2 diabetes mellitus with diabetic polyneuropathy Hyperlipidemia LDL goal <100 Vitamin D deficiency Surgical History H/O colonoscopy History of eye surgery Family History Father Colon cancer, Onset Age: 50 Stroke Prostate cancer Mother Hypertension Diabetes Dementia Family/Other FH: mental illness Social History Household Members: None Housing: Apartment Alcohol intake: former Patient Tobacco Use Status: Never used Tobacco e-Cigarette/Vaping Use: Never Used Second Hand Smoke Exposure: No service: No Current occupational status: disabled Cognitive needs: Yes (cane/walker) Hearing needs: No Vision needs: Yes (glasses) Review of Systems Const All systems reviewed & are unremarkable except as noted in HPI and below Physical Exam Const General: cooperative, healthy appearing, comfortable, no acute distress, well developed, alert and awake Orientation/consciousness: patient oriented x3 Limitations: no limitations HEENT Head: Yes normal to inspection, Yes normocephalic and Yes atraumatic Ears: hearing grossly normal bilaterally Eyes General: appearance normal, both eyes and all related structures Neck Neck: Yes normal visual inspection and Yes trachea midline Chest Chest palpation & inspection: normal inspection of the chest Resp Effort & Inspection: normal respiratory effort and able to speak in complete sentences Cardio Rate: regular rate GI Inspection: Yes normal to inspection General: Yes no CVA tenderness Back/Spine/Pelvis Back: no CVA tenderness Skin General skin exam: no rashes or lesions noted Neuro General: patient oriented x3 Extrem General: Yes normal to inspection Psych Appearance: grossly normal and well kempt Mental Status: mental status grossly normal Speech and movement: Normal speech and movement present and Clear speech present Affect: normal affect Attitude: cooperative Thought process: Normal thought process present Thought content: Normal thought content present Insight: Fair insight present (Psych) Judgement: Fair judgement present (Psych) Results AMB Urinalysis, Automated UA Leukoctes 0 Sophia/uL Last Edit by [employer] on 09/28/24 12:13 UA Nitrite Last Edit by [employer] on 09/28/24 12:13 UA Urobilinogen 0.2 mg/dL Last Edit by [employer] on 09/28/24 12:13 UA Protein 15 mg/dL Last Edit by [employer] on 09/28/24 12:13 UA pH 6.0 Last Edit by [employer] on 09/28/24 12:13 UA Blood 0 Nba/uL Last Edit by [employer] on 09/28/24 12:13 UA Specific Jacob 1.025 Last Edit by [employer] on 09/28/24 12:13 UA Ketone Negative Last Edit by [employer] on 09/28/24 12:13 UA Bilirubin 0 mg/dL Last Edit by [employer] on 09/28/24 12:13 UA Glucose 500 mg/dL Last Edit by [employer] on 09/28/24 12:13 Results Reviewed Results Reviewed: Laboratory Last Values Urine pH (Auto) 6.0 09/28/24 11:17 Specific Jacob (Auto) 1.025 09/28/24 11:17 Urine Protein (Auto) 15 mg/dL 09/28/24 11:17 Glucose (UA)(Auto) 500 mg/dL 09/28/24 11:17 Urine Ketones (Auto) Negative 09/28/24 11:17 Urine Blood (Auto) 0 Nba/uL 09/28/24 11:17 Urine Bilirubin (Auto) 0 mg/dL 09/28/24 11:17 Urine Urobilinogen (Auto) 0.2 mg/dL 09/28/24 11:17 Leukocyte Esterase (Auto) 0 Sophia/uL 09/28/24 11:17 Assessment & Plan Assessment & Plan (1) Family history of prostate cancer: Code(s): Z80.42 - Family history of malignant neoplasm of prostate Category: Medical (2) Erectile dysfunction associated with type 2 diabetes mellitus: Code(s): E11.69 - Type 2 diabetes mellitus with other specified complication; N52.1 - Erectile dysfunction due to diseases classified elsewhere Category: Medical (3) Kidney stones: Code(s): N20.0 - Calculus of kidney Category: Medical Plan In office urinalysis results reviewed with the patient today; as noted above. We discussed at length importance of lifestyle modifications to assist with ED as well as overall health and well-being. We discussed importance of management and diabetes for improvement in ED as well as overall health and well-being. Will obtain PSA for further assessment evaluation. Patient currently denies any bothersome urinary issues. He reports be happy with current voiding parameters. Recent abdominal ultrasound results reviewed with the patient today no nephrolithiasis noted at this time. We discussed correlation of adequate hydration relation to nephrolithiasis as well as overall health and well-being. Refills provided for daily dosing of tadalafil as well as p.r.n. dosing. We discussed further treatment options for erectile dysfunction and risks and benefits of these treatment options. Follow-up in 1-2 months with PSA to be completed prior; or sooner with any issues, concerns, and or questions. Orders: Orders Prostate Specific Antigen Today Z80.42 - Family history of malignant neoplasm of prostate AMB Urinalysis Automated 09/28/24 Z13.9 - Encounter for screening, unspecified Medications: Changed From tadalafil On demand medication take 60 minutes before intended activity 20 mg PO ONCE 30 days PRN 30 tabs 0RF sexual activity E11.69 - Type 2 diabetes mellitus with other specified complication, N52.1 - Erectile dysfunction due to diseases classified elsewhere To tadalafil On demand medication take 60 minutes before intended activity BIN PCN [employer] C [id number] 20 mg PO ONCE 30 days PRN 14 tabs 6RF sexual activity E11.69 - Type 2 diabetes mellitus with other specified complication, N52.1 - Erectile dysfunction due to diseases classified elsewhere Refilled tadalafil 10 mg PO DAILY 90 days 90 tabs 1RF sexual activity E11.69 - Type 2 diabetes mellitus with other specified complication, N52.1 - Erectile dysfunction due to diseases classified elsewhere Patient Instructions: The patient had an opportunity to ask questions regarding the treatment plan. All questions were answered. Physical exam, labs, and imaging were discussed and reviewed in detail. As well as risks, benefits, and discussion of treatment choices. No major barriers to understanding were identified. The patient expressed understanding and agreement with the above treatment plan. The patient was made aware they should contact our office by phone for worsening of their current condition, the appearance of new symptoms, or with any questions or concerns. Compliance is encouraged with any medications and follow up testing that is ordered. It is a privilege to be allowed the opportunity to participate in? your urological care.? Again, if you have any questions or concerns If you have any questions or concerns please do not hesitate to contact me. The office is [phone]. This note is constructed using voice recognition software. While every effort has been made to ensure accuracy towel weaver errors may have been included. Yours sincerely, MAXINE Bermudez Coding Level of Care Code Est Pt Level 4 (06192) Diagnoses Family history of prostate cancer Z80.42 Erectile dysfunction associated with type 2 diabetes mellitus E11.69; N52.1 Kidney stones N20.0 Time Spent (min) 35
== END 2024-09-28 11:52 | disposition home or self-care (01) ==
PROVIDERS: PCP Internal Medicine; Visit Provider Nurse Practitioner Family
DX: Z80.42 Family history of malignant neoplasm of prostate (principal); E11.69 Type 2 diabetes mellitus with other specified complication; N52.1 Erectile dysfunction due to diseases classified elsewhere; N20.0 Calculus of kidney
CPT/HCPCS: 99214

== ENCOUNTER → 2024-09-28 11:07 | Outpatient (BNVA) | payer OTHER, SELFPAY | PROVIDERS: PCP Internal Medicine; Visit Provider Nurse Practitioner Family | DX: E11.69 Type 2 diabetes mellitus with other specified complication (principal); N52.1 Erectile dysfunction due to diseases classified elsewhere; N20.0 Calculus of kidney; Z80.42 Family history of malignant neoplasm of prostate | CPT/HCPCS: 81003; 99212 ==

== ENCOUNTER 2024-09-30 16:39 | Outpatient (AMB) | payer OTHER, SELFPAY ==
--- NOTE | 2024-09-30 17:05 | MHC.PC.OV ---
Vital Signs 09/30/24 17:06 Height 5 ft 10 in Weight 204 lb 2 oz BMI 29.3 BP 112/68 Blood Pressure Location Lt brachial Position Sitting Pulse 102 H Pulse Source Pulse Oximeter Pulse Oximetry (%) 9 L Oxygen Delivery Method Room Air Intake Visit Reasons: left carpal and cubital tunnel release-see comm Histologist Required: No Accompanied by: Self / Same As Patient Allergies dulaglutide [Trulicity] Allergy (Intermediate, Verified 09/30/24 17:20) cyst ondansetron [ONDANSETRON] Allergy (Intermediate, Verified 09/30/24 17:20) stomach pain Medication List - Last Reconciled 09/30/24 by Salima Rizo MD [adult diapers pull-ups As directed] albuterol sulfate 2.5 mg (3 mL) inhalation Q4-6H PRN 30 days ascorbic acid (vitamin C) 1 g PO DAILY 90 days atorvastatin 80 mg PO DAILY [bed rail As directed] blood pressure monitor (Blood Pressure Kit) As directed chlorpromazine 200 mg PO BEDTIME cholecalciferol (vitamin D3) 50 mcg PO DAILY clonidine HCl 0.1 mg PO BEDTIME 90 days commode As directed cyclobenzaprine 10 mg PO TID PRN 30 days [diabetic shoes As directed] empagliflozin (Jardiance) 25 mg PO QAM 90 days flash glucose sensor (FreeStyle Kevin 14 Day Sensor kit) 1 ea topical Q2W gabapentin 800 mg PO TID 30 days [handheld shower As directed] hydrocortisone 2.5% 1 appl topical BID PRN hydroxyzine pamoate 25 mg PO BID insulin aspart U-100 (Novolog FlexPen U-100 Insulin aspart) 4 - 10 units (0.04 - 0.1 mL) subcut TID insulin glargine U-300 conc (Toujeo Max U-300 SoloStar) 48 units (0.16 mL) subcut DAILY 30 days linaclotide (Linzess) 290 mcg PO QAM 30 days linaclotide (Linzess) 72 mcg PO DAILY lisinopril 5 mg PO DAILY meloxicam 15 mg PO DAILY metformin 1,000 mg PO BID nebulizers (AeroEclipse II Nebulizer) As directed nystatin 1 appl topical DAILY 2 weeks pen needle, diabetic (BD Ultra-Fine Diana Pen Needle) As directed four times a day [pill box 2 day capacity As directed] semaglutide (Ozempic) 2 mg (0.75 mL) subcut QWEEK 30 days sennosides (Senna Lax) 8.6 mg PO BEDTIME 90 days sertraline 100 mg PO DAILY 90 days [step stool for bed As directed] tadalafil 10 mg PO DAILY 90 days tadalafil 20 mg PO ONCE PRN 30 days timolol maleate 0.5% drps ophthalmic (eye) [toilet seat elevator As directed] tramadol 50 mg PO BID PRN 30 days Transfer Bench As directed trazodone 150 mg PO BEDTIME underpads (Bed Underpads) As directed walker As directed [wipes As directed] Tobacco use date assessed: 09/30/24 Dental Screening Dental Screen Date: 09/30/24 Did you have a dental visit in the last 12 months?: Yes Did you have a dental problem in the last 6 months where you did not have access to dental care?: No Was dental information given to patient?: Patient has dentist HPI HPI Comments History of Present Illness Details The patient is a 59-year-old male presenting with left cubital tunnel syndrome and bilateral carpal tunnel syndrome, for which he is seeking a pre-operative evaluation for an upcoming left cubital tunnel release surgery scheduled on November 04. The patient reports bilateral hand weakness and numbness, with more pronounced symptoms on the left side. He has been using clonidine, chlorpromazine, vitamin B, vitamin C, Flexeril as a muscle relaxant, and gabapentin three times daily at 800 mg for pain management. The patient experiences frequent generalized body pain and difficulty using hands due to stiffness. He reports no history of chest pain or dyspnea but mentions generalized body pain. His medical history is significant for Type 2 Diabetes Mellitus, controlled with insulin and Jardiance, and hypertension. He takes hydroxyzine for anxiety and citalopram for depression, managed by his psychiatrist. He denies suicidal ideation. The patient also uses trazodone for sleep difficulties. Additionally, he adheres to regular screening for sexually transmitted diseases. His tetanus vaccination is up to date until 2025 unless further injury occurs. [facility] Medical History (Updated 09/30/24 @ 17:27 by Salima Rizo MD) Kidney stones Disc degeneration, lumbar Glucosuria Varicose veins of right lower extremity with inflammation Vertebrogenic low back pain Sebaceous cyst of right axilla Tubular adenoma of colon Family history of colon cancer Radiculopathy, lumbar region Spondylosis, lumbar, with myelopathy Right hand pain Hospital discharge follow-up Leg pain Paresthesia of hand, bilateral Physical exam Erectile dysfunction associated with type 2 diabetes mellitus Pre-op examination Balanitis Lumbar pain Constipation Precordial chest pain Chest pain Right leg pain Type 2 diabetes mellitus with hyperglycemia Severe major depression without psychotic features HTN (hypertension) Unsteady gait Fibromyalgia Serum calcium elevated IBS (irritable bowel syndrome) GERD (gastroesophageal reflux disease) Type 2 diabetes mellitus with diabetic polyneuropathy Hyperlipidemia LDL goal <100 Vitamin D deficiency Surgical History H/O colonoscopy History of eye surgery Family History Father Colon cancer, Onset Age: 50 Stroke Prostate cancer Mother Hypertension Diabetes Dementia Family/Other FH: mental illness Social History Household Members: None Housing: Apartment Alcohol intake: former Patient Tobacco Use Status: Never used Tobacco e-Cigarette/Vaping Use: Never Used Second Hand Smoke Exposure: No service: No Current occupational status: disabled Cognitive needs: Yes (cane/walker) Hearing needs: No Vision needs: Yes (glasses) Questionnaire PHQ-9 Over the last 2 weeks, how often have you been bothered by any of the following problems? 1. Little interest or pleasure in doing things: several days 2. Feeling down, depressed, or hopeless: more than half the days 3. Trouble falling or staying asleep, or sleeping too much: nearly every day 4. Feeling tired or having little energy: several days 5. Poor appetite or overeating: not at all 6. Feeling bad about yourself - or that you are a failure or have let yourself or your family down: not at all 7. Trouble concentrating on things, such as reading the newspaper or watching television: not at all 8. Moving or speaking so slowly that other people could have noticed. Or the opposite - being so fidgety or restless that you have been moving around a lot more than usual: not at all 9. Thoughts that you would be better off or of hurting yourself in some way: not at all Total score: 7 Depression Screening Interpretation: Positive Depression Screening Follow-up: Existing condition, In treatment and Follow-up Visit Requested Depression Screening Done: Yes 86637 - PHQ-9 Billing: Yes Source: Developed by Drs. Arya Griffin, Delphine Kelley, Boris Aguilera and colleagues, with an educational ifrah from [employer]. Thrive Questionnaire Date Thrive assessed: 09/30/24 I am a: Patient What is your living situation today?: I have a steady place to live Within the past 12 months, did the food you bought not last and you didn't have the money to get more?: Never true Within the past 12 months, did you worry whether your food would run out before you got money to buy more?: Never true Do you have trouble paying for medicines?: No Do you have trouble getting transportation to medical appointments?: No Do you have trouble paying your heating and electricity bill?: No Do you have trouble taking care of your child, family member or friend?: No Do you have trouble with day-to-day activities such as bathing, preparing meals, shopping, managing finances, etc.?: No Are you currently unemployed and looking for a job?: No Are you interested in more education?: No Please select the resources that you would like help with: None Currently or been in a relationship where the following occur: No concerns reported THRIVE Score: 0 AUDIT C Alcohol Use Questionnaire (AUDIT-C) 1. How often do you have a drink containing alcohol?: Monthly or less 2. How many drinks containing alcohol do you have on a typical day when you are drinking?: 3 or 4 3. How often do you have six or more drinks on one occasion?: Never Total Score: 2 Score Reviewed/Action Taken: No GRAHAM-7 AMB Questionnaire GRAHAM-7 Date GRAHAM - 7 assessed: 09/30/24 Feeling nervous, anxious, or on edge: 1 = Several days Not being able to stop or control worryin = Nearly every day Worrying too much about different things: 3 = Nearly every day Trouble relaxin = Several days Being so restless that it is hard to sit still: 2 = More than half the days Becoming easily annoyed or irritable: 0 = Not at all Feeling afraid as if something awful might happen: 1 = Several days Total GRAHAM-7 score (0-4 normal; 5-9 mild; 10-14 moderate; 15-21 severe): 11 Source: Developed by Drs. Arya Griffin, Delphine Kelley, Boris Aguilera and colleagues, with an educational ifrah from [employer]. GRAHAM-7 Assessment Billing GRAHAM-7 Assessment Tool: GRAHAM-7 Assessment 02168 Review of Systems Const All systems reviewed & are unremarkable except as noted in HPI and below Card Denies chest pain at rest, Denies chest pain with activity, Denies edema, Denies irregular heart rhythm, Denies claudication, Denies dyspnea, Denies dyspnea on exertion, Denies orthopnea, Denies paroxysmal nocturnal dyspnea and Denies slow heart rate Resp Denies cough, Denies dyspnea and Denies dyspnea on exertion Physical exam (Primary Care) Vital Signs: Last Vital Signs Pulse 102 H 09/30/24 17:06 BP 112/68 09/30/24 17:06 Pulse Ox 9 L 09/30/24 17:06 Oxygen Delivery Method Room Air 09/30/24 17:06 BMI result Body Mass Index 29.3 Tobacco/Smoking Status: Tobacco use Status Tobacco use date assessed 09/30/24 09/30/24 17:11 Patient Tobacco Use Status Never used Tobacco 09/30/24 17:11 e-Cigarette/Vaping Use Never Used 09/30/24 17:11 PHQ-9: PHQ-9 Score PHQ-9: Total score 7 09/30/24 17:33 Depression Screening Interpretation: Positive Depression Screening Follow-up: Existing condition, In treatment and Follow-up Visit Requested Thrive Assessment: Date of Thrive Assessment Date Thrive assessed 09/30/24 09/30/24 17:11 Currently or been in a relationship where the following occur: No concerns reported Const Limitations: ambulation with cane Resp Effort & Inspection: normal respiratory effort Auscultation: clear to auscultation bilaterally Cardio Jugular venous distension: no JVD Rate: regular rate Rhythm: regular rhythm Heart sounds: S1 normal heart sound present and S2 normal heart sound present Extrem General: Yes full ROM Results AMB Hemoglobin A1c AMB Hemoglobin A1c 7.6 % Last Edit by LEN Diggs on 09/30/24 17:29 Results Reviewed Results Reviewed: Laboratory Last Values Hgb A1c (Clinic) 7.6 % (4.0-6.0) H 09/30/24 17:18 Coding Level of Care Code Est Pt Level 4 (21592) Complex EM visit Add On G2211 Diagnoses Preop cardiovascular exam Z01.810 Mild major depression F32.0 Type 2 diabetes mellitus with hyperglycemia, with long-term current use of insulin E11.65; Z79.4 Diabetes mellitus complication status: with hyperglycemia Essential hypertension I10 Hypertension type: essential hypertension Additional Codes GRAHAM-7 Assessment Billing - GRAHAM-7 Assessment Tool: GRAHAM-7 Assessment 11225 ([id number]) PHQ-9 - 41877 - PHQ-9 Billing: Yes ([id number]) Time Spent (min) 23 Assessment & Plan Assessment & Plan (1) Preop cardiovascular exam: Code(s): Z01.810 - Encounter for preprocedural cardiovascular examination Category: Medical (2) Mild major depression: Code(s): F32.0 - Major depressive disorder, single episode, mild Category: Medical (3) Type 2 diabetes mellitus, with long-term current use of insulin: Code(s): E11.9 - Type 2 diabetes mellitus without complications; Z79.4 - superintendent container terminal (current) use of insulin Category: Medical Qualifiers: Diabetes mellitus complication status: with hyperglycemia Qualified Code(s): E11.65 - Type 2 diabetes mellitus with hyperglycemia; Z79.4 - [facility] (current) use of insulin (4) HTN (hypertension): Code(s): I10 - Essential (primary) hypertension Category: Medical Qualifiers: Hypertension type: essential hypertension Qualified Code(s): I10 - Essential (primary) hypertension Plan - Arrange an electrocardiogram and fasting laboratory tests, including routine pre-operative blood work. - Continue current medication regimen, including insulin adjustment, gabapentin, and psychiatric medications. - Educate about avoiding certain medications one week prior to surgery. - Follow up with horticulture/floriculture teacher scheduled for November 08. Patient was informed and verbally consented to the use of an ambient scribe for clinic note documentation during this visit. I reviewed the management plan for the upcoming left cubital tunnel release surgery. We discussed the necessity of pre-operative clearance, including an electrocardiogram and fasting labs such as blood glucose management. I emphasized the importance of avoiding certain medications in the week preceding surgery. We talked about the role of current medications, including adjustments to insulin and continuation of psychiatric medications, to optimize surgical outcomes. I reassured the patient that his tetanus immunization is current until the next necessary dose. We confirmed pre-operative instructions, including the potential for post-operative care and the necessity of clear communication with his surgical team and specialists involved in his care. Orders: Orders Vitamin D 25-OH Total Today E55.9 - Vitamin D deficiency, unspecified Lipid Panel Today E78.5 - Hyperlipidemia, unspecified Comprehensive [place]. Panel Fast Today Z01.810 - Encounter for preprocedural cardiovascular examination AMB Hemoglobin A1c Today E11.65 - Type 2 diabetes mellitus with hyperglycemia, Z79.4 - superintendent container terminal (current) use of insulin Microalbumin, Random (w Creat) Today R80.9 - Proteinuria, unspecified Complete Blood Count Auto Diff Today D64.9 - Anemia, unspecified ECG 12 lead EKG Today Z01.810 - Encounter for preprocedural cardiovascular examination Medications: Changed From insulin glargine U-300 conc (Toujeo Max U-300 SoloStar) 48 units (0.16 mL) subcut DAILY 30 days 4.8 mL 6RF E11.65 - Type 2 diabetes mellitus with hyperglycemia To insulin glargine U-300 conc (Toujeo Max U-300 SoloStar) 50 units (0.1667 mL) subcut DAILY 5.001 mL 6RF 30 days E11.65 - Type 2 diabetes mellitus with hyperglycemia Refilled albuterol sulfate 2.5 mg (3 mL) inhalation Q4-6H PRN 75 mL 3RF shortness of breath or wheezing 30 days insulin aspart U-100 (Novolog FlexPen U-100 Insulin aspart) 4 - 10 units (0.04 - 0.1 mL) subcut TID 15 mL 5RF E11.65 - Type 2 diabetes mellitus with hyperglycemia Patient Instructions: - Obtain an electrocardiogram and complete fasting laboratory tests tomorrow. - Avoid certain medications, including those specified, one week before surgery. - Continue prescribed medications including insulin adjustment and gabapentin. - Attend scheduled follow-up with your horticulture/floriculture teacher on November 08. - Maintain regular blood glucose monitoring and follow dietary recommendations for diabetes management. - Contact your surgeon's office if any new symptoms occur before surgery. - Follow all specific pre-operative instructions provided by the surgical team.
[2024-09-30 17:06] VITALS: BP 112/68; PULSE 102; O2SAT 9; BMI 29.3
== END 2024-09-30 17:31 | disposition home or self-care (01) ==
PROVIDERS: PCP Internal Medicine; Visit Provider Internal Medicine
DX: Z01.810 Encounter for preprocedural cardiovascular examination (principal); F32.0 Major depressive disorder, single episode, mild; E11.65 Type 2 diabetes mellitus with hyperglycemia; Z79.4 Long term (current) use of insulin; I10 Essential (primary) hypertension

== ENCOUNTER → 2024-09-30 16:39 | Outpatient (BNVA) | payer OTHER, SELFPAY | PROVIDERS: PCP Internal Medicine; Visit Provider Internal Medicine | DX: Z01.810 Encounter for preprocedural cardiovascular examination (principal); F32.0 Major depressive disorder, single episode, mild; I10 Essential (primary) hypertension; E11.65 Type 2 diabetes mellitus with hyperglycemia; Z79.4 Long term (current) use of insulin | CPT/HCPCS: 83036; 96127; 99212 ==

== ENCOUNTER 2024-10-01 08:54 | Outpatient (REF) | payer OTHER, SELFPAY ==
[2024-10-01 09:06] LABS: MANUAL DIFF FLAG NO
--- NOTE | 2024-10-01 09:16 | ECG_ITS ---
Test Reason : preop Blood Pressure : / mmHG Vent. Rate : 074 BPM Atrial Rate : 074 BPM P-R Int : 148 ms QRS Dur : 090 ms QT Int : 362 ms P-R-T Axes : 044 -02 000 degrees QTc Int : 401 ms Normal sinus rhythm Moderate voltage criteria for LVH, may be normal variant ( R in aVL , Sokolow-Iyer ) Borderline ECG When compared with ECG of 24-NOV-2020 09:45, No significant change was found Referred By: Salima Rizo Electronically Signed By:DELIA VERGARA MD
[2024-10-01 09:39] LABS: Basophils Percent Auto 0.3 % (0-2); Eosinophils Absolute Auto 0.1 X10*3/uL (0.0-0.4); Eosinophils Percent Auto 0.6 % (0-4); Hematocrit 48.7 % (42.0-52.0); Hemoglobin 15.9 g/dl (14.0-18.0); Imm Gran Abs Auto 0.06 X10*3/uL (0.00-0.03); Imm Gran Pct Auto 0.8 % (0.0-0.4); Lymphocytes Absolute Auto 1.4 X10*3/uL (1.2-4.9); Lymphocytes Percent Auto 16.9 % (20-40); Mean Corpuscular HGB Conc 32.6 g/dl (31.0-36.0); Mean Corpuscular Hemoglobin 30.1 pg (27.0-33.0); Mean Corpuscular Volume 92.1 fL (80.0-98.0); Monocytes Absolute Auto 0.7 X10*3/uL (0.1-1.2); Neutrophils Absolute Auto 5.8 x10*3/uL (2.0-8.3); Neutrophils Percent Auto 72.4 % (45-73); Platelet Count 245 X10*3/uL (160-400); Red Blood Count 5.29 X10*6/uL (4.60-5.80); Red Cell Distribution Width 13.2 % (11.0-16.0)
[2024-10-01 10:15] LABS: Alanine Aminotransferase 34 U/L (0-40); Albumin Level 4.4 g/dL (3.5-5.0); Alkaline Phosphatase 92 U/L (39-117); Anion Gap 14 (12-20); Aspartate Amino Transferase 28 U/L (5-37); Bilirubin Total 0.8 mg/dL (0.0-1.0); Blood Urea Nitrogen 12 mg/dL (9-16); Calcium 9.2 mg/dL (8.4-10.2); Carbon Dioxide 25 mmol/L (22-29); Chloride 103 mmol/L (96-108); Cholesterol 144 mg/dL (<200); Creatinine Urine 108.52 mg/dL; Estimated Glomerular Filt Rate > 60; Glucose Fasting 141 mg/dL (60-99); HDL Cholesterol 49 mg/dL (>40); LDL Cholesterol Calculated 81 mg/dL (<100); Microalbum/Creatinine Ratio Ur 6.4 ug/mg cr (<30); Potassium 4.6 mmol/L (3.3-5.1); Sodium 137 mmol/L (135-145); Total Protein 7.4 g/dL (6.5-8.0); Triglycerides 71 mg/dL (<150)
[2024-10-01 10:22] LABS: Prostate Specific Antigen 1.37 ng/mL (<0.05-4.0); Vitamin D 25-OH Total 32.3 ng/mL (>30)
== END 2024-10-01 08:55 | disposition home or self-care (01) ==
LOC: HO.LAB 08:54
PROVIDERS: Absent Provider Nurse Practitioner Family; PCP Internal Medicine; Visit Provider Internal Medicine
DX: Z01.810 Encounter for preprocedural cardiovascular examination (principal); E78.5 Hyperlipidemia, unspecified; Z80.42 Family history of malignant neoplasm of prostate; E55.9 Vitamin D deficiency, unspecified; E11.9 Type 2 diabetes mellitus without complications; D64.9 Anemia, unspecified; Z12.5 Encounter for screening for malignant neoplasm of prostate
CPT/HCPCS: 36415; 80053; 80061; 82043; 82306; 82570; 84153; 85025; 93005

== ENCOUNTER → 2024-10-01 09:16 | Outpatient (BNV) | payer OTHER, SELFPAY | PROVIDERS: Absent Provider Nurse Practitioner Family; PCP Internal Medicine; Visit Provider Internal Medicine Cardiovascular Disease | DX: R94.31 Abnormal electrocardiogram [ECG] [EKG] (principal) | CPT/HCPCS: 93010 ==

== ENCOUNTER 2024-10-06 15:16 | Outpatient (AMB) | payer OTHER, SELFPAY ==
[2024-10-06 15:19] VITALS: BP 112/77; PULSE 80; BMI 29.2
--- NOTE | 2024-10-06 15:19 | A.OFFVIS_ITS ---
Vital Signs 10/06/24 15:19 Height 5 ft 10 in Weight 203 lb 4.259 oz BMI 29.2 BP 112/77 Blood Pressure Location Rt brachial Position Sitting Pulse 80 Intake Visit Reasons: 8 week follow up Intake Note: Patient in office today in follow up of CIC. CC: Patient c/o heartburn and acid reflux. Denies other GI symptoms today. Campus Director Required: Yes Allergies dulaglutide [Trulicity] Allergy (Intermediate, Verified 10/06/24 15:25) cyst ondansetron [ONDANSETRON] Allergy (Intermediate, Verified 10/06/24 15:25) stomach pain HPI HPI 8 week follow up: Details: Assessment & Plan (1) Chronic idiopathic constipation: Code(s): K59.04 - Chronic idiopathic constipation Category: Medical (2) GERD (gastroesophageal reflux disease): Code(s): K21.9 - Gastro-esophageal reflux disease without esophagitis Category: Medical Qualifiers: Esophagitis presence: esophagitis presence not specified Qualified Co de(s): K21.9 - Gastro-esophageal reflux disease without esophagitis (3) Right flank pain: Code(s): R10.9 - Unspecified abdominal pain Category: Medical [facility] #[id number] He has been bothered by right sided pain and bloating over the past month. It is in the right flank just under the ribcage. It is a burning/aching pain. HE S AYS THAT IT FEELS SOMEWHAT better if he takes the Linzess and moves his bowels but this does not completely resolve the problem. With further discussion it turns out that he is only taking the Linzess 290 as needed. This is because if he takes it every day he will have a solid stool followed by watery stools. He has especially fallen off of taking it because he has to leave every morning to care for his mother. I explained of the the Linzess is intended to be taken every day and I think this is what is causing gas trapping and his pain. If he is getting diarrhea in his that fearful about taking it and leaving the house than clearly the doses too high. I explained this to him and he is willing to begin the medication at a lower dose. It does not appear he ever received the senna which had been sent in the past. This is just as well. He can not identify any new health problem or new medications that could be associated with the sudden onset of his pain. He admits to a history of kidney stones but denies any current dysuria beyond his usual urinary hesitancy that seems to be associated with his BPH. The only food that seems to really provoke it is lactose or milk because this produces extra gas which again feeds into my theory about gas trapping. It seems he may be mildly lactose intolerant. Because he is quite sensitive on the right side of the body I will get an ult rasound to rule out gallbladder pathology but also get an x-ray to assess his stool burden. We are also going to lower the Linzess to 72 micro g and titrate. ULTRASOUND OF THE ABDOMEN 09/19/24 FINDINGS: PANCREAS: Pancreas could not be visualized obscured by bowel gas. Abdominal aorta and IVC also obscured by bowel gas not visualized. LIVER: Normal. The liver is normal in size. The liver contour is normal. Parenchymal echogenicity is normal. No focal hepatic lesion. There is no intrahepatic biliary duct dilatation seen. GALLBLADDER: Normal. The gallbladder is physiologically distended without evidence of stones, sludge, polyps, wall thickening or pericholecystic fluid. COMMON BILE DUCT: Normal in caliber measuring 0.3 cm in diameter. RIGHT KIDNEY: Normal. No hydronephrosis. No renal calculi or focal parenchymal lesions. The kidney measures 11.3 cm in maximum dimension. LEFT KIDNEY: Normal. No hydronephrosis. No renal calculi or focal parenchymal lesions. The kidney measures 11.4 cm in maximum dimension. SPLEEN: Normal. The spleen measures 11.0 cm in maximum dimension. FREE FLUID: None. US/US abdomen complete IMPRESSION: 1. No ultrasound explanation for patient's pain symptoms. 2. No evidence of gallbladder disease or gallstones. 3. Pancreas and retroperitoneal structures not visualized obscured by bowel gas. X-RAY OF THE ABDOMEN WAS DECUBITUS 09/23/24 FINDINGS: Bowel gas pattern is nonobstructive without any evidence for free air. Moderate to large colonic fecal material in the right colon but moderate colonic fecal material elsewhere. No appreciable abnormal calcifications. There are pelvic phleboliths. Lumbar dextroscoliotic curvature. XR/XR abdomen w decubitus IMPRESSION: 1. Nonobstructive bowel gas pattern without any evidence for free air. 2. Moderate to large colonic fecal material in the right colon. TODAY'S VISIT [place]Laron Live His pain under the ribs and CIC is not well controlled by reducing the Linzess to 72 micro g we can take it every day. The starting and stopping was clearly what was causing his pain. Now his problem is that he is having a lot of heartburn particularly at night especially if he eats any continence. This is likely a function of the constipation along with the fact that he is on Ozempic. He is not taking any acid reducing medication so will start him on pantoprazole once a day and titrate to affect her side effect. Return office visit next available. [facility] Medical History (Updated 10/06/24 @ 15:41 by BARRINGTON Kline) Carpal tunnel syndrome Family history of prostate cancer Preop cardiovascular exam Kidney stones Disc degeneration, lumbar Glucosuria Varicose veins of right lower extremity with inflammation Vertebrogenic low back pain Sebaceous cyst of right axilla Tubular adenoma of colon Family history of colon cancer Radiculopathy, lumbar region Spondylosis, lumbar, with myelopathy Right hand pain Hospital discharge follow-up Leg pain Paresthesia of hand, bilateral Physical exam Erectile dysfunction associated with type 2 diabetes mellitus Pre-op examination Balanitis Lumbar pain Constipation Precordial chest pain Chest pain Right leg pain Type 2 diabetes mellitus with hyperglycemia Severe major depression without psychotic features HTN (hypertension) Unsteady gait Fibromyalgia Serum calcium elevated IBS (irritable bowel syndrome) GERD (gastroesophageal reflux disease) Type 2 diabetes mellitus with diabetic polyneuropathy Hyperlipidemia LDL goal <100 Vitamin D deficiency Surgical History H/O colonoscopy History of eye surgery Family History Father Colon cancer, Onset Age: 50 Stroke Prostate cancer Mother Hypertension Diabetes Dementia Family/Other FH: mental illness Social History Household Members: None Housing: Apartment Alcohol intake: former Patient Tobacco Use Status: Never used Tobacco e-Cigarette/Vaping Use: Never Used Second Hand Smoke Exposure: No service: No Current occupational status: disabled Cognitive needs: Yes (cane/walker) Hearing needs: No Vision needs: Yes (glasses) Review of Systems Const Denies fatigue, Denies fever(s), Denies night sweats, Denies poor appetite and Denies weight loss ENT Reports Normal hearing present, Denies dental pain, Denies dysphagia, Denies hearing loss, Denies mouth pain, Denies odynophagia, Denies throat swelling, Denies tongue swelling and Reports other (Dentition adequate) Card Reports no additional complaints Resp Reports no additional complaints GI Details: Denies abdominal pain, Denies melena, Denies bloating, Denies hematochezia, Reports constipation, Denies GI cramping, Denies dysphagia, Denies excessive flatus, Denies early satiety, Reports heartburn, Denies diarrhea, Denies nausea, Denies odynophagia, Denies vomiting and Denies hematemesis Skin/Breast Denies pruritus, Denies lesions, Denies rash and Denies jaundice Neuro Reports Normal hearing present and Denies Abnormal speech present Endo Denies fatigue Aller/Immun Denies throat swelling and Denies tongue swelling Physical Exam Vital Signs: Last Vital Signs Pulse 80 10/06/24 15:19 BP 112/77 10/06/24 15:19 BMI result Body Mass Index 29.2 Const General: cooperative, no acute distress, well developed and well groomed Nutritional Appearance: average body habitus and well nourished Orientation/consciousness: oriented to person, oriented to place and oriented to time Limitations: language barrier HEENT Head: Yes normocephalic and Yes atraumatic Eyes General: appearance normal, both eyes and all related structures Pupils: Equal, round and reactive pupils present Neck Neck: Yes normal visual inspection and Yes no lymphadenopathy Thyroid: Thyroid normal Resp Effort & Inspection: normal respiratory effort and able to speak in complete sentences Auscultation: clear to auscultation bilaterally Cardio Rate: regular rate Rhythm: regular rhythm Heart sounds: Normal, physiologic split S2 sound present Peripheral pulses: radial pulses present and posterior tibial pulses present GI Inspection: No distended and No Abdominal panniculus present Palpation (GI): Soft to palpation, nontender, no guarding, not rigid and No hepatosplenomegaly present Percussion: Yes normal to percussion Auscultation: normal bowel sounds Rectal Exam - Male: Yes deferred Skin General skin exam: no rashes or lesions noted, turgor normal, skin not dry, no jaundice, No spider nevi and no striae Rashes: no rashes Nails: normal Neuro General: oriented to person, oriented to place and oriented to time Cranial nerves: Yes Equal, round and reactive pupils present and Yes Normal hearing present Speech: No Abnormal speech present Extrem General: Yes normal to inspection, No clubbing, No cyanosis and No edema Psych Appearance: grossly normal and well kempt Mental Status: mental status grossly normal Speech and movement: Normal speech and movement present Affect: normal affect Attitude: cooperative Thought process: Normal thought process present and not confabulating Thought content: Normal thought content present Insight: Fair insight present (Psych) and Limited insight present (Psych) Judgement: Fair judgement present (Psych) and Limited judgement present (Psych) Assessment & Plan Assessment & Plan (1) GERD (gastroesophageal reflux disease): Code(s): K21.9 - Gastro-esophageal reflux disease without esophagitis Category: Medical Qualifiers: Esophagitis presence: esophagitis presence not specified Qualified Code(s): K21.9 - Gastro-esophageal reflux disease without esophagitis (2) Chronic idiopathic constipation: Code(s): K59.04 - Chronic idiopathic constipation Category: Medical Plan [place] #[facility]aron Live His pain under the ribs and CIC is not well controlled by reducing the Linzess to 72 micro g we can take it every day. The starting and stopping was clearly what was causing his pain. Now his problem is that he is having a lot of heartburn particularly at night especially if he eats any continence. This is likely a function of the constipation along with the fact that he is on Ozempic. He is not taking any acid reducing medication so will start him on pantoprazole once a day and titrate to affect her side effect. Return office visit next available. Medications: New pantoprazole (Protonix) 40 mg PO DAILY 30 tabs 6RF 30 days K21.9 - Gastro- esophageal reflux disease without esophagitis Discontinued linaclotide (Linzess) Discontinued Reason: Doctor's Order 290 mcg PO QAM 30 days 30 caps 6RF K59.04 - Chronic idiopathic constipation Coding Level of Care Code Est Pt Level 3 (07554) Diagnoses Gastroesophageal reflux disease, unspecified whether esophagitis present K21.9 Esophagitis presence: esophagitis presence not specified Chronic idiopathic constipation K59.04
== END 2024-10-06 15:44 | disposition home or self-care (01) ==
PROVIDERS: PCP Internal Medicine; Visit Provider Nurse Practitioner
DX: K21.9 Gastro-esophageal reflux disease without esophagitis (principal); K59.04 Chronic idiopathic constipation
CPT/HCPCS: 99213

== ENCOUNTER → 2024-10-06 15:16 | Outpatient (BNVA) | payer OTHER, SELFPAY | PROVIDERS: PCP Internal Medicine; Visit Provider Nurse Practitioner | DX: K21.9 Gastro-esophageal reflux disease without esophagitis (principal); K59.04 Chronic idiopathic constipation | CPT/HCPCS: 99212 ==

== ENCOUNTER 2024-10-19 11:44 | Outpatient (REF) | payer OTHER, SELFPAY ==
[2024-10-19 13:11] LABS: Alanine Aminotransferase 37 U/L (0-40); Albumin Level 4.9 g/dL (3.5-5.0); Alkaline Phosphatase 95 U/L (39-117); Anion Gap 12 (12-20); Aspartate Amino Transferase 24 U/L (5-37); Bilirubin Total 0.7 mg/dL (0.0-1.0); Blood Urea Nitrogen 10 mg/dL (9-16); Calcium 9.9 mg/dL (8.4-10.2); Carbon Dioxide 29 mmol/L (22-29); Chloride 106 mmol/L (96-108); Cholesterol 128 mg/dL (<200); Estimated Glomerular Filt Rate > 60; Glucose Fasting 171 mg/dL (60-99); HDL Cholesterol 48 mg/dL (>40); LDL Cholesterol Calculated 66 mg/dL (<100); Potassium 4.8 mmol/L (3.3-5.1); Sodium 142 mmol/L (135-145); Total Protein 8.2 g/dL (6.5-8.0); Triglycerides 70 mg/dL (<150)
[2024-10-19 13:26] LABS: Vitamin D 25-OH Total 34.9 ng/mL (>30)
--- OUTSIDE RECORDS SUMMARY | 2024-10-19 13:32 | XMS_ITS | Clinical Summary ---
Author Organization [facility] Address [address] [place] [address] [address] [place] [address] Care Team Providers Care Vamp Creaser Name Role Phone Unavailable Primary Care Provider Unavailabl e Allergies Active Allergy Reactions Criticality Noted Date Comments Ondansetron High 02/18/2014 Other reaction(s): Other (see comments) Dulaglutide Rash Low 11/20/2022 Medications ibuprofen 600 MG tabletIndicatio ns:Full buddhist of crown of tooth needed due to previous endodontic treatment Take 1 tablet (600 mg) by mouth every 6 (six) hours if needed for mild pain for up to 20 doses. 20 tablet 3 Active Additional Information Patient not taking.Reported on 03/22/2024 albuterol (2.5 MG/3ML) 0.083% nebulizer solution USE 1 VIAL VIA NEBULIZER EVERY 4-6 HOURS NEEDED FOR WHEEZE/SHORTNESS OF BREATH FOR 30 DAYS 4 Active gabapentin (Neurontin) 400 MG capsule Take 2 capsules by mouth Once per day. Active lisinopril 5 MG tablet TOME JENNIFER TABLETA TODOS LOS D Active cloNIDine (Catapres) 0.1 MG tablet TAKE 1-2 TABLETS BY MOUTH NEEDED FOR SLEEP/NIGHTMARES Active metFORMIN (Glucophage) 1000 MG tablet Take 1,000 mg by mouth. 4 Active traZODone (Desyrel) 100 MG tablet TOME 1 2 TABLETAS POR V A ORAL TODOS LOS D AL ACOSTARSE CUANDO SEA NECESARIO Active Multiple Vitamins-Minera ls (Vitamin D3 Complete) tablet Active B-D ULTRAFINE III SHORT PEN 31G X 8 MM misc USE TO INJECT INSULIN FIVE TIMES DAILY 4 Active NovoLOG FLEXPEN 100 UNIT/ML pen See Instructions, Subcutaneous Infusion 3 times a day before meals per sliding scale. max daily dose 66 [id number], # 30 mL, 3 Refills, Maintenance, 11/24/23 9:50:00 EST, Injection, [facility] #[id number], Partial fill upon patient request if the... 1 Active insulin lispro (HumaLOG) 100 UNIT/ML injection Active pravastatin (Pravachol) 10 MG tablet Take 1 tablet by mouth at bed time. Active prednisoLONE acetate (Pred-Forte) 1 % ophthalmic suspension INSTILL ONE DROP IN RIGHT EYE FOUR TIMES A DAY 3 Active Social History Tobacco Use Types Packs/Day Years Used Date Smoking Tobacco: Never Smokeless Tobacco: Never Tobacco Cessation:Counseling Given: Not Answered Alcohol Use Standard Drinks/Week Comments Never 0 (1 standard drink = 0.6 oz pur e alcohol) Sex and Gender Information Value Date Recorded Sex Assigned at Male 07/29/2022 10:26 AM EDT Legal Sex Male 10:26 AM EDT Gender Identity Male 07/29/2022 10:26 AM EDT Sexual Orientation Straight 07/29/2022 10 :26 AM EDT Last Filed Vital Signs Vital Sign Reading Time Taken Comments Blood Pressure 126/80 03/22/2024 8:53 AM EDT Pulse 80 11/20/2022 8:03 AM EST Temperature - - Respiratory Rate - - Oxygen Saturation - - Inhaled Oxygen Concentration - - Weight - - Height - - Body Mass Index - - Plan of Treatment Health Maintenance Due Date Last Done Comments CT Colonography 1965 Colonoscopy 1965 Colorectal Cancer Screening 1965 Dental Oral Exam 1965 Dental Prophylaxis 1965 Dental X-Ray: Bitewings 1965 Dental X-Ray: Full Mouth 1965 Depression Screening 1965 FIT DNA/Cologuard 1965 FIT 1965 FOBT 1965 HIV Screening 1965 Lipid Panel 1965 SDOH Screening 1965 Sigmoidoscopy 1965 Alcohol/Substance Use Screening 1977 Hepatitis C Screening 1983 Hepatitis B Vaccines (1 of 3 - 19+ 3-dose series) 1984 Zoster Vaccines (1 of 2) 2015 COVID-19 Vaccine (4 - season) 2024 10/01/2021, 03/26/2021, 03/01/2021 Influenza Vaccine (#1) 2024 10/02/2016 Tobacco Screening 03/22/2025 03/22/2024 DTaP/Tdap/Td Vaccines (4 - Td or Tdap) 11/04/2030 11/04/2020, 03/24/2018, 03/10/2016, Additional history exists RSV Patients and Patients Aged 60 years or older (1 - 1-dose 75+ series) 2040 HIB Vaccines Aged Out No longer eligi ble based on patient's age to complete this topic HPV Vaccines Aged Out No longer eligi ble based on patient's age to complete this topic Hepatitis A Vaccines Aged Out No long er eligible based on patient's age to complete this topic IPV Vaccines Aged Out No longer eligi ble based on patient's age to complete this topic Meningococcal Vaccine Aged Out No lamine raji eligible based on patient's age to complete this topic Pneumococcal Vaccine: Pediatrics (0 to 5 Years) and At-Risk Patients (6 to 64 Years) Aged Out No longer eligible based on patient's age to complete this topic RSV under 20 months Aged Out No longe r eligible based on patient's age to complete this topic Rotavirus Vaccines Aged Out No longer eligible based on patient's age to complete this topic Insurance DENTAL - [facility]
--- OUTSIDE RECORDS SUMMARY | 2024-10-19 13:32 | XMS_ITS | Clinical Summary ---
Author Organization [facility] Address [address] [place] [address] Care Team Providers Care Medical Social Worker Name Role Phone Salima Rizo MD Primary Care Provider [phone] Social History Tobacco Use Types Packs/Day Years Used Date Smoking Tobacco: Never Assessed Sex and Gender Information Value Date Recorded Sex Assigned at Not on file Gender Identity Not on file Sexual Orientation Not on file Plan of Treatment Health Maintenance Due Date Last Done Comments DTaP,Tdap,and Td Vaccines (1 - Tdap) 1984 Hepatitis B Vaccines (1 of 3 - 19+ 3-dose series) 1984 Zoster Vaccines (1 of 2) 2015 COVID-19 Vaccine ( - 2023-2 5 season) 2024 Influenza Vaccine (#1) 2024 RSV Immunization Patients 60 + Years Old (1 - 1-dose 75+ series) 2040 HIB [...] on patient's age to complete this topic MMR Vaccines Aged Out No longer eligi ble based on patient's age to complete this topic Meningococcal ACWY Vaccine Aged Out N o longer eligible based on patient's age to complete this topic Pneumococcal Vaccine: Pediat rics (0 to 5 Years) and At-Risk Patients (6 to 64 Years) Aged Out No longer eligible b ased on patient's age to complete this topic RSV Immunization Patients Un jimmy 20 months Aged Out No longer eligible b ased on patient's age to complete this topic Varicella Vaccines Aged Out No longer eligible based on patient's age to complete this topic Care Teams Medical Social Worker Relationship Specialty Start Date End Date Salima Rizo MD [address] [facility] [facility] [address] [facility] , [address] [facility] D/B/A: Dipak Worthy In Internal Medicine VIRAJ Quesada PCP - General Internal Medicine 05/20/18
--- OUTSIDE RECORDS SUMMARY | 2024-10-19 13:32 | XMS_ITS | Clinical Summary ---
Author Organization [facility] Address [address] [place] [address] Phone Care Team Providers Care Yarn Washer Name Role Phone Salima Rodney MD Primary Care Provider [phone] Allergies Active Allergy Reactions Criticality Noted Date Comments Ondansetron Other (see comments) 02/13/2021 Medications acyclovir (ZOVIRAX) 400 MG tablet Take 1 tablet by mouth in the morning and 1 tablet in the evening. Active atorvastatin (LIPITOR) 80 MG tablet TOME JENNIFER TABLETA POR V A ORAL TODOS LOS D 1 Active buPROPion XL (WELLBUTRIN XL) 150 MG 24 hr tablet 1 Active Cholecalcifero l 50 MCG (1999 UT) capsule Take 1 capsule by mouth 1 (one) time each day Active doxepin (SINEquan) 10 MG capsule TOME JENNIFER C PSULA TODOS LOS D AL ACOSTARSE CUANDO SEA NECESARIO 1 Active DULoxetine (CYMBALTA) [address] capsule Take 1 capsule by mouth 1 (one) time each day Active gabapentin (NEURONTIN) 400 MG capsule Take 2 capsules by mouth 1 (one) time each day Active Insulin Glargine, 2 Unit Dial, (Toujeo Max SoloStar) 300 UNIT/ML solution pen-injector Active Insulin Lispro, 1 Unit Dial, 100 UNIT/ML solution pen-injector Active lisinopril (PRINIVIL,ZEST RIL) 5 MG tablet Take 1 tablet by mouth 1 (one) time each day Active metFORMIN (GLUCOPHAGE) 1000 MG tablet Take 1 tablet by mouth 2 (two) times a day Active nystatin-triam cinolone (MYCOLOG II) cream Active sildenafil (VIAGRA) 50 MG tablet Active traZODone (DESYREL) 100 MG tablet 1 Active ergocalciferol (VITAMIN D2) 1.25 MG (06781 UT) capsule TOME 1 C PSULA POR V A ORAL ONCE WEEKLY FOR 1 MONTH THEN TAKE 2,000 UNITS DAILY 1 Active NovoLOG FLEXPEN 100 UNIT/ML injection PLEASE SEE ATTACHED FOR DETAILED DIRECTIONS 1 Active OXcarbazepine (TRILEPTAL) 600 MG tablet 1 Active cloNIDine (CATAPRES) 0.1 MG tablet 2 Active Jardiance 25 MG tablet 2 Active sulfamethoxazo le-trimethopri m 800-160 MG per tablet TOME JENNIFER TABLETA CADA 12 HORAS POR 10 D 3 Active sertraline (ZOLOFT) 100 MG tablet TOME JENNIFER TABLETA TODOS LOS D EN LA VIRAJ CHRISTIANSON 3 Active Ozempic, 2 MG/DOSE, 8 MG/3ML solution pen-injector INJECT 2 MG (0.75 ML) SUBCUTANEOUSLY EVERY WEEK FOR 30 DAYS 3 Active hydrOXYzine (VISTARIL) 25 MG capsule TOME 2 C PSULAS POR V A ORAL AL ACOSTARSE CUANDO SEA NECESARIO 3 Active Ascorbic Acid (vitamin C) 1000 MG tablet TOME JENNIFER TABLETA TODOS LOS D 3 Active hydrocortisone 2.5 % cream APPLY TOPICALLY 2 TIMES A DAY NEEDED FOR SKIN IRRITATION 3 Active Active Problems Problem Noted Date Diagnosed Date Renal stone 02/13/2021 Microalbuminuria 02/13/2021 Family History Medical History Relation Comments Cancer Father colon Diabetes Mother Heart disease Mother Hypertension Mother Kidney disease Mother Cancer Sibling 1 breast CA Diabetes Sibling 2 Hypertension Sibling 3 Heart disease Sibling 4 Relation Status Comments Father Mother Alive Sibling 1 Sibling 2 Sibling 3 Sibling 4 Social History Tobacco Use Types Packs/Day Years Used Date Smoking Tobacco: Never Smokeless Tobacco: Never Tobacco Cessation:Counseling Given: No Sex and Gender Information Value Date Recorded Sex Assigned at Not on file Legal Sex Male 4:52 PM EST Gender Identity Not on file Sexual Orientation Not on file Last Filed Vital Signs Vital Sign Reading Time Taken Comments Blood Pressure 118/72 05/22/2023 12:45 PM EDT Pulse 83 05/22/2023 12:45 PM EDT Temperature - - Respiratory Rate - - Oxygen Saturation 96% 05/22/2023 12:45 PM EDT Inhaled Oxygen Concentration - - Weight 88.9 kg (196 lb) 05/22/2023 12:45 PM EDT Height 177.8 cm (5' 10 ) 09/03/2019 12:00 PM EST Body Mass Index 28.12 09/03/2019 12:00 PM EST Plan of Treatment Health Maintenance Due Date Last Done Comments Pneumococcal Vaccine: Pediat rics (0 to 5 Years) and At-Risk Patients (6 to 64 Years) (1 of 2 - PCV) 1971 Hepatitis B Vaccine (1 of 3 - 19+ 3-dose series) 09/07 Colorectal Cancer Screening: Annual FOBT 2014 Colorectal Cancer Screening: Colonoscopy 2014 Colorectal Cancer Screening: Sigmoidoscopy 2014 Influenza Vaccine (#1) 2024 Insurance [place] Care Teams Yarn Washer Relationship Specialty Start Date End Date Salima Rodney MD [address] [place], [place] PCP - General 10/09/20
--- OUTSIDE RECORDS SUMMARY | 2024-10-19 13:32 | XMS_ITS | Encounter Summary ---
Author Organization [facility] Address [address] [place] [address] Care Team Providers Care Water Analyst Name Role Phone Unavailable Primary Care Provider Unavailabl e Encounter Details Date Type Department Care Team (Late st Contact Info) Description 09/19/2022 Abstract [facility] [address] [place] [address] Dashawn Avery DDS [address] [place] [address] Social History Tobacco Use Types Packs/Day Years Used Date Smoking Tobacco: Never Assessed Sex and Gender Information Value Date Recorded Sex Assigned at Male 07/29/2022 10:26 AM EDT Legal Sex Male 10:26 AM EDT Gender Identity Male 07/29/2022 10:26 AM EDT Sexual Orientation Straight 07/29/2022 10 :26 AM EDT documented as of this encounter Plan of Treatment Not on file documented as of this encounter Visit Diagnoses Not on filedocumented in this encounter
--- OUTSIDE RECORDS SUMMARY | 2024-10-19 13:32 | XMS_ITS | Encounter Summary ---
Author Organization [employer] Address [address] [place] [address] Care Team Providers Care Tube Cutter Name Role Phone Unavailable Primary Care Provider Unavailabl e Encounter Details Date Type Department Care Team (Late st Contact Info) Description 11/29/2022 Abstract [facility] [address] [place] [address] ChauLuis Eduardoie, DMD [address] [place] [address] Social History Tobacco Use Types Packs/Day Years Used Date Smoking Tobacco: Never Smokeless Tobacco: Never Alcohol Use Standard Drinks/Week Comments Never 0 (1 standard drink = 0.6 oz pur e alcohol) Sex and Gender Information Value Date Recorded Sex Assigned at Male 07/29/2022 10:26 AM EDT Legal Sex Male 10:26 AM EDT Gender Identity Male 07/29/2022 10:26 AM EDT Sexual Orientation Straight 07/29/2022 10 :26 AM EDT COVID-19 Exposure Response Date Recorded In the last 10 days, have yo u been in contact with someone who was confirmed or suspected to have Coronavirus/COVID-19? No / Unsure 11/20/2022 7:57 AM EST documented as of this encounter Plan of Treatment Not on file documented as of this encounter Visit Diagnoses Not on filedocumented in this encounter
[2024-10-19 13:54] LABS: Creatinine Urine 56.64 mg/dL; Microalbum/Creatinine Ratio Ur 12.3 ug/mg cr (<30)
[2024-10-19 14:08] LABS: CT PCR NOT DETECTED (Not Detect.); NG PCR NOT DETECTED (Not Detect.)
[2024-10-20 08:14] LABS: Syphilis Screen Nonreactive (Nonreactive)
== END 2024-10-19 11:45 | disposition home or self-care (01) ==
LOC: HO.LAB 11:44
PROVIDERS: PCP Internal Medicine; Visit Provider Internal Medicine
DX: E11.42 Type 2 diabetes mellitus with diabetic polyneuropathy (principal); Z11.3 Encounter for screening for infections with a predominantly sexual mode of transmission; Z79.4 Long term (current) use of insulin; E78.5 Hyperlipidemia, unspecified; E55.9 Vitamin D deficiency, unspecified; R20.2 Paresthesia of skin; R80.9 Proteinuria, unspecified
CPT/HCPCS: 80053; 80061; 82043; 82306; 82570; 86780; 87491; 87591

== ENCOUNTER → 2024-10-27 10:19 | Outpatient (BNVA) | payer OTHER, SELFPAY | PROVIDERS: PCP Internal Medicine | DX: Z01.818 Encounter for other preprocedural examination (principal); G56.23 Lesion of ulnar nerve, bilateral upper limbs; G56.00 Carpal tunnel syndrome, unspecified upper limb | CPT/HCPCS: 99212 ==

== ENCOUNTER 2024-11-24 16:20 | Outpatient (AMB) | payer OTHER, SELFPAY ==
--- NOTE | 2024-11-24 16:20 | A.OFFVIS_ITS ---
Intake Visit Reasons: Follow UP PSA Intake Note: Patient presents today for follow up on: erectile dysfunction Meds- Tadalafil Allergies to Antibiotic- No Known Allergies Blood Thinner- None Garbage Stoker Required: Yes Garbage Stoker Services: Garbage Stoker Present Accompanied by: Self / Same As Patient Allergies dulaglutide [Trulicity] Allergy (Intermediate, Verified 11/24/24 20:41) cyst ondansetron [ONDANSETRON] Allergy (Intermediate, Verified 11/24/24 20:41) stomach pain Medication List - Last Reconciled 11/24/24 by MAXINE Bermudez [adult diapers pull-ups As directed] albuterol sulfate 2.5 mg (3 mL) inhalation Q4-6H PRN 30 days ascorbic acid (vitamin C) 1 g PO DAILY 90 days atorvastatin 80 mg PO DAILY [bed rail As directed] blood pressure monitor (Blood Pressure Kit) As directed chlorpromazine 200 mg PO BEDTIME PRN cholecalciferol (vitamin D3) 50 mcg PO DAILY clonidine HCl 0.1 mg PO BEDTIME PRN commode As directed cyclobenzaprine 10 mg PO TID PRN 30 days [diabetic shoes As directed] empagliflozin (Jardiance) 25 mg PO QAM 90 days flash glucose scanning reader (LessThan3Style Kevin 14 Day [place]) As directed flash glucose sensor (FreeStyle Kevin 14 Day Sensor kit) 1 ea topical Q2W gabapentin 800 mg PO DAILY [handheld shower As directed] hydrocortisone 2.5% 1 appl topical BID PRN hydroxyzine pamoate 25 mg PO DAILY insulin aspart U-100 (Novolog FlexPen U-100 Insulin aspart) 4 - 10 units (0.04 - 0.1 mL) subcut TID insulin glargine U-300 conc (Toujeo Max U-300 SoloStar) 50 units subcut BEDTIME linaclotide (Linzess) 72 mcg PO DAILY PRN lisinopril 5 mg PO DAILY meloxicam 15 mg PO DAILY metformin 1,000 mg PO DAILY nebulizers (AeroEclipse II Nebulizer) As directed nystatin 1 appl topical DAILY PRN pantoprazole (Protonix) 40 mg PO DAILY 30 days pen needle, diabetic (BD Ultra-Fine Diana Pen Needle) As directed four times a day [pill box 2 day capacity As directed] prednisolone acetate 1% 1 drp ophthalmic (eye) DAILY PRN semaglutide (Ozempic) 2 mg (0.75 mL) subcut QWEEK 30 days sennosides (Senna Lax) 8.6 mg PO BEDTIME 90 days sertraline 100 mg PO DAILY 90 days [step stool for bed As directed] tadalafil 20 mg PO ONCE PRN 30 days tadalafil 10 mg PO DAILY 90 days timolol maleate 0.5% 1 drp ophthalmic (eye) DAILY PRN [toilet seat elevator As directed] tramadol 50 mg PO DAILY PRN 90 days Transfer Bench As directed trazodone 150 mg PO BEDTIME underpads (Bed Underpads) As directed walker As directed [wipes As directed] HPI Comments Details: Fer is a pleasant 59 year old Iranian-speaking male patient of Dr. Esquivel. He has a past medical history of lumbar disc degeneration, glucosuria, varicose veins, family history of colon cancer, erectile dysfunction associated with type 2 diabetes, balanitis, constipation, nephrolithiasis, depression, hypertension, fibromyalgia, IBS, GERD, polyneuropathy, hyperlipidemia, and vitamin-D deficiency. He presents to the office today for follow-up of his erectile dysfunction and nephrolithiasis. In discussion with the patient today he reports to be doing and feeling well. He reports noting significant improvement in maintaining and obtaining his erections with 10 mg of tadalafil and is requ esting refill at today's office visit. Recent PSA results reviewed with the patient today. PSAs are as follows: 05/20 0.6, 10/23 1.4 During last office visit as well as today further treatment options of erectile dysfunction and risks and benefits of these treatment options. He would like to continue with oral therapy at this time. He otherwise denies any bothersome urinary issues. He denies urinary urgency, urinary frequency, incontinence, nocturia, hematuria, dysuria, foul smelling urine, changes to urinary stream, flank pain, fever, and or chills. He is happy with his current voiding par ameters. He does have a family history of prostate cancer. He reports his father and brother have and or have had prostate cancer. Patient with previous abdominal imaging 08/22 noting bilateral kidneys with no lesions, nephrolithiasis, and or hydronephrosis. We discussed importance of maintaining good diabetic control for improvement in ED as well as overall health and well- being. He otherwise offers no other issues or concerns at this time. Plan Tadalafil 10 mg daily will be continued for erectile dysfunction, with a prescription refill provided. Observation is appropriate for nephrolithiasis due to the absence of symptomatic complaints, and the patient was informed about the necessity of managing diabetes effectively. PSA levels, though normal, warrant routine monitoring due to family history. Patient was informed and verbally consented to the use of an ambient scribe for clinic note documentation during this visit. Discussion Notes I discussed with the patient the current management of his erectile dysfunction with tadalafil and provided a refill prescription. We covered the significance of diabetes control in addressing his symptoms and emphasized its overall health implications. I confirmed that his PSA result of 1.4 ng/mL is normal but recommended continued surveillance because of his family history of prostate cancer. VICKY offered however deferred. The patient was informed of his previous imaging findings. He is satisfied with the treatment plan and reported no additional issues to discuss. PREVIOUS OFFICE NOTE: Nephrolithiasis Prior ESW[facility] Imaging - 04/19 renal US no stones - 04/20 renal ultrasound no evidence of stones - 01/20 renal US Erectile dysfunction in setting of diabetes Prior evaluation for low testosterone Testosterone in normal range PSA 05/20 0.60, T 310 HBA1c 09/20 8.2 5 mg daily Poor response to 10 mg daily with 40 mg on demand [facility] Medical History Back pain Preop cardiovascular exam Family history of prostate cancer Carpal tunnel syndrome Paresthesia of hand, bilateral Vertebrogenic low back pain Leg pain Hospital discharge follow-up Varicose veins of right lower extremity with inflammation Sebaceous cyst of right axilla Tubular adenoma of colon Glucosuria Pre-op examination Physical exam Right hand pain Family history of colon cancer Radiculopathy, lumbar region Spondylosis, lumbar, with myelopathy Disc degeneration, lumbar Balanitis Lumbar pain Constipation Severe major depression without psychotic features Erectile dysfunction associated with type 2 diabetes mellitus HTN (hypertension) Precordial chest pain Unsteady gait Chest pain Fibromyalgia Serum calcium elevated IBS (irritable bowel syndrome) Right leg pain Kidney stones GERD (gastroesophageal reflux disease) Type 2 diabetes mellitus with hyperglycemia Type 2 diabetes mellitus with diabetic polyneuropathy Hyperlipidemia LDL goal <100 Vitamin D deficiency Surgical History H/O colonoscopy History of eye surgery Family History Father Colon cancer, Onset Age: 50 Stroke Prostate cancer Mother Hypertension Diabetes Dementia Family/Other FH: mental illness Social History Household Members: None Housing: Apartment Are you a primary day care director to a significant other at home: No 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) Alcohol intake: former Patient Tobacco Use Status: Never used Tobacco e-Cigarette/Vaping Use: Never Used Second Hand Smoke Exposure: No service: No Current occupational status: disabled Cognitive needs: Yes (cane/walker) Hearing needs: No Vision needs: Yes (glasses) Review of Systems Const All systems reviewed & are unremarkable except as noted in HPI and below Physical Exam Const General: cooperative, healthy appearing, comfortable, no acute distress, well developed, alert and awake Orientation/consciousness: patient oriented x3 Limitations: no limitations HEENT Head: Yes normal to inspection, Yes normocephalic and Yes atraumatic Ears: hearing grossly normal bilaterally Eyes General: appearance normal, both eyes and all related structures Neck Neck: Yes normal visual inspection and Yes trachea midline Chest Chest palpation & inspection: normal inspection of the chest Resp Effort & Inspection: normal respiratory effort and able to speak in complete sentences Cardio Rate: regular rate GI Inspection: Yes normal to inspection General: Yes no CVA tenderness Back/Spine/Pelvis Back: no CVA tenderness Skin General skin exam: no rashes or lesions noted Neuro General: patient oriented x3 Extrem General: Yes normal to inspection Psych Appearance: grossly normal and well kempt Mental Status: mental status grossly normal Speech and movement: Normal speech and movement present and Clear speech present Affect: normal affect Attitude: cooperative Thought process: Normal thought process present Thought content: Normal thought content present Insight: Fair insight present (Psych) Judgement: Fair judgement present (Psych) Assessment & Plan Assessment & Plan (1) Family history of prostate cancer: Code(s): Z80.42 - Family history of malignant neoplasm of prostate Category: Medical (2) Erectile dysfunction associated with type 2 diabetes mellitus: Code(s): E11.69 - Type 2 diabetes mellitus with other specified complication; N52.1 - Erectile dysfunction due to diseases classified elsewhere Category: Medical (3) Kidney stones: Code(s): N20.0 - Calculus of kidney Category: Medical Plan In office urinalysis results reviewed with the patient today; as noted above. Recent PSA results reviewed with the patient today; as noted above We discussed at length importance of lifestyle modifications to assist with ED as well as overall health and well-being. We discussed importance of management and diabetes for improvement in ED as well as overall health and well-being. Patient currently denies any bothersome urinary issues. He reports be happy with current voiding parameters. Continue Cialis as discussed and prescribed; Refills provided for daily dosing of tadalafil as well as p.r.n. dosing. We discussed further treatment options for erectile dysfunction and risks and benefits of these treatment options. Follow-up in 1 year with lab and imaging to be completed prior; or sooner with any issues, concerns, and or questions. Orders: Orders Prostate Specific Antigen 1 Year N13.8 - Other obstructive and reflux uropathy, N40.1 - Benign prostatic hyperplasia with lower urinary tract symptoms US renal BI 1 Year N20.0 - Calculus of kidney Medications: Refilled tadalafil 10 mg PO DAILY 90 days 90 tabs 1RF sexual activity E11.69 - Type 2 diabetes mellitus with other specified complication, N52.1 - Erectile dysfunction due to diseases classified elsewhere Patient Instructions: The patient had an opportunity to ask questions regarding the treatment plan. All questions were answered. Physical exam, labs, and imaging were discussed and reviewed in detail. As well as risks, benefits, and discussion of treatment mccall leela. No major barriers to understanding were identified. The patient expressed understanding and agreement with the above treatment plan. The patient was made aware they should contact our office by phone for worsening of their current condition, the appearance of new symptoms, or with any questions or concerns. Compliance is encouraged with any medications and follow up testing that is ordered. It is a privilege to be allowed the opportunity to participate in? your urological care.? Again, if you have any questions or concerns If you have any questions or concerns please do not hesitate to contact me. The office is [phone]. This note is constructed using voice recognition software. While every effort has been made to ensure accuracy senior national account manager errors may have been included. Yours sincerely, MAXINE Bermudez Coding Level of Care Code Est Pt Level 3 (75517) Complex EM visit Add On G2211 Diagnoses Family history of prostate cancer Z80.42 Erectile dysfunction associated with type 2 diabetes mellitus E11.69; N52.1 Kidney stones N20.0
--- OUTSIDE RECORDS SUMMARY | 2024-11-24 19:42 | XMS_ITS | Clinical Summary ---
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 max daily dose 66 [id number], # 30 mL, 3 Refills, Maintenance, 11/24/23 9:50:00 EST, Injection, [id number], Partial fill upon patient request if the... [...] of 3 - 19+ 3-dose series) 1984 Pneumococcal Vaccine: 50+ Years (1 of 1 - PCV) 2015 Zoster Vaccines (1 of 2) 2015 COVID-19 [...] 5 Years) and At-Risk Patients (6 to 49) Years) Aged Out No longer eligible based on patient's age to complete this topic RSV under 20 months Aged Out No longe r eligible based on patient's age to complete this topic Rotavirus Vaccines Aged Out No longer eligible based on patient's age to complete this topic Insurance [facility] [place]
--- OUTSIDE RECORDS SUMMARY | 2024-11-24 19:42 | XMS_ITS | Continuity of Care Document ---
Author Organization [facility] Address [address] [place] [phone]- Care Team Providers Care [employer] Name Role Phone Alvin Rizo MD, Annabel Primary Care Physician [place] [facility] [place](s): 11/08/24 - 11/15/24 [facility] [address] [place] [phone]- Encounter Diagnosis Type 2 diabetes mellitus with hyperglycemia(Discharge Diagnosis) - 11/08/24 Attending Physician: Eleanor Jefferson MD Encounter Type: Office Visit Allergies, Adverse Reactions, Alerts Substance Criticality Severity Reaction Reaction Severity Status ondansetron Stomach pain Activ e Trulicity Pen 1 Acti ve 1Abcesses Medications Alcohol Pads See Instructions, # 600 each, Refills 3, Tot. Refills 3, Maintenance, use as directed for Type 1 Diabetes Mellitus, 11/10/23 3:14:00 PM EST, Supply, 177, cm, 11/10/23 14:36:00 EST, Height Start Date: 11/10/23 Stop Date: 11/04/24 Status: Ordered Quantity: 600.0 Unit: each Repeat number: 4 ascorbic acid 1000 mg oral tablet 1 tablet = 1,000 mg, By Mouth, Daily, 0 Refills, Maintenance, 11/10/23 2:42:00 PM EST, Partial fill upon patient request if the prescription is for a schedule II opioid drug. Start Date: 11/10/23 Status: Ordered Repeat number: 1 atorvastatin 80 mg oral tablet 1 tablet = 80 mg, By Mouth, Daily, 0 Refills, Maintenance, 11/10/23 2:45:00 PM EST, Partial fill upon patient request if the prescription is for a schedule II opioid drug. Start Date: 11/10/23 Status: Ordered Repeat number: 1 buPROPion 150 mg/24 hours (XL) oral tablet, extended release 1 tablet = 150 mg, By Mouth, Every 24 hours, 0 Refills, Maintenance, 11/10/23 2:44:00 PM EST, Partial fill upon patient request if the prescription is for a schedule II opioid drug. Start Date: 11/10/23 Status: Ordered Repeat number: 1 cholecalciferol 50 mcg (2000 intl units) oral tablet, chewable 1 tablet = 50 mcg, By Mouth, Daily, 0 Refills, Maintenance, 11/10/23 2:46:00 PM EST, Partial fill upon patient request if the prescription is for a schedule II opioid drug. Start Date: 11/10/23 Status: Ordered Repeat number: 1 cloNIDine 0.1 mg oral tablet 0.1 mg, 1, tablet, By Mouth, 2 times a day, Refills 0, Maintenance, 11/10/23 2:42:00 PM EST, Partialfill upon patient request if the prescription is for a schedule II opioid drug. Start Date: 11/10/23 Status: Ordered Repeat number: 1 cyclobenzaprine 10 mg oral tablet 10 mg, 1, tablet, By Mouth, 3 times a day, Refills 0, Maintenance, 11/10/23 2:42:00 PM EST, Partial fill upon patient request if the prescription is for a schedule II opioid drug. Start Date: 11/10/23 Status: Ordered Repeat number: 1 FreeStyle Kevin 2 Monitor See Instructions, # 1 each, Refills 0, Tot. Refills 0, Maintenance, Use to check blood sugars at least 3x/day for T2DM. E11.04/17/23 1:12:00 PM EDT, Supply Start Date: 04/17/23 Status: Ordered Quantity: 1.0 Unit: each Repeat number: 1 Indication: Type 2 diabetes mellitus without complications FreeStyle Kevin 2 Sensors See Instructions, # 2 each, Refills 6, Tot. Refills 6, Maintenance, Change every 14 days for T2DM. E11.9, 04/17/23 1:12:00 PM EDT, Supply Start Date: 04/17/23 Status: Ordered Quantity: 2.0 Unit: each Repeat number: 7 Indication: Type 2 diabetes mellitus without complications Freestyle Kevin Sensor See Instructions, # 6 each, Refills 3, Tot. Refills 3, Maintenance, Kevin 3 sensors , use 1 every 14 days, 11/08/24 12:23:00 PM EST, Supply, 177, cm, 11/08/24 12:07:00 EST, Height Start Date: 11/08/24 Stop Date: 03/08/25 Status: Ordered Quantity: 6.0 Unit: each Repeat number: 4 gabapentin 600 mg oral tablet 1 tablet = 600 mg, By Mouth, 3 times a day, 0 Refills, Maintenance, 11/10/23 2:44:00 PM EST, Partialfill upon patient request if the prescription is for a schedule II opioid drug. Start Date: 11/10/23 Status: Ordered Repeat number: 1 gabapentin 800 mg oral tablet 1 tablet = 800 mg, By Mouth, 2 times a day, 0 Refills, Maintenance, 11/08/24 12:03:00 PM EST, Partial fill upon patient request if the prescription is for a schedule II opioid drug. Start Date: 11/08/24 Status: Ordered Repeat number: 1 Golytely - oral powder for reconstitution By Mouth, 0 Refills, Maintenance, 11/10/23 2:47:00 PM EST, Partial fill upon patient request if the prescription is for a schedule II opioid drug. Start Date: 11/10/23 Status: Ordered Repeat number: 1 Jardiance 25 mg oral tablet 1 tablet = 25 mg, By Mouth, Daily in AM, # 30 tablet, 11 Refills, Maintenance, 11/10/23 3:13:00 PM EST, Tablet, [id number], Partial fill upon patient request if the prescription is for a schedule II opioid drug., 177, cm, 11/10/23 14:36:00 EST, Height Start Date: 11/10/23 Status: Ordered Quantity: 30.0 Unit: tablet Repeat number: 12 Linzess 145 mcg oral capsule 1 capsule = 145 mcg, By Mouth, Daily, 0 Refills, Maintenance, 11/10/23 2:47:00 PM EST, Partial fill upon patient request if the prescription is for a schedule II opioid drug. Start Date: 11/10/23 Status: Ordered Repeat number: 1 lisinopril 5 mg oral tablet 5 mg, 1, tablet, By Mouth, Daily, Refills 0, Maintenance, 11/10/23 2:42:00 PM EST, Partial fill uponpatient request if the prescription is for a schedule II opioid drug. Start Date: 11/10/23 Status: Ordered Repeat number: 1 meloxicam 15 mg oral tablet 1 tablet = 15 mg, By Mouth, Daily, 0 Refills, Maintenance, 11/10/23 2:41:00 PM EST, Partial fill upon patient request if the prescription is for a schedule II opioid drug. Start Date: 11/10/23 Status: Ordered Repeat number: 1 metFORMIN 1000 mg oral tablet 1 tablet = 1,000 mg, By Mouth, 2 times a day, # 60 tablet, 11 Refills, Maintenance, 11/10/23 3:10:00PM EST, Tablet, [facility][id number], Partial fill upon patient request if the prescription is for a schedule II opioid drug., 177, cm, 11/10/23 14:36:00 EST, Height Start Date: 11/10/23 Status: Ordered Quantity: 60.0 Unit: tablet Repeat number: 12 Nebulizer/Compressor Maintenance, AeroEcliupse II Nebulizer, 11/10/23 2:41:00 PM EST, Supply Start Date: 11/10/23 Status: Ordered Repeat number: 1 NovoLOG FlexPen 100 units/mL injectable solution See Instructions, Subcutaneous Infusion 3 times a day before meals per sliding scale. max daily dose 66 [id number], # 30 mL, 3 Refills, Maintenance, 11/08/24 12:27:00 PM EST, Injection, [facility], Partial fill upon patient request if the prescription is for a schedule II opioid drug., 177, cm, 11/08/24 12:07:00 EST, Height Start Date: 11/08/24 Status: Ordered Quantity: 30.0 Unit: mL Repeat number: 4 Ozempic 8 mg/3 mL (2 mg dose) subcutaneous solution = 2 mg, Subcutaneous Infusion, Every week, Inject once weekly for T2DM. E11.9, # 9 mL, 6 Refills, Maintenance, 11/10/23 3:11:00 PM EST, [facility] #[id number], Partial fill upon patient request if the prescription is for a schedule II opioid drug., 177, cm, 11/10/23 14:36:00 EST, Height Start Date: 11/10/23 Status: Ordered Quantity: 9.0 Unit: mL Repeat number: 7 Indication: Type 2 diabetes mellitus without complications Pen [place], 31 G x 8 mm BD Ultra Fine III See Instructions, # 200 each, Refills 5, Tot. Refills 5, Maintenance, use to inject insulin 5 timesdaily E11.9, 11/24/23 10:00:00 AM EST, Supply, 177, cm, 11/10/23 14:36:00 EST, Height Start Date: 11/24/23 Stop Date: 05/22/24 Status: Ordered Quantity: 200.0 Unit: each Repeat number: 6 sertraline 100 mg oral tablet 1 tablet = 100 mg, By Mouth, Daily, 0 Refills, Maintenance, 11/10/23 2:41:00 PM EST, Partial fill upon patient request if the prescription is for a schedule II opioid drug. Start Date: 11/10/23 Status: Ordered Repeat number: 1 Sulfamethoxazole 800mg/Trimethoprim 160 mg Tablet By Mouth, Every 12 hours, Maintenance, 11/10/23 2:46:00 PM EST Start Date: 11/10/23 Status: Ordered Repeat number: 1 tadalafil 10 mg oral tablet 1 tablet = 10 mg, By Mouth, Daily, 0 Refills, Maintenance, 11/08/24 12:07:00 PM EST, Partial fill upon patient request if the prescription is for a schedule II opioid drug. Start Date: 11/08/24 Status: Ordered Repeat number: 1 tadalafil 20 mg oral tablet 1 tablet = 20 mg, By Mouth, Daily, 0 Refills, Maintenance, 11/10/23 2:47:00 PM EST, Partial fill upon patient request if the prescription is for a schedule II opioid drug. Start Date: 11/10/23 Status: Ordered Repeat number: 1 tadalafil 5 mg oral tablet 1 tablet = 5 mg, By Mouth, Daily, 0 Refills, Maintenance, 11/10/23 2:45:00 PM EST, Partial fill uponpatient request if the prescription is for a schedule II opioid drug. Start Date: 11/10/23 Status: Ordered Repeat number: 1 Timolol 0.5% Ophth 2 times a day, Refills 0, Maintenance, 11/10/23 2:47:00 PM EST, Partial fill upon patient request ifthe prescription is for a schedule II opioid drug. Start Date: 11/10/23 Status: Ordered Repeat number: 1 Toujeo Max SoloStar 300 units/mL subcutaneous solution Subcutaneous Infusion, Daily, 0 Refills, Maintenance, 11/10/23 2:45:00 PM EST, Partial fill upon patient request if the prescription is for a schedule II opioid drug. Start Date: 11/10/23 Status: Ordered Repeat number: 1 Toujeo Max SoloStar 300 units/mL subcutaneous solution See Instructions, INJECT 42 UNITS SUBCUTANEOUSLY DAILY E11.9, # 4.5 mL, 5 Refills, 04/06/24 8:39:00 AM EDT, [facility], 177, cm, 11/10/23 14:36:00 EST, Height Start Date: 04/06/24 Status: Ordered Quantity: 4.5 Unit: mL Repeat number: 6 traZODone 100 mg oral tablet 100 mg, 1, tablet, By Mouth, Refills 0, Maintenance, 11/10/23 2:44:00 PM EST, Partial fill upon patient request if the prescription is for a schedule II opioid drug. Start Date: 11/10/23 Status: Ordered Repeat number: 1 Problem List Condition Confirmation Course Effective Dates Status H ealth Status Informant Type 2 diabetes mellitus with hyperglycemia Confirmed Active Diagnosis Diagnosis Type Effective Dates Health Status Clinical Service Informant Type 2 diabetes mellitus with hyperglycemia Discharge Diagnosis 11/08/24 Vital Signs Most recent to oldest [Reference Range]: 1 Height 177 cm (11/08/24 12:07 PM) Weight 93.2 kg (11/08/24 12:07 PM) Pulse Rate [55-90 bpm] 72 bpm (11/08/24 12:07 PM) Body Mass Index [18.5-24.99 kg/m2] 29.75 kg/m2 *H* (11/08/24 12:07 PM) Blood Pressure [90-138/55-84 mm Hg] 130/ 69mm Hg (11/08/24 12:07 PM) Blood pressure sites Arm, left (11/08/24 12:07 PM) Weight Obtained Via Bed scale (11/08/24 12:07 PM) Laboratory * Event Display: Non BH Lab Results Authored Date: [id number] Note * Raven Burroughs: PERFORM Event Display: Patient Education/Instruction Authored Date: [id number] Ambulatory Adult Visit Summary [facility] [address] [address] [place] [address] Name: VIKAS LEVINE : 1965?? Visit: 11/08/2024 10:49?? Ambulatory Visit Instructions ?? Your Care Team Primary Care Provider Alvin Rizo MD , Salima Bryant? This Visit Provider Eleanor Jefferson MD Your Diagnosis Type 2 diabetes mellitus with hyperglycemia Vitals Signs Pulse Rate: 72 bpm Height: 177 cm Systolic Blood Pressure: 130 mm Hg Weight: 93.2 kg Diastolic Blood Pressure: 69 mm Hg Body Mass Index:??29.75 kg/m2??High ?? Body surface area: 2.14 What to do next Follow-Up Appointments Follow Up with??Eleanor Jefferson MD When:??Within 6 months Why: [place] With On Site Property Manager in 6 months?? 1 month [facility]NOL with [facility] sil[facility] Where: [address] [place] [phone]- Future Orders Lipid Panel Non Fasting - Routine, Once, 11/08/24 12:29:00 EST, Single or Recurring Future Order, [facility], Blood?? Microalbumin Urine (Urine Microalbumin) - Routine, Once, 11/08/24 12:29:00 EST, Single or RecurringFuture Order, [facility], Urine?? Renal Panel (10) - Routine, Once, 11/08/24 12:29:00 EST, Single or Recurring Future Order, [facility],Blood?? Medications The list below reflects the information in our records and provided by you today along with any changes made during this visit. Please continue your medications until treatment is completed or stopped by your provider. If this is different from the information you have or there are other questions,please contact the prescribing provider. What How Much When Why Instructions New Durable Medical Equipment (Freestyle Kevin Sensor) See instructions Duration: 30 Days Refills: 3 Kevin 3 sensors , use 1 every 14 days ?? Pickup at [facility] New Insulin Aspart (NovoLOG FlexPen 100 units/ mL injectable solution) See instructions Refills: 3 Subcutaneous Infusion 3 times a day before meals per sliding scale. max daily dose 66 [id number] ?? Pickup at [facility] Unchanged Ascorbic Acid (ascorbic acid 1000 mg oral tablet) 1 tab(s) Oral Daily Unchanged Atorvastatin (atorvastatin 80 mg oral tablet) 1 tab(s) Oral Daily Unchanged BuPROpion (buPROPion 150 mg/ 24 hours (XL) oral tablet, extended release) 1 tab(s) Oral Every 24 hours Unchanged Cholecalciferol (cholecalciferol 50 mcg (2000 intl units) oral tablet, chewable) 1 tab(s) Oral Daily Unchanged Clonidine (cloNIDine 0.1 mg oral tablet) 1 tab(s) Oral Twice a day Unchanged Cyclobenzaprine (cyclobenzaprine 10 mg oral tablet) 1 tab(s) Oral 3 times a day Unchanged Durable Medical Equipment (Alcohol Pads) See instructions Duration: 90 Days use as directed for Type 1 Diabetes Mellitus ?? Unchanged Durable Medical Equipment (FreeStyle Kevin 2 Monitor) See instructions Type 2 diabetes mellitus Use to check blood sugars at least 3x/ day for T2DM. E11.9 ?? Unchanged Durable Medical Equipment (FreeStyle Kevin 2 Sensors) See instructions Type 2 diabetes mellitus Change every 14 days for T2DM. E11.9 ?? Unchanged Durable Medical Equipment (Nebulizer/ Compressor) AeroEcliupse II Nebulizer ?? Unchanged Durable Medical Equipment (Pen [place], 31 G x 8 mm BD Ultra Fine III) See instructions Duration: 30 Days use to inject insulin 5 times daily E11.9 ?? Unchanged empagliflozin (Jardiance 25 mg oral tablet) 1 tab(s) Oral Daily in the morning Unchanged Gabapentin (gabapentin 600 mg oral tablet) 1 tab(s) Oral 3 times a day Unchanged Gabapentin (gabapentin 800 mg oral tablet) 1 tab(s) Oral Twice a day Unchanged Insulin Glargine (Toujeo Max SoloStar 300 units/ mL subcutaneous solution) See instructions INJECT 42 UNITS SUBCUTANEOUSLY DAILY E11.9 ?? Unchanged Insulin Glargine (Toujeo Max SoloStar 300 units/ mL subcutaneous solution) Subcutaneous Infusion Daily Unchanged linaclotide (Linzess 145 mcg oral capsule) 1 capsule Oral Daily Unchanged Lisinopril (lisinopril 5 mg oral tablet) 1 tab(s) Oral Daily Unchanged Meloxicam (meloxicam 15 mg oral tablet) 1 tab(s) Oral Daily Unchanged Metformin (metFORMIN 1000 mg oral tablet) 1 tab(s) Oral Twice a day Unchanged PEG Electrolyte Solution (Golytely - oral powder for reconstitution) Oral Unchanged semaglutide (Ozempic 8 mg/ 3 mL (2 mg dose) subcutaneous solution) 2 Milligram Subcutaneous Infusion Every week Type 2 diabetes mellitus Inject once weekly for T2DM. E11.9 ?? Unchanged Sertraline (sertraline 100 mg oral tablet) 1 tab(s) Oral Daily Unchanged Sulfamethoxazole/ Trimethoprim (Sulfamethoxazole 800mg/ Trimethoprim 160 mg Tablet) Oral Every 12 hours Unchanged tadalafil (tadalafil 10 mg oral tablet) 1 tab(s) Oral Daily Unchanged tadalafil (tadalafil 20 mg oral tablet) 1 tab(s) Oral Daily Unchanged tadalafil (tadalafil 5 mg oral tablet) 1 tab(s) Oral Daily Unchanged Timolol Ophthalmic (Timolol 0.5% Ophth) Twice a day Unchanged Trazodone (traZODone 100 mg oral tablet) 1 tab(s) Oral Pharmacy Information [facility]: [address] [place], [place] [id number] [phone] Test Performed Below is a partial list of the tests performed during your Visit. You may have had other tests and procedures not included in this list. Please discuss all test results with your provider. Lipid Panel Non Fasting?-- Results Pending -- POC GLUCOSE ([facility]) POC HBA1C ([facility]) Renal Panel (10)?-- Results Pending -- Urine Microalbumin?-- Results Pending -- Lab Test Results Below is a partial list of the most recent Laboratory test results done during your Visit. You may have had other tests and procedures not included in this list. Please discuss all test results with your provider. Test Name Test Result Date/Time POC Glucose ([facility]) 131 mg/dL 11/08/2024 12:00 EST POC HBA1C ([facility]) 8.1 % 11/08/2024 12:01 EST Medications and Immunizations Administered Medications Given During Visit No medications given during this visit.?? Allergies (NKA means No Known Allergies) Trulicity Pen ondansetron??(Stomach pain) Common Emergency Awareness Tips IS IT A STROKE? Act FAST and Check for these signs: FACE Does the face look uneven? ARM Does one arm drift down? SPEECH Does their speech sound strange? TIME Call at any sign of stroke ?? Heart Attack Signs Chest discomfort: Most heart attacks involve discomfort in the center of the chest and lasts more than a few minutes, or goes away and comes back. It can feel like uncomfortable pressure, squeezing, fullness or pain. Discomfort in upper body: Symptoms can include pain or discomfort in one or both arms, back, neck, jaw or stomach. Shortness of breath: With or without discomfort. Other signs: Breaking out in a cold sweat, nausea, or lightheaded. Remember, MINUTES DO MATTER. If you experience any of these heart attack warning signs, call to get immediate medical attention! ?? Smoking can increase your chances of developing chronic health problems and can cause harmful effects to other family members in your house. If you smoke, you are strongly encouraged to quit. Please call [employer] [facility] at [phone] or [phone] ([phone]) or log in to [email or web address] for referrals to smoking cessation programs. ?? The National Suicide Prevention Hotline is available 21/04 if you or someone you know needs to find a reason to keep living. By calling 3-886-581-Treatspace (7056) you'll be connected to a skilled, trained counselor at a crisis center in your area. [facility] You can view and manage your care through the patient portal or by using a health care iker of your choosing. [employer] is a website that allows you to securely view your medical information including your hospital discharge summary, office visit summaries, medications and follow-up visits. You can also request appointments, renew medications, and request access to your medical information using a health care iker of your choosing, or just ask a question. You can enroll at [email or web address] or register during your next office visit. [facility], in keeping with [facility] guidance, no longer requires face masks for staff, patientsor visitors in most situations. Similiar to time spent indoors at other locations, there is the chance that you were exposed to repiratory viruses during your time with us (such as flu or COVID-19). If you develop symptoms concerning for a viral respiratory infection, please seek testing (and treatment if indicated) from your medical provider or home test kit. ?? Disclaimer: The information provided is of a general nature and is intended to be used in conjunction with the recommendations and advice of your health care practitioner. Every effort has been made to ensure that the information provided is accurate and complete at the time it is provided to you however, as your needs change, or, as new information becomes available, different or additional instructions may be required. ?? If you have questions, please consult with your primary care provider or pharmacist, as appropriate. This information is not intended to serve as substitution for assessment and evaluation by a qualified health care provider. If you do not have a primary care provider, you may find a [facility] provider by calling [facility] at [phone]. Patient Care team information Care Team Personnel Name: Alvin Rizo MD , Salima Bryant Position: Reference Physician Member Role: PCP Address: [address] [place] [address] [address] [place] [address] Telecom: Care Team Related Persons Name: AIDE VICTOR Insurance Providers Guarantor name: CAYDEN Health Plan Information #: 1 Payer: [facility] [employer] Member Number: [id number] Policy Number: NA Group Number: NA Health Plan Information #: 2 Payer: [facility] [employer] Member Number: [id number] Policy Number: NA Group Number: [id number]
--- OUTSIDE RECORDS SUMMARY | 2024-11-24 19:42 | XMS_ITS | Clinical Summary ---
Author Organization [facility] Address [address] [place] [address] Care Team Providers Care Household Appliances Service Technician Name Role Phone Salima Rizo MD Primary Care Provider Social History Tobacco Use Types Packs/Day Years Used Date Smoking Tobacco: Never Assessed Sex and Gender Information Value Date Recorded Sex Assigned at Not on file Legal Sex Male 5:36 AM EST Gender Identity Not on file Sexual Orientation Not on file Plan of Treatment Health Maintenance Due Date Last Done Comments DTaP,Tdap,and Td Vaccines (1 - Tdap) 1984 Hepatitis B Vaccines (1 of 3 - 19+ 3-dose series) 1984 Pneumococcal Vaccine: 50+ Ye ars (1 of 1 - PCV) 2015 Zoster [...] patient's age to complete this topic Meningococcal B Vacine Aged Out No lo nger eligible based on patient's age to complete [...] age to complete this topic Care Teams Household Appliances Service Technician Relationship Specialty Start Date End Date Salima Rizo MD [address] [place] [address] , [address] [facility]: [facility] [place], [place] PCP - General Internal Medicine 05/20/18
--- OUTSIDE RECORDS SUMMARY | 2024-11-24 19:42 | XMS_ITS | Clinical Summary ---
Author Organization [facility] Address [address] [place] [address] Phone Care Team Providers Care Healthcare Representative Name Role Phone Salima Rodney MD Primary Care Provider [phone] Allergies Active Allergy Reactions Criticality Noted Date [...] 1 Active ergocalciferol (VITAMIN D2) 1.25 MG (69387 UT) capsule TOME 1 C PSULA POR [...] [place] Care Teams Healthcare Representative Relationship Specialty Start Date End Date Salima Rodney MD [address] [place], [place] PCP - General 10/09/20
--- OUTSIDE RECORDS SUMMARY | 2024-11-24 19:42 | XMS_ITS | Encounter Summary ---
Author Organization [employer] Address [address] [place] [address] Care Team Providers Care Electroencephalograph Technologist Name Role Phone Unavailable Primary Care Provider Unavailabl e Encounter Details Date Type Department Care Team (Late st Contact Info) Description 09/19/[address] [facility] [address] [place] [address] Dashawn Avery DDS [address] [place] [address] Social History Tobacco Use Types Packs/Day Years [...]
--- OUTSIDE RECORDS SUMMARY | 2024-11-24 19:42 | XMS_ITS | Encounter Summary ---
Author Organization [employer] Address [address] [place] [address] Care Team Providers Care Mental Health Professional Name Role Phone Unavailable Primary Care Provider Unavailabl e Encounter Details Date Type Department Care Team (Late st Contact Info) Description 11/29/[address] [facility] [address] [place] [address] Chau Gatito, DMD [address] [place] [address] Social History Tobacco Use Types Packs/Day Years [...]
== END 2024-11-24 16:37 | disposition home or self-care (01) ==
PROVIDERS: PCP Internal Medicine; Visit Provider Nurse Practitioner Family
DX: Z80.42 Family history of malignant neoplasm of prostate (principal); E11.69 Type 2 diabetes mellitus with other specified complication; N52.1 Erectile dysfunction due to diseases classified elsewhere; N20.0 Calculus of kidney
CPT/HCPCS: 99213; G2211

== ENCOUNTER → 2024-11-24 16:20 | Outpatient (BNVA) | payer OTHER, SELFPAY | PROVIDERS: PCP Internal Medicine; Visit Provider Nurse Practitioner Family | DX: E11.69 Type 2 diabetes mellitus with other specified complication (principal); N52.1 Erectile dysfunction due to diseases classified elsewhere; N20.0 Calculus of kidney; Z80.42 Family history of malignant neoplasm of prostate | CPT/HCPCS: 99212 ==

== ENCOUNTER 2025-02-09 15:52 | Outpatient (AMB) | payer OTHER, SELFPAY ==
--- OUTSIDE RECORDS SUMMARY | 2025-02-09 15:54 | XMS_ITS | Clinical Summary ---
Author Organization [employer] [facility] ity Address [address] [place] [address] Care Team Providers Care Clinical Phlebotomist Name Role Phone Salima Rizo MD Primary Care Provider [phone] Social History Tobacco Use Types Packs/Day Years [...] - 2023-2 5 season) 2024 Influenza Vaccine (Season Ended) 2025 RSV Immunization Adult Patie nts (1 - 1-dose 75+ series) 2040 HIB [...] age to complete this topic Meningococcal B Vaccine Aged Out No l onger eligible based on patient's age to complete [...] age to complete this topic Care Teams Clinical Phlebotomist Relationship Specialty Start Date End Date Salima Rizo MD [address] [place] [address] , [address] [facility] D/B/A: [facility] VIRAJ Quesada PCP - General Internal Medicine 05/20/18
--- OUTSIDE RECORDS SUMMARY | 2025-02-09 15:54 | XMS_ITS | Encounter Summary ---
Author Organization [employer] Address [address] 7[address] [place] [address] Care Team Providers Care Professional Housing Consultant Name Role Phone Unavailable Primary Care Provider Unavailabl e Encounter Details Date Type Department Care Team (Late st Contact Info) Description 11/29/2022 Abstract [facility] ADULT D[facility]AL [address] [place] [address] ChauGatito goetz, DMD [address] [place] [address] Social History Tobacco Use Types Packs/Day Years [...]
--- OUTSIDE RECORDS SUMMARY | 2025-02-09 15:54 | XMS_ITS | Encounter Summary ---
Author Organization [employer] Address [address] [facility] 7t [place] [address] Care Team Providers Care Senior Integration Developer Name Role Phone Unavailable Primary Care Provider Unavailabl e Encounter Details Date Type Department Care Team (Late st Contact Info) Description 09/19/2022 Abstract [facility] ADULT DENTAL [address] [place] [address] Dashawn Avery DDS [address] [place], [place] [id number] Social History Tobacco Use Types Packs/Day Years [...]
--- OUTSIDE RECORDS SUMMARY | 2025-02-09 15:55 | XMS_ITS | Clinical Summary ---
Author Organization [facility] Address [address] [place] [address] Phone Care Team Providers Care Preventive Maintenance Engineer Name Role Phone Salima Rodney MD Primary Care Provider [phone] Allergies Active Allergy Reactions Criticality Noted Date [...] 1 Active ergocalciferol (VITAMIN D2) 1.25 MG (90386 UT) capsule TOME 1 C PSULA POR [...] Health Maintenance Due Date Last Done Comments Hepatitis B Vaccine (1 of 3 - 19+ 3-dose series) 09/07 Colorectal Cancer Screening: Annual FOBT 2014 Colorectal Cancer Screening: Colonoscopy 2014 Colorectal Cancer Screening: Sigmoidoscopy 2014 Pneumococcal Vaccine: 50+ Years (1 of 1 - PCV) 015 Influenza Vaccine (Season Ended) 2025 Insurance Medicare Medicaid [place] Medicare Medicaid [place] Care Teams Preventive Maintenance Engineer Relationship Specialty Start Date End Date Salima Rodney MD [address] [place], [place] PCP - General 10/09/20
--- OUTSIDE RECORDS SUMMARY | 2025-02-09 15:55 | XMS_ITS | Clinical Summary ---
Author Organization [employer] Address [address] [place] [address] 7t [place] [address] Care Team Providers Care Pollution Control Technician Name Role Phone Unavailable Primary Care Provider Unavailabl e Allergies Active Allergy Reactions Criticality Noted Date Comments Ondansetron High 02/18/2014 Other reaction(s): Other (see comments) Dulaglutide Rash Low 11/20/2022 Medications ibuprofen 600 MG tabletIndicatio ns:Full pentecostalism of crown of tooth needed due to [...] per sliding scale. max daily dose 66 dainaQ69.9, # 30 mL, 3 Refills, Maintenance, 11/24/23 9:50:00 EST, Injection, [id number], Partial fill upon patient request if the... [...] patient's age to complete this topic Insurance [facility]
--- NOTE | 2025-02-09 15:59 | A.OFFVIS_ITS ---
Vital Signs 02/09/25 16:03 Height 5 ft 10 in Weight 205 lb BMI 29.4 BP 132/74 Blood Pressure Location Rt brachial Position Sitting Pulse 68 Pulse Source Pulse Oximeter Pulse Oximetry (%) 97 Oxygen Delivery Method Room Air Intake Visit Reasons: Follow up GERD, CIC Intake Note: ESTABLISHED PATIENT for mgmt of GERD + CIC. CC; Pt denies any GI sx or concerns. Medications working OK. Pt does report a concern regarding his kidneys? Continuous Washer Operator was unable to verify this information with him. Continuous Washer Operator Required: Yes Continuous Washer Operator Services: Continuous Washer Operator Present Continuous Washer Operator Name: Harriett [id number] Information Interpreted: clinical only Accompanied by: Self / Same As Patient Allergies dulaglutide [Trulicity] Allergy (Intermediate, Verified 02/09/25 16:30) cyst ondansetron [ONDANSETRON] Allergy (Intermediate, Verified 02/09/25 16:30) stomach pain semaglutide [From Ozempic] Adverse Reaction (Unknown, Verified 02/09/25 16:30) Heartburn HPI HPI Follow up GERD, CIC: Details: Assessment & Plan (1) GERD (gastroesophageal reflux disease): Code(s): K21.9 - Gastro-esophageal reflux disease without esophagitis Category: Medical Qualifiers: Esophagitis presence: esophagitis presence not specified Qualified Code(s): K21.9 - Gastro-esophageal reflux disease without esophagitis (2) Chronic idiopathic constipation: Code(s): K59.04 - Chronic idiopathic constipation Category: Medical Plan [place] #[employer] His pain under the ribs and CIC is not well controlled by reducing the Linzess to 72 micro g we can take it every day. The starting and stopping was clearly what was causing his pain. Now his problem is that he is having a lot of heartburn particularly at night especially if he eats any continence. This is likely a function of the constipation along with the fact that he is on Ozempic. He is not taking any acid reducing medication so will start him on pantoprazole once a day and titrate to affect her side effect. Return office visit next available. Medications: New pantoprazole (Protonix) 40 mg PO DAILY 30 tabs 6RF 30 days K21.9 - Gastro- esophageal reflux disease without esophagitis Discontinued linaclotide (Linzess) Discontinued Reason: Doctor's Order 290 mcg PO QAM 30 days 30 TODAY'S VISIT He was taken off of the Ozempic, and all of his GI problems have resolved. He no longer is taking the pantoprazole or the Linzess. Since we are no longer prescribing, he really only needs to follow up prn. [facility] Medical History (Updated 02/09/25 @ 16:44 by BARRINGTON Kline) Right flank pain Back pain Screening for STD (sexually transmitted disease) Preop cardiovascular exam Family history of prostate cancer Carpal tunnel syndrome Paresthesia of hand, bilateral Vertebrogenic low back pain Leg pain Hospital discharge follow-up Varicose veins of right lower extremity with inflammation Sebaceous cyst of right axilla Tubular adenoma of colon Glucosuria Pre-op examination Physical exam Right hand pain Family history of colon cancer Radiculopathy, lumbar region Spondylosis, lumbar, with myelopathy Disc degeneration, lumbar Balanitis Lumbar pain Constipation Severe major depression without psychotic features Erectile dysfunction associated with type 2 diabetes mellitus HTN (hypertension) Precordial chest pain Unsteady gait Chest pain Fibromyalgia Serum calcium elevated IBS (irritable bowel syndrome) Right leg pain Kidney stones GERD (gastroesophageal reflux disease) Type 2 diabetes mellitus with hyperglycemia Type 2 diabetes mellitus with diabetic polyneuropathy Hyperlipidemia LDL goal <100 Vitamin D deficiency Surgical History H/O colonoscopy History of eye surgery Family History Father Colon cancer, Onset Age: 50 Stroke Prostate cancer Mother Hypertension Diabetes Dementia Family/Other FH: mental illness Social History Household Members: None Housing: Apartment Are you a primary acute care physical therapist to a significant other at home: No Do you presently have visiting nurse or other home services: Yes (CENTRAL OFFICE MECHANIC) Alcohol intake: former Patient Tobacco Use Status: Never used Tobacco e-Cigarette/Vaping Use: Never Used Second Hand Smoke Exposure: No service: No Current occupational status: disabled Cognitive needs: Yes (cane/walker) Hearing needs: No Vision needs: Yes (glasses) Review of Systems Const Denies fatigue, Denies fever(s), Denies night sweats, Denies poor appetite and Denies weight loss ENT Reports Normal hearing present, Denies dental pain, Denies dysphagia, Denies hearing loss, Denies mouth pain, Denies odynophagia, Denies throat swelling, Denies tongue swelling and Reports other (Dentition adequate) Card Reports no additional complaints Resp Reports no additional complaints GI Details: Denies abdominal pain, Denies melena, Denies bloating, Denies hematochezia, Denies constipation, Denies GI cramping, Denies dysphagia, Denies excessive flatus, Denies early satiety, Denies heartburn, Denies diarrhea, Denies nausea, Denies odynophagia, Denies vomiting and Denies hematemesis Skin/Breast Denies pruritus, Denies lesions, Denies rash and Denies jaundice Neuro Reports Normal hearing present and Denies Abnormal speech present Endo Denies fatigue Aller/Immun Denies throat swelling and Denies tongue swelling Physical Exam Const General: cooperative, no acute distress, well developed and well groomed Nutritional Appearance: average body habitus and well nourished Orientation/consciousness: oriented to person, oriented to place and oriented to time Limitations: language barrier HEENT Head: Yes normocephalic and Yes atraumatic Eyes General: appearance normal, both eyes and all related structures Pupils: Equal, round and reactive pupils present Neck Neck: Yes normal visual inspection and Yes no lymphadenopathy Thyroid: Thyroid normal Resp Effort & Inspection: normal respiratory effort and able to speak in complete sentences Auscultation: clear to auscultation bilaterally Cardio Rate: regular rate Rhythm: regular rhythm Heart sounds: Normal, physiologic split S2 sound present Peripheral pulses: radial pulses present and posterior tibial pulses present GI Inspection: No distended and No Abdominal panniculus present Palpation (GI): Soft to palpation, nontender, no guarding, not rigid and No hepatosplenomegaly present Percussion: Yes normal to percussion Auscultation: normal bowel sounds Rectal Exam - Male: Yes deferred Skin General skin exam: no rashes or lesions noted, turgor normal, skin not dry, no jaundice, No spider nevi and no striae Rashes: no rashes Nails: normal Neuro General: oriented to person, oriented to place and oriented to time Cranial nerves: Yes Equal, round and reactive pupils present and Yes Normal hearing present Speech: No Abnormal speech present Extrem General: Yes normal to inspection, No clubbing, No cyanosis and No edema Psych Appearance: grossly normal and well kempt Mental Status: mental status grossly normal Speech and movement: Normal speech and movement present Affect: normal affect Attitude: cooperative Thought process: Normal thought process present and not confabulating Thought content: Normal thought content present Insight: Good insight present (Psych) Judgement: Good judgement present (Psych) Assessment & Plan Assessment & Plan (1) Chronic idiopathic constipation: Comment: Appears driven by Ozempic use, resolved Code(s): K59.04 - Chronic idiopathic constipation Category: Medical (2) GERD (gastroesophageal reflux disease): Comment: Appears was driven by Ozempic use resolved Code(s): K21.9 - Gastro-esophageal reflux disease without esophagitis Category: Medical Qualifiers: Esophagitis presence: esophagitis presence not specified Qualified Code(s): K21.9 - Gastro-esophageal reflux disease without esophagitis Plan He was taken off of the Ozempic, and all of his GI problems have resolved. He no longer is taking the pantoprazole or the Linzess. Since we are no longer prescribing, he really only needs to follow up prn. Coding Level of Care Code Est Pt Level 3 (65361) Diagnoses Chronic idiopathic constipation K59.04 Gastroesophageal reflux disease, unspecified whether esophagitis present K21.9 Esophagitis presence: esophagitis presence not specified
[2025-02-09 16:03] VITALS: BP 132/74; PULSE 68; O2SAT 97; BMI 29.4
== END 2025-02-09 16:45 | disposition home or self-care (01) ==
LOC: HO.HGI 15:52
PROVIDERS: PCP Internal Medicine; Visit Provider Nurse Practitioner
DX: K59.04 Chronic idiopathic constipation (principal); K21.9 Gastro-esophageal reflux disease without esophagitis
CPT/HCPCS: 99213

== ENCOUNTER → 2025-02-09 15:52 | Outpatient (BNVA) | payer OTHER, SELFPAY | PROVIDERS: PCP Internal Medicine; Visit Provider Nurse Practitioner | DX: K59.04 Chronic idiopathic constipation (principal); K21.9 Gastro-esophageal reflux disease without esophagitis | CPT/HCPCS: 99212 ==

== ENCOUNTER 2025-02-15 09:02 | Outpatient (REF) | payer OTHER, SELFPAY ==
--- OUTSIDE RECORDS SUMMARY | 2025-02-15 09:42 | XMS_ITS | Encounter Summary ---
Author Organization [employer] Address [address] [facility] 7t [place] [address] Care Team Providers Care Analysis Director Name Role Phone Unavailable Primary Care Provider Unavailabl e Encounter Details Date Type Department Care Team (Late st Contact Info) Description 09/19/2022 Abstract [facility] ADULT DENTAL [address] [place] [address] Dashawn Avery DDS [address] [place] [address] Social History Tobacco Use Types Packs/Day Years [...]
--- OUTSIDE RECORDS SUMMARY | 2025-02-15 09:42 | XMS_ITS | Clinical Summary ---
Author Organization [employer] Address [address] [place] [address] 7t [place] [address] Care Team Providers Care Communication Electronic Technician Name Role Phone Unavailable Primary Care Provider Unavailabl e Allergies Active Allergy Reactions Criticality Noted Date Comments Ondansetron High 02/18/2014 Other reaction(s): Other (see comments) Dulaglutide Rash Low 11/20/2022 Medications ibuprofen 600 MG tabletIndicatio ns:Full faith of crown of tooth needed due to [...] per sliding scale. max daily dose 66 xtarrB26.9, # 30 mL, 3 Refills, Maintenance, 11/24/23 9:50:00 EST, Injection, [id number], Partial fill upon patient request if the... [...] Panel 1965 SDOH Screening 1965 Sigmoidoscopy 1965 Disability Screening 1965 Alcohol/Substance Use Screening 1977 Hepatitis C [...] to complete this topic Insurance DENTAL - [facility]
--- OUTSIDE RECORDS SUMMARY | 2025-02-15 09:42 | XMS_ITS | Encounter Summary ---
Author Organization [employer] Address [address] [place] [address] Care Team Providers Care Kaiawhina Kohanga Reo Name Role Phone Unavailable Primary Care Provider Unavailabl e Encounter Details Date Type Department Care Team (Late st Contact Info) Description 11/29/2022 Abstract [facility] ADULT DENTAL [address] [place] [address] Gatito Ritchie, DMD [address] [place] [address] Social History Tobacco Use Types Packs/Day Years [...]
--- OUTSIDE RECORDS SUMMARY | 2025-02-15 09:42 | XMS_ITS | Clinical Summary ---
Author Organization [employer] [facility] ity Address [address] [place] [address] Care Team Providers Care Sprinkler Fitter Apprentice Name Role Phone Salima Rizo MD Primary Care Provider [phone] Social History Tobacco Use Types Packs/Day Years [...] age to complete this topic Care Teams Sprinkler Fitter Apprentice Relationship Specialty Start Date End Date Salima Rizo MD [address] [place] [address] , [address] [facility] D/B/A: [facility] VIRAJ Quesada PCP - General Internal Medicine 05/20/18
--- OUTSIDE RECORDS SUMMARY | 2025-02-15 09:42 | XMS_ITS | Clinical Summary ---
Author Organization [facility] Address [address] [place] [address] Phone Care Team Providers Care Teller Name Role Phone Salima Rodney MD Primary Care Provider Allergies Active Allergy Reactions Criticality Noted Date [...] 1 Active ergocalciferol (VITAMIN D2) 1.25 MG (79592 UT) capsule TOME 1 C PSULA POR [...] Medicaid [place] Care Teams Teller Relationship Specialty Start Date End Date Salima Rodney MD [address] [place], [place] PCP - General 10/09/20
== END 2025-02-15 09:03 | disposition home or self-care (01) ==
LOC: HO.LAB 09:02
PROVIDERS: PCP Internal Medicine; Visit Provider Internal Medicine
DX: Z13.89 Encounter for screening for other disorder (principal)

== ENCOUNTER 2025-02-16 15:59 | Outpatient (AMB) | payer OTHER, SELFPAY ==
--- OUTSIDE RECORDS SUMMARY | 2025-02-16 16:01 | XMS_ITS | Clinical Summary ---
Author Organization [employer] [facility] ity Address [address] [place] [address] Care Team Providers Care Gusset Edger Name Role Phone Salima Rizo MD Primary Care Provider [phone] Social History Tobacco Use Types Packs/Day Years [...] age to complete this topic Care Teams Gusset Edger Relationship Specialty Start Date End Date Salima Rizo MD [address] [place] [address] , [address] [facility] D/B/A: [facility] VIRAJ Quesada PCP - General Internal Medicine 05/20/18
--- OUTSIDE RECORDS SUMMARY | 2025-02-16 16:02 | XMS_ITS | Clinical Summary ---
Author Organization [facility] Address [address] [place] [address] Phone Care Team Providers Care Ethanol Operations Manager Name Role Phone Salima Rodney MD Primary Care Provider [phone] Allergies Active Allergy Reactions Criticality Noted Date [...] 1 Active ergocalciferol (VITAMIN D2) 1.25 MG (47176 UT) capsule TOME 1 C PSULA POR [...] Medicaid [place] Medicare [place] Care Teams Ethanol Operations Manager Relationship Specialty Start Date End Date Salima Rodney MD [address] [place], [place] PCP - General 10/09/20
--- NOTE | 2025-02-16 16:44 | A.OFFPC_ITS ---
Vital Signs 02/16/25 16:49 Height 5 ft 10 in Weight 209 lb BMI 30.0 BP 170/100 H Blood Pressure Location Lt brachial Position Sitting Intake Visit Reasons: 4 month DM Intake Note: Patient here for a 4 month follow up DM General Assignment Reporter Required: No Accompanied by: Self / Same As Patient Allergies dulaglutide [Trulicity] Allergy (Intermediate, Verified 02/16/25 20:31) cyst ondansetron [ONDANSETRON] Allergy (Intermediate, Verified 02/16/25 20:31) stomach pain semaglutide [From Ozempic] Adverse Reaction (Unknown, Verified 02/16/25 20:31) Heartburn Medication List - Last Reconciled 02/16/25 by Salima Rizo MD [adult diapers pull-ups As directed] albuterol sulfate 2.5 mg (3 mL) inhalation Q4-6H PRN 30 days ascorbic acid (vitamin C) 1 g PO DAILY 90 days atorvastatin 80 mg PO DAILY [bed rail As directed] blood pressure monitor (Blood Pressure Kit) As directed chlorpromazine 200 mg PO BEDTIME PRN cholecalciferol (vitamin D3) 50 mcg PO DAILY clonidine HCl 0.1 mg PO BEDTIME PRN commode As directed cyclobenzaprine 10 mg PO TID PRN 30 days [diabetic shoes As directed] empagliflozin (Jardiance) 25 mg PO QAM 90 days flash glucose scanning reader (FreeStyle Kevin 14 Day Garrett) As directed flash glucose sensor (FreeStyle Kevin 14 Day Sensor kit) 1 ea topical Q2W gabapentin 800 mg PO DAILY [handheld shower As directed] hydrocortisone 2.5% 1 appl topical BID PRN hydroxyzine pamoate 25 mg PO DAILY insulin aspart U-100 (Novolog FlexPen U-100 Insulin aspart) 4 - 10 units (0.04 - 0.1 mL) subcut TID insulin glargine U-300 conc (Toujeo Max U-300 SoloStar) 50 units subcut BEDTIME linaclotide (Linzess) 72 mcg PO DAILY PRN lisinopril 5 mg PO DAILY meloxicam 15 mg PO DAILY metformin 1,000 mg PO DAILY nebulizers (AeroEclipse II Nebulizer) As directed nystatin 1 appl topical DAILY PRN pen needle, diabetic (BD Ultra-Fine Diana Pen Needle) As directed four times a day [pill box 2 day capacity As directed] prazosin mg PO DAILY prednisolone acetate 1% 1 drp ophthalmic (eye) DAILY PRN sennosides (Senna Lax) 8.6 mg PO BEDTIME 90 days sertraline 100 mg PO DAILY 90 days [step stool for bed As directed] tadalafil 10 mg PO DAILY 90 days timolol maleate 0.5% 1 drp ophthalmic (eye) DAILY PRN [toilet seat elevator As directed] tramadol 50 mg PO DAILY PRN 90 days Transfer Bench As directed trazodone 150 mg PO BEDTIME underpads (Bed Underpads) As directed walker As directed [wipes As directed] ziprasidone HCl mg PO Tobacco use date assessed: 09/30/24 Dental Screening Dental Screen Date: 09/30/24 HPI HPI Comments History of Present Illness Details The patient is a 59-year-old male presenting with a follow-up for management of hypertension, hyperlipidemia, and diabetes mellitus. He is experiencing significant issues with blood pressure control, recently documented at 170/100 mmHg, which presents a remarkable increase from previous readings of 132/74 mmHg. Concurrently, his diabetes management reflects deterioration, with a Hemoglobin A1c level of 10.1%. The patient has been managing his conditions with various medications, adjusting doses for better control, such as the increase of insulin from 50 to 53 units due to poor glycemic control. His lipid panel was reportedly within goal during a check in September, and cholesterol management continues with atorvastatin 80 mg. The patient has noted specific adverse reactions to certain medications, notably stomach pain with Ondansetron, acidity with Semaglutide, and an allergic reaction to Dulaglutide. Adjustments such as increasing lisinopril to 10 mg have been implemented for hypertension. Has polio osteopathy of lower leg. [facility] Medical History Right flank pain Back pain Screening for STD (sexually transmitted disease) Preop cardiovascular exam Family history of prostate cancer Carpal tunnel syndrome Paresthesia of hand, bilateral Vertebrogenic low back pain Leg pain Hospital discharge follow-up Varicose veins of right lower extremity with inflammation Sebaceous cyst of right axilla Tubular adenoma of colon Glucosuria Pre-op examination Physical exam Right hand pain Family history of colon cancer Radiculopathy, lumbar region Spondylosis, lumbar, with myelopathy Disc degeneration, lumbar Balanitis Lumbar pain Constipation Severe major depression without psychotic features Erectile dysfunction associated with type 2 diabetes mellitus HTN (hypertension) Precordial chest pain Unsteady gait Chest pain Fibromyalgia Serum calcium elevated IBS (irritable bowel syndrome) Right leg pain Kidney stones GERD (gastroesophageal reflux disease) Type 2 diabetes mellitus with hyperglycemia Type 2 diabetes mellitus with diabetic polyneuropathy Hyperlipidemia LDL goal <100 Vitamin D deficiency Surgical History H/O colonoscopy History of eye surgery Family History Father Colon cancer, Onset Age: 50 Stroke Prostate cancer Mother Hypertension Diabetes Dementia Family/Other FH: mental illness Social History Household Members: None Housing: Apartment Are you a primary child day care center worker to a significant other at home: No Do you presently have visiting nurse or other home services: Yes ([employer]) Alcohol intake: former Patient Tobacco Use Status: Never used Tobacco e-Cigarette/Vaping Use: Never Used Second Hand Smoke Exposure: No service: No Current occupational status: disabled Cognitive needs: Yes (cane/walker) Hearing needs: No Vision needs: Yes (glasses) Questionnaire PHQ-9 Over the last 2 weeks, how often have you been bothered by any of the following problems? 1. Little interest or pleasure in doing things: more than half the days 2. Feeling down, depressed, or hopeless: several days 3. Trouble falling or staying asleep, or sleeping too much: nearly every day 4. Feeling tired or having little energy: more than half the days 5. Poor appetite or overeating: more than half the days 6. Feeling bad about yourself - or that you are a failure or have let yourself or your family down: not at all 7. Trouble concentrating on things, such as reading the newspaper or watching television: more than half the days 8. Moving or speaking so slowly that other people could have noticed. Or the opposite - being so fidgety or restless that you have been moving around a lot more than usual: more than half the days 9. Thoughts that you would be better off or of hurting yourself in some way: not at all Total score: 14 Depression Screening Interpretation: Positive (no suicidal thoughts) Depression Screening Follow-up: Existing condition, In treatment, Community Mental Health Worker F/U and Follow-up Visit Requested Depression Screening Done: Yes 17495 - PHQ-9 Billing: Yes Source: Developed by Drs. Arya Griffin, Delphine Kelley, Boris Aguilera and colleagues, with an educational ifrah from [employer]. Thrive Questionnaire Date Thrive assessed: 09/30/24 I am a: Patient What is your living situation today?: I have a steady place to live Within the past 12 months, did the food you bought not last and you didn't have the money to get more?: Often true Within the past 12 months, did you worry whether your food would run out before you got money to buy more?: Sometimes True Do you have trouble paying for medicines?: No Do you have trouble getting transportation to medical appointments?: No Do you have trouble paying your heating and electricity bill?: No Do you have trouble taking care of your child, family member or friend?: Yes Do you have trouble with day-to-day activities such as bathing, preparing meals, shopping, managing finances, etc.?: I choose not to answer this question Are you currently unemployed and looking for a job?: Yes Are you interested in more education?: I choose not to answer this question Please select the resources that you would like help with: Food, Utilities and Daily support Currently or been in a relationship where the following occur: I choose not to answer THRIVE Score: 2 AUDIT C Alcohol Use Questionnaire (AUDIT-C) 1. How often do you have a drink containing alcohol?: 2-3 times a week 2. How many drinks containing alcohol do you have on a typical day when you are drinking?: 3 or 4 3. How often do you have six or more drinks on one occasion?: Monthly Total Score: 6 GRAHAM-7 AMB Questionnaire GRAHAM-7 Date GRAHAM - 7 assessed: 09/30/24 Feeling nervous, anxious, or on edge: 1 = Several days Not being able to stop or control worryin = More than half the days Worrying too much about different things: 2 = More than half the days Trouble relaxin = Several days Being so restless that it is hard to sit still: 1 = Several days Becoming easily annoyed or irritable: 0 = Not at all Feeling afraid as if something awful might happen: 2 = More than half the days Total GRAHAM-7 score (0-4 normal; 5-9 mild; 10-14 moderate; 15-21 severe): 9 Source: Developed by Drs. Arya Griffin, Delphine Kelley, Boris Aguilera and colleagues, with an educational ifrah from [employer]. GRAHAM-7 Assessment Billing GRAHAM-7 Assessment Tool: GRAHAM-7 Assessment 04316 Review of Systems Const All systems reviewed & are unremarkable except as noted in HPI and below Card Denies chest pain at rest, Denies chest pain with activity, Denies edema, Denies irregular heart rhythm, Denies claudication, Denies dyspnea, Denies dyspnea on exertion, Denies orthopnea, Denies paroxysmal nocturnal dyspnea and Denies slow heart rate Resp Denies cough, Denies dyspnea and Denies dyspnea on exertion Musc Denies atrophy, Denies deformity and Denies limited range of motion Physical exam (Primary Care) Vital Signs: Last Vital Signs BP 170/100 H 02/16/25 16:49 BMI result Body Mass Index 30.0 Tobacco/Smoking Status: Tobacco use Status Tobacco use date assessed 09/30/24 02/16/25 16:47 Patient Tobacco Use Status Never used Tobacco 02/16/25 16:47 e-Cigarette/Vaping Use Never Used 02/16/25 16:47 PHQ-9: PHQ-9 Score PHQ-9: Total score 14 02/16/25 17:16 Depression Screening Interpretation: Positive (no suicidal thoughts) Depression Screening Follow-up: Existing condition, In treatment, Community Mental Health Worker F/U and Follow-up Visit Requested Thrive Assessment: Date of Thrive Assessment Date Thrive assessed 09/30/24 02/16/25 16:47 Currently or been in a relationship where the following occur: I choose not to answer Resp Effort & Inspection: normal respiratory effort Auscultation: clear to auscultation bilaterally Cardio Jugular venous distension: no JVD Rate: regular rate Rhythm: regular rhythm Heart sounds: S1 normal heart sound present and S2 normal heart sound present Extrem General: Yes full ROM Psych Appearance: grossly normal Results AMB Hemoglobin A1c AMB Hemoglobin A1c 10.1 % Last Edit by ALEXUS Watkins on 02/16/25 16: 57 Results Reviewed Results Reviewed: Laboratory Last Values Hgb A1c (Clinic) 10.1 % (4.0-6.0) H 02/16/25 16:20 Coding Level of Care Code Est Pt Level 4 (46405) Complex EM visit Add On G2211 Diagnoses Polio osteopathy of lower leg M89.669; B91 Mild major depression F32.0 Type 2 diabetes mellitus with hyperglycemia, with long-term current use of insulin E11.65; Z79.4 Diabetes mellitus complication status: with hyperglycemia Hyperlipidemia LDL goal <70 E78.5 Essential hypertension I10 Hypertension type: essential hypertension Additional Codes GRAHAM-7 Assessment Billing - GRAHAM-7 Assessment Tool: GRAHAM-7 Assessment 01543 ([id number]) PHQ-9 - 33549 - PHQ-9 Billing: Yes ([id number]) Time Spent (min) 23 Assessment & Plan Assessment & Plan (1) Polio osteopathy of lower leg: Code(s): M89.669 - Osteopathy after poliomyelitis, unspecified lower leg; B91 - Sequelae of poliomyelitis Category: Medical (2) Mild major depression: Code(s): F32.0 - Major depressive disorder, single episode, mild Category: Medical (3) Type 2 diabetes mellitus, with long-term current use of insulin: Code(s): E11.9 - Type 2 diabetes mellitus without complications; Z79.4 - group home (current) use of insulin Category: Medical Qualifiers: Diabetes mellitus complication status: with hyperglycemia Qualified Code(s): E11.65 - Type 2 diabetes mellitus with hyperglycemia; Z79.4 - group home (current) use of insulin (4) Hyperlipidemia LDL goal <70: Code(s): E78.5 - Hyperlipidemia, unspecified Category: Medical (5) HTN (hypertension): Code(s): I10 - Essential (primary) hypertension Category: Medical Qualifiers: Hypertension type: essential hypertension Qualified Code(s): I10 - Essential (primary) hypertension Plan Insulin dosage has been adjusted from 50 to 53 units. The patient will continue atorvastatin for hyperlipidemia given stable results. He is cautioned about rebound hypertension with clonidine and advised on medication tolerances. Follow-up with endocrinology is advised for further diabetic management.: Patient was informed and verbally consented to the use of an ambient scribe for clinic note documentation during this visit. I discussed with the patient the need to closely monitor his blood pressure and diabetes due to recent elevated readings. He was informed about the rationale for increasing the lisinopril dosage and adjusting insulin to improve control over his diabetes. We discussed the adverse reactions to certain medications and the importance of ongoing monitoring, particularly regarding the impact of clonidine on blood pressure control. I explained the necessity of an endocrinology consult due to his rising A1c levels. The importance of attending his upcoming October urology appointment was also highlighted. We did not discuss any surgical interventions or preoperative planning beyond the general mention of needing labs. Orders: Orders AMB Hemoglobin A1c Today E11.65 - Type 2 diabetes mellitus with hyperglycemia, Z79.4 - group home (current) use of insulin Vitamin D 25-OH Total 4 Months E55.9 - Vitamin D deficiency, unspecified Vitamin B12 and Folate 4 Months E53.8 - Deficiency of other specified B group vitamins Lipid Panel 4 Months E78.5 - Hyperlipidemia, unspecified Microalbumin, Random (w Creat) 4 Months R80.9 - Proteinuria, unspecified Comprehensive Met. Panel 4 Months E11.65 - Type 2 diabetes mellitus with hyperglycemia, Z79.4 - intermodal customer service (current) use of insulin Medications: New lisinopril 10 mg PO DAILY 90 tabs 1RF 90 days Changed From metformin 1,000 mg PO DAILY To metformin 1,000 mg PO BID 180 tabs 1RF 90 days From insulin glargine U-300 conc (Toujeo Max U-300 SoloStar) 50 units subcut BEDTIME To insulin glargine U-300 conc (Toujeo Max U-300 SoloStar) 53 units (0.1767 mL) subcut BEDTIME 5.301 mL 3RF 30 days Discontinued lisinopril Discontinued Reason: Patient Completed Course 5 mg PO DAILY 90 tabs 2RF Patient Instructions: - Take lisinopril 10 mg as prescribed to manage blood pressure. - Monitor blood pressure twice daily. - Follow the new insulin regimen with dosage adjusted to 53 units. - Continue atorvastatin as usual. - Attend endo appointment for additional diabetes management. - Watch for any adverse reactions to medications and report any issues. - Keep urology appointment in October as planned. - Monitor for any changes in symptoms, such as chest pain or shortness of breath, and seek medical help if these occur.
[2025-02-16 16:49] VITALS: BP 170/100
== END 2025-02-16 17:22 | disposition home or self-care (01) ==
LOC: HO.HMCH 15:59
PROVIDERS: PCP Internal Medicine; Visit Provider Internal Medicine
DX: E11.65 Type 2 diabetes mellitus with hyperglycemia (principal); M89.669 Osteopathy after poliomyelitis, unspecified lower leg; Z79.4 Long term (current) use of insulin; B91 Sequelae of poliomyelitis; F32.0 Major depressive disorder, single episode, mild; E78.5 Hyperlipidemia, unspecified; I10 Essential (primary) hypertension

== ENCOUNTER → 2025-02-16 15:59 | Outpatient (BNVA) | payer OTHER, SELFPAY | PROVIDERS: PCP Internal Medicine; Visit Provider Internal Medicine | DX: Z13.89 Encounter for screening for other disorder (principal) | CPT/HCPCS: 83036; 96127; 99212 ==

== ENCOUNTER 2025-02-16 20:20 | Emergency (ER) | payer OTHER, SELFPAY ==
--- NOTE | ~2025-02-16 | CT_ITS ---
CLINICAL HISTORY: headache, hypertensive, R O bleed CT head without contrast Comparison: None Findings: Scattered subcortical and periventricular hypoattenuation, likely in keeping with chronic small vessel ischemic disease. Parenchymal volume loss with compensatory prominence of the ventricles and CSF spaces. No acute territorial infarction, intracranial hemorrhage, midline shift or hydrocephalus. The visualized paranasal sinuses and mastoid air cells are normal. The orbits are unremarkable. No skull fracture. IMPRESSION: 1. No acute intracranial abnormality. 2. Additional findings as described. This document has been electronically signed by: Qaun Flores MD on 02/16/2025 22:41:25
[2025-02-16 20:29] VITALS: BP 139/73; PULSE 73; RESP 18; TEMP 36.8; O2SAT 97; BMI 31.4
--- NOTE | 2025-02-16 20:37 | ECG_ITS ---
Test Reason : htn Blood Pressure : */* mmHG Vent. Rate : 70 BPM Atrial Rate : 70 BPM P-R Int : 158 ms QRS Dur : 96 ms QT Int : 374 ms P-R-T Axes : 23 -10 2 degrees QTcB Int : 403 ms Normal sinus rhythm Moderate voltage criteria for LVH, may be normal variant ( R in aVL , Colt product ) Borderline ECG When compared with ECG of 01-Oct-2024 09:12, No significant change was found Referred By: Angeline Rodney Electronically Signed By: Claus Humphreys
--- OUTSIDE RECORDS SUMMARY | 2025-02-16 20:40 | XMS_ITS | Clinical Summary ---
Author Organization [employer] [facility] ity Address [address] [place] [address] Care Team Providers Care Tack Cleaner Name Role Phone Salima Rizo MD Primary Care Provider [phone] Social History Tobacco Use Types Packs/Day Years [...] age to complete this topic Care Teams Tack Cleaner Relationship Specialty Start Date End Date Salima Rizo MD [address] [place] [address] , [address] [facility]ician [facility] D/B/A: [facility] VIRAJ Quesada PCP - General Internal Medicine 05/20/18
--- OUTSIDE RECORDS SUMMARY | 2025-02-16 20:40 | XMS_ITS | Clinical Summary ---
Author Organization [employer] Address [address] [place] [address] [address] [place] [address] Care Team Providers Care Curator Of Photography And Prints Name Role Phone Unavailable Primary Care Provider Unavailabl e Allergies Active Allergy Reactions Criticality Noted Date Comments Ondansetron High 02/18/2014 Other reaction(s): Other (see comments) Dulaglutide Rash Low 11/20/2022 Medications ibuprofen 600 MG tabletIndicatio ns:Full mandaen of crown of tooth needed due to [...] per sliding scale. max daily dose 66 zapwwE49.9, # 30 mL, 3 Refills, Maintenance, 11/24/23 9:50:00 EST, Injection, [id number], Partial fill upon patient request if the... [...] to complete this topic Insurance DENTAL - [facility]
--- OUTSIDE RECORDS SUMMARY | 2025-02-16 20:40 | XMS_ITS | Encounter Summary ---
Author Organization [employer] Address [address] [facility] [address] [place] [address] Care Team Providers Care General Science Teacher Name Role Phone Unavailable Primary Care Provider Unavailabl e Encounter Details Date Type Department Care Team (Late st Contact Info) Description 09/19/2022 Abstract [facility] [address] [place] [address] Dashawn Avery DDS [address] [place] [address] Social History Tobacco Use Types Packs/Day Years [...]
--- OUTSIDE RECORDS SUMMARY | 2025-02-16 20:40 | XMS_ITS | Encounter Summary ---
Author Organization [employer] Address [address] [place] [address] Care Team Providers Care Electron Beam Photo Mask Technician Name Role Phone Unavailable Primary Care Provider Unavailabl e Encounter Details Date Type Department Care Team (Late st Contact Info) Description 11/29/2022 Abstract [facility] [address] [place] [address] Gatito Ritchie, DMD [address] [place] [address] Social History Tobacco Use Types Packs/Day Years [...]
[2025-02-16 20:56] VITALS: BP 137/77; PULSE 75; RESP 23; TEMP 37.2; O2SAT 97
[2025-02-16 21:02] LABS: MANUAL DIFF FLAG NO
[2025-02-16 21:03] LABS: Basophils Percent Auto 0.1 % (0-2); Eosinophils Absolute Auto 0.1 X10*3/uL (0.0-0.4); Eosinophils Percent Auto 1.5 % (0-4); Hematocrit 46.4 % (42.0-52.0); Imm Gran Abs Auto 0.03 X10*3/uL (0.00-0.03); Imm Gran Pct Auto 0.4 % (0.0-0.4); Lymphocytes Percent Auto 26.2 % (20-40); Mean Corpuscular HGB Conc 34.5 g/dl (31.0-36.0); Mean Corpuscular Hemoglobin 30.1 pg (27.0-33.0); Mean Corpuscular Volume 87.2 fL (80.0-98.0); Monocytes Absolute Auto 0.6 X10*3/uL (0.1-1.2); Neutrophils Percent Auto 63.8 % (45-73); Platelet Count 246 X10*3/uL (160-400); Red Blood Count 5.32 X10*6/uL (4.60-5.80); Red Cell Distribution Width 12.2 % (11.0-16.0); White Blood Count 7.8 X10*3/uL (4.8-10.8)
[2025-02-16 21:28] LABS: Alanine Aminotransferase 37 U/L (0-40); Albumin Level 4.8 g/dL (3.5-5.0); Alkaline Phosphatase 108 U/L (39-117); Anion Gap 13 (12-20); Aspartate Amino Transferase 30 U/L (5-37); Bilirubin Direct 0.3 mg/dL (0.0-0.5); Bilirubin Total 0.8 mg/dL (0.0-1.0); Blood Urea Nitrogen 7 mg/dL (9-16); Calcium 10.3 mg/dL (8.4-10.2); Carbon Dioxide 28 mmol/L (22-29); Chloride 104 mmol/L (96-108); Creatinine Clr Calc Pharmacy 120.4; Estimated Glomerular Filt Rate > 60; Glucose Random 154 mg/dL (60-115); Magnesium 1.9 mg/dL (1.6-2.6); Potassium 4.1 mmol/L (3.3-5.1); Sodium 141 mmol/L (135-145); Total Protein 7.9 g/dL (6.5-8.0)
--- NOTE | 2025-02-16 22:06 | ED.GENADULT ---
HPI - General Adult General Chief complaint: General Medical Stated complaint: high blood pressure Time Seen by Provider: 02/16/25 21:28 Source: patient and manager star Mode of arrival: ambulatory Limitations: no limitations History of Present Illness ED Provider: DR. Cleveland HPI narrative: 59-year-old male with history of hypertension controlled with lisinopril 5 mg daily, had an appointment with his PCP today found to have systolic blood pressure in the 150s at the PCP's office,Was increased from 5 mg to 10 mg daily, patient was concern because blood pressure at home today was 157/75 that made the patient anxious and patient walked into the emergency department for further evaluation. Patient has been complaining of mild headache on and off, no blurry vision, no SOB, no CP. Related Data Home Medications ?Medication ?Instructions ?Recorded ?Confirmed hydroxyzine pamoate 25 mg capsule 25 mg PO DAILY 01/15/23 02/16/25 timolol maleate 0.5 % eye drops 1 drp ophthalmic (eye) DAILY PRN 07/23/23 02/16/25 Eye Irritation chlorpromazine 200 mg tablet 200 mg PO BEDTIME PRN Insomnia 07/28/24 02/16/25 trazodone 150 mg tablet 150 mg PO BEDTIME 07/28/24 02/16/25 clonidine HCl 0.1 mg tablet 0.1 mg PO BEDTIME PRN Insomnia 10/21/24 02/16/25 gabapentin 800 mg tablet 800 mg PO DAILY 10/21/24 02/16/25 linaclotide 72 mcg capsule 72 mcg PO DAILY PRN Abdominal 10/21/24 02/16/25 (Linzess) Discomfort nystatin 100,000 unit/gram topical 1 appl topical DAILY PRN Skin 10/21/24 02/16/25 cream Irritation prednisolone acetate 1 % eye 1 drp ophthalmic (eye) DAILY PRN 10/21/24 02/16/25 drops,suspension Eye Irritation prazosin 1 mg capsule mg PO DAILY 02/09/25 02/16/25 ziprasidone HCl 20 mg capsule mg PO 02/09/25 02/16/25 Previous Rx's ?Medication ?Instructions ?Recorded walker #1 ea 11/23/20 pen needle, diabetic 32 gauge x #125 ea 11/28/20 (BD Ultra-Fine Diana Pen Needle) blood pressure monitor (Blood #1 ea 10/24/21 Pressure Kit) meloxicam 15 mg tablet 15 mg PO DAILY #14 tabs 07/05/22 nebulizers (AeroEclipse II #1 ea 08/05/22 Nebulizer) Transfer Bench #1 ea 08/02/23 adult diapers pull-ups #90 ea 08/02/23 bed rail #1 ea 08/02/23 pill box 2 day capacity #1 ea 08/02/23 step stool for bed #1 ea 08/02/23 toilet seat elevator #1 ea 08/02/23 underpads (Bed Underpads) #100 ea 08/02/23 wipes #200 ea 08/02/23 ascorbic acid (vitamin C) 1,000 mg 1 g PO DAILY 90 days #90 tabs 10/16/23 tablet sertraline 100 mg tablet 100 mg PO DAILY 90 days #90 tabs 11/26/23 hydrocortisone 2.5 % topical cream 1 appl topical BID PRN skin 12/31/23 irritation #20 grams sennosides 8.6 mg tablet (Senna 8.6 mg PO BEDTIME 90 days #90 tabs 01/27/24 Lax) empagliflozin 25 mg tablet 25 mg PO QAM 90 days #90 tabs 05/17/24 (Jardiance) cholecalciferol (vitamin D3) 50 50 mcg PO DAILY #30 caps 05/24/24 mcg (2,000 unit) capsule commode #1 ea 07/08/24 cyclobenzaprine 10 mg tablet 10 mg PO TID PRN muscle spasm 30 08/18/24 days #90 tabs albuterol sulfate 2.5 mg/3 mL 2.5 mg (3 mL) inhalation Q4-6H PRN 09/30/24 (0.083 %) solution for nebulization shortness of breath or wheezing 30 days #75 mL handheld shower #1 ea 09/30/24 insulin aspart U-100 100 unit/mL 4 - 10 unit (0.04 - 0.1 mL) subcut 09/30/24 (3 mL) subcutaneous pen (Novolog TID #15 mL FlexPen U-100 Insulin aspart) tramadol 50 mg tablet 50 mg PO DAILY PRN pain 90 days 10/24/24 #90 tabs atorvastatin 80 mg tablet 80 mg PO DAILY #90 tabs 10/31/24 flash glucose scanning reader #1 ea 11/08/24 (FreeStyle Kevin 14 Day [place]) flash glucose sensor (FreeStyle 1 ea topical Q2W #2 ea 11/08/24 Kevin 14 Day Sensor kit) tadalafil 10 mg tablet 10 mg PO DAILY sexual activity 90 11/24/24 days #90 tabs diabetic shoes #1 ea 02/03/25 insulin glargine U-300 conc 300 53 unit (0.1767 mL) subcut BEDTIME 02/16/25 unit/mL (3 mL) subcutaneous pen 30 days #5.301 mL (Toujeo Max U-300 SoloStar) lisinopril 10 mg tablet 10 mg PO DAILY 90 days #90 tabs 02/16/25 metformin 1,000 mg tablet 1,000 mg PO BID 90 days #180 tabs 02/16/25 Allergies Allergy/AdvReac Type Severity Reaction Status Date / Time dulaglutide [Trulicity] Allergy Intermediate cyst Verified 02/16/25 20:31 ondansetron [ONDANSETRON] Allergy Intermediate stomach Verified 02/16/25 20:31 pain semaglutide [From Ozempic] AdvReac Unknown Heartburn Verified 02/16/25 20:31 Review of Systems Review of Systems: All other systems are reviewed and are negative Constitutional: Reports as per HPI and Reports no additional constitutional complaints Eyes: Reports as per HPI and Reports no additional eye complaints Reports system reviewed and no additional complaints, except as documented Cardiovascular: Reports as per HPI and Reports no additional cardiovascular complaints Respiratory: Reports as per HPI and Reports no additional respiratory complaints Gastrointestinal: Reports as per HPI and Reports no additional gastrointestinal complaints Genitourinary: Reports no additional female genitourinary complaints Musculoskeletal: Reports no additional musculoskeletal complaints Skin/Breast: Reports system reviewed and no additional complaints, except as docu Psychiatric: Reports no additional psychiatric complaints Endocrine: Reports no additional endocrine complaints Hematologic/Lymphatic: Reports no additional hematologic/lymphatic complaints Allergic/Immunologic: Reports no additional allergic/immunologic complaints Reports system reviewed and no additional complaints, except as documented and Reports Abnormal speech present FOR[facility]LY [facility], [facility] Past Medical History Medical History Right flank pain Back pain Screening for STD (sexually transmitted disease) Preop cardiovascular exam Family history of prostate cancer Carpal tunnel syndrome Paresthesia of hand, bilateral Vertebrogenic low back pain Leg pain Hospital discharge follow-up Varicose veins of right lower extremity with inflammation Sebaceous cyst of right axilla Tubular adenoma of colon Glucosuria Pre-op examination Physical exam Right hand pain Family history of colon cancer Radiculopathy, lumbar region Spondylosis, lumbar, with myelopathy Disc degeneration, lumbar Balanitis Lumbar pain Constipation Severe major depression without psychotic features Erectile dysfunction associated with type 2 diabetes mellitus HTN (hypertension) Precordial chest pain Unsteady gait Chest pain Fibromyalgia Serum calcium elevated IBS (irritable bowel syndrome) Right leg pain Kidney stones GERD (gastroesophageal reflux disease) Type 2 diabetes mellitus with hyperglycemia Type 2 diabetes mellitus with diabetic polyneuropathy Hyperlipidemia LDL goal <100 Vitamin D deficiency Surgical History H/O colonoscopy History of eye surgery Family History Family History Father Colon cancer, Onset Age: 50 Stroke Prostate cancer Mother Hypertension Diabetes Dementia Family/Other FH: mental illness Social History Social History Household Members: None Housing: Apartment Are you a primary professional healthcare representative to a significant other at home: No Do you presently have visiting nurse or other home services: Yes (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) Alcohol intake: former Patient Tobacco Use Status: Never used Tobacco Smoked in Last 30 Days: No e-Cigarette/Vaping Use: Never Used Second Hand Smoke Exposure: No Use of substances other than those prescribed or required for medical reasons: No Advance Directives: No Advance Directives Information Provided: Yes Do you have a plan to hurt others: No Plan service: No Current occupational status: disabled Cognitive needs: Yes (cane/walker) Hearing needs: No Vision needs: Yes (glasses) Physical Exam ED Vital Signs: Vital Signs - 24 hr 02/16/25 20:29 02/16/25 20:56 02/16/25 22:08 Temperature 98.3 F 99.0 F 99.0 F Pulse Rate 73 75 73 Respiratory Rate 18 23 H 20 Blood Pressure 139/73 137/77 132/78 Pulse Oximetry 97 97 99 Oxygen Delivery Method Room Air Room Air Room Air BMI result Body Mass Index 31.4 Vital signs have been reviewed and appear to be correct. Blood pressure elevated. Heart rate normal. Respiratory rate normal. Temperature normal. Oxygen saturation normal. Appearance: Alert. Oriented X3. No acute distress. Head: Normal external exam. Normocephalic. Atraumatic. No Rosales signs noted. No raccoon eyes noted Eyes: PERRLA. EOMI. Conjunctiva and sclera normal. Eyelids normal. ENT: TM's Normal. Pharynx normal. Uvula midline. Moist mucous membranes. No trismus noted. No drooling noted. No muffled voice noted. Neck: Normal inspection. Neck supple. FROM. No adenopathy. Thyroid Normal. No meningeal signs. No neck mass noted. CVS: Normal heart rate and rhythm. Heart sound normal. No murmurs noted. Pulses normal throughout. Respiratory: No respiratory distress. Painless inspiration. Breath sounds normal. No wheezes/rales/rhonchi noted. Chest nontender. No accessory muscle usage noted or decreased air movement noted. Abdomen: Soft and nontender. Bowel sounds normal in all 4 quadrants. No distention noted. No organomegaly noted. No visible injury noted. Back: No CVA tenderness. Full range of motion noted. Skin: Skin warm and dry. Normal skin color. Normal skin turgor. No rashes/lesions/lacerations noted. Extremities: No lower extremity edema. Extremities exhibit normal range of motion. Extremities nontender. Neuro: Mental status: Normal attention, orientation, memory, and affect. Cranial nerves: Pupils are equal, round and reactive to light, EOMI, visual ely are fall, face is symmetric, facial sensations are normal. Motor examination normal muscle tone, strength to 4 extremities. DTR are +2, planter's are flexor. Sensory exam; normal coordination, no ataxia, gait stable. Cerebellar exam: [id number] and [id number] is normal. Extrapyramidal system: No tremors, no rigidity with normal facial expressions. Pronator drift not present Course Reevaluation(s) Reevaluation #1: essential hypertension was just increased the dose of lisinopril by his PCP today and patient is anxious about the dosage changes. Normal neuro exam, GCS of 15, head CT is unremarkable. Patient was instructed to monitor blood pressure and review it with his PCP. Time: 22:14 Medical Decision Making Differential Diagnosis Differential Diagnoses: The differential diagnosis associated with the presentation includes ( Hypertensive urgency, hypertensive emergency, intracranial bleed, electrolyte derangement, severe anemia, DORA.) Admission/Observation Consideration of admission/observation: Escalation of care including admission/observation considered Lab Data MDM Lab Attestation statement: I reviewed the patient's lab results. 02/16/25 20:56 02/16/25 20:56 Labs: Lab Results 02/16/25 Range/Units 20:56 WBC 7.8 (4.8-10.8) X10*3/uL RBC 5.32 (4.60-5.80) X10*6/uL Hgb 16.0 (14.0-18.0) g/dl Hct 46.4 (42.0-52.0) % MCV 87.2 (80.0-98.0) fL MCH 30.1 (27.0-33.0) pg MCHC 34.5 (31.0-36.0) g/dl RDW 12.2 (11.0-16.0) % Plt Count 246 (160-400) X10*3/uL MPV 10.0 (9.4-12.4) fL Immature Gran % (Auto) 0.4 (0.0-0.4) % Neut % (Auto) 63.8 (45-73) % Lymph % (Auto) 26.2 (20-40) % [place] % (Auto) 8.0 (2-11) % Eos % (Auto) 1.5 (0-4) % Baso % (Auto) 0.1 (0-2) % Lymph # (Auto) 2.0 (1.2-4.9) X10*3/uL [place] # (Auto) 0.6 (0.1-1.2) X10*3/uL Eos # (Auto) 0.1 (0.0-0.4) X10*3/uL Baso # (Auto) 0.0 (0.0-0.2) X10*3/uL Abs Immat Gran (auto) 0.03 (0.00-0.03) X10*3/uL Absolute Neuts (auto) 5.0 (2.0-8.3) x10*3/uL Absolute Nucleated RBC 0.000 (0.0-0.012) X10*3/uL Nucleated RBC % (auto) 0.0 (0.0-0.2) /100WBC Sodium 141 (135-145) mmol/L Potassium 4.1 (3.3-5.1) mmol/L Chloride 104 (96-108) mmol/L Carbon Dioxide 28 (22-29) mmol/L Anion Gap 13 (12-20) BUN 7 L (9-16) mg/dL Creatinine 0.78 (0.5-1.4) mg/dL Estim Creat Clear Calc 120.4 Estimated GFR > 60 Random Glucose 154 H (60-115) mg/dL Calcium 10.3 H (8.4-10.2) mg/dL Magnesium 1.9 (1.6-2.6) mg/dL Total Bilirubin 0.8 (0.0-1.0) mg/dL Direct Bilirubin 0.3 (0.0-0.5) mg/dL AST 30 (5-37) U/L ALT 37 (0-40) U/L Alkaline Phosphatase 108 (39-117) U/L Total Protein 7.9 (6.5-8.0) g/dL Albumin 4.8 (3.5-5.0) g/dL Independent Interpretation I performed an independent interpretation of an: CT Scan ( Head: Scattered subcortical and periventricular hypoattenuation, likely in keeping with chronic small vessel ischemic disease. Parenchymal volume loss with compensatory prominence of the ventricles and CSF spaces. No acute territorial infarction, intracranial hemorrhage, midline shift or hydro) Radiology Impression Discussion of test interpretation with radiology: I have reviewed the radiologist's reading. Discharge Plan Discharge Clinical Impression: Essential hypertension Patient Disposition: Home, Self-Care Instructions: Hypertension (ED) Additional Instructions: take your medicine as prescribed by your primary doctor. Monitor your blood pressure at least 3 times a day ( 1 in the morning, 1 mid day, and when the night ) and record all your blood pressure values with date and time and review it with your primary doctor in 2 weeks Prescriptions: No Action meloxicam 15 mg tablet 15 mg PO DAILY Qty: 14 0RF (DME) nebulizers [AeroEclipse II Nebulizer] Misc See Rx Instructions .Route Qty: 1 0RF Rx Instructions: As directed (DME) toilet seat elevator See Rx Instructions .Route .MEDSUPPLY Qty: 1 0RF Rx Instructions: As directed (DME) wipes See Rx Instructions .Route .MEDSUPPLY Qty: 200 11RF Rx Instructions: As directed (DME) adult diapers pull-ups large See Rx Instructions .Route .MEDSUPPLY Qty: 90 11RF Rx Instructions: As directed (DME) step stool for bed See Rx Instructions .Route .MEDSUPPLY Qty: 1 0RF Rx Instructions: As directed (DME) Transfer Bench Misc See Rx Instructions .Route Qty: 1 0RF Rx Instructions: As directed (DME) bed rail See Rx Instructions .Route .MEDSUPPLY Qty: 1 0RF Rx Instructions: As directed (DME) pill box 2 day capacity See Rx Instructions .Route .MEDSUPPLY Qty: 1 0RF Rx Instructions: As directed (DME) underpads [Bed Underpads] Pad See Rx Instructions .Route Qty: 100 11RF Rx Instructions: As directed ascorbic acid (vitamin C) 1,000 mg tablet 1 g PO DAILY 90 Days Qty: 90 2RF sertraline 100 mg tablet 100 mg PO DAILY 90 Days Qty: 90 1RF Jardiance 25 mg tablet 25 mg PO QAM 90 Days Qty: 90 1RF (DME) commode Kit See Rx Instructions .Route Qty: 1 0RF Rx Instructions: As directed cyclobenzaprine 10 mg tablet 10 mg PO TID PRN (Reason: muscle spasm) 30 Days Qty: 90 0RF (DME) handheld shower See Rx Instructions .Route .MEDSUPPLY Qty: 1 0RF Rx Instructions: As directed tramadol 50 mg tablet 50 mg PO DAILY PRN (Reason: pain) 90 Days Qty: 90 1RF atorvastatin 80 mg tablet 80 mg PO DAILY Qty: 90 2RF (DME) FreeStyle Kevin 14 Day [place] Misc See Rx Instructions .Route Qty: 1 0RF Rx Instructions: As directed FreeStyle Kevin 14 Day Sensor Kit 1 ea topical Q2W Qty: 2 11RF (DME) diabetic shoes 10.5 See Rx Instructions .Route .MEDSUPPLY Qty: 1 0RF Rx Instructions: As directed prednisolone acetate 1 % Drops,Suspension 1 drp OPHTHALMIC (EYE) DAILY PRN (Reason: Eye Irritation) clonidine HCl 0.1 mg tablet 0.1 mg PO BEDTIME PRN (Reason: Insomnia) gabapentin 800 mg tablet 800 mg PO DAILY Linzess 72 mcg capsule 72 mcg PO DAILY PRN (Reason: Abdominal Discomfort) nystatin 100,000 unit/gram cream 1 appl topical DAILY PRN (Reason: Skin Irritation) (DME) blood pressure monitor [Blood Pressure Kit] Kit See Rx Instructions .Route Qty: 1 0RF Rx Instructions: As directed chlorpromazine 200 mg tablet 200 mg PO BEDTIME PRN (Reason: Insomnia) (DME) walker [facility] [place] See Rx Instructions .ROUTE .MEDSUPPLY Qty: 1 0RF Rx Instructions: As directed hydrocortisone 2.5 % cream 1 appl topical BID PRN (Reason: skin irritation) Qty: 20 0RF cholecalciferol (vitamin D3) 50 mcg (2,000 unit) capsule 50 mcg PO DAILY Qty: 30 11RF hydroxyzine pamoate 25 mg capsule 25 mg PO DAILY (DME) pen needle, diabetic [BD Ultra-Fine Diana Pen Needle] 32 gauge x 5/32 needle See Rx Instructions .ROUTE .MEDSUPPLY Qty: 125 6RF Rx Instructions: As directed four times a day insulin aspart U-100 [Novolog FlexPen U-100 Insulin] 100 unit/mL (3 mL) insulin pen 4 - 10 unit subcut TID Qty: 15 5RF albuterol sulfate 2.5 mg /3 mL (0.083 %) solution for nebulization 2.5 mg inhalation Q4-6H PRN (Reason: shortness of breath or wheezing) 30 Days Qty: 75 3RF trazodone 150 mg tablet 150 mg PO BEDTIME timolol maleate 0.5 % drops 1 drp ophthalmic (eye) DAILY PRN (Reason: Eye Irritation) sennosides [Senna Lax] 8.6 mg tablet 8.6 mg PO BEDTIME 90 Days Qty: 90 0RF tadalafil 10 mg tablet 10 mg PO DAILY 90 Days Qty: 90 1RF metformin 1,000 mg tablet 1,000 mg PO BID 90 Days Qty: 180 1RF lisinopril 10 mg tablet 10 mg PO DAILY 90 Days Qty: 90 1RF insulin glargine U-300 conc [Toujeo Max U-300 SoloStar] 300 unit/mL (3 mL) insulin pen 53 unit subcut BEDTIME 30 Days Qty: 5.301 3RF ziprasidone HCl 20 mg capsule PO prazosin 1 mg capsule PO DAILY Referrals: Salima Rodney MD [Primary Care Provider] - Print Language: Kinyarwanda
[2025-02-16 22:08] VITALS: BP 132/78; PULSE 73; RESP 20; TEMP 37.2; O2SAT 99
[2025-02-16 23:11] VITALS: BP 157/79; PULSE 72; RESP 16; TEMP 36.9; O2SAT 98
== END 2025-02-16 23:12 | disposition home or self-care (01) ==
PROVIDERS: Physician Assistant; Emergency Provider Emergency Medicine; PCP Internal Medicine
DX: F41.1 Generalized anxiety disorder (principal); I10 Essential (primary) hypertension; R51.9 Headache, unspecified; R94.31 Abnormal electrocardiogram [ECG] [EKG]; E11.9 Type 2 diabetes mellitus without complications; Z79.4 Long term (current) use of insulin; Z79.899 Other long term (current) drug therapy
CPT/HCPCS: 36415; 70450; 80048; 80076; 83036; 83735; 85025; 93005; 96127; 99212; 99284

== ENCOUNTER → 2025-02-16 20:37 | Outpatient (BNV) | payer OTHER, SELFPAY | PROVIDERS: Emergency Provider Emergency Medicine; PCP Internal Medicine; Visit Provider Internal Medicine Cardiovascular Disease | DX: I10 Essential (primary) hypertension (principal) | CPT/HCPCS: 93010 ==

== ENCOUNTER → 2025-02-16 22:10 | Outpatient (BNV) | payer OTHER, SELFPAY | PROVIDERS: Emergency Provider Emergency Medicine; PCP Internal Medicine; Visit Provider Radiology Diagnostic Radiology | DX: I67.82 Cerebral ischemia (principal) | CPT/HCPCS: 70450 ==

== ENCOUNTER 2025-06-23 16:23 | Outpatient (AMB) | payer OTHER, SELFPAY ==
[2025-06-23 16:39] VITALS: BP 138/80; PULSE 108; O2SAT 98; BMI 28.7
--- NOTE | 2025-06-23 16:39 | MHC.PC.OV ---
Vital Signs 06/23/25 16:39 Height 5 ft 10 in Weight 200 lb BMI 28.7 BP 138/80 Blood Pressure Location Lt brachial Position Sitting Pulse 108 H Pulse Source Pulse Oximeter Pulse Oximetry (%) 98 Oxygen Delivery Method Room Air Intake Visit Reasons: DM Soils Analyst Required: No Accompanied by: Self / Same As Patient Allergies dulaglutide (Trulicity) Allergy (Intermediate, Verified 06/23/25 17:07) cyst ondansetron (ONDANSETRON) Allergy (Intermediate, Verified 06/23/25 17:07) stomach pain semaglutide (From Ozempic) Adverse Reaction (Unknown, Verified 06/23/25 17:07) Heartburn Medication List - Last Reconciled 06/23/25 by Salima Rizo MD [adult diapers pull-ups As directed] albuterol sulfate 2.5 mg (3 mL) inhalation Q4-6H PRN 30 days ascorbic acid (vitamin C) 1 g PO DAILY 90 days atorvastatin 80 mg PO DAILY [bed rail As directed] blood pressure monitor (Blood Pressure Kit) As directed cane As directed chlorpromazine 200 mg PO BEDTIME PRN cholecalciferol (vitamin D3) 50 mcg PO DAILY clonidine HCl 0.1 mg PO BEDTIME PRN commode As directed cyclobenzaprine 10 mg PO TID PRN 30 days [diabetic shoes As directed] empagliflozin (Jardiance) 25 mg PO QAM 90 days flash glucose scanning reader ([employer] Kevin 14 Day Atkinson) As directed flash glucose sensor (FreeStyle Kevin 14 Day Sensor kit) 1 ea topical Q2W gabapentin 800 mg PO DAILY [handheld shower As directed] hydrocortisone 2.5% 1 appl topical BID PRN hydroxyzine pamoate 25 mg PO DAILY insulin aspart U-100 (Novolog FlexPen U-100 Insulin aspart) 4 - 10 units (0.04 - 0.1 mL) subcut TID insulin glargine U-300 conc (Toujeo Max U-300 SoloStar) 53 units (0.1767 mL) subcut BEDTIME 30 days linaclotide (Linzess) 72 mcg PO DAILY PRN lisinopril 10 mg PO DAILY 90 days meloxicam 15 mg PO DAILY metformin 1,000 mg PO BID 90 days nebulizers (AeroEclipse II Nebulizer) As directed nystatin 1 appl topical DAILY PRN pen needle, diabetic (BD Ultra-Fine Diana Pen Needle) As directed four times a day [pill box 2 day capacity As directed] prazosin mg PO DAILY prednisolone acetate 1% 1 drp ophthalmic (eye) DAILY PRN sennosides (Senna Lax) 8.6 mg PO BEDTIME 90 days sertraline 100 mg PO DAILY 90 days [step stool for bed As directed] tadalafil 10 mg PO DAILY 90 days timolol maleate 0.5% 1 drp ophthalmic (eye) DAILY PRN [toilet seat elevator As directed] tramadol 50 mg PO DAILY PRN 90 days Transfer Bench As directed trazodone 150 mg PO BEDTIME underpads (Bed Underpads) As directed walker As directed [wipes As directed] ziprasidone HCl mg PO Tobacco use date assessed: 09/30/24 Dental Screening Dental Screen Date: 09/30/24 HPI HPI Comments History of Present Illness Details The patient is a 59-year-old male presenting with diabetes mellitus management. He was previously on Mounjaro, which resulted in an A1c of 7.9, but has since been switched to Ozempic for another year. The patient's A1c was previously 7.2 in 2019, indicating a history of fluctuating glycemic control. The patient also reports constipation, for which he is taking Linzess 72 mcg. He is currently on multiple medications including atorvastatin, Jardiance, gabapentin, hydroxyzine, lisinopril, metformin, and trazodone. The patient denies any history of smoking and reports that his blood pressure is well-controlled. He has completed an eye exam this year and denies experiencing chest pain or dyspnea. [facility] Medical History Right flank pain Back pain Screening for STD (sexually transmitted disease) Preop cardiovascular exam Family history of prostate cancer Carpal tunnel syndrome Paresthesia of hand, bilateral Vertebrogenic low back pain Leg pain Hospital discharge follow-up Varicose veins of right lower extremity with inflammation Sebaceous cyst of right axilla Tubular adenoma of colon Glucosuria Pre-op examination Physical exam Right hand pain Family history of colon cancer Radiculopathy, lumbar region Spondylosis, lumbar, with myelopathy Disc degeneration, lumbar Balanitis Lumbar pain Constipation Severe major depression without psychotic features Erectile dysfunction associated with type 2 diabetes mellitus HTN (hypertension) Precordial chest pain Unsteady gait Chest pain Fibromyalgia Serum calcium elevated IBS (irritable bowel syndrome) Right leg pain Kidney stones GERD (gastroesophageal reflux disease) Type 2 diabetes mellitus with hyperglycemia Type 2 diabetes mellitus with diabetic polyneuropathy Hyperlipidemia LDL goal <100 Vitamin D deficiency Surgical History H/O colonoscopy History of eye surgery Family History Father Colon cancer, Onset Age: 50 Stroke Prostate cancer Mother Hypertension Diabetes Dementia Family/Other FH: mental illness Social History Household Members: None Housing: Apartment Are you a primary healthcare administration intern to a significant other at home: No Do you presently have visiting nurse or other home services: Yes ([facility]) Alcohol intake: former Patient Tobacco Use Status: Never used Tobacco Tobacco use type: Cigarette e-Cigarette/Vaping Use: Never Used Second Hand Smoke Exposure: No service: No Current occupational status: disabled Cognitive needs: Yes (cane/walker) Hearing needs: No Vision needs: Yes (glasses) Questionnaire Thrive Questionnaire Date Thrive assessed: 02/16/25 I am a: Patient What is your living situation today?: I have a steady place to live Within the past 12 months, did the food you bought not last and you didn't have the money to get more?: Often true Within the past 12 months, did you worry whether your food would run out before you got money to buy more?: Sometimes True Do you have trouble paying for medicines?: No Do you have trouble getting transportation to medical appointments?: No Do you have trouble paying your heating and electricity bill?: No Do you have trouble taking care of your child, family member or friend?: Yes Do you have trouble with day-to-day activities such as bathing, preparing meals, shopping, managing finances, etc.?: I choose not to answer this question Are you currently unemployed and looking for a job?: Yes Are you interested in more education?: I choose not to answer this question Currently or been in a relationship where the following occur: I choose not to answer THRIVE Score: 2 GRAHAM-7 AMB Questionnaire GRAHAM-7 Date GRAHAM - 7 assessed: 09/30/24 Source: Developed by Drs. Arya Griffin, Delphine Kelley, Boris Aguilera and colleagues, with an educational ifrah from [employer]. Review of Systems Const All systems reviewed & are unremarkable except as noted in HPI and below Card Denies chest pain at rest, Denies chest pain with activity, Denies edema, Denies irregular heart rhythm, Denies claudication, Denies dyspnea, Denies dyspnea on exertion, Denies orthopnea, Denies paroxysmal nocturnal dyspnea and Denies slow heart rate Resp Denies cough, Denies dyspnea and Denies dyspnea on exertion Neuro Denies lack of coordination Physical exam (Primary Care) Vital Signs: Last Vital Signs Pulse 108 H 06/23/25 16:39 BP 138/80 06/23/25 16:39 Pulse Ox 98 06/23/25 16:39 Oxygen Delivery Method Room Air 06/23/25 16:39 BMI result Body Mass Index 28.7 Tobacco/Smoking Status: Tobacco use Status Tobacco use date assessed 09/30/24 06/23/25 16:40 Patient Tobacco Use Status Never used Tobacco 06/23/25 16:40 Tobacco use type Cigarette 06/23/25 16:40 e-Cigarette/Vaping Use Never Used 06/23/25 16:40 Thrive Assessment: Date of Thrive Assessment Date Thrive assessed 02/16/25 06/23/25 16:40 Currently or been in a relationship where the following occur: I choose not to answer Neck Neck: Yes normal visual inspection and Yes supple Resp Effort & Inspection: normal respiratory effort Auscultation: clear to auscultation bilaterally Cardio Jugular venous distension: no JVD Rate: regular rate Rhythm: regular rhythm Heart sounds: S1 normal heart sound present and S2 normal heart sound present Extrem General: Yes full ROM Coding Level of Care Code Est Pt Level 4 (31587) Complex EM visit Add On G2211 Diagnoses Mild major depression F32.0 Hyperlipidemia LDL goal <70 E78.5 Type 2 diabetes mellitus with hyperglycemia, with long-term current use of insulin E11.65; Z79.4 Diabetes mellitus complication status: with hyperglycemia Vitamin D deficiency E55.9 Gastroesophageal reflux disease, unspecified whether esophagitis present K21.9 Esophagitis presence: esophagitis presence not specified Chronic idiopathic constipation K59.04 Essential hypertension I10 Hypertension type: essential hypertension Time Spent (min) 21 Assessment & Plan Assessment & Plan (1) Mild major depression: Code(s): F32.0 - Major depressive disorder, single episode, mild Category: Medical (2) Hyperlipidemia LDL goal <70: Code(s): E78.5 - Hyperlipidemia, unspecified Category: Medical (3) Type 2 diabetes mellitus, with long-term current use of insulin: Code(s): E11.9 - Type 2 diabetes mellitus without complications; Z79.4 - superintendent container terminal (current) use of insulin Category: Medical Qualifiers: Diabetes mellitus complication status: with hyperglycemia Qualified Code(s): E11.65 - Type 2 diabetes mellitus with hyperglycemia; Z79.4 - senior care (current) use of insulin (4) Vitamin D deficiency: Code(s): E55.9 - Vitamin D deficiency, unspecified Category: Medical (5) GERD (gastroesophageal reflux disease): Comment: Appears was driven by Ozempic use resolved Code(s): K21.9 - Gastro-esophageal reflux disease without esophagitis Category: Medical Qualifiers: Esophagitis presence: esophagitis presence not specified Qualified Code(s): K21.9 - Gastro-esophageal reflux disease without esophagitis (6) Chronic idiopathic constipation: Comment: Appears driven by Ozempic use, resolved Code(s): K59.04 - Chronic idiopathic constipation Category: Medical (7) HTN (hypertension): Code(s): I10 - Essential (primary) hypertension Category: Medical Qualifiers: Hypertension type: essential hypertension Qualified Code(s): I10 - Essential (primary) hypertension Plan Plan Patient was informed and verbally consented to the use of an ambient scribe for clinic note documentation during this visit. 1. Diabetes Mellitus The patient will continue on Ozempic for diabetes management, with plans to monitor A1c levels regularly. A comprehensive laboratory workup, including A1c and urine protein, will be conducted to assess current status and adjust treatment as necessary. 2. Constipation The patient is currently taking Linzess 72 mcg for constipation management. 3. Hypertension The patient's blood pressure is well-controlled with current medication regimen, including lisinopril. Orders: Orders AMB Hemoglobin A1c Today Z13.9 - Encounter for screening, unspecified Complete Blood Count Auto Diff Today D64.9 - Anemia, unspecified Microalbumin, Random (w Creat) Today R80.9 - Proteinuria, unspecified Lipid Panel Today E78.5 - Hyperlipidemia, unspecified Vitamin B12 and Folate Today E53.8 - Deficiency of other specified B group vitamins Vitamin D 25-OH Total Today E55.9 - Vitamin D deficiency, unspecified Comprehensive [place]. Panel Fast Today E11.65 - Type 2 diabetes mellitus with hyperglycemia, Z79.4 - superintendent container terminal (current) use of insulin Hemoglobin A1c Today E11.9 - Type 2 diabetes mellitus without complications Medications: New blood sugar diagnostic (FreeStyle Lite Strips) Use 1 strip once a day 100 ea 3RF E11.65 - Type 2 diabetes mellitus with hyperglycemia, Z79.4 - senior care (current) use of insulin Refilled cyclobenzaprine 10 mg PO TID PRN 90 tabs 0RF muscle spasm 30 days cholecalciferol (vitamin D3) 50 mcg PO DAILY 30 caps 11RF E11.65 - Type 2 diabetes mellitus with hyperglycemia, Z79.4 - senior care (current) use of insulin
--- OUTSIDE RECORDS SUMMARY | 2025-06-23 19:55 | XMS_ITS | Encounter Summary ---
Author Organization [employer] Address [address] [place] [address] Care Team Providers Care Echocardiography Technologist Name Role Phone Unavailable Primary Care Provider Unavailabl e Encounter Details Date Type Department Care Team (Late st Contact Info) Description 09/19/2022 Abstract [facility] [address] [place] [address] Dashawn Avery DDS [address] [place] [address] Social History Tobacco Use Types Packs/Day Years [...]
--- OUTSIDE RECORDS SUMMARY | 2025-06-23 19:55 | XMS_ITS | Clinical Summary ---
Author Organization [facility] Address [address] [place] [address] Phone Care Team Providers Care Wildlife Manager Name Role Phone Salima Rodney MD Primary Care Provider [phone] Allergies Active Allergy Reactions Criticality Noted Date [...] 1 Active ergocalciferol (VITAMIN D2) 1.25 MG (48729 [place]) capsule TOME 1 C PSULA POR [...] of 1 - PCV) 015 Influenza Vaccine (#1) 2025 Insurance Medicare Medicaid [place] Care Teams Wildlife Manager Relationship Specialty Start Date End Date Salima Rodney MD [address] [place], [place] PCP - General 10/09/20
--- OUTSIDE RECORDS SUMMARY | 2025-06-23 19:55 | XMS_ITS | Clinical Summary ---
Author Organization [employer] Address [address] [place] [address] [address] [place] [address] Care Team Providers Care Professor/Nurse Anesthetist Name Role Phone Unavailable Primary Care Provider Unavailabl e Allergies Active Allergy Reactions Criticality Noted Date Comments Ondansetron High 02/18/2014 Other reaction(s): Other (see comments) Dulaglutide Rash Low 11/20/2022 Medications ibuprofen 600 MG tabletIndicatio ns:Full rastafarian of crown of tooth needed due to [...] per sliding scale. max daily dose 66 anpjkN21.9, # 30 mL, 3 Refills, Maintenance, 11/24/23 9:50:00 EST, Injection, [id number], Partial fill upon patient request if the... [...] 2015 Zoster Vaccines (1 of 2) 2015 Tobacco Screening 03/22/2025 03/22/2024 COVID-19 Vaccine (4 - 2024- season) 2025 10/01/2021, 03/26/2021, 03/01/2021 Influenza Vaccine (#1) 2025 10/02/2016 DTaP/Tdap/Td Vaccines (4 - Td or Tdap) [...] to complete this topic Insurance [facility]ENTAL - [facility]
--- OUTSIDE RECORDS SUMMARY | 2025-06-23 19:55 | XMS_ITS | Encounter Summary ---
Author Organization [employer] Address [address] [place] [address] Care Team Providers Care Manager Civil Name Role Phone Unavailable Primary Care Provider Unavailabl e Encounter Details Date Type Department Care Team (Late st Contact Info) Description 11/29/2022 Abstract [facility] [address] [place] [address] Gatito Ritchie, DMD [address] [place] [address] Social History Tobacco Use Types Packs/Day Years [...]
== END 2025-06-23 17:17 | disposition home or self-care (01) ==
LOC: HO.HMCH 16:24
PROVIDERS: PCP Internal Medicine; Visit Provider Internal Medicine
DX: F32.0 Major depressive disorder, single episode, mild (principal); E78.5 Hyperlipidemia, unspecified; E11.65 Type 2 diabetes mellitus with hyperglycemia; Z79.4 Long term (current) use of insulin; E55.9 Vitamin D deficiency, unspecified; K21.9 Gastro-esophageal reflux disease without esophagitis; K59.04 Chronic idiopathic constipation; I10 Essential (primary) hypertension

== ENCOUNTER → 2025-06-23 16:23 | Outpatient (BNVA) | payer OTHER, SELFPAY | PROVIDERS: PCP Internal Medicine; Visit Provider Internal Medicine | DX: F32.0 Major depressive disorder, single episode, mild (principal); E78.5 Hyperlipidemia, unspecified; E11.65 Type 2 diabetes mellitus with hyperglycemia; E55.9 Vitamin D deficiency, unspecified; K21.9 Gastro-esophageal reflux disease without esophagitis; K59.04 Chronic idiopathic constipation; I10 Essential (primary) hypertension; Z79.4 Long term (current) use of insulin; Z79.899 Other long term (current) drug therapy | CPT/HCPCS: 99212 ==

== ENCOUNTER 2025-06-25 17:43 | Emergency (ER) | payer OTHER, SELFPAY ==
--- NOTE | ~2025-06-25 | XR_ITS ---
CLINICAL HISTORY: chest pain EXAM: Two views of the chest. COMPARISON: None FINDINGS: Normal cardiac, mediastinal, and hilar contours. Normal heart size. No pleural effusion or pneumothorax. Lungs are clear. No acute bone finding. IMPRESSION: 1. No acute cardiopulmonary process demonstrated. This document has been electronically signed by: Bravo Louis MD on 06/25/2025 18:53:36
--- NOTE | ~2025-06-25 | XR_ITS ---
CLINICAL HISTORY: pain 1 view abdomen, 1 view pelvis Comparison: None provided Findings: No pneumoperitoneum or pneumatosis. Few phleboliths projected of the right pelvic floor. No acute fractures. Multiple phleboliths projected of the right pelvic floor. Lumbar dextroscoliosis. IMPRESSION: 1. No acute abdominal findings. This document has been electronically signed by: Rui Lew MD on 06/25/2025 22:58:54
--- NOTE | 2025-06-25 17:44 | ECG_ITS ---
Test Reason : chest pain Blood Pressure : */* mmHG Vent. Rate : 94 BPM Atrial Rate : 94 BPM P-R Int : 152 ms QRS Dur : 92 ms QT Int : 336 ms P-R-T Axes : 36 -19 13 degrees QTcB Int : 420 ms Normal sinus rhythm Minimal voltage criteria for LVH, may be normal variant ( R in aVL ) Borderline ECG When compared with ECG of 16-Feb-2025 20:45, No significant change was found Referred By: Generic ED Physician Electronically Signed By: Claus Humphreys
--- NOTE | 2025-06-25 17:50 | ED_ITS ---
HPI - General Adult General Chief complaint: General Medical Stated complaint: acid reflux,chest pain Time Seen by Provider: 06/25/25 20:20 Source: patient Limitations: language barrier History of Present Illness ED Provider: Simona Dodd PA-C HPI narrative: 59-year-old male presents with a epigastric discomfort and indigestion x1 day. Patient states he ate fast food yesterday, then developed dyspepsia and recurrent hiccups. Associated upper abdominal discomfort. It is nonradiating, no postprandial symptoms no nausea vomiting or fever. Denies constipation, abdominal distention or inability to pass flatus from below. Related Data Home Medications ?Medication ?Instructions ?Recorded ?Confirmed hydroxyzine pamoate 25 mg capsule 25 mg PO DAILY 01/1506/27/25 timolol maleate 0.5 % eye drops 1 drp ophthalmic (eye) DAILY PRN 07/23/23 06/27/25 Eye Irritation trazodone 150 mg tablet 150 mg PO BEDTIME 07/28/24 0 06/27/25 clonidine HCl 0.1 mg tablet 0.1 mg PO BEDTIME PRN Inso mnia 10/21/24 06/27/25 linaclotide 72 mcg capsule 72 mcg PO DAILY PRN Abdomin al 10/21/24 06/27/25 (Linzess) Discomfort nystatin 100,000 unit/gram topical 1 appl topical TOM Y PRN Skin 10/21/24 06/27/25 cream Irritation prednisolone acetate 1 % eye 1 drp ophthalmic (eye) DA SANDY PRN 10/21/24 06/27/25 drops,suspension Eye Irritation prazosin 1 mg capsule mg PO DAILY 02/09/25 5 ziprasidone HCl 20 mg capsule mg PO 02/09/25 06/27/25 gabapentin 800 mg tablet 800 mg PO TID 06/27/2506/27 Previous Rx's ?Medication ?Instructions ?Recorded walker #1 ea 11/23/20 pen needle, diabetic 32 gauge x #125 ea 11/28/20 (BD Ultra-Fine Diana Pen Needle) blood pressure monitor (Blood #1 ea 10/24/21 Pressure Kit) meloxicam 15 mg tablet 15 mg PO DAILY #14 tabs 10/0 04/19 nebulizers (AeroEclipse II #1 ea 08/05/22 Nebulizer) Transfer Bench #1 ea 08/02/23 adult diapers pull-ups #90 ea 08/02/23 bed rail #1 ea 08/02/23 pill box 2 day capacity #1 ea 08/02/23 step stool for bed #1 ea 08/02/23 toilet seat elevator #1 ea 08/02/23 underpads (Bed Underpads) #100 ea 08/02/23 wipes #200 ea 08/02/23 ascorbic acid (vitamin C) 1,000 mg 1 g PO DAILY 90 day s #90 tabs 10/16/23 tablet sertraline 100 mg tablet 100 mg PO DAILY 90 days #90 tabs 11/26/23 hydrocortisone 2.5 % topical cream 1 appl topical BID PRN skin 12/31/23 irritation #20 grams sennosides 8.6 mg tablet (Senna 8.6 mg PO BEDTIME 90 d ays #90 tabs 01/27/24 Lax) commode #1 ea 07/08/24 albuterol sulfate 2.5 mg/3 mL 2.5 mg (3 mL) inhalation Q4-6H PRN 09/30/24 (0.083 %) solution for nebulization shortness of breat h or wheezing 30 days #75 mL handheld shower #1 ea 09/30/24 insulin aspart U-100 100 unit/mL 4 - 10 unit (0.04 - 0 .1 mL) subcut 09/30/24 (3 mL) subcutaneous pen (Novolog TID #15 mL FlexPen U-100 Insulin aspart) flash glucose scanning reader #1 ea 11/08/24 (FreeStyle Kevin 14 Day [place]) flash glucose sensor (FreeStyle 1 ea topical Q2W #2 ea 11/08/24 Kevin 14 Day Sensor kit) tadalafil 10 mg tablet 10 mg PO DAILY sexual activi ty 90 11/24/24 days #90 tabs insulin glargine U-300 conc 300 53 unit (0.1767 mL) carbajal bcut BEDTIME 02/16/25 unit/mL (3 mL) subcutaneous pen 30 days #5.301 mL (Toujeo Max U-300 SoloStar) lisinopril 10 mg tablet 10 mg PO DAILY 90 days #90 t abs 02/16/25 metformin 1,000 mg tablet 1,000 mg PO BID 90 days #180 tabs 02/16/25 empagliflozin 25 mg tablet 25 mg PO QAM 90 days #90 ta bs 02/19/25 (Jardiance) atorvastatin 80 mg tablet 80 mg PO DAILY #90 tabs 04/29 05/23 cane #1 ea 06/07/25 diabetic shoes #1 ea 06/07/25 tramadol 50 mg tablet 50 mg PO DAILY PRN pain 90 d ays 06/15/25 #90 tabs blood sugar diagnostic (FreeStyle #100 ea 06/23/25 Lite Strips) cholecalciferol (vitamin D3) 50 50 mcg PO DAILY #30 ca ps 06/23/25 mcg (2,000 unit) capsule cyclobenzaprine 10 mg tablet 10 mg PO TID PRN muscle s pasm 30 06/23/25 days #90 tabs sucralfate 100 mg/mL oral 10 ml PO QID PRN indigestion #300 06/25/25 suspension (Carafate) mL baclofen 20 mg tablet 20 mg PO TID 10 days #30 tab s 06/27/25 Allergies Allergy/AdvReac Type Severity Reaction Status Date / Time dulaglutide (Trulicity) Allergy Intermediate cyst Verified 06/27/25 16:57 ondansetron (ONDANSETRON) Allergy Intermediate stomach Verified 06/27/25 16:57 pain semaglutide (From Ozempic) AdvReac Unknown Heartburn Verified 06/27/25 16:57 Review of Systems 2 Review of Systems: Yes all other systems are reviewed and are negative Constitutional: Constitutional: Denies fatigue and Denies fever(s) Cardiovascular: Cardiovascular: Denies chest pain and Denies dyspnea Respiratory: Respiratory: Denies dyspnea Gastrointestinal: Gastrointestinal: Reports abdominal pain, Reports belching, Denies constipation, Reports dyspepsia, Denies diarrhea, Denies nausea and Denies vomiting Endocrine: Endocrine: Denies fatigue PMFSH Past Medical History Attestation statement: The following information was validated with the patient. Medical History Right flank pain Back pain Screening for STD (sexually transmitted disease) Preop cardiovascular exam Family history of prostate cancer Carpal tunnel syndrome Paresthesia of hand, bilateral Vertebrogenic low back pain Leg pain Hospital discharge follow-up Varicose veins of right lower extremity with inflammation Sebaceous cyst of right axilla Tubular adenoma of colon Glucosuria Pre-op examination Physical exam Right hand pain Family history of colon cancer Radiculopathy, lumbar region Spondylosis, lumbar, with myelopathy Disc degeneration, lumbar Balanitis Lumbar pain Constipation Severe major depression without psychotic features Erectile dysfunction associated with type 2 diabetes mellitus HTN (hypertension) Precordial chest pain Unsteady gait Chest pain Fibromyalgia Serum calcium elevated IBS (irritable bowel syndrome) Right leg pain Kidney stones GERD (gastroesophageal reflux disease) Type 2 diabetes mellitus with hyperglycemia Type 2 diabetes mellitus with diabetic polyneuropathy Hyperlipidemia LDL goal <100 Vitamin D deficiency Surgical History H/O colonoscopy History of eye surgery Family History Family History Father Colon cancer, Onset Age: 50 Stroke Prostate cancer Mother Hypertension Diabetes Dementia Family/Other FH: mental illness Social History Social History Household Members: None Housing: Apartment Are you a primary care professional to a significant other at home: No Do you presently have visiting nurse or other home services: Yes ([employer]) Alcohol intake: former Patient Tobacco Use Status: Never used Tobacco Tobacco use type: Cigarette e-Cigarette/Vaping Use: Never Used Second Hand Smoke Exposure: No service: No Current occupational status: disabled Cognitive needs: Yes (cane/walker) Hearing needs: No Vision needs: Yes (glasses) Physical Exam ED Vital Signs: Vital Signs - 24 hr 06/25/25 17:51 06/25/25 19:23 06/25/25 21:07 Temperature 97.5 F 98.5 F 98.3 F Pulse Rate 91 85 97 Respiratory Rate 16 20 16 Blood Pressure 144/84 H 125/79 122/80 Pulse Oximetry 98 98 95 Oxygen Delivery Method Room Air Room Air Room Air BMI result Body Mass Index 26.6 Const Other: Alert well-appearing Orientation/consciousness: patient oriented x3 Resp Effort & Inspection: normal respiratory effort Cardio Other: Normal peripheral perfusion GI Other: Abdomen is soft, nondistended nontender no guarding Skin Other: Warm dry no rash Neuro General: patient oriented x3, gait normal, no focal motor deficits and CN's II- XI intact bilaterally Psych Other: Cooperative Course Course Course Narrative: This is a rapid medical exam performed by Silvestre Spencer NP: Additional HPI, ROS, PE not included below will be deferred to primary provider. Patient is a 59y/o Vietnamese speaking male with pmhx T2DM, HTN, GERD presenting with complaint of chest pain, acid reflux and hiccups since [place]iyaki [place] the mall yesterday. Tried putting sugar on his tongue for the hiccups which worked briefly then returned. Also complains of left sided rib pain. Plan: EKG, labs, CXR Medications Administered Discontinued Medications Generic Name Dose Route Start Last Admin Trade Name Freq PRN Reason Stop Dose Admin Diazepam 2 mg 06/25/25 20:52 06/25/25 21:04 Diazepam 2 Mg Tablet PO 06/25/25 20:53 2 mg ONCE ONE Administration Sucralfate 1 gm 06/25/25 20:52 06/25/25 21:05 Sucralfate Oral Suspension 1 Gm/10 Ml Oral.Susp PO 06/25/25 20:53 1 gm ONCE ONE Administration Medical Decision Making Medical Decision Making [facility] Narrative: 59-year-old male presents with a epigastric discomfort and indigestion x1 day. Patient states he ate fast food yesterday, then developed dyspepsia and recurrent hiccups. Associated upper abdominal discomfort. It is nonradiating, no postprandial symptoms no nausea vomiting or fever. Denies constipation, abdominal distention or inability to pass flatus from below. No relevant chronic issues History: Per patient I have considered the following differential diagnoses: Biliary colic, cholecystitis, gastritis/GERD, pancreatitis, constipation, bowel obstruction Plan: Patient is here with exacerbation of reflux symptoms, we will be giving a muscle relaxant and Carafate. Also obtaining a KUB, despite the fact the patient denies constipation, he has no obstructive symptoms. Common things being common, constipation typically triggers GERD symptoms. Given upper abdominal discomfort, I have considered underlying biliary and pancreatic etiology as cause for symptoms. However, he is not having postprandial pain, his LFTs are normal, he has no focal right upper quadrant discomfort, likewise no focal left upper quadrant discomfort. I have independently reviewed the following tests: Labs: No leukocytosis, not anemic, no electrolyte abnormality noted, LFTs normal CXR: FINDINGS: Normal cardiac, mediastinal, and hilar contours. Normal heart size. No pleural effusion or pneumothorax. Lungs are clear. No acute bone finding. IMPRESSION: 1. No acute cardiopulmonary process demonstrated. KUB: Constipation Differential Diagnosis Differential Diagnoses: The differential diagnosis associated with the presentation includes See medical decision-making Admission/Observation Consideration of admission/observation: Escalation of care including admission/observation considered Not applicable Lab Data MDM Lab Attestation statement: I reviewed the patient's lab results. 06/25/25 18:41 06/25/25 18:41 Labs: Lab Results 06/25/25 Range/Units 18:41 WBC 10.8 (4.8-10.8) X10*3/uL RBC 5.64 (4.60-5.80) X10*6/uL Hgb 16.9 (14.0-18.0) g/dl Hct 50.8 (42.0-52.0) % MCV 90.1 (80.0-98.0) fL MCH 30.0 (27.0-33.0) pg MCHC 33.3 (31.0-36.0) g/dl RDW 12.3 (11.0-16.0) % Plt Count 277 (160-400) X10*3/uL MPV 10.0 (9.4-12.4) fL Immature Gran % (Auto) 0.4 (0.0-0.4) % Neut % (Auto) 71.2 (45-73) % Lymph % (Auto) 19.9 L (20-40) % [facility] % (Auto) 7.3 (2-11) % Eos % (Auto) 1.0 (0-4) % Baso % (Auto) 0.2 (0-2) % Lymph # (Auto) 2.1 (1.2-4.9) X10*3/uL [facility] # (Auto) 0.8 (0.1-1.2) X10*3/uL Eos # (Auto) 0.1 (0.0-0.4) X10*3/uL Baso # (Auto) 0.0 (0.0-0.2) X10*3/uL Abs Immat Gran (auto) 0.04 H (0.00-0.03) X10*3/uL Absolute Neuts (auto) 7.7 (2.0-8.3) x10*3/uL Absolute Nucleated RBC 0.000 (0.0-0.012) X10*3/uL Nucleated RBC % (auto) 0.0 (0.0-0.2) /100WBC PT 11.8 (10.9-12.4) SEC INR 1.0 (0.9-1.1) Sodium 139 (135-145) mmol/L Potassium 5.1 D (3.3-5.1) mmol/L Chloride 106 (96-108) mmol/L Carbon Dioxide 22 (22-29) mmol/L Anion Gap 16 (12-20) BUN 16 (9-16) mg/dL Creatinine 0.99 (0.5-1.4) mg/dL Estim Creat Clear Calc 80.3 Estimated GFR > 60 Random Glucose 113 (60-115) mg/dL Calcium 10.3 H (8.4-10.2) mg/dL Total Bilirubin 0.6 (0.0-1.0) mg/dL AST 24 (5-37) U/L ALT 22 (0-40) U/L Alkaline Phosphatase 101 (39-117) U/L Troponin I High Sens 3.4 (<3.5-35.0) ng/L Total Protein 8.4 H (6.5-8.0) g/dL Albumin 5.4 H (3.5-5.0) g/dL Independent Interpretation I performed an independent interpretation of an: Plain X-Ray Radiology Impression Discussion of test interpretation with radiology: I have reviewed the radiologist's reading. Discharge Plan Discharge Clinical Impression: Constipation GERD (gastroesophageal reflux disease) Qualifiers: Esophagitis presence: esophagitis presence not specified Qualified Code(s): K 21.9 - Gastro-esophageal reflux disease without esophagitis Patient Disposition: Home, Self-Care Instructions: Constipation (ED), GERD (Gastroesophageal Reflux Disease) (ED) Additional Instructions: All of your screening labs were normal, the chest x-ray was normal as well. The x-ray of your abdomen revealed that you are constipated. Constipation is a very common trigger for acid reflux or indigestion. Use the Carafate as needed for your reflux symptoms. Avoid eating 3 hours prior to bed. Some common food triggers for acid reflux are mint, carbonation, alcohol, caffeine, greasy fatty food, spicy food, acidic food. In regard to the constipation, take eqge-aux-qmracer Colace, this is a stool softener, twice a day. Also purchase qmqy-izp-fzaqjce MiraLax, use it 3 to 4 times a day, until you begin having multiple large volume bowel movements. Follow up with primary care as needed. Prescriptions: New sucralfate [Carafate] 100 mg/mL suspension 10 ml PO QID PRN (Reason: indigestion) Qty: 300 0RF Rx Instructions: swish in mouth and swallow; use after food/drink No Action meloxicam 15 mg tablet 15 mg PO DAILY Qty: 14 0RF (DME) nebulizers [AeroEclipse II Nebulizer] Misc See Rx Instructions .Route Qty: 1 0RF Rx Instructions: As directed (DME) toilet seat elevator See Rx Instructions .Route .MEDSUPPLY Qty: 1 0RF Rx Instructions: As directed (DME) wipes See Rx Instructions .Route .MEDSUPPLY Qty: 200 11RF Rx Instructions: As directed (DME) adult diapers pull-ups large See Rx Instructions .Route .MEDSUPPLY Qty: 90 11RF Rx Instructions: As directed (DME) step stool for bed See Rx Instructions .Route .MEDSUPPLY Qty: 1 0RF Rx Instructions: As directed (DME) Transfer Bench Misc See Rx Instructions .Route Qty: 1 0RF Rx Instructions: As directed (DME) bed rail See Rx Instructions .Route .MEDSUPPLY Qty: 1 0RF Rx Instructions: As directed (DME) pill box 2 day capacity See Rx Instructions .Route .MEDSUPPLY Qty: 1 0RF Rx Instructions: As directed (DME) underpads [Bed Underpads] Pad See Rx Instructions .Route Qty: 100 11RF Rx Instructions: As directed ascorbic acid (vitamin C) 1,000 mg tablet 1 g PO DAILY 90 Days Qty: 90 2RF sertraline 100 mg tablet 100 mg PO DAILY 90 Days Qty: 90 1RF (DME) commode Kit See Rx Instructions .Route Qty: 1 0RF Rx Instructions: As directed (DME) handheld shower See Rx Instructions .Route .MEDSUPPLY Qty: 1 0RF Rx Instructions: As directed (DME) FreeStyle Kevin 14 Day [place] Misc See Rx Instructions .Route Qty: 1 0RF Rx Instructions: As directed FreeStyle Kevin 14 Day Sensor Kit 1 ea topical Q2W Qty: 2 11RF Jardiance 25 mg tablet 25 mg PO QAM 90 Days Qty: 90 1RF atorvastatin 80 mg tablet 80 mg PO DAILY Qty: 90 2RF (DME) diabetic shoes 10.5 See Rx Instructions .Route .MEDSUPPLY Qty: 1 0RF Rx Instructions: As directed (DME) cane Device See Rx Instructions .Route Qty: 1 0RF Rx Instructions: As directed tramadol 50 mg tablet 50 mg PO DAILY PRN (Reason: pain) 90 Days Qty: 90 1RF prednisolone acetate 1 % Drops,Suspension 1 drp OPHTHALMIC (EYE) DAILY PRN (Reason: Eye Irritation) clonidine HCl 0.1 mg tablet 0.1 mg PO BEDTIME PRN (Reason: Insomnia) Linzess 72 mcg capsule 72 mcg PO DAILY PRN (Reason: Abdominal Discomfort) nystatin 100,000 unit/gram cream 1 appl topical DAILY PRN (Reason: Skin Irritation) (DME) blood pressure monitor [Blood Pressure Kit] Kit See Rx Instructions .Route Qty: 1 0RF Rx Instructions: As directed (DME) rosangela [facility] [place] [facility] See Rx Instructions .ROUTE .MEDSUPPLY Qty: 1 0RF Rx Instructions: As directed hydrocortisone 2.5 % cream 1 appl topical BID PRN (Reason: skin irritation) Qty: 20 0RF hydroxyzine pamoate 25 mg capsule 25 mg PO DAILY (DME) pen needle, diabetic [BD Ultra-Fine Diana Pen Needle] 32 gauge x 5/32 needle See Rx Instructions .ROUTE .MEDSUPPLY Qty: 125 6RF Rx Instructions: As directed four times a day insulin aspart U-100 [Novolog FlexPen U-100 Insulin] 100 unit/mL (3 mL) insulin pen 4 - 10 unit subcut TID Qty: 15 5RF albuterol sulfate 2.5 mg /3 mL (0.083 %) solution for nebulization 2.5 mg inhalation Q4-6H PRN (Reason: shortness of breath or wheezing) 30 Days Qty: 75 3RF trazodone 150 mg tablet 150 mg PO BEDTIME timolol maleate 0.5 % drops 1 drp ophthalmic (eye) DAILY PRN (Reason: Eye Irritation) sennosides [Senna Lax] 8.6 mg tablet 8.6 mg PO BEDTIME 90 Days Qty: 90 0RF tadalafil 10 mg tablet 10 mg PO DAILY 90 Days Qty: 90 1RF metformin 1,000 mg tablet 1,000 mg PO BID 90 Days Qty: 180 1RF lisinopril 10 mg tablet 10 mg PO DAILY 90 Days Qty: 90 1RF insulin glargine U-300 conc [Toujeo Max U-300 SoloStar] 300 unit/mL (3 mL) insulin pen 53 unit subcut BEDTIME 30 Days Qty: 5.301 3RF ziprasidone HCl 20 mg capsule PO prazosin 1 mg capsule PO DAILY cyclobenzaprine 10 mg tablet 10 mg PO TID PRN (Reason: muscle spasm) 30 Days Qty: 90 0RF (DME) FreeStyle Lite Strips Strip See Rx Instructions .Route Qty: 100 3RF Rx Instructions: Use 1 strip once a day cholecalciferol (vitamin D3) 50 mcg (2,000 unit) capsule 50 mcg PO DAILY Qty: 30 11RF baclofen 20 mg tablet 20 mg PO TID 10 Days Qty: 30 0RF gabapentin 800 mg tablet 800 mg PO TID Interventions: ED Discharge Assessment Last Done: 06/25/25 22:32 Discharge Date/Time: 06/25/25 22:33 Print Language: Vietnamese
[2025-06-25 17:51] VITALS: BP 144/84; PULSE 91; RESP 16; TEMP 36.4; O2SAT 98; BMI 26.6
--- OUTSIDE RECORDS SUMMARY | 2025-06-25 18:24 | XMS_ITS | Clinical Summary ---
Author Organization [employer] Address [address] [place] [address] [address] [place] [address] Care Team Providers Care Lye Bath Operator Name Role Phone Unavailable Primary Care Provider Unavailabl e Allergies Active Allergy Reactions Criticality Noted Date Comments Ondansetron High 02/18/2014 Other reaction(s): Other (see comments) Dulaglutide Rash Low 11/20/2022 Medications ibuprofen 600 MG tabletIndicatio ns:Full latter day of crown of tooth needed due to [...] per sliding scale. max daily dose 66 [id number], # 30 mL, 3 Refills, Maintenance, 11/24/23 9:50:00 EST, Injection, [id number], Partial fill upon patient request if the... [...] to complete this topic Insurance DENTAL - [facility]
--- OUTSIDE RECORDS SUMMARY | 2025-06-25 18:24 | XMS_ITS | Encounter Summary ---
Author Organization [employer] Address [address] [place] [address] Care Team Providers Care Assistant Professor Of Drama Name Role Phone Unavailable Primary Care Provider Unavailabl e Encounter Details Date Type Department Care Team (Late st Contact Info) Description 11/29/2022 Abstract [facility] [address] [place] [address] Gatito Ritchie, DMD [address] [place] [address] Social History Tobacco Use Types Packs/Day Years [...]
--- OUTSIDE RECORDS SUMMARY | 2025-06-25 18:24 | XMS_ITS | Clinical Summary ---
Author Organization [facility] Address [address] [place] [address] Phone Care Team Providers Care Hide Cleaner Name Role Phone Salima Rodney MD Primary Care Provider [phone] Allergies Active Allergy Reactions Criticality Noted Date [...] 1 Active ergocalciferol (VITAMIN D2) 1.25 MG (68397 UT) capsule TOME 1 C PSULA POR [...] Medicaid [place] Care Teams Hide Cleaner Relationship Specialty Start Date End Date Salima Rodney MD [address] [place], [place] PCP - General 10/09/20
--- OUTSIDE RECORDS SUMMARY | 2025-06-25 18:24 | XMS_ITS | Encounter Summary ---
Author Organization [employer] Address [address] [place] [address] Care Team Providers Care Alemite Operator Name Role Phone Unavailable Primary Care Provider Unavailabl e Encounter Details Date Type Department Care Team (Late st Contact Info) Description 09/19/2022 Abstract [facility] [address] [place] [address] Dashawn Avery DDS [address] [place] [address] Social History Tobacco Use Types Packs/Day Years [...]
--- OUTSIDE RECORDS SUMMARY | 2025-06-25 18:24 | XMS_ITS | Clinical Summary ---
Author Organization [facility] Address [address] [place] [address] Care Team Providers Care Pecan Grower Name Role Phone Salima Rizo MD Primary [...] 2015 Zoster Vaccines (1 of 2) 2015 Depression Screening 09/29/2024 COVID-19 Vaccine (1 - 2023-2 5 season) 2025 Influenza Vaccine (#1) 2025 RSV Immunization Adult Patie nts (1 [...] age to complete this topic Care Teams Pecan Grower Relationship Specialty Start Date End Date Salima Rizo MD [address] [facility] D/B/A: [facility] VIRAJ Quesada PCP - General Internal Medicine 05/20/18
[2025-06-25 18:55] LABS: MANUAL DIFF FLAG NO
[2025-06-25 18:56] LABS: Hematocrit 50.8 % (42.0-52.0); Hemoglobin 16.9 g/dl (14.0-18.0); Imm Gran Abs Auto 0.04 X10*3/uL (0.00-0.03); Imm Gran Pct Auto 0.4 % (0.0-0.4); Lymphocytes Absolute Auto 2.1 X10*3/uL (1.2-4.9); Mean Corpuscular HGB Conc 33.3 g/dl (31.0-36.0); Mean Corpuscular Hemoglobin 30.0 pg (27.0-33.0); Mean Corpuscular Volume 90.1 fL (80.0-98.0); NRBC Abs Auto 0.000 X10*3/uL (0.0-0.012); NRBC Pct Auto 0.0 /100WBC (0.0-0.2); Platelet Count 277 X10*3/uL (160-400); Red Blood Count 5.64 X10*6/uL (4.60-5.80); White Blood Count 10.8 X10*3/uL (4.8-10.8)
[2025-06-25 19:10] LABS: INTERNATIONAL NORM RATIO 1.0 (0.9-1.1); Prothrombin Time 11.8 SEC (10.9-12.4)
[2025-06-25 19:14] LABS: Alanine Aminotransferase 22 U/L (0-40); Albumin Level 5.4 g/dL (3.5-5.0); Alkaline Phosphatase 101 U/L (39-117); Anion Gap 16 (12-20); Aspartate Amino Transferase 24 U/L (5-37); Blood Urea Nitrogen 16 mg/dL (9-16); Calcium 10.3 mg/dL (8.4-10.2); Carbon Dioxide 22 mmol/L (22-29); Chloride 106 mmol/L (96-108); Creatinine Clr Calc Pharmacy 80.3; Estimated Glomerular Filt Rate > 60; Potassium 5.1 mmol/L (3.3-5.1); Sodium 139 mmol/L (135-145); Total Protein 8.4 g/dL (6.5-8.0)
[2025-06-25 19:21] LABS: Troponin-I High Sensitivity 3.4 ng/L (<3.5-35.0)
[2025-06-25 19:23] VITALS: BP 125/79; PULSE 85; RESP 20; TEMP 36.9; O2SAT 98
[2025-06-25] MEDS: Sucralfate Oral Suspension 1 GM/10 ML ORAL.SUSP PO (21:05)
[2025-06-25 21:07] VITALS: BP 122/80; PULSE 97; RESP 16; TEMP 36.8; O2SAT 95
[2025-06-25 22:32] VITALS: BP 122/80; PULSE 97; RESP 16; TEMP 36.8; O2SAT 95
== END 2025-06-25 22:33 | disposition home or self-care (01) ==
PROVIDERS: Registered Nurse Emergency; Emergency Provider Emergency Medicine; PCP Internal Medicine
DX: K59.00 Constipation, unspecified (principal); I10 Essential (primary) hypertension; E11.9 Type 2 diabetes mellitus without complications; Z87.442 Personal history of urinary calculi; Z87.39 Personal history of other diseases of the musculoskeletal system and connective tissue; Z79.899 Other long term (current) drug therapy; Z87.19 Personal history of other diseases of the digestive system
CPT/HCPCS: 36415; 71046; 74018; 80053; 84484; 85025; 85610; 93005; 99283

== ENCOUNTER → 2025-06-25 17:44 | Outpatient (BNV) | payer OTHER, SELFPAY | PROVIDERS: Emergency Provider Emergency Medicine; PCP Internal Medicine; Visit Provider Internal Medicine Cardiovascular Disease | DX: R07.9 Chest pain, unspecified (principal) | CPT/HCPCS: 93010 ==

== ENCOUNTER → 2025-06-25 17:52 | Outpatient (BNV) | payer OTHER, SELFPAY | PROVIDERS: PCP Internal Medicine; Visit Provider Radiology Diagnostic Radiology | DX: R10.9 Unspecified abdominal pain (principal) | CPT/HCPCS: 74018 ==

== ENCOUNTER 2025-06-27 15:44 | Outpatient (AMB) | payer OTHER, SELFPAY ==
[2025-06-27 16:37] VITALS: BP 150/86; PULSE 92; O2SAT 98; BMI 29.6
--- NOTE | 2025-06-27 16:37 | A.OFFPC_ITS ---
Vital Signs 06/27/25 16:37 Height 5 ft 9 in Weight 200 lb 6 oz BMI 29.6 BP 150/86 H Blood Pressure Location Lt brachial Position Sitting Pulse 92 Pulse Source Pulse Oximeter Pulse Oximetry (%) 98 Oxygen Delivery Method Room Air Intake Visit Reasons: non-stop hiccups/acid reflux Marketing Strategy Lead Required: No Accompanied by: Self / Same As Patient Allergies dulaglutide (Trulicity) Allergy (Intermediate, Verified 06/27/25 16:57) cyst ondansetron (ONDANSETRON) Allergy (Intermediate, Verified 06/27/25 16:57) stomach pain semaglutide (From Ozempic) Adverse Reaction (Unknown, Verified 06/27/25 16:57) Heartburn Medication List - Last Reconciled 06/27/25 by Salima Rizo MD [adult diapers pull-ups As directed] albuterol sulfate 2.5 mg (3 mL) inhalation Q4-6H PRN 30 days ascorbic acid (vitamin C) 1 g PO DAILY 90 days atorvastatin 80 mg PO DAILY [bed rail As directed] blood pressure monitor (Blood Pressure Kit) As directed blood sugar diagnostic (FreeStyle Lite Strips) Use 1 strip once a day cane As directed chlorpromazine 200 mg PO BEDTIME PRN cholecalciferol (vitamin D3) 50 mcg PO DAILY clonidine HCl 0.1 mg PO BEDTIME PRN commode As directed cyclobenzaprine 10 mg PO TID PRN 30 days [diabetic shoes As directed] empagliflozin (Jardiance) 25 mg PO QAM 90 days flash glucose scanning reader (FreeStyle Kevin 14 Day [place]) As directed flash glucose sensor (FreeStyle Kevin 14 Day Sensor kit) 1 ea topical Q2W gabapentin 800 mg PO DAILY [handheld shower As directed] hydrocortisone 2.5% 1 appl topical BID PRN hydroxyzine pamoate 25 mg PO DAILY insulin aspart U-100 (Novolog FlexPen U-100 Insulin aspart) 4 - 10 units (0.04 - 0.1 mL) subcut TID insulin glargine U-300 conc (Toujeo Max U-300 SoloStar) 53 units (0.1767 mL) subcut BEDTIME 30 days linaclotide (Linzess) 72 mcg PO DAILY PRN lisinopril 10 mg PO DAILY 90 days meloxicam 15 mg PO DAILY metformin 1,000 mg PO BID 90 days nebulizers (AeroEclipse II Nebulizer) As directed nystatin 1 appl topical DAILY PRN pen needle, diabetic (BD Ultra-Fine Diana Pen Needle) As directed four times a day [pill box 2 day capacity As directed] prazosin mg PO DAILY prednisolone acetate 1% 1 drp ophthalmic (eye) DAILY PRN sennosides (Senna Lax) 8.6 mg PO BEDTIME 90 days sertraline 100 mg PO DAILY 90 days [step stool for bed As directed] sucralfate (Carafate) 10 mL PO QID PRN tadalafil 10 mg PO DAILY 90 days timolol maleate 0.5% 1 drp ophthalmic (eye) DAILY PRN [toilet seat elevator As directed] tramadol 50 mg PO DAILY PRN 90 days Transfer Bench As directed trazodone 150 mg PO BEDTIME underpads (Bed Underpads) As directed walker As directed [wipes As directed] ziprasidone HCl mg PO Tobacco use date assessed: 06/27/25 Dental Screening Dental Screen Date: 06/27/25 HPI HPI Comments History of Present Illness Details The patient is a 59-year-old male presenting with persistent hiccups and gastroesophageal reflux symptoms. The patient reports increased acidity and food retention in the esophagus, which has been persistent and troubling. The patient also reports a history of type 2 diabetes mellitus, with a recent A1c level of 7.3, indicating suboptimal glycemic control. The patient has a history of hypertension, with a current blood pressure reading of 156 mmHg, which is elevated. The patient experiences insomnia, which is exacerbated by the persistent hiccups and possibly related to the current medication regimen. [facility] Medical History (Updated 06/27/25 @ 20:21 by Salima Rizo MD) Right flank pain Back pain Screening for STD (sexually transmitted disease) Preop cardiovascular exam Family history of prostate cancer Carpal tunnel syndrome Paresthesia of hand, bilateral Vertebrogenic low back pain Leg pain Hospital discharge follow-up Varicose veins of right lower extremity with inflammation Sebaceous cyst of right axilla Tubular adenoma of colon Glucosuria Pre-op examination Physical exam Right hand pain Family history of colon cancer Radiculopathy, lumbar region Spondylosis, lumbar, with myelopathy Disc degeneration, lumbar Balanitis Lumbar pain Constipation Severe major depression without psychotic features Erectile dysfunction associated with type 2 diabetes mellitus HTN (hypertension) Precordial chest pain Unsteady gait Chest pain Fibromyalgia Serum calcium elevated IBS (irritable bowel syndrome) Right leg pain Kidney stones GERD (gastroesophageal reflux disease) Type 2 diabetes mellitus with hyperglycemia Type 2 diabetes mellitus with diabetic polyneuropathy Hyperlipidemia LDL goal <100 Vitamin D deficiency Surgical History H/O colonoscopy History of eye surgery Family History Father Colon cancer, Onset Age: 50 Stroke Prostate cancer Mother Hypertension Diabetes Dementia Family/Other FH: mental illness Social History Household Members: None Housing: Apartment Are you a primary pediatric critical care nurse to a significant other at home: No Do you presently have visiting nurse or other home services: Yes (FRONT OF HOUSE MANAGER) Alcohol intake: former Patient Tobacco Use Status: Never used Tobacco Tobacco use type: Cigarette e-Cigarette/Vaping Use: Never Used Second Hand Smoke Exposure: No service: No Current occupational status: disabled Cognitive needs: Yes (cane/walker) Hearing needs: No Vision needs: Yes (glasses) Questionnaire Thrive Questionnaire Date Thrive assessed: 02/16/25 I am a: Patient What is your living situation today?: I have a steady place to live Within the past 12 months, did the food you bought not last and you didn't have the money to get more?: Often true Within the past 12 months, did you worry whether your food would run out before you got money to buy more?: Sometimes True Do you have trouble paying for medicines?: No Do you have trouble getting transportation to medical appointments?: No Do you have trouble paying your heating and electricity bill?: No Do you have trouble taking care of your child, family member or friend?: Yes Do you have trouble with day-to-day activities such as bathing, preparing meals, shopping, managing finances, etc.?: I choose not to answer this question Are you currently unemployed and looking for a job?: Yes Are you interested in more education?: I choose not to answer this question Currently or been in a relationship where the following occur: I choose not to answer THRIVE Score: 2 AUDIT C Alcohol Use Questionnaire (AUDIT-C) 1. How often do you have a drink containing alcohol?: 2-3 times a week 2. How many drinks containing alcohol do you have on a typical day when you are drinking?: 3 or 4 3. How often do you have six or more drinks on one occasion?: Monthly Total Score: 6 GRAHAM-7 AMB Questionnaire GRAHAM-7 Date GRAHAM - 7 assessed: 09/30/24 Source: Developed by Drs. Arya Griffin, Delphine Kelley, Boris Aguilera and colleagues, with an educational ifrah from [employer]. Review of Systems Const All systems reviewed & are unremarkable except as noted in HPI and below Card Denies chest pain at rest, Denies chest pain with activity, Denies edema, Denies irregular heart rhythm, Denies claudication, Denies dyspnea, Denies dyspnea on exertion, Denies orthopnea, Denies paroxysmal nocturnal dyspnea and Denies slow heart rate Resp Denies cough, Denies dyspnea and Denies dyspnea on exertion Physical exam (Primary Care) Vital Signs: Last Vital Signs Pulse 92 06/27/25 16:37 BP 150/86 H 06/27/25 16:37 Pulse Ox 98 06/27/25 16:37 Oxygen Delivery Method Room Air 06/27/25 16:37 BMI result Body Mass Index 29.6 Tobacco/Smoking Status: Tobacco use Status Tobacco use date assessed 06/27/25 06/27/25 16:40 Patient Tobacco Use Status Never used Tobacco 06/27/25 16:40 Tobacco use type Cigarette 06/27/25 16:40 e-Cigarette/Vaping Use Never Used 06/27/25 16:40 Thrive Assessment: Date of Thrive Assessment Date Thrive assessed 02/16/25 06/27/25 16:40 Currently or been in a relationship where the following occur: I choose not to answer Resp Effort & Inspection: normal respiratory effort Auscultation: clear to auscultation bilaterally Cardio Jugular venous distension: no JVD Rate: regular rate Rhythm: regular rhythm Heart sounds: S1 normal heart sound present and S2 normal heart sound present Extrem General: Yes full ROM Results AMB Hemoglobin A1c AMB Hemoglobin A1c 7.3 % Last Edit by ALEXUS Mendosa on 06/27/25 16 :57 Results Reviewed Results Reviewed: Laboratory Last Values Hgb A1c (Clinic) 7.3 % (4.0-6.0) H 06/27/25 16:55 Coding Level of Care Code Est Pt Level 4 (49038) Diagnoses Intractable hiccups R06.6 Type 2 diabetes mellitus with hyperglycemia, with long-term current use of insulin E11.65; Z79.4 Diabetes mellitus complication status: with hyperglycemia Gastroesophageal reflux disease, unspecified whether esophagitis present K21.9 Esophagitis presence: esophagitis presence not specified Essential hypertension I10 Hypertension type: essential hypertension Time Spent (min) 22 Assessment & Plan Assessment & Plan (1) Intractable hiccups: Code(s): R06.6 - Hiccough Category: Medical (2) Type 2 diabetes mellitus, with long-term current use of insulin: Code(s): E11.9 - Type 2 diabetes mellitus without complications; Z79.4 - FCI (current) use of insulin Category: Medical Qualifiers: Diabetes mellitus complication status: with hyperglycemia Qualified Code(s): E11.65 - Type 2 diabetes mellitus with hyperglycemia; Z79.4 - FCI (current) use of insulin (3) GERD (gastroesophageal reflux disease): Comment: Appears was driven by Ozempic use resolved Code(s): K21.9 - Gastro-esophageal reflux disease without esophagitis Category: Medical Qualifiers: Esophagitis presence: esophagitis presence not specified Qualified Code(s): K21.9 - Gastro-esophageal reflux disease without esophagitis (4) HTN (hypertension): Code(s): I10 - Essential (primary) hypertension Category: Medical Qualifiers: Hypertension type: essential hypertension Qualified Code(s): I10 - Essential (primary) hypertension Plan Plan Patient was informed and verbally consented to the use of an ambient scribe for clinic note documentation during this visit. 1. Gastroesophageal Reflux Disease The patient reports persistent gastroesophageal reflux symptoms, including increased acidity and food retention in the esophagus. Management includes dietary modifications and monitoring for symptom improvement. 2. Type 2 Diabetes Mellitus The patient's A1c level is 7.3, indicating suboptimal glycemic control. The plan includes continued monitoring and adjustment of the current medication regimen to improve glycemic control. 3. Hypertension The patient has a history of hypertension with a current blood pressure reading of 156 mmHg. Management includes monitoring blood pressure and adjusting antihypertensive medications as needed. 4. Hiccups The patient reports persistent hiccups, which are affecting daily activities and sleep. The plan includes medication adjustments and monitoring for improvement. 5. Insomnia The patient experiences insomnia, which may be related to persistent hiccups and current medication regimen. Management includes addressing underlying causes and considering medication adjustments. Orders: Orders AMB Hemoglobin A1c Today Z13.9 - Encounter for screening, unspecified Medications: New baclofen 20 mg PO TID 30 tabs 0RF 10 days Changed From gabapentin 800 mg PO DAILY To gabapentin 800 mg PO TID
--- OUTSIDE RECORDS SUMMARY | 2025-06-27 17:45 | XMS_ITS | Encounter Summary ---
Author Organization [employer] Address [address] [place] [address] Care Team Providers Care Screen Printing Cloth Spreader Name Role Phone Unavailable Primary Care Provider Unavailabl e Encounter Details Date Type Department Care Team (Late st Contact Info) Description 11/29/2022 Abstract [facility] ADULT D[facility]AL [address] [place] [address] Gatito Ritchie, DMD [address] [place] [address] Social History Tobacco Use Types Packs/Day Years [...]
--- OUTSIDE RECORDS SUMMARY | 2025-06-27 17:45 | XMS_ITS | Clinical Summary ---
Author Organization [facility] Address [address] [place] [address] Phone Care Team Providers Care Permastone Applicator Name Role Phone Salima Rodney MD Primary Care Provider [phone] Allergies Active Allergy Reactions Criticality Noted Date [...] 1 Active ergocalciferol (VITAMIN D2) 1.25 MG (60237 UT) capsule TOME 1 C PSULA POR [...] Medicaid [place] Care Teams Permastone Applicator Relationship Specialty Start Date End Date Salima Rodney MD [address] [place], [place] PCP - General 10/09/20
--- OUTSIDE RECORDS SUMMARY | 2025-06-27 17:45 | XMS_ITS | Clinical Summary ---
Author Organization [facility] Address [address] [place] [address] Care Team Providers Care Bottle Gauger Name Role Phone Salima Rizo MD Primary Care Provider [phone] Social History Tobacco Use Types Packs/Day Years [...] age to complete this topic Care Teams Bottle Gauger Relationship Specialty Start Date End Date Salima Rizo MD [address] , [address] [facility] Physician Associ D/B/A: [facility] Internal [facility] VIRAJ Quesada PCP - General Internal Medicine 05/20/18
--- OUTSIDE RECORDS SUMMARY | 2025-06-27 17:46 | XMS_ITS | Clinical Summary ---
Author Organization [employer] Address [address] [place] [address] [address] [place] [address] Care Team Providers Care Dry Roaster Name Role Phone Unavailable Primary Care Provider Unavailabl e Allergies Active Allergy Reactions Criticality Noted Date Comments Ondansetron High 02/18/2014 Other reaction(s): Other (see comments) Dulaglutide Rash Low 11/20/2022 Medications ibuprofen 600 MG tabletIndicatio ns:Full caodaism of crown of tooth needed due to [...] per sliding scale. max daily dose 66 [id number], # 30 mL, 3 Refills, Maintenance, 11/24/23 9:50:00 EST, Injection, [id number], Partial fill upon patient request if the... [...] to complete this topic Insurance DENTAL - [facility]
--- OUTSIDE RECORDS SUMMARY | 2025-06-27 17:46 | XMS_ITS | Encounter Summary ---
Author Organization [employer] Address [address] [place] [address] Care Team Providers Care Tail Sawyer Name Role Phone Unavailable Primary Care Provider Unavailabl e Encounter Details Date Type Department Care Team (Late st Contact Info) Description 09/19/2022 Abstract [facility] ADULT D[facility]AL [address] [place] [address] Dashawn Avery DDS [address] [place] [address] Social History Tobacco Use Types Packs/Day Years [...]
== END 2025-06-27 17:09 | disposition home or self-care (01) ==
LOC: HO.HMCH 15:45
PROVIDERS: PCP Internal Medicine; Visit Provider Internal Medicine
DX: R06.6 Hiccough (principal); E11.65 Type 2 diabetes mellitus with hyperglycemia; Z79.4 Long term (current) use of insulin; K21.9 Gastro-esophageal reflux disease without esophagitis; I10 Essential (primary) hypertension; Z13.9 Encounter for screening, unspecified

== ENCOUNTER → 2025-06-27 15:44 | Outpatient (BNVA) | payer OTHER, SELFPAY | PROVIDERS: PCP Internal Medicine; Visit Provider Internal Medicine | DX: K21.9 Gastro-esophageal reflux disease without esophagitis (principal); I10 Essential (primary) hypertension; R06.6 Hiccough; E11.65 Type 2 diabetes mellitus with hyperglycemia; G47.00 Insomnia, unspecified | CPT/HCPCS: 83036; 99212 ==

== ENCOUNTER 2025-07-28 11:04 | Outpatient (AMB) | payer OTHER, SELFPAY ==
--- NOTE | 2025-07-28 11:12 | A.OFFVIS_ITS ---
Vital Signs 07/28/25 11:56 Height 5 ft 9 in Weight 203 lb 0.732 oz BMI 30.0 BP 117/72 Blood Pressure Location Rt brachial Position Sitting Pulse 71 Intake Visit Reasons: CIC, Gerd Intake Note: Patient in office today in follow up of CIC and GERD. CC: Compressed Gas Plant Worker Required: Yes Compressed Gas Plant Worker Language: Respiratory Supervisor Name: Karen Accompanied by: Self / Same As Patient Allergies dulaglutide (Trulicity) Allergy (Intermediate, Verified 08/19/25 15:22) cyst ondansetron (ONDANSETRON) Allergy (Intermediate, Verified 08/19/25 15:22) stomach pain semaglutide (From Ozempic) Adverse Reaction (Unknown, Verified 08/19/25 15:22) Heartburn HPI HPI CIC, Gerd: Details: Assessment & Plan (1) Chronic idiopathic constipation: Comment: Appears driven by Ozempic use, resolved Code(s): K59.04 - Chronic idiopathic constipation Category: Medical (2) GERD (gastroesophageal reflux disease): Comment: Appears was driven by Ozempic use resolved Code(s): K21.9 - Gastro-esophageal reflux disease without esophagitis Category: Medical Qualifiers: Esophagitis presence: esophagitis presence not specified Qualified Code(s): K21.9 - Gastro-esophageal reflux disease without esophagitis Plan He was taken off of the Ozempic, and all of his GI problems have resolved. He no longer is taking the pantoprazole or the Linzess. Since we are no longer prescribing, he really only needs to follow up prn. TODAY'S VISIT [place] Carol [facility] Medical History Right flank pain Back pain Screening for STD (sexually transmitted disease) Preop cardiovascular exam Family history of prostate cancer Carpal tunnel syndrome Paresthesia of hand, bilateral Vertebrogenic low back pain Leg pain Hospital discharge follow-up Varicose veins of right lower extremity with inflammation Sebaceous cyst of right axilla Tubular adenoma of colon Glucosuria Pre-op examination Physical exam Right hand pain Family history of colon cancer Radiculopathy, lumbar region Spondylosis, lumbar, with myelopathy Disc degeneration, lumbar Balanitis Lumbar pain Constipation Severe major depression without psychotic features Erectile dysfunction associated with type 2 diabetes mellitus HTN (hypertension) Precordial chest pain Unsteady gait Chest pain Fibromyalgia Serum calcium elevated IBS (irritable bowel syndrome) Right leg pain Kidney stones GERD (gastroesophageal reflux disease) Type 2 diabetes mellitus with hyperglycemia Type 2 diabetes mellitus with diabetic polyneuropathy Hyperlipidemia LDL goal <100 Vitamin D deficiency Surgical History H/O colonoscopy History of eye surgery Family History Father Colon cancer, Onset Age: 50 Stroke Prostate cancer Mother Hypertension Diabetes Dementia Family/Other FH: mental illness Social History Household Members: None Housing: Apartment Are you a primary manager critical care unit to a significant other at home: No Do you presently have visiting nurse or other home services: Yes ([employer]) Alcohol intake: former Patient Tobacco Use Status: Never used Tobacco Tobacco use type: Cigarette e-Cigarette/Vaping Use: Never Used Second Hand Smoke Exposure: No service: No Current occupational status: disabled Cognitive needs: Yes (cane/walker) Hearing needs: No Vision needs: Yes (glasses) Review of Systems Const Denies fatigue, Denies fever(s), Denies night sweats, Denies poor appetite and Denies weight loss Eyes Details: glasses Reports requires corrective lenses ENT Reports Normal hearing present, Denies dental pain, Denies dysphagia, Denies hearing loss, Denies mouth pain, Denies odynophagia, Denies throat swelling, Denies tongue swelling and Reports other (Dentition adequate) GI Details: Denies abdominal pain, Denies melena, Denies bloating, Denies hematochezia, Denies constipation, Denies GI cramping, Denies dysphagia, Denies excessive flatus, Denies early satiety, Denies heartburn, Denies diarrhea, Denies nausea, Denies odynophagia, Denies vomiting and Denies hematemesis Skin/Breast Denies pruritus, Denies lesions, Denies rash and Denies jaundice Neuro Reports Normal hearing present and Denies Abnormal speech present Endo Denies fatigue Aller/Immun Denies throat swelling and Denies tongue swelling Physical Exam Vital Signs: Last Vital Signs Pulse 71 07/28/25 11:56 BP 117/72 07/28/25 11:56 BMI result Body Mass Index 30.0 Const General: cooperative, no acute distress, well developed and well groomed Nutritional Appearance: well nourished, obese and overweight Orientation/consciousness: oriented to person, oriented to place and oriented to time Limitations: No language barrier, ambulation with cane, ambulation with walker and wheelchair HEENT Head: Yes normocephalic and Yes atraumatic Eyes General: appearance normal, both eyes and all related structures Pupils: Equal, round and reactive pupils present Neck Neck: Yes normal visual inspection and Yes no lymphadenopathy Thyroid: Thyroid normal Resp Effort & Inspection: normal respiratory effort and able to speak in complete sentences Auscultation: clear to auscultation bilaterally Cardio Rate: regular rate Rhythm: regular rhythm Heart sounds: Normal, physiologic split S2 sound present Peripheral pulses: radial pulses present and posterior tibial pulses present GI Inspection: No distended and No Abdominal panniculus present Palpation (GI): Soft to palpation, nontender, no guarding, not rigid, No hepa tosplenomegaly present and Hepatosplenomegaly present Percussion: Yes normal to percussion Auscultation: normal bowel sounds Rectal Exam - Male: Yes deferred Skin General skin exam: no rashes or lesions noted, turgor normal, skin not dry, no jaundice, No spider nevi and no striae Rashes: no rashes Nails: normal Neuro General: oriented to person, oriented to place and oriented to time Cranial nerves: Yes Equal, round and reactive pupils present and Yes Normal hearing present Speech: No Abnormal speech present Extrem General: Yes normal to inspection, No clubbing, No cyanosis and No edema Psych Thought process: Normal thought process present and not confabulating Thought content: Normal thought content present Insight: Good insight present (Psych) Judgement: Good judgement present (Psych) Assessment & Plan Assessment & Plan (1) GERD (gastroesophageal reflux disease): Comment: Appears was driven by Ozempic use resolved Code(s): K21.9 - Gastro-esophageal reflux disease without esophagitis Category: Medical Qualifiers: Esophagitis presence: esophagitis presence not specified Qualified Code(s): K21.9 - Gastro-esophageal reflux disease without esophagitis (2) Chronic idiopathic constipation: Comment: Appears driven by Ozempic use, resolved Code(s): K59.04 - Chronic idiopathic constipation Category: Medical Plan [place] # - Continue pantoprazole 40 mg once daily before breakfast. - Use famotidine if you experience severe heartburn symptoms. - Avoid known dietary triggers, such as certain Indonesian foods. - Monitor for drowsiness if taking gabapentin and avoid driving. - Keep track of symptoms and dietary intake to discuss at the follow-up. - Return for evaluation if symptoms worsen or do not improve within three weeks. - Come back sooner if you have trouble breathing or severe discomfort. He is also complaining of intermittent intractable hiccups which in the past has not been well controlled on either gabapentin or baclofen. Medications: New linaclotide (Linzess) 72 mcg PO DAILY PRN 30 caps 3RF Abdominal Discomfort K59.04 - Chronic idiopathic constipation famotidine (Pepcid) 40 mg PO DAILY PRN 30 tabs 12RF heartburn K21.9 - Gastro- esophageal reflux disease without esophagitis pantoprazole (Protonix) 40 mg PO DAILY 30 tabs 12RF 30 days K21.9 - Gastro- esophageal reflux disease without esophagitis Discontinued sucralfate swish in mouth and swallow; use after food/drink Discontinued Reason: Doctor's Order 10 mL PO QID PRN 300 mL 0RF indigestion Coding Level of Care Code Est Pt Level 3 (43367) Diagnoses Gastroesophageal reflux disease, unspecified whether esophagitis present K21.9 Esophagitis presence: esophagitis presence not specified Chronic idiopathic constipation K59.04
[2025-07-28 11:56] VITALS: BP 117/72; PULSE 71
--- OUTSIDE RECORDS SUMMARY | 2025-07-28 13:49 | XMS_ITS | Clinical Summary ---
Author Organization [facility] Address [address] [place] [address] Care Team Providers Care Transmission Worker Name Role Phone Salima Rizo MD Primary Care Provider [phone] Social History Tobacco Use Types Packs/Day Years [...] age to complete this topic Care Teams Transmission Worker Relationship Specialty Start Date End Date Salima Rizo MD [address] [facility] [address] [facility] Physician Associ D/B/A: Dipak Arriazaatikt In Internal Medicine VIRAJ Quesada PCP - General Internal Medicine 05/20/18
--- OUTSIDE RECORDS SUMMARY | 2025-07-28 13:49 | XMS_ITS | Encounter Summary ---
Author Organization [employer] Address [address] [place] [address] Care Team Providers Care Manager Licensing Name Role Phone Unavailable Primary Care Provider Unavailabl e Encounter Details Date Type Department Care Team (Late st Contact Info) Description 09/19/2022 Abstract [facility] ADULT DENTAL [address] [place] [address] Dashawn Avery DDS [address] [place] [address] Social History Tobacco Use Types Packs/Day Years [...]
--- OUTSIDE RECORDS SUMMARY | 2025-07-28 13:49 | XMS_ITS | Clinical Summary ---
Author Organization [employer] Address [address] [place] [address] [address] [place] [address] Care Team Providers Care Magnet Maker Name Role Phone Unavailable Primary Care Provider Unavailabl e Allergies Active Allergy Reactions Criticality Noted Date Comments Ondansetron High 02/18/2014 Other reaction(s): Other (see comments) Dulaglutide Rash Low 11/20/2022 Medications ibuprofen 600 MG tabletIndicatio ns:Full judaism of crown of tooth needed due to [...] per sliding scale. max daily dose 66 [id number], # 30 mL, 3 Refills, Maintenance, 11/24/23 9:50:00 EST, Injection, [id number], Partial fill upon patient request if the... [...] to complete this topic Insurance DENTAL - [facility]
--- OUTSIDE RECORDS SUMMARY | 2025-07-28 13:49 | XMS_ITS | Encounter Summary ---
Author Organization [employer] Address [address] [place] [address] Care Team Providers Care Zipper Trimmer Name Role Phone Unavailable Primary Care Provider Unavailabl e Encounter Details Date Type Department Care Team (Late st Contact Info) Description 11/29/2022 Abstract [facility] ADULT DENTAL [address] [place] [address] Gatito Ritchie, DMD [address] [place] [address] Social History Tobacco Use Types Packs/Day Years [...]
== END 2025-07-28 12:22 | disposition home or self-care (01) ==
LOC: HO.HGI 11:05
PROVIDERS: PCP Internal Medicine; Visit Provider Nurse Practitioner
DX: K21.9 Gastro-esophageal reflux disease without esophagitis (principal); K59.04 Chronic idiopathic constipation
CPT/HCPCS: 99213

== ENCOUNTER → 2025-07-28 11:04 | Outpatient (BNVA) | payer OTHER, SELFPAY | PROVIDERS: PCP Internal Medicine; Visit Provider Nurse Practitioner | DX: K21.9 Gastro-esophageal reflux disease without esophagitis (principal); Z87.19 Personal history of other diseases of the digestive system | CPT/HCPCS: 99212 ==

== ENCOUNTER 2025-08-19 15:07 | Outpatient (AMB) | payer OTHER, SELFPAY ==
[2025-08-19 15:10] VITALS: BP 141/80; PULSE 86; BMI 28.6
--- NOTE | 2025-08-19 15:10 | A.OFFVIS_ITS ---
Vital Signs 08/19/25 15:10 Height 5 ft 9 in Weight 194 lb BMI 28.6 BP 141/80 H Blood Pressure Location Lt brachial Position Sitting Pulse 86 Intake Visit Reasons: cic gerd Intake Note: Fer returns to in office follow up of GERD and CIC. CC: Patient reports that he is doing better. Denies any new symptoms or concerns today. Custom Home Installer Required: Yes Custom Home Installer Language: Albanian Accompanied by: Self / Same As Patient Allergies dulaglutide (Trulicity) Allergy (Intermediate, Verified 08/19/25 15:22) cyst ondansetron (ONDANSETRON) Allergy (Intermediate, Verified 08/19/25 15:22) stomach pain semaglutide (From Ozempic) Adverse Reaction (Unknown, Verified 08/19/25 15:22) Heartburn HPI HPI cic gerd: Details: Assessment & Plan (1) GERD (gastroesophageal reflux disease): Comment: Appears was driven by Ozempic use resolved Code(s): K21.9 - Gastro-esophageal reflux disease without esophagitis Category: Medical Qualifiers: Esophagitis presence: esophagitis presence not specified Qualified Code(s): K21.9 - Gastro-esophageal reflux disease without esophagitis (2) Chronic idiopathic constipation: Comment: Appears driven by Ozempic use, resolved Code(s): K59.04 - Chronic idiopathic constipation Category: Medical Plan Albanian # Medications: New linaclotide (Linzess) 72 mcg PO DAILY PRN 30 caps 3RF Abdominal Discomfort K59.04 - Chronic idiopathic constipation famotidine (Pepcid) 40 mg PO DAILY PRN 30 tabs 12RF heartburn K21.9 - Gastro- esophageal reflux disease without esophagitis pantoprazole (Protonix) 40 mg PO DAILY 30 tabs 12RF 30 days K21.9 - Gastro- esophageal reflux disease without esophagitis Discontinued sucralfate (Carafate) swish in mouth and swallow; use after food/drink Discontinued Reason: Doctor's Order 10 mL PO QID PRN 300 mL 0RF indigestion TODAY'S VISIT Albanian #Humberto mckeon [facility] Medical History Right flank pain Back pain Screening for STD (sexually transmitted disease) Preop cardiovascular exam Family history of prostate cancer Carpal tunnel syndrome Paresthesia of hand, bilateral Vertebrogenic low back pain Leg pain Hospital discharge follow-up Varicose veins of right lower extremity with inflammation Sebaceous cyst of right axilla Tubular adenoma of colon Glucosuria Pre-op examination Physical exam Right hand pain Family history of colon cancer Radiculopathy, lumbar region Spondylosis, lumbar, with myelopathy Disc degeneration, lumbar Balanitis Lumbar pain Constipation Severe major depression without psychotic features Erectile dysfunction associated with type 2 diabetes mellitus HTN (hypertension) Precordial chest pain Unsteady gait Chest pain Fibromyalgia Serum calcium elevated IBS (irritable bowel syndrome) Right leg pain Kidney stones GERD (gastroesophageal reflux disease) Type 2 diabetes mellitus with hyperglycemia Type 2 diabetes mellitus with diabetic polyneuropathy Hyperlipidemia LDL goal <100 Vitamin D deficiency Surgical History H/O colonoscopy History of eye surgery Family History Father Colon cancer, Onset Age: 50 Stroke Prostate cancer Mother Hypertension Diabetes Dementia Family/Other FH: mental illness Social History Household Members: None Housing: Apartment Are you a primary rn wound care to a significant other at home: No Do you presently have visiting nurse or other home services: Yes ([employer]) Alcohol intake: former Patient Tobacco Use Status: Never used Tobacco Tobacco use type: Cigarette e-Cigarette/Vaping Use: Never Used Second Hand Smoke Exposure: No service: No Current occupational status: disabled Cognitive needs: Yes (cane/walker) Hearing needs: No Vision needs: Yes (glasses) Review of Systems Const Denies fatigue, Denies fever(s), Denies night sweats, Denies poor appetite and Denies weight loss Eyes Details: glasses Reports requires corrective lenses ENT Reports Normal hearing present, Denies dental pain, Denies dysphagia, Denies hearing loss, Denies mouth pain, Denies odynophagia, Denies throat swelling, Denies tongue swelling and Reports other (Dentition adequate) Card Reports no additional complaints Resp Reports no additional complaints GI Details: Denies abdominal pain, Denies melena, Denies bloating, Denies hematochezia, Reports constipation, Reports GI cramping, Denies dysphagia, Denies excessive flatus, Denies early satiety, Denies heartburn, Denies diarrhea, Denies nausea, Denies odynophagia, Denies vomiting and Denies hematemesis Skin/Breast Denies pruritus, Denies lesions, Denies rash and Denies jaundice Neuro Reports Normal hearing present and Denies Abnormal speech present Endo Denies fatigue Aller/Immun Denies throat swelling and Denies tongue swelling Physical Exam Vital Signs: Last Vital Signs Pulse 86 08/19/25 15:10 BP 141/80 H 08/19/25 15:10 BMI result Body Mass Index 28.6 Const General: cooperative, no acute distress, well developed and well groomed Nutritional Appearance: well nourished and overweight Orientation/consciousness: oriented to person, oriented to place and oriented to time Limitations: language barrier HEENT Head: Yes normocephalic and Yes atraumatic Eyes General: appearance normal, both eyes and all related structures Pupils: Equal, round and reactive pupils present Neck Neck: Yes normal visual inspection and Yes no lymphadenopathy Thyroid: Thyroid normal Resp Effort & Inspection: normal respiratory effort and able to speak in complete sentences Auscultation: clear to auscultation bilaterally Cardio Rate: regular rate Rhythm: regular rhythm Heart sounds: Normal, physiologic split S2 sound present Peripheral pulses: radial pulses present and posterior tibial pulses present GI Inspection: No distended, No Abdominal panniculus present and Yes obesity Palpation (GI): Soft to palpation, nontender, no guarding, not rigid and No hepatosplenomegaly present Percussion: Yes normal to percussion Auscultation: normal bowel sounds Rectal Exam - Male: Yes deferred Skin General skin exam: no rashes or lesions noted, turgor normal, skin not dry, no jaundice, No spider nevi and no striae Rashes: no rashes Nails: normal Neuro General: oriented to person, oriented to place and oriented to time Cranial nerves: Yes Equal, round and reactive pupils present and Yes Normal hearing present Speech: No Abnormal speech present Extrem General: Yes normal to inspection, No clubbing, No cyanosis and No edema Psych Appearance: grossly normal and well kempt Mental Status: mental status grossly normal Speech and movement: Normal speech and movement present Affect: normal affect Attitude: cooperative Thought process: Normal thought process present and not confabulating Thought content: Normal thought content present Insight: Limited insight present (Psych) Judgement: Limited judgement present (Psych) Assessment & Plan Assessment & Plan (1) Chronic idiopathic constipation: Comment: Appears driven by Ozempic use, resolved Code(s): K59.04 - Chronic idiopathic constipation Category: Medical (2) GERD (gastroesophageal reflux disease): Comment: Appears was driven by Ozempic use resolved Code(s): K21.9 - Gastro-esophageal reflux disease without esophagitis Category: Medical Qualifiers: Esophagitis presence: esophagitis presence not specified Qualified Code(s): K21.9 - Gastro-esophageal reflux disease without esophagitis Plan Albanian #Humberto live Subjective Patient reports variable bowel responses with different Linzess doses. States the lower-dose capsule caused diarrhea, while the higher dose previously caused cramps and only resulted in a single bowel movement. He has been taking the 72 dose around 3 PM when at home and drinks ample water with the medication. Due to schedule constraints (caregiving and appointments), he often takes it every other day. Bowel movement typically occurs approximately six hours after dosing. Taking it at bedtime led to nocturnal accidents. He suggests taking it at 6 PM daily, anticipating effect by around 2 AM. Notes he has been eating less at times, which may leave his stomach empty. Objective Assessment & Plan Linzess (linaclotide) regimen optimization: Patient experiences diarrhea on the lower-dose capsule at times and cramps previously on the higher dose. Bowel movements occur about six hours post-dose. Bedtime dosing caused nocturnal accidents. He has been taking the 72 dose inconsistently due to schedule, which likely contributes to variable bowel function. We discussed establishing a consistent daily dosing time. - Take Linzess (72) daily at approximately 6 PM to allow for expected effect overnight while minimizing risk of nocturnal accidents. - If diarrhea occurs, hold the medication for one day, then resume the 6 PM daily schedule. - Continue adequate hydration with dosing. - Refills provided today. - Follow up in approximately three months (after the holidays, around October) to reassess response and tolerability. Medications: Changed From linaclotide (Linzess) 72 mcg PO DAILY PRN 30 caps 3RF Abdominal Discomfort K59.04 - Chronic idiopathic constipation To linaclotide (Linzess) 72 mcg PO DAILY 30 caps 6RF Abdominal Discomfort K59.04 - Chronic idiopathic constipation Refilled pantoprazole (Protonix) 40 mg PO DAILY 30 tabs 6RF 30 days K21.9 - Gastro- esophageal reflux disease without esophagitis famotidine (Pepcid) 40 mg PO DAILY PRN 30 tabs 6RF heartburn K21.9 - Gastro- esophageal reflux disease without esophagitis Coding Level of Care Code Est Pt Level 3 (49973) Diagnoses Chronic idiopathic constipation K59.04 Gastroesophageal reflux disease, unspecified whether esophagitis present K21.9 Esophagitis presence: esophagitis presence not specified
--- OUTSIDE RECORDS SUMMARY | 2025-08-19 15:14 | XMS_ITS | Clinical Summary ---
Author Organization [facility] Address [address] [place] [address] [place] [address] Phone Care Team Providers Care Catheterization Laboratory Technician Name Role Phone Salima Rodney MD Primary Care Provider [phone] Allergies Active Allergy Reactions Criticality Noted Date [...] 1 Active ergocalciferol (VITAMIN D2) 1.25 MG (61112 UT) capsule TOME 1 C PSULA POR [...] Medicaid [place] Care Teams Catheterization Laboratory Technician Relationship Specialty Start Date End Date Salima Rodney MD [address] [place], [place] PCP - General 10/09/20
--- OUTSIDE RECORDS SUMMARY | 2025-08-19 15:14 | XMS_ITS | Encounter Summary ---
Author Organization [employer] Address [address] [place] [address] Care Team Providers Care Sales Engagement Manager Name Role Phone Unavailable Primary Care Provider Unavailabl e Encounter Details Date Type Department Care Team (Late st Contact Info) Description 11/29/2022 Abstract [facility] AD[facility] D[facility] [address] [place] [address] Gatito Ritchie, DMD [address] [place] [address] Social History Tobacco Use Types Packs/Day Years [...]
--- OUTSIDE RECORDS SUMMARY | 2025-08-19 15:14 | XMS_ITS | Encounter Summary ---
Author Organization [employer] Address [address] [place] [address] Care Team Providers Care Career Services Coordinator Name Role Phone Unavailable Primary Care Provider Unavailabl e Encounter Details Date Type Department Care Team (Late st Contact Info) Description 09/19/2022 Abstract [facility] ADULT DENTAL [address] [place] [address] Dashawn Avery DDS [address] [place] [address] Social History Tobacco Use Types Packs/Day Years [...]
--- OUTSIDE RECORDS SUMMARY | 2025-08-19 15:14 | XMS_ITS | Clinical Summary ---
Author Organization [employer] Address [address] [place] [address] [address] [place] [address] Care Team Providers Care Recreational Leader Name Role Phone Unavailable Primary Care Provider [...] per sliding scale. max daily dose 66 [id number], # 30 mL, 3 Refills, Maintenance, 11/24/23 9:50:00 EST, Injection, [facility] #[id number], Partial fill upon patient request if the... [...] to complete this topic Insurance DENTAL - [facility]
--- OUTSIDE RECORDS SUMMARY | 2025-08-19 15:14 | XMS_ITS | Clinical Summary ---
Author Organization [facility] Address [address] [place] [address] Care Team Providers Care Hr Payroll Coordinator Name Role Phone Salima Rizo MD Primary Care Provider [phone] Social History Tobacco Use Types Packs/Day Years [...] Depression Screening 09/29/2024 COVID-19 Vaccine (1 - 2024-2 6 season) 2025 Influenza Vaccine (#1) 2025 RSV [...] age to complete this topic Care Teams Hr Payroll Coordinator Relationship Specialty Start Date End Date Salima Rizo MD [address] , [address] [facility] D/B/A: Dipak Arriazaat[facility] VIRAJ Quesada PCP - General Internal Medicine 05/20/18
== END 2025-08-19 16:42 | disposition home or self-care (01) ==
LOC: HO.HGI 15:08
PROVIDERS: PCP Internal Medicine; Visit Provider Nurse Practitioner
DX: K59.04 Chronic idiopathic constipation (principal); K21.9 Gastro-esophageal reflux disease without esophagitis
CPT/HCPCS: 99213

== ENCOUNTER → 2025-08-19 15:07 | Outpatient (BNVA) | payer OTHER, SELFPAY | PROVIDERS: PCP Internal Medicine; Visit Provider Nurse Practitioner | DX: K21.9 Gastro-esophageal reflux disease without esophagitis (principal); K59.04 Chronic idiopathic constipation | CPT/HCPCS: 99212 ==